=== PATIENT | male | born 1940 | race Caucasian/White ===

== ENCOUNTER → 2017-10-18 12:28 | Outpatient (CLI) | payer MEDICARE, OTHER, SELFPAY ==
[2017-10-18 13:23] LABS: Hemoglobin A1c 7.5 % (4.2-6.3)
== END ==
PROVIDERS: Family Provider Internal Medicine; PCP Internal Medicine; Visit Provider Nurse Practitioner
DX: E11.9 Type 2 diabetes mellitus without complications (principal)
CPT/HCPCS: 36415; 83036

== ENCOUNTER 2018-12-17 13:48 | Emergency (ER) | payer OTHER, MEDICARE, SELFPAY ==
[2018-03-12 12:45] VITALS: BMI 27.8
[2018-12-17 13:49] VITALS: BP 218/108; PULSE 84; RESP 20; TEMP 36.5; O2SAT 98; BMI 30.2
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
[2018-12-17 16:46] VITALS: BP 158/79; PULSE 81; RESP 22; O2SAT 97
--- NOTE | 2018-12-17 16:47 | ED.RN ---
THIS NURSE REVIEWED D/C INSTRUCTIONS WITH PT AND VISITOR. BOTH VERBALIZED UNDERSTANDING OF INSTRUCTIONS. IV D/C. V CATHETER INTACT. PT TOLERATED WELL. PT DENIES FURTHER NEEDS OR QUESTIONS AT THIS TIME. PT DECLINE TYLENOL
== END 2018-12-17 16:48 | disposition home or self-care (01) ==
PROVIDERS: Emergency Provider Emergency Medicine; Family Provider Internal Medicine; PCP Internal Medicine
DX: S09.90XA Unspecified injury of head, initial encounter (principal); R07.89 Other chest pain; V43.52XA Car driver injured in collision with other type car in traffic accident, initial encounter; Y93.9 Activity, unspecified; Y92.9 Unspecified place or not applicable; Y99.9 Unspecified external cause status; E11.22 Type 2 diabetes mellitus with diabetic chronic kidney disease; I12.9 Hypertensive chronic kidney disease with stage 1 through stage 4 chronic kidney disease, or unspecified chronic kidney disease; N18.9 Chronic kidney disease, unspecified; I99.9 Unspecified disorder of circulatory system; Z88.5 Allergy status to narcotic agent; Z88.2 Allergy status to sulfonamides; Z88.1 Allergy status to other antibiotic agents; Z79.4 Long term (current) use of insulin; Z79.02 Long term (current) use of antithrombotics/antiplatelets; Z79.899 Other long term (current) drug therapy; Z90.49 Acquired absence of other specified parts of digestive tract
CPT/HCPCS: 70450; 71046; 72125; 93005; 99284

== ENCOUNTER → 2020-04-29 14:52 | Outpatient (CLI) | payer MEDICARE, OTHER, SELFPAY ==
[2020-04-29 13:41] VITALS: BMI 31.6
[2020-04-29 17:09] LABS: Hemoglobin A1c 7.5 % (3.8-5.6)
[2020-04-29 17:18] LABS: ALB/GLOB Ratio 1.1 RATIO (0.9-2.4); AST(SGOT) 15 U/L (15-37); Alanine Aminotransfer ALT/SGPT 36 U/L (16-61); Albumin, Serum 3.5 g/dL (3.2-5.0); Alkaline Phosphatase 135 U/L (45-117); Anion Gap 6 (5-15); BUN 32 mg/dL (7-18); BUN/Creat Ratio 18.8 RATIO (10-20); Chloride 114 mmol/L (98-107); Cholesterol 109 mg/dL (200); EST Glomerular Filtration Rate 42 mL/min (>60); Est Glom Filt Rate - Afr Amer 50 mL/min (>60); Globulin 3.2 g/dL (2.2-4.2); Glucose 254 mg/dL (74-106); High Density Lipoprotein 69 mg/dL; Potassium 4.3 mmol/L (3.5-5.1); Protein, Total 6.7 g/dL (6.4-8.2); Sodium Level 144 mmol/L (136-145); Triglycerides 47 mg/dL; Very Low Density Lipoprotein 9 mg/dL (5-40)
[2020-04-29 17:19] LABS: Microalbumin,Random Urine 50.6 mg/L (NO RANGE EST.); Microalbumin:Creatinine Ratio 56.3 mg/g CRE (<30 mg/g CRE)
[2020-04-29 18:05] LABS: Absolute Lymphocyte Count 0.85 X10^3/uL (0.83-4.51); Absolute Neutrophil Count 3.1 X10^3/uL (2.0-7.7); Basophil# 0.01 X10^3/uL; Basophil% 0.2 % (0-1); Eosinophils% 2.3 % (0-5); Hematocrit 33.9 % (40-54); Hemoglobin 10.9 g/dL (13.0-16.5); Lymphocyte # 0.85 X10^3/ul (4.0); Lymphocyte % 19.1 % (19-41); Mean Corp Hgb Conc 32.2 g/dL (32-36); Mean Corpuscular Hgb 31.9 pg (27.0-32.0); Mean Corpuscular Volume 99.1 fL (80-94); Mean Platelet Vol. 12.3 fl (6.2-12.0); Monocyte# 0.42 X10^3/uL; Monocyte% 9.5 % (0-10); NRBC Flagged by Analyzer 0 % (0-5); Neutrophil # 3.05 X10^3/uL (2.7-7.7); Neutrophil % 68.7 % (47-70); Platelet Count 135 K/mm3 (150-450); RBC Distribution Width CV 13.4 % (11.6-14.6); RBC Distribution Width SD 48.9 fl (35.1-43.9); Red Blood Count 3.42 M/mm3 (4.6-6.2); White Blood Count 4.4 K/mm3 (4.4-11.0)
[2020-05-01 09:56] LABS: Ferritin 113 ng/mL (26-388); Iron 100 ug/dL (65-175); Iron Binding Capacity,Total 417 ug/dL (250-450)
== END ==
PROVIDERS: PCP Internal Medicine; Referring Provider Internal Medicine; Visit Provider Internal Medicine
DX: E11.9 Type 2 diabetes mellitus without complications (principal)
CPT/HCPCS: 36415; 80053; 80061; 82043; 82570; 82728; 83036; 83540; 83550; 85025

== ENCOUNTER → 2021-01-27 12:14 | Outpatient (CLI) | payer MEDICARE, OTHER, SELFPAY ==
[2021-01-27 15:41] LABS: Hemoglobin A1c 8.4 % (3.8-5.6)
[2021-01-27 15:55] LABS: ALB/GLOB Ratio 0.9 RATIO (0.9-2.4); AST(SGOT) 14 U/L (15-37); Alanine Aminotransfer ALT/SGPT 28 U/L (16-61); Albumin, Serum 3.4 g/dL (3.2-5.0); Alkaline Phosphatase 142 U/L (45-117); Anion Gap 7 (5-15); BUN 27 mg/dL (7-18); BUN/Creat Ratio 16.3 RATIO (10-20); Calcium,Total 9.2 mg/dL (8.5-10.1); Chloride 111 mmol/L (98-107); Creatinine, Serum 1.66 mg/dL (0.70-1.30); EST Glomerular Filtration Rate 43 mL/min (>60); Est Glom Filt Rate - Afr Amer 52 mL/min (>60); Globulin 3.6 g/dL (2.2-4.2); Glucose 223 mg/dL (74-106); Potassium 4.2 mmol/L (3.5-5.1); Sodium Level 142 mmol/L (136-145); T4 Free Direct 1.08 ng/dL (0.76-1.46); Thyroid Stim Hormone (TSH) 1.29 uIU/mL (0.358-3.74)
== END ==
PROVIDERS: PCP Internal Medicine; Visit Provider Internal Medicine
DX: E11.9 Type 2 diabetes mellitus without complications (principal); R00.0 Tachycardia, unspecified
CPT/HCPCS: 36415; 80053; 83036; 84439; 84443

== ENCOUNTER → 2021-02-01 | Outpatient (CLI) | payer MEDICARE, OTHER, SELFPAY ==
[2021-02-01 12:34] LABS: Microalbumin,Random Urine 62.4 mg/L (NO RANGE EST.); Microalbumin:Creatinine Ratio 49.5 mg/g CRE (<30 mg/g CRE)
== END | disposition home or self-care (01) ==
LOC: LABSPEC 10:14
PROVIDERS: PCP Internal Medicine; Visit Provider Internal Medicine
DX: E11.9 Type 2 diabetes mellitus without complications (principal)
CPT/HCPCS: 82043; 82570

== ENCOUNTER 2021-05-05 14:08 | Outpatient (CLI) | payer MEDICARE, OTHER, SELFPAY ==
[2021-05-05 15:33] LABS: Cholesterol 129 mg/dL (200); High Density Lipoprotein 66 mg/dL; PSA,Total - Annual Screen 2.16 ng/mL (0.00-4.00); Triglycerides 38 mg/dL; Very Low Density Lipoprotein 8 mg/dL (5-40)
== END 2021-05-05 23:59 | disposition home or self-care (01) ==
LOC: BIMLAB 14:09
PROVIDERS: PCP Internal Medicine; Referring Provider Internal Medicine; Visit Provider Internal Medicine
DX: E11.9 Type 2 diabetes mellitus without complications (principal); N40.0 Benign prostatic hyperplasia without lower urinary tract symptoms; Z12.5 Encounter for screening for malignant neoplasm of prostate
CPT/HCPCS: 36415; 80061; 84153; G0103

== ENCOUNTER → 2021-08-24 | Outpatient (CLI) | payer MEDICARE, OTHER, SELFPAY ==
[2021-08-24 15:51] LABS: Absolute Neutrophil Count 3.3 X10^3/uL (2.0-7.7); Basophil# 0.02 X10^3/uL; Basophil% 0.4 % (0-1); Eosinophil# 0.14 X10^3/uL; Eosinophils% 2.9 % (0-5); Hematocrit 35.4 % (40-54); Hemoglobin 11.7 g/dL (13.0-16.5); Lymphocyte % 20.5 % (19-41); Mean Corp Hgb Conc 33.1 g/dL (32-36); Mean Corpuscular Hgb 31.8 pg (27.0-32.0); Mean Corpuscular Volume 96.2 fL (80-94); Mean Platelet Vol. 12.3 fl (6.2-12.0); Monocyte# 0.39 X10^3/uL; NRBC Flagged by Analyzer 0 % (0-5); Neutrophil % 67.8 % (47-70); Platelet Count 188 K/mm3 (150-450); RBC Distribution Width CV 13.6 % (11.6-14.6); RBC Distribution Width SD 46.2 fl (35.1-43.9); Red Blood Count 3.68 M/mm3 (4.6-6.2); White Blood Count 4.9 K/mm3 (4.4-11.0)
[2021-08-24 16:06] LABS: AST(SGOT) 16 U/L (15-37); Alanine Aminotransfer ALT/SGPT 25 U/L (16-61); Albumin, Serum 3.4 g/dL (3.2-5.0); Alkaline Phosphatase 114 U/L (45-117); Anion Gap 5 (5-15); BUN 34 mg/dL (7-18); BUN/Creat Ratio 19.5 RATIO (10-20); Calcium,Total 9.3 mg/dL (8.5-10.1); Chloride 108 mmol/L (98-107); Creatinine, Serum 1.74 mg/dL (0.70-1.30); EST Glomerular Filtration Rate 40 mL/min (>60); Est Glom Filt Rate - Afr Amer 49 mL/min (>60); Globulin 3.5 g/dL (2.2-4.2); Glucose 263 mg/dL (74-106); Potassium 4.5 mmol/L (3.5-5.1); Protein, Total 6.9 g/dL (6.4-8.2); Sodium Level 140 mmol/L (136-145)
== END | disposition home or self-care (01) ==
LOC: BIMLAB 14:19
PROVIDERS: PCP Internal Medicine; Referring Provider Internal Medicine; Visit Provider Internal Medicine
DX: E11.9 Type 2 diabetes mellitus without complications (principal)
CPT/HCPCS: 36415; 80053; 85025

== ENCOUNTER → 2022-07-20 | Outpatient (CLI) | payer MEDICARE, OTHER, SELFPAY ==
[2022-07-20 17:10] LABS: ALB/GLOB Ratio 1.2 RATIO (0.9-2.4); AST(SGOT) 18 U/L (15-37); Alanine Aminotransfer ALT/SGPT 29 U/L (16-61); Albumin, Serum 3.6 g/dL (3.2-5.0); Alkaline Phosphatase 126 U/L (45-117); Anion Gap 5 (5-15); BUN 21 mg/dL (7-18); BUN/Creat Ratio 13.7 RATIO (10-20); Calcium,Total 8.7 mg/dL (8.5-10.1); Chloride 115 mmol/L (98-107); Cholesterol 117 mg/dL (200); Creatinine, Serum 1.53 mg/dL (0.70-1.30); EST Glomerular Filtration Rate 47 mL/min (>60); Est Glom Filt Rate - Afr Amer 56 mL/min (>60); Globulin 2.9 g/dL (2.2-4.2); Glucose 106 mg/dL (74-106); High Density Lipoprotein 67 mg/dL; Potassium 4.1 mmol/L (3.5-5.1); Protein, Total 6.5 g/dL (6.4-8.2); Sodium Level 144 mmol/L (136-145); Triglycerides 51 mg/dL; Very Low Density Lipoprotein 10 mg/dL (5-40)
[2022-07-20 17:15] LABS: Absolute Lymphocyte Count 1.01 X10^3/uL (0.83-4.51); Absolute Neutrophil Count 3.7 X10^3/uL (2.0-7.7); Basophil# 0.02 X10^3/uL; Basophil% 0.4 % (0-1); Eosinophil# 0.12 X10^3/uL; Eosinophils% 2.3 % (0-5); Hematocrit 33.6 % (40-54); Hemoglobin 11.1 g/dL (13.0-16.5); Lymphocyte # 1.01 X10^3/ul (0.83-4.51); Lymphocyte % 19.3 % (19-41); Mean Corpuscular Hgb 31.3 pg (27.0-32.0); Mean Corpuscular Volume 94.6 fL (80-94); Mean Platelet Vol. 12.1 fl (6.2-12.0); Monocyte# 0.37 X10^3/uL; Monocyte% 7.1 % (0-10); NRBC Flagged by Analyzer 0 % (0-5); Neutrophil # 3.69 X10^3/uL (2.7-7.7); Neutrophil % 70.7 % (47-70); Platelet Count 145 K/mm3 (150-450); RBC Distribution Width CV 13.4 % (11.6-14.6); RBC Distribution Width SD 46.5 fl (35.1-43.9); Red Blood Count 3.55 M/mm3 (4.6-6.2); White Blood Count 5.2 K/mm3 (4.4-11.0)
[2022-07-20 17:26] LABS: Microalbumin:Creatinine Ratio 191.7 mg/g CRE (<30 mg/g CRE)
[2022-07-20 17:47] LABS: Hemoglobin A1c 9.2 % (3.8-5.6)
== END | disposition home or self-care (01) ==
LOC: BIMLAB 14:50
PROVIDERS: PCP Internal Medicine; Visit Provider Internal Medicine
DX: E11.9 Type 2 diabetes mellitus without complications (principal); I10 Essential (primary) hypertension
CPT/HCPCS: 36415; 80053; 80061; 82043; 82570; 83036; 85025

== ENCOUNTER → 2022-09-26 | Outpatient (CLI) | payer MEDICARE, OTHER, SELFPAY ==
--- NOTE | 2022-09-26 15:05 | RAD_ITS ---
STUDY: X-RAY CHEST REASON FOR EXAM: Male, 81 years old. Cough TECHNIQUE: PA and lateral views of the chest. COMPARISON: Comparison is made with prior study dated December 17, 2014. FINDINGS: Scattered calcified granulomas. No focal infiltrate is seen. There is no demonstrated pleural abnormality. There is borderline cardiomegaly. Normal mediastinum and chiquita. Normal visualized pulmonary arteries. There is atherosclerotic calcification of the aortic arch with tortuosity. There are degenerative changes of the visualized thoracic spine. Normal visualized ribs, clavicles, and shoulders. There is no demonstrated abnormality of the visualized soft tissue structures of the upper abdomen. RAD/Chest PA and Lateral IMPRESSION: No acute abnormality is seen. Electronically Signed: Tobin Ch MD at 15:29 EDT ,
== END | disposition home or self-care (01) ==
PROVIDERS: PCP Internal Medicine; Referring Provider Physician Assistant; Visit Provider Physician Assistant
DX: R05.9 Cough, unspecified (principal)
CPT/HCPCS: 71046

== ENCOUNTER → 2023-03-06 | Outpatient (CLI) | payer MEDICARE, SELFPAY ==
[2023-03-06 13:46] LABS: Bacteria 0 SEEN /hpf (None Seen); Mucous, Urine 0 SEEN /hpf (<or=2+); Red Blood Cells-Urine 0 SEEN /hpf (0-5); Squamous Epithelial Cells - UA 0 SEEN /hpf (0-5); White Blood Cells 0 SEEN /hpf (0-5)
[2023-03-06 15:39] LABS: Color, Urine Yellow (Yellow); Glucose, Dipstick 100 mg/dl (Normal); Ketone-Dipstick Negative (Negative); Leukocyte Esterase-Dipstick Negative /ul (Negative); Nitrite-Dipstick Negative (Negative); Occult Blood-Urine Negative /ul (Negative); Protein-Dipstick 30 mg/dl (Negative); Urine Bilirubin Dipstick Negative (Negative); Urine Clarity Clear (Clear); Urine Urobilinogen Normal (Normal)
[2023-03-06 16:28] LABS: ALB/GLOB Ratio 1.1 RATIO (0.9-2.4); AST(SGOT) 23 U/L (15-37); Alanine Aminotransfer ALT/SGPT 28 U/L (16-61); Albumin, Serum 3.5 g/dL (3.2-5.0); Alkaline Phosphatase 163 U/L (45-117); Anion Gap 5 (5-15); BUN 23 mg/dL (7-18); BUN/Creat Ratio 12.8 RATIO (10-20); Chloride 108 mmol/L (98-107); Creatinine, Serum 1.79 mg/dL (0.70-1.30); EST Glomerular Filtration Rate 39 mL/min (>60); Est Glom Filt Rate - Afr Amer 47 mL/min (>60); Globulin 3.3 g/dL (2.2-4.2); Glucose 274 mg/dL (74-106); Potassium 4.6 mmol/L (3.5-5.1); Protein, Total 6.8 g/dL (6.4-8.2); Sodium Level 140 mmol/L (136-145)
[2023-03-06 16:56] LABS: Absolute Neutrophil Count 4.2 X10^3/uL (2.0-7.7); Basophil# 0.03 X10^3/uL; Basophil% 0.5 % (0-1); Eosinophil# 0.25 X10^3/uL; Hematocrit 34.6 % (40-54); Hemoglobin 11.6 g/dL (13.0-16.5); Lymphocyte % 20.7 % (19-41); Mean Corp Hgb Conc 33.5 g/dL (32-36); Mean Corpuscular Hgb 31.4 pg (27.0-32.0); Mean Corpuscular Volume 93.5 fL (80-94); Mean Platelet Vol. 11.8 fl (6.2-12.0); Monocyte# 0.44 X10^3/uL; NRBC Flagged by Analyzer 0 % (0-5); Neutrophil # 4.23 X10^3/uL (2.7-7.7); Neutrophil % 67.3 % (47-70); Platelet Count 171 K/mm3 (150-450); RBC Distribution Width CV 13.4 % (11.6-14.6); RBC Distribution Width SD 45.5 fl (35.1-43.9); White Blood Count 6.3 K/mm3 (4.4-11.0)
== END | disposition home or self-care (01) ==
LOC: BIMLAB 13:36
PROVIDERS: PCP Internal Medicine; Referring Provider Internal Medicine; Visit Provider Internal Medicine
DX: E11.9 Type 2 diabetes mellitus without complications (principal)
CPT/HCPCS: 36415; 80053; 81001; 85025

== ENCOUNTER → 2023-04-03 | Outpatient (CLI) | payer MEDICARE, SELFPAY ==
[2023-04-03 17:08] LABS: ALB/GLOB Ratio 1.1 RATIO (0.9-2.4); AST(SGOT) 16 U/L (15-37); Alanine Aminotransfer ALT/SGPT 24 U/L (16-61); Albumin, Serum 3.5 g/dL (3.2-5.0); Alkaline Phosphatase 179 U/L (45-117); Anion Gap 5 (5-15); BUN 30 mg/dL (7-18); BUN/Creat Ratio 14.1 RATIO (10-20); Calcium,Total 9.8 mg/dL (8.5-10.1); Chloride 106 mmol/L (98-107); Creatinine, Serum 2.13 mg/dL (0.70-1.30); EST Glomerular Filtration Rate 32 mL/min (>60); Est Glom Filt Rate - Afr Amer 38 mL/min (>60); Globulin 3.2 g/dL (2.2-4.2); Glucose 444 mg/dL (74-106); Potassium 4.2 mmol/L (3.5-5.1); Protein, Total 6.7 g/dL (6.4-8.2); Sodium Level 138 mmol/L (136-145); T4 Total, Thyroxin 5.8 ug/dL (4.5-12.1); Thyroid Stim Hormone (TSH) 1.28 uIU/mL (0.358-3.74)
[2023-04-03 17:13] LABS: Absolute Neutrophil Count 3.5 X10^3/uL (2.0-7.7); Basophil# 0.02 X10^3/uL; Basophil% 0.4 % (0-1); Eosinophil# 0.08 X10^3/uL; Eosinophils% 1.7 % (0-5); Hematocrit 30.8 % (40-54); Hemoglobin 10.4 g/dL (13.0-16.5); Lymphocyte % 14.7 % (19-41); Mean Corp Hgb Conc 33.8 g/dL (32-36); Mean Corpuscular Hgb 31.4 pg (27.0-32.0); Mean Corpuscular Volume 93.1 fL (80-94); Mean Platelet Vol. 11.6 fl (6.2-12.0); Monocyte# 0.41 X10^3/uL; Monocyte% 8.6 % (0-10); NRBC Flagged by Analyzer 0 % (0-5); Neutrophil # 3.53 X10^3/uL (2.7-7.7); Neutrophil % 74.4 % (47-70); Platelet Count 148 K/mm3 (150-450); RBC Distribution Width CV 13.1 % (11.6-14.6); RBC Distribution Width SD 44.8 fl (35.1-43.9); Red Blood Count 3.31 M/mm3 (4.6-6.2); White Blood Count 4.8 K/mm3 (4.4-11.0)
[2023-04-03 17:14] LABS: BNP,B-Type NATRIURETIC PEPTIDE 85.7 pg/mL (0-100)
--- OUTSIDE RECORDS SUMMARY | 2023-04-03 18:31 | XMS RPT_ITS | CCD ---
Author Name Unknown Address [address] [place] [id number] Organization [facility] Care Team Providers Care Harp Maker Name Role Phone [place], Trey S. Unavailable Yoly Mathews Unavailable UnavailYoly Pack Unavailable UnavailGRAEME Rondon Attending Unavailable GUME BUI Referring Unavailable [facility] Primary Care Unavailable ALONZO ALEXANDRE Attending Unavailable [facility] Referring Unavailable [facility] Primary Care Unavailable [place], Trey S. Primary Care Provider [place], Trey S. Primary Care Provider NAHUN JASSO Attending Unavailable ROYAL, TREY S. Primary Care Unavailable ROYAL, TREY S. Primary Care Unavailable NAHUN JASSO Attending Unavailable ROYAL, TREY S. Primary Care Unavailable NAHUN JASSO Attending Unavailable Agnes Suazo MD Primary Care Provider Kevon Watson MD Unavailable Agnes Suazo MD Primary Care Provider [phone] Ms. Sandro Gaines Attending Dr. Agnes Vazquez Primary Care Unavailable Dr. Agnes Suazo Primary Care Unavailable Ms. Sandro Gaines Attending Agnes Vazquez Unavailable [phone] Sandro Gaines Unavailable Unavailable Agnes Suazo MD Primary Care Provider Walter WOLFE Kevon Unavailable Agnes Suazo MD Primary Care Provider OLEGHE, EFEWONGBE B Primary Care Unavailable BRIANNA TINEO II Attending Unavailabl e ELVIS MCMAHAN K Referring Unavailable OLEGHE, EFEWONGBE B Primary Care Unavailable ELVIS MCMAHAN K Referring Unavailable MCMAHANELVIS K Attending Unavailable OLEGHE, EFEWONGBE B Primary Care Unavailable ELVIS MCMAHAN Referring Unavailable MCMAHANELVIS Attending Unavailable Oleghe MD Efewongbe B Primary Care Provider YOLY MATHEWS Attending Unavailable OLEGHE, EFEWONGBE B Primary Care Unavailable YOLY MATHEWS Referring Unavailable OLEGHE, EFEWONGBE B Primary Care Unavailable YOLY MATHEWS Referring Unavailable YOLY MATHEWS Attending Unavailable OLEGHE, EFEWONGBE B Primary Care Unavailable YOLY MATHEWS Referring Unavailable YOLY MATHEWS Unavailable YOLY MATHEWS Referring Unavailable OLEGHE, EFEWONGBE B Primary Care Unavailable YOLY MATHEWS Attending Unavailable YOLY MATHEWS Attending Unavailable SWIYOLY SIMMONS Referring Unavailable OLEGHE, EFEWONGBE B Primary Care Unavailable YOLY MATHEWS Attending Unavailable OLEGHE, EFEWONGBE B Primary Care Unavailable SELF, SELF Referring Unavailable YOLY MATHEWS Attending Unavailable SWIYOLY SIMMONS Referring Unavailable OLEGHE, EFEWONGBE B Primary Care Unavailable YOLY MATHEWS Attending Unavailable SWIYOLY SIMMONS Referring Unavailable OLEGHE, EFEWONGBE B Primary Care Unavailable YOLY MATHEWS Attending Unavailable YOLY MATHEWS Referring Unavailable OLEGHE, EFEWONGBE B Primary Care Unavailable SWIYOLY SIMMONS Attending Unavailable SWIYOLY SIMMONS Referring Unavailable OLEGHE, EFEWONGBE B Primary Care Unavailable SWIYOLY SIMMONS Attending Unavailable SWIYOLY SIMMONS Referring Unavailable OLEGHE, EFEWONGBE B Primary Care Unavailable YOLY MATHEWS Referring Unavailable SWIATEYOLY Winn Attending Unavailable OLEGHE, EFEWONGBE B Primary Care Unavailable SWIYOLY SIMMONS Attending Unavailable SWIYOLY SIMMONS Referring Unavailable OLEGHE, EFEWONGBE B Primary Care Unavailable YOLY MATHEWS Attending Unavailable SWIYOLY SIMMONS Referring Unavailable OLEGHE, EFEWONGBE B Primary Care Unavailable SWIYOLY SIMMONS Attending Unavailable SWIATEKYOLY Referring Unavailable OLEGHE, EFEWONGBE B Primary Care Unavailable JOAQUINJo YOLY Enrique Referring Unavailable REIDYOLY Attending Unavailable LORIE, EFEWONGBE B Primary Care Unavailable REID YOLY Enrique Referring Unavailable REIDYOLY Attending Unavailable OLEGHE, EFEWONGBE B Primary Care Unavailable JOAQUINYOLY Winn Enrique Referring Unavailable REIDYOLY Attending Unavailable LORIE, EFEWONGBE B Primary Care Unavailable REID YOLY Enrique Referring Unavailable OLEZANDERE, EFEWONGBE B Primary Care Unavailable REID YOLY Enrique Attending Unavailable REID YOLY Enrique Referring Unavailable LORIE, EFEWONGBE B Primary Care Unavailable REID YOLY Enrique Attending Unavailable Allergies Allergy Classification Reported Allergen(s) Allergy Type Date of Onset Reaction(s) Facility (20 sources) acetaminophen / HYDROcodone; Translations: [HYDROCODONE-ACETAM INOPHEN] Drug Allergy 03-14-19 15 Mental Status Change [facility] (20 sources) cephalexin; Translations: [CEPHALEXIN] Drug Allergy 06-30-19 17 Rash [facility] (20 sources) sulfamethoxazole / trimethoprim; Translations: [SULFAMETHOXAZOLE-T RIMETHOPRIM] Drug Allergy 06-30-19 17 Rash [facility] (20 sources) HYDROcodone; Translations: [HYDROCODONE] Drug Allergy 03-12-19 19 Unknown [facility] (20 sources) Sulfamethoxazole; Translations: [SULFAMETHOXAZOLE] Drug Allergy 03-12-19 19 Unknown [facility] (20 sources) Trimethoprim; Translations: [TRIMETHOPRIM] Drug Allergy 03-12-19 19 Unknown [facility] (5 sources) Acetaminophen; Translations: [ACETAMINOPHEN] Drug Allergy 12-18-19 19 Unknown [facility] (1 source) Sulfamethoxazole / Trimethoprim Drug Allergy Rash [facility] (5 sources) Sulfamethoxazole Propensity to adverse reactions to drug 03-12-[address] [facility] Medications Current Medications Medication Drug Class(es) Dates Sig (Normalized) Sig (Original) ascorbic acid 60 mg / beta carotene 5000 unt / copper sulfate 40 mg / dl-alpha tocopheryl acetate 30 unt / sodium selenite 0.04 mg / zinc oxide 40 mg oral tablet (19 sources) Vitamin C Multiple Vitamins-Minerals (Multivitamin Adult) tablet 1 tablet 0 Active aspirin 81 mg delayed release oral tablet (20 sources) Nonsteroidal Anti-inflammatory Drug Aspirin [address] tablet 1 tablet 0 Active Completed/Discontinued Medications Medication Drug Class(es) Dates Sig (Normalized) Sig (Original) amoxicillin 500 mg oral capsule (6 sources) Penicillin-class Antibacterial Start: 04-29-2022 End: 08-09-2022 Amoxicillin 500 MG capsule Problems Active Problems Problem Classification Problem Date Documented Date Episodic/Chronic Allergic reactions (1 source) Allergy status to penicillin; Translations: [Allergy status to penicillin] Onset: 11-29-2021 Episodic Blindness and vision defects (1 source) Hyperopia of right eye; Translations: [Hypermetropia, right eye] Episodic Blindness and vision defects (2 sources) Myopia of left eye; Translations: [Myopia, left eye] Episodic Cataract (16 sources) After-cataract not obscuring vision following extraction of cataract; Translations: [Other secondary cataract, right eye] Onset: 12-09-2013 Chronic Chronic kidney disease (5 sources) Chronic kidney disease; Translations: [Chronic kidney disease, unspecified] Onset: 05-16-2018 Chronic Chronic ulcer of skin (20 sources) Non-pressure chronic ulcer of other part of right foot limited to breakdown of skin; Translations: [Ulcer of other part of foot] Onset: 04-14-2022 Chronic Diabetes mellitus with complications (20 sources) Polyneuropathy due to type 2 diabetes mellitus; Translations: [Type 2 diabetes mellitus with diabetic polyneuropathy] Onset: 10-09-2018 Chronic Diabetes mellitus without complication (7 sources) Diabetes mellitus type 2 without retinopathy; Translations: [Type 2 diabetes mellitus without complications] Onset: 05-19-2020 Chronic Disorders of lipid metabolism (20 sources) Mixed hyperlipidemia; Translations: [Mixed hyperlipidemia] Onset: 05-16-2018 01-22-2020 Chronic E Codes: Fall (3 sources) Unspecified fall, initial encounter; Translations: [Fall (on) (from) other stairs and steps, initial encounter] Onset: 11-29-2021 Episodic Essential hypertension (20 sources) Essential hypertension; Translations: [Essential (primary) hypertension] Onset: 09-13-2017 01-22-2020 Chronic Inflammation; infection of eye (except that caused by tuberculosis or sexually transmitteddisease) (5 sources) Bilateral punctate keratitis of eyes; Translations: [Punctate keratitis, bilateral] Onset: 02-15-2017 Chronic Mycoses (4 sources) Onychomycosis due to dermatophyte ; Translations: [Tinea unguium] Episodic Other aftercare (1 source) USP (current) use of insulin; Translations: [USP (current) use of insulin] Onset: 11-29-2021 Episodic Other congenital anomalies (1 source) Congenital anomaly of foot; 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), including pelvic girdle] Chronic Other connective tissue disease (3 sources) Pain of toe of right foot; Translations: [Pain in right toe(s)] Episodic Other connective tissue disease (2 sources) Pain of toe of left foot; Translations: [Pain in left toe(s)] Episodic Other connective tissue disease (1 source) Nontraumatic complete rupture of rotator cuff of right shoulder; Translations: [Nontraumatic complete tear of right rotator cuff] Other eye disorders (5 sources) Constricted pupil; 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] Onset: 05-19-2020 Chronic Other eye disorders (4 sources) Hemorrhage of right vitreous body; Translations: [Vitreous hemorrhage, right eye] Onset: 12-03-2014 12-03-2014 Chronic Other eye disorders (4 sources) Bilateral vitreous floaters; Translations: [Other vitreous opacities, bilateral] Onset: 12-23-2015 12-23-2015 Chronic Other eye disorders (4 sources) Bilateral posterior vitreous detachment; Translations: [Vitreous degeneration, bilateral] Onset: 06-19-2018 06-19-2018 Chronic Other eye disorders (2 sources) Meibomian gland dysfunction of bilateral eyes; Translations: [Meibomian gland dysfunction right eye, upper and lower eyelids] Onset: 03-25-2022 03-25-2022 Episodic Other eye disorders (2 sources) Chalazion of lower eyelid of right eye; Translations: [Chalazion right lower eyelid] Onset: 03-25-2022 03-25-2022 Episodic Other injuries and conditions due to external causes (1 source) Other injury of unspecified body region, initial encounter; Translations: [Other injury of unspecified body region, initial encounter] Onset: 11-29-2021 Episodic Other nervous system disorders (2 sources) Carpal tunnel syndrome, left upper limb; Translations: [Carpal tunnel syndrome of left wrist] Onset: 11-27-2017 11-27-2017 Chronic Other non-traumatic joint disorders (2 sources) Pain in left knee; Translations: [Pain in left knee] Onset: 11-29-2021 Episodic Other nutritional; endocrine; and metabolic disorders (19 sources) Obese class I; Translations: [Obesity, unspecified] Onset: 09-24-2018 09-24-2018 Chronic Other nutritional; endocrine; and metabolic disorders (4 sources) Obesity; Translations: [Obesity, unspecified] Onset: 12-31-2013 12-31-2013 Chronic Other skin disorders (4 sources) Foot callus; Translations: [Corns and callosities] Episodic Other skin disorders (1 source) Other skin changes; Translations: [Other skin changes] Onset: 11-29-2021 Episodic Skin and subcutaneous tissue infections (1 source) Cellulitis of left lower limb; Translations: [Cellulitis of left lower limb] Onset: 11-29-2021 Episodic Superficial injury; contusion (2 sources) Abrasion of lower limb; Translations: [Contusion of left knee, initial encounter] Onset: 11-29-2021 Episodic Unclassified (7 sources) Carpal tunnel syndrome of left wrist; Translations: [Carpal tunnel syndrome of left wrist] Onset: 11-27-2017 11-27-2017 Unclassified (2 sources) Impingement syndrome of right shoulder; Translations: [Impingement syndrome of right shoulder] Unclassified (2 sources) Occlusion and stenosis of left carotid artery Onset: 10-25-2017 Unclassified (2 sources) L KNEE PAIN 11-29-2021 Past or Other Problems Problem Classification Problem Date Documented Date Episodic/Chronic Other and unspecified benign neoplasm (4 sources) History of adenomatous polyp of colon; Translations: [Personal history of colonic polyps] Onset: 12-31-2013 12-31-2013 Episodic Other connective tissue disease (1 source) Pain in right foot; Translations: [Pain in right foot] Episodic Other diseases of veins and lymphatics (4 sources) Stasis dermatitis; Translations: [Venous insufficiency (chronic) (peripheral)] Onset: 12-31-2013 12-31-2013 Episodic Other non-traumatic joint disorders (3 sources) Shoulder pain; Translations: [Chronic pain of both shoulders] Episodic Retinal detachments; defects; vascular occlusion; and retinopathy (4 sources) Retinal U tear; Translations: [Horseshoe tear 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 detachment, right eye] Onset: 12-03-2014 12-03-2014 Episodic Unclassified (2 sources) Onset: 06-16-2022 Resolved: 08-09-2022 06-16-2022 Results Test Name Value Interpretation Reference Range Facil ity Vital Signs Date Time Vital Sign Value Performing Clinician Facility 03-21-2023 13:40-0500 Body height 157.5 cm Yoly Poojapattik DPM Work Phone: [facility] 03-21-2023 13:40-0500 Body mass index (BMI) [Ratio] 32.01 kg/m2 Yoly Swiatek DPM Work Phone: [facility] 03-21-2023 13:40-0500 Body weight 79.38 kg Yoly Poojaatek DPM Work Phone: [facility] 03-21-2023 13:40-0500 Diastolic blood pressure 70 mm[Hg] Yoly Pattonatek DPM Work Phone: [facility] 03-21-2023 13:40-0500 Systolic blood pressure 156 mm[Hg] Yoly Pattonatek DPM Work Phone: [facility] 01-26-2023 15:08-0500 Body height 157.5 cm Yoly Poojaatek DPM Work Phone: [facility] 01-26-2023 15:08-0500 Body mass index (BMI) [Ratio] 32.01 kg/m2 Yoly Poojaatek DPM Work Phone: [facility] 01-26-2023 15:08-0500 Body weight 79.38 kg Yoly Poojaatek DPM Work Phone: [facility] 01-26-2023 15:08-0500 Diastolic blood pressure 60 mm[Hg] Yoly Pattonatek DPM Work Phone: [facility] 01-26-2023 15:08-0500 Heart rate 82 /min Yoly Pattonatek DPM Work Phone: [facility] 01-26-2023 15:08-0500 Systolic blood pressure 150 mm[Hg] Yoly Swiatek DPM Work Phone: [facility] 01-12-2023 14:14-0500 Body height 157.5 cm Yoly Mathews DPM Work Phone: [facility] 01-12-2023 14:14-0500 Body mass index (BMI) [Ratio] 32.01 kg/m2 Yoly Nuñezk DPM Work Phone: [facility] 01-12-2023 14:14-0500 Body weight 79.38 kg Yoly Nuñezk DPM Work Phone: [facility] 01-12-2023 14:14-0500 Diastolic blood pressure 70 mm[Hg] Yoly Nuñezk DPM Work Phone: [facility] 01-12-2023 14:14-0500 Heart rate 92 /min Yoly Nuñezk DPM Work Phone: [facility] 01-12-2023 14:14-0500 Systolic blood pressure 180 mm[Hg] Yoly Nuñezk DPM Work Phone: [facility] 12-20-2022 13:53-0500 Body height 157.5 cm Yoly Nuñezk DPM Work Phone: [facility] 12-20-2022 13:53-0500 Body mass index (BMI) [Ratio] 32.01 kg/m2 Yoly Nuñezk DPM Work Phone: [facility] 12-20-2022 13:53-0500 Body weight 79.38 kg Yoly Mathews DPM Work Phone: [facility] 12-20-2022 13:53-0500 Diastolic blood pressure 68 mm[Hg] Yoly Nuñezk DPM Work Phone: [facility] 12-20-2022 13:53-0500 Heart rate 90 /min Yoly Poojaatek DPM Work Phone: [facility] 12-20-2022 13:53-0500 SaO2% (BldA) [Mass fraction] 98 % Yoly Mathews DPM Work Phone: [facility] 12-20-2022 13:53-0500 Systolic blood pressure 158 mm[Hg] Yoly Mathews DPM Work Phone: [facility] 10-18-2022 14:04-0400 Body height 157.5 cm Yoly Mathews DPM Work Phone: [facility] 10-18-2022 14:04-0400 Body mass index (BMI) [Ratio] 32.01 kg/m2 Yoly Nuñezk DPM Work Phone: [facility] 10-18-2022 14:04-0400 Body weight 79.38 kg Yoly Mathews DPM Work Phone: [facility] 10-18-2022 14:04-0400 Diastolic blood pressure 74 mm[Hg] Yoly Joaquink DPM Work Phone: [facility] 10-18-2022 14:04-0400 Systolic blood pressure 142 mm[Hg] Yoly Nuñezk DPM Work Phone: [facility] 08-09-2022 13:49-0400 Body height 157.5 cm Yoly Mathews DPM Work Phone: [facility] 08-09-2022 13:49-0400 Body mass index (BMI) [Ratio] 32.01 kg/m2 Yoly Nuñezk DPM Work Phone: [facility] 08-09-2022 13:49-0400 Body weight 79.38 kg Yoly Mathews DPM Work Phone: [facility] 08-09-2022 13:49-0400 Diastolic blood pressure 82 mm[Hg] Yoly Joaquink DPM Work Phone: [facility] 08-09-2022 13:49-0400 Heart rate 60 /min Yoly Reid DPM Work Phone: [facility] 08-09-2022 13:49-0400 SaO2% (BldA) [Mass fraction] 98 % Yoly Pattonatek DPM Work Phone: [facility] 08-09-2022 13:49-0400 Systolic blood pressure 152 mm[Hg] Yoly Nuñezk DPM Work Phone: [facility] 06-16-2022 14:16-0400 Body height 157.5 cm Yoly Nuñezk DPM Work Phone: [facility] 06-16-2022 14:16-0400 Body mass index (BMI) [Ratio] 32.01 kg/m2 Yoly Pattonatek DPM Work Phone: [facility] 06-16-2022 14:16-0400 Body weight 79.38 kg Yoly Poojaatek DPM Work Phone: [facility] 06-16-2022 14:16-0400 Diastolic blood pressure 88 mm[Hg] Yoly Poojaatek DPM Work Phone: [facility] 06-16-2022 14:16-0400 Heart rate 70 /min Yoly Pattonatek DPM Work Phone: [facility] 06-16-2022 14:16-0400 SaO2% (BldA) [Mass fraction] 98 % Yoly Pattonatek DPM Work Phone: [facility] 06-16-2022 14:16-0400 Systolic blood pressure 158 mm[Hg] Yoly Joaquink DPM Work Phone: [facility] 06-02-2022 13:31-0400 Body height 157.5 cm Yoly Joaquink DPM Work Phone: [facility] 06-02-2022 13:31-0400 Body mass index (BMI) [Ratio] 32.01 kg/m2 Yoly Poojaatek DPM Work Phone: [facility] 06-02-2022 13:31-0400 Body weight 79.38 kg Yoly Joaquink DPM Work Phone: [facility] 06-02-2022 13:31-0400 Diastolic blood pressure 90 mm[Hg] Yoly Mathews DPM Work Phone: [facility] 06-02-2022 13:31-0400 Systolic blood pressure 190 mm[Hg] Yoly Mathews DPM Work Phone: [facility] 05-03-2022 13:51-0400 Body height 157.5 cm Yoly Mathews DPM Work Phone: [facility] 05-03-2022 13:51-0400 Body mass index (BMI) [Ratio] 32.01 kg/m2 Yoly Mathews DPM Work Phone: [facility] 05-03-2022 13:51-0400 Body weight 79.38 kg Yoly Mathews DPM Work Phone: [facility] 05-03-2022 13:51-0400 Diastolic blood pressure 86 mm[Hg] Yoly Mathews DPM Work Phone: [facility] 05-03-2022 13:51-0400 Heart rate 88 /min Yoly Mathews DPM Work Phone: [facility] 05-03-2022 13:51-0400 SaO2% (BldA) [Mass fraction] 97 % Yoly Mathews DPM Work Phone: [facility] 05-03-2022 13:51-0400 Systolic blood pressure 164 mm[Hg] Yoly Mathews DPM Work Phone: [facility] 03-24-2022 13:55-0500 Body height 157.5 cm Yoly Mathews DPM Work Phone: [facility] 03-24-2022 13:55-0500 Body mass index (BMI) [Ratio] 32.01 kg/m2 Yoly Mathews DPM Work Phone: [facility] 03-24-2022 13:55-0500 Body weight 79.38 kg [facility]ws [facility] 03-24-2022 13:55-0500 Diastolic blood pressure 62 mm[Hg] Yoly Reid DPM Work Phone: [facility] [employer] [facility] 03-24-2022 13:55-0500 Heart rate 77 /min Yoly Joaquink DPM Work Phone: [facility] [employer] [facility] 03-24-2022 13:55-0500 Systolic blood pressure 140 mm[Hg] Yoly Joaquink DPM Work Phone: [facility] [employer] [facility] 01-27-2022 14:02-0500 Body height 157.5 cm Yoly Poojapattik DPM Work Phone: [facility] 01-27-2022 14:02-0500 Body mass index (BMI) [Ratio] 32.01 kg/m2 Yoly Poojapattik DPM Work Phone: [facility] [employer] [facility] 01-27-2022 14:02-0500 Body weight 79.38 kg Yoly Nuñezk DPM Work Phone: [facility] [employer] [facility] 01-27-2022 14:02-0500 Diastolic blood pressure 54 mm[Hg] Yoly Joaquink DPM Work Phone: [facility] [employer] [facility] 01-27-2022 14:02-0500 Heart rate 63 /min Yoly Reid DPM Work Phone: [facility] 01-27-2022 14:02-0500 SaO2% (BldA) [Mass fraction] 96 % Yoly Poojaatek DPM Work Phone: [facility] [employer] [facility] 01-27-2022 14:02-0500 Systolic blood pressure 134 mm[Hg] Yoly Mathews DPM Work Phone: [facility] 01-11-2022 13:51-0500 Body height 157.5 cm Yoly uNñezk DPM Work Phone: [facility] [employer] [facility] 01-11-2022 13:51-0500 Body mass index (BMI) [Ratio] 32.01 kg/m2 Yoly Mathews DPM Work Phone: [employer] [facility] 01-11-2022 13:51-0500 Body weight 79.38 kg Yoly Mathews DPM Work Phone: [employer] [facility] 01-11-2022 13:51-0500 Diastolic blood pressure 62 mm[Hg] Yoly Mathews DPM Work Phone: [facility] 01-11-2022 13:51-0500 Systolic blood pressure 132 mm[Hg] [facility]ws [facility] 11-29-2021 15:35-0400 Body height 160 cm Efewongbe Oleghe Other Phone: [facility] 11-29-2021 15:35-0400 Body temperature 97.88 [degF] Efewongbe Oleghe Other Phone: [facility] 11-29-2021 15:35-0400 Diastolic blood pressure 76 mm[Hg] Efewongbe Oleghe Other Phone: [facility] 11-29-2021 15:35-0400 Heart rate 78 /min Efewongbe Oleghe Other Phone: [facility] 11-29-2021 15:35-0400 Respiratory rate 18 /min Efewongbe Oleghe Other Phone: [facility] 11-29-2021 15:35-0400 SaO2% (BldA) [Mass fraction] 96 % Efewongbe Oleghe Other Phone: [facility] 11-29-2021 15:35-0400 Systolic blood pressure 213 mm[Hg] Efewongbe Oleghe Other Phone: [facility] 11-02-2021 13:53-0400 Body height 157.5 cm Yoly Mathews DPM Work Phone: [facility] 11-02-2021 13:53-0400 Body mass index (BMI) [Ratio] 32.01 kg/m2 Yoly Mathews DPM Work Phone: [facility] [employer] [facility] 11-02-2021 13:53-0400 Body weight 79.38 kg Yoly Mathews DPM Work Phone: [facility] [employer] [facility] 11-02-2021 13:53-0400 Diastolic blood pressure 68 mm[Hg] Yoly Reid DPM Work Phone: [facility] 11-02-2021 13:53-0400 Heart rate 70 /min Yoly Reid DPM Work Phone: [facility] [employer] [facility] 11-02-2021 13:53-0400 Systolic blood pressure 160 mm[Hg] Yoly Reid DPM Work Phone: [facility] [employer] [facility] 09-16-2021 13:40-0400 Body height 157.5 cm Yoly Mathews DPM Work Phone: [facility] 09-16-2021 13:40-0400 Body mass index (BMI) [Ratio] 32.01 kg/m2 Yoly Mathews DPM Work Phone: [facility] 09-16-2021 13:40-0400 Body weight 79.38 kg Yoly Mathews DPM Work Phone: [facility] [employer] [facility] 09-16-2021 13:40-0400 Diastolic blood pressure 76 mm[Hg] Yoly Poojapattijo DPM Work Phone: [facility] [employer] [facility] 09-16-2021 13:40-0400 Heart rate 58 /min Yoly Poojapattioj DPM Work Phone: [facility] [employer] [facility] 09-16-2021 13:40-0400 SaO2% (BldA) [Mass fraction] 96 % Yoly Poojapattijo DPM Work Phone: [facility] [employer] [facility] 09-16-2021 13:40-0400 Systolic blood pressure 158 mm[Hg] Yoly Swiatek DPM Work Phone: [facility] 08-19-2021 14:04-0400 Body height 157.5 cm Yoly Mathews DPM Work Phone: [facility] 08-19-2021 14:04-0400 Body mass index (BMI) [Ratio] 32.01 kg/m2 Yoly Poojapattik DPM Work Phone: [facility] 08-19-2021 14:04-0400 Body weight 79.38 kg Yoly Poojavishnu DPM Work Phone: [facility] 08-19-2021 14:04-0400 Diastolic blood pressure 52 mm[Hg] Yoly Nuñezk DPM Work Phone: [facility] 08-19-2021 14:04-0400 Heart rate 75 /min Yoly Mathews DPM Work Phone: [facility] 08-19-2021 14:04-0400 SaO2% (BldA) [Mass fraction] 95 % Yoly Poojapattik DPM Work Phone: [facility] 08-19-2021 14:04-0400 Systolic blood pressure 138 mm[Hg] Yoly Mathews DPM Work Phone: [facility] 06-03-2021 14:03-0400 Body height 157.5 cm Yoly Mathews DPM Work Phone: [facility] 06-03-2021 14:03-0400 Body mass index (BMI) [Ratio] 32.01 kg/m2 Yoly Mathews DPM Work Phone: [facility] 06-03-2021 14:03-0400 Body weight 79.38 kg Yoly Mathews DPM Work Phone: [facility] 06-03-2021 14:03-0400 Diastolic blood pressure 50 mm[Hg] Yoly Mathews DPM Work Phone: [facility] 06-03-2021 14:03-0400 Heart rate 75 /min Yoly Swiatek DPM Work Phone: [employer] [facility] 06-03-2021 14:03-0400 Systolic blood pressure 150 mm[Hg] Yoly Nuñezk DPM Work Phone: [facility] 10-01-2020 14:05-0400 Body height 157.5 cm Yoly Nuñezk DPM Work Phone: [facility] 10-01-2020 14:05-0400 Body mass index (BMI) [Ratio] 32.01 kg/m2 Yoly Pattonatek DPM Work Phone: [facility] 10-01-2020 14:05-0400 Body weight 79.38 kg Yoly Nuñezk DPM Work Phone: [facility] 10-01-2020 14:05-0400 Diastolic blood pressure 62 mm[Hg] Yoly Nuñezk DPM Work Phone: [facility] 10-01-2020 14:05-0400 Heart rate 65 /min Yoly Mathews DPM [facility] 10-01-2020 14:05-0400 Systolic blood pressure 140 mm[Hg] Yoly Nuñezk DPM Work Phone: [facility] 01-15-2020 13:09-0500 BMI (Body Mass Index) 28.32 kg/m2 [facility] 01-15-2020 13:09-0500 Body weight 74.84 kg [facility] 01-15-2020 13:090500 Height 162.6 cm [facility] 01-29-2019 15:07-0500 BMI (Body Mass Index) 28.32 kg/m2 [facility] 01-29-2019 15:07-0500 [facility] 14:0400 BMI (Body Mass Index) 28.32 kg/m2 [facility] 10-19-2017 14:0400 Height 162.6 cm [facility] 10-19-2017 14:0400 Weight 74.84 kg Nahun Jasso [facility] Encounters Encounter Date Encounter Type Care Provider Facility Start: 03-21-2023 ambulatory YOLY MATHEWS [facility] Start: 03-21-2023 End: 03-21-2023 Office outpatient visit 15 minutes Yoly Nuñezk DPM Work Phone: [facility] Procedures Date Procedure Procedure Detail Performing Clinician Start: 10-18-2022 Debridement subcutan eous tissue 20 sq cm/< Yoly Nunez Swiatek DPM Work Phone: Start: 06-02-2022 Radex foot complete minimum 3 views Yoly Pattonatek DPM Work Phone: Start: 04-20-2022 Post-cataract laser surgery Elvis Mcmahan MD Work Phone: Start: 03-24-2022 Debridement open wou nd 20 sq cm/< Yoly Nunez Swiatek DPM Work Phone: Start: 01-11-2022 Debridement open wou nd 20 sq cm/< Yoly Nunez Swiatek DPM Work Phone: Start: 11-02-2021 Debridement nail any method 6/> Yoly Nunez Swiatek DPM Work Phone: Start: 11-02-2021 Paring/cutting benig n hyperkeratotic lesion 2-4 Yoly Nunez Swiatek DPM Work Phone: Start: 08-19-2021 Debridement subcutan eous tissue 20 sq cm/< Yoly Nunez Swiatek DPM Work Phone: Start: 06-03-2021 Debridement nail any method 6/> Yoly Nunez Swiatek DPM Work Phone: Start: 06-03-2021 Paring/cutting benig n hyperkeratotic lesion 2-4 Yoly Nunez Swiatek DPM Work Phone: Start: 10-01-2020 Debridement nail any method 6/> Yoly Nunez Swiatek DPM Work Phone: Start: 10-01-2020 Paring/cutting benig n hyperkeratotic lesion 2-4 Yoly Mathews DPM Work Phone: Start: 01-21-2020 Medicare Annual Well ness Visit Start: 01-15-2020 Arthrocentesis Nahun Jasso Work Phone: Start: 07-10-2019 Arthrocentesis Nahun Jasso Work Phone: Start: 04-22-2019 Follow-up visit Start: 01-29-2019 Arthrocentesis Nahun Jasso Work Phone: Start: 10-23-2018 End: 10-23-2018 Arthrocentesis Nahun Jasso Work Phone: Start: 10-19-2017 End: 10-19-2017 Radex shoulder complete minimum 2 views Nahun Jasso Work Phone: Start: 10-19-2017 End: 10-19-2017 Arthrocentesis aspir&/inj major jt/bursa w/o us Nahun Jasso Work Phone: Plan of Treatment Date Care Activity Detail Author Start: 05-11-2023 End: 05-11-2023 Patient encounter procedure 05/11/2023 2:30 PM EDT Office Visit [facility] [address] [place] [address] Yoly Mathews, PURAM [address] [place] [address] [facility] Start: 04-21-2023 Hepatitis C antibody , confirmatory test DILATED RETINAL EXAM [facility] Start: 04-11-2023 End: 04-11-2023 Patient encounter procedure 04/11/2023 2:30 PM EST Office Visit [facility] [address] [place] [address] Yoly Mathews, DPM [address] [place] [address] [facility] Start: 03-07-2023 End: 03-07-2023 Patient encounter procedure 03/07/2023 2:50 PM EST Office Visit [facility] [address] [place] [address] Yoly Mathews, DPM [address] [place] [address] [facility] Start: 02-09-2023 End: 02-09-2023 Patient encounter procedure 02/09/2023 2:20 PM EST Office Visit [facility] [address] [place] [id number] Yoly Mathews, DPM [address] [place] [address] [facility] Start: 01-26-2023 End: 01-26-2023 Patient encounter procedure 01/26/2023 3:10 PM EST Office Visit [facility] [address] [place] [address] Yoly Mathews, DPM [address] [place] [address] [facility] Start: 01-26-2023 End: 02-23-2023 Bacterial culture and sensitivity [facility] Immunizations Immunization Date Immunization Notes Care Provider Fa cili 10-30-2021 influenza virus vaccine, unspecified formulation Yoly Mathews DPM Work Phone: [facility] 03-25-2020 influenza virus vaccine, unspecified formulation Yoly NEVESM Work Phone: [facility] 10-26-2019 influenza virus vaccine, unspecified formulation Yoly Mathews DPM Work Phone: [facility] Payers Date Payer Category Payer Medicare [id number] 2018 Unknown GENERIC PAYOR [place] DICARE SUPPLEMENT [id number] 2018-Present [phone] [address] [place] [address] [id number] 2018 Unknown [id number] 2006 Medicare [id number] 2006 Unknown [id number] [id number] .[id number] 2006 Unknown [id number]. 1.13.172.2.7.3 .[id number] 2005 Medicare [id number] 2005 Medicare MEDICARE MEDICAR E PART A & B xxxxxxxxxxx 2005-Present [place] xxxxxxxxxxx [id number] .[id number] 2005 Medicare [id number] 1.2.840.172465.1.13.385.2.7.3 .[id number] 2005 Medicare [id number]. 1.13.172.2.7.3 .712375.315 1940 Unknown [id number] 2.16.840.1.378136.3.579.2.278 1940 Unknown [id number] 2.16.840.1.853169.3.579.2.278 1940 Unknown [id number] 2.16.840.1.650524.3.579.2.903 1940 Unknown [id number] 2.16.840.1.327118.3.579.2.903 1940 Unknown [id number] 2.16.840.1.912902.3.579.2.903 1940 Unknown [id number] 2.16.840.1.959588.3.579.2.106 9 1940 Unknown [id number] 2.16.840.1.527985.3.579.2.106 9 1940 Unknown [id number] 2.16.840.1.003808.3.579.2.983 1940 Unknown [id number] 2.16.840.1.548381.3.579.2.983 1940 Unknown [id number] 2.16.840.1.910094.3.579.2.983 1940 Unknown [id number] 2.16.840.1.190428.3.579.2.983 1940 Unknown [id number] 2.16.840.1.846395.3.579.2.983 1940 Unknown [id number] 2.16.840.1.711312.3.579.2.983 1940 Unknown [id number] 2.16.840.1.742006.3.579.2.983 1940 Unknown [id number] 2.16.840.1.407046.3.579.2.983 1940 Unknown [id number] 2.16.840.1.937489.3.579.2.983 1940 Unknown [id number] 2.16.840.1.488277.3.579.2.983 1940 Unknown [id number] 2.16.840.1.231253.3.579.2.983 1940 Unknown [id number] 2.16.840.1.954126.3.579.2.983 1940 Unknown [id number] 2.16.840.1.183199.3.579.2.983 1940 Unknown [id number] 2.16.840.1.627678.3.579.2.983 1940 Unknown [id number] 2.16.840.1.173077.3.579.2.983 1940 Unknown [id number] 2.16.840.1.678939.3.579.2.983 1940 Unknown [id number] 2.16.840.1.011966.3.579.2.983 1940 Unknown [id number] 2.16.840.1.841924.3.579.2.983 1940 Unknown [id number] 2.16.840.1.574475.3.579.2.983 1940 Unknown [id number] 2.16.840.1.794665.3.579.2.983 Medicare [id number] Unknown [employer] (NO AUTO) xxxxxxxxxxxx Effective for all dates xxxxxxxxxxxx [id number] .334215.315 Social History Date Type Detail Facility Start: 10-19-2017 End: 01-11-2022 Tobacco smoking status NVIS Never smoker [facility] Start: 1940 Sex Assigned At Not on file O [facility] Start: 01-15-2020 End: 01-11-2022 Tobacco use and exposure Never used [facility] Start: 05-16-2021 End: 05-26-2021 Exposure to SARS-CoV-2 (event) Not sure [facility] Start: 05-26-2021 End: 05-25-2022 Alcohol intake Current non-drinker of alcohol (finding) [facility] Tobacco smoking consumption unknown [facility] Start: 06-16-2022 End: 03-21-2023 History of Social function [facility] Start: 06-16-2022 End: 03-21-2023 Tobacco use panel [facility] Start: 09-01-2016 Gender identity Identifies as male gender (finding) [facility] Medical Equipment Procedure Code Equipment Code Equipment Origin al Text Equipment Identifier Dates [id number] Start: 09-26-2019 Clinical Notes 04-09-2015 to 03-21-2023 Yoly Mathews DPM - 03/21/2023 2:20 PM ESTFatimah Beatty, RAMESH - 01/26/2023 3:10 PM Chrissy MathewsPURA - 01/26/2023 3:10 PM ESTCrystbonnie Beatty, [place] - 01/12/2023 2:40 PM ESTPatient Instructions Note Date & Type Note Facility 03-21-2023 History of Presen t illness Narrative Patient: Fatimah Teran Date: 03/21/2023 Date ulcer/sore started: 03/24/2022 Chief Complaint: Patient is a 82 y.o. year old male who presents today for his ulcer. He also got fitted for his new shoes today He is here with his Allergies Allergen Reactions Hydrocodone Hydrocodone-Acetaminophen Other reaction(s): Unknown Other reaction(s): Unknown Other reaction(s): Unknown Other reaction(s): Unknown Sulfamethoxazole Sulfamethoxazole-Trimethoprim Other reaction(s): Unknown Trimethoprim Cephalexin Rash Current Outpatient Medications Medication Sig Aspirin [address] tablet 1 tablet atorvastatin 40 MG Tab tablet Take 1 tablet by mouth daily. cilostazol 100 MG Tab tablet Take 1 tablet by mouth. Continuous Blood Gluc Jewel Gauger (FreeStyle Candelaria 2 [place] Systm) Device 1 Each by Unknown route 2 times daily. doxazosin 2 MG Tab Take 1 tablet by mouth at bedtime. Famotidine 20 MG Chew Tab Chew 1 tablet. furOSEmide (Lasix) 20 MG tablet Take 1 tablet by mouth daily. Take at noon gentamicin 0.1 % Cream Apply small amount to affected area at every bandage change. Change bandage 1-2x a day This will be used for about 2 weeks GLUCOSE TEST STRIPS PRESCRIPTION Check blood sugars 4 times per day hydrALAzine 25 MG Tab TAKE 2 TABLETS BY MOUTH THREE TIMES DAILY insulin lispro 100 UNIT/ML Solution Pen-injector Inject under the skin. Lantus SoloStar 100 UNIT/ML Solution Pen-injector injection Inject under the skin. Sliding scale metoprolol 25 MG tab regular release Take 2 tablets by mouth. Multiple Vitamins-Minerals (Multivitamin Adult) tablet 1 tablet Mupirocin 2 % ointment Apply small amount to affected area at every bandage change. Change bandage 1x a day This will be used for about 2 weeks SF 5000 Plus 1.1 % Cream cream USE ONCE DAILY IN THE EVENING DIRECTED Past Medical History: Diagnosis Date Diabetes mellitus Essential hypertension, benign Hyperlipidemia JUAN ALBERTO (obstructive sleep apnea) No past surgical history on file. Social History Occupational History Employer: RETIRED Tobacco Use Smoking status: Never Smokeless tobacco: Never Substance and Sexual Activity Alcohol use: Not on file Drug use: Not on file Sexual activity: Not on file Review of Systems No notes on file Objective: Vitals: 03/21/23 1340 BP: 156/70 Physical Examination: The patient is appropriately dressed, articulate, awake, alert, and oriented x 3, appears their stated age and appears to be in poor health. Vascular: Dorsalis pedis pulse is 2/4 left and 2/4 right. Posterior tibial pulses is 1/4 left and 1/4 right. Capillary fill time is brisk left and brisk right. Dermatological: Skin temperature is warm to warm proximal robertson to distal right foot and warm to warm proximal robertson to distal left foot. Skin texture is noted to be atrophic. Skin color is noted to be normal. Hair growth is absent Ulceration #1: Ulceration location Right great toe plantar IPJ. Type: Neuropathic Wound dimensions: 12/06/22 0.2x0.2x0.3cm 12/20/22 0.3x0.1x0.1cm 12/30/22 0.3x0.4x0.2cm 01/12/23 0.2x0.1x0.1cm 01/26/23 0.3x0.1x0.1cm 02/09/23 0.2x0.1x0.2cm 03/21/23 healed Ulceration #2: Ulceration location right great toe sub 1st metatarsal head . Type: neuropathic-Diabetic Wound dimensions: 03/07/23 callous 03-21-23 healed Neurological: absent sharp/dull sensation bilateral. diminished light touch sensation bilateral. Coordination is fair MICRO Lab Results Component Value Date RESULTCULT CORYNEBACTERIUM SPECIES 01/26/2023 Impression: : ICD-10-CM 1. Diabetic ulcer of right midfoot associated with type 2 diabetes mellitus, with other ulcer severity E11.621 L97.418 condition is improving acute limb threatening diagnosis Plan: Patient was seen and evaluated today with a history and physical exam. Continue with proper hygiene for the wound at home and noted wound should be covered at all times and not be left open to air Comorbidity affecting healing: diabetes Unique labs/ imgaing reviewed from another provider: none Ulcer is healed Continue with silicone padding Patient was given an opportunity to ask all questions to their satisfaction. Patient is to return to office in 3 weeks If the patient notices: increase in drainage, redness, foul odor or feel like they are getting flu-like symptoms they should contact the office during working hours or go to the emergency room after hours. Patient will contact the office sooner is any problems arise. documented in this encounter [facility] 01-26-2023 History of Presen t illness Narrative Nurse Note: Review of Systems Constitutional: Negative for fatigue, fever and unexpected weight change. HENT: No difficulty swallowing No change in voice Respiratory: Negative for cough, shortness of breath and wheezing. Cardiovascular: Negative for chest pain, palpitations and leg swelling. Gastrointestinal: Negative for constipation, diarrhea, nausea and vomiting. Neurological: Negative for tremors, weakness and numbness. Psychiatric/Behavioral: Negative for sleep disturbance. The patient is not nervous/anxious. Nursing Assessment: Physical Exam Patient: Fatimah Teran Date: 01/26/2023 Date ulcer/sore started: 03/24/2022 Chief Complaint: Patient is a 82 y.o. year old male who presents today for right great toe ulcer. He is here with his He is using the silicone sleeve to keep the pressure off the toe Allergies Allergen Reactions Hydrocodone Hydrocodone-Acetaminophen Other reaction(s): Unknown Other reaction(s): Unknown Other reaction(s): Unknown Other reaction(s): Unknown Sulfamethoxazole Sulfamethoxazole-Trimethoprim Other reaction(s): Unknown Trimethoprim Cephalexin Rash Current Outpatient Medications Medication Sig Aspirin [address] tablet 1 tablet atorvastatin 40 MG Tab tablet Take 1 tablet by mouth daily. cilostazol 100 MG Tab tablet Take 1 tablet by mouth. Continuous Blood Gluc Jewel Gauger (FridgeStyle Candelaria 2 [place] Systm) Device 1 Each by Unknown route 2 times daily. doxazosin 2 MG Tab Take 1 tablet by mouth at bedtime. Famotidine 20 MG Chew Tab Chew 1 tablet. furOSEmide (Lasix) 20 MG tablet Take 1 tablet by mouth daily. Take at noon gentamicin 0.1 % Cream Apply small amount to affected area at every bandage change. Change bandage 1-2x a day This will be used for about 2 weeks GLUCOSE TEST STRIPS PRESCRIPTION Check blood sugars 4 times per day hydrALAzine 25 MG Tab TAKE 2 TABLETS BY MOUTH THREE TIMES DAILY insulin lispro 100 UNIT/ML Solution Pen-injector Inject under the skin. metoprolol 25 MG tab regular release Take 2 tablets by mouth. Multiple Vitamins-Minerals (Multivitamin Adult) tablet 1 tablet Mupirocin 2 % ointment Apply small amount to affected area at every bandage change. Change bandage 1x a day This will be used for about 2 weeks SF 5000 Plus 1.1 % Cream cream USE ONCE DAILY IN THE EVENING DIRECTED Past Medical History: Diagnosis Date Diabetes mellitus Essential hypertension, benign Hyperlipidemia JUAN ALBERTO (obstructive sleep apnea) No past surgical history on file. Social History Occupational History Employer: RETIRED Tobacco Use Smoking status: Never Smokeless tobacco: Never Substance and Sexual Activity Alcohol use: Not on file Drug use: Not on file Sexual activity: Not on file Review of Systems No notes on file Objective: There were no vitals filed for this visit. Physical Examination: The patient is appropriately dressed, articulate, awake, alert, and oriented x 3, appears their stated age and appears to be in poor health. Vascular: Dorsalis pedis pulse is 2/4 left and 2/4 right. Posterior tibial pulses is 1/4 left and 1/4 right. Capillary fill time is brisk left and brisk right. Dermatological: Skin temperature is warm to warm proximal robertson to distal right foot and warm to warm proximal robertson to distal left foot. Skin texture is noted to be atrophic. Skin color is noted to be normal. Hair growth is absent Ulceration #1: Ulceration location Right great toe plantar IPJ. Type: Neuropathic Wound dimensions: 12/06/22 0.2x0.2x0.3cm 12/20/22 0.3x0.1x0.1cm 12/30/22 0.3x0.4x0.2cm 01/12/23 0.2x0.1x0.1cm 01/26/23 0.3x0.1x0.1cm Wound dimensions after debridement: 12/06/22 1.2x1.2x0.3cm 12/20/22 debrided callous only 12/30/22 callous debrided only 01/12/23 debrided callous 0.3x0.2x0.2cm 01/26/23 debride callous only Base: Ulceration extends Partially through skin. Granular tissue 100%. Fibrous/scar tissue 0%. Necrotic tissue 0%. Drainage:mild clear serous drainage observed. Surrounding Area: negative odor, erythema, streaking, crepitus, calor Miller Staging: Grade 1 - superficial ulcer of skin without subcutaneous tissue involvement, not infected Ulceration #2: Ulceration location right great toe sub 1st metatarsal head . Type: neuropathic-Diabetic Wound dimensions: 01/26/23 hyperkeratosis Wound dimensions after debridement: 01/26/23 0.3 cm long by 0.3 cm wide by 0.2 cm deep Base: Ulceration extends Partially through skin. Granular tissue 100%. Fibrous/scar tissue 0%. Necrotic tissue 0%. Drainage:No . drainage observed. Surrounding Area: negative odor, erythema, streaking, crepitus, calor Miller Staging: Grade 1 - superficial ulcer of skin without subcutaneous tissue involvement, not infected Neurological: absent sharp/dull sensation bilateral. diminished light touch sensation bilateral. Coordination is fair MICRO Lab Results Component Value Date RESULTCULT KLEBSIELLA OXYTOCA 12/06/2022 Impression: : ICD-10-CM 1. Diabetic ulcer of toe of right foot associated with type 2 diabetes mellitus, limited to breakdown of skin E11.621 CULTURE WOUND L97.511 condition is the same and there is a new ulcer acute limb threatening diagnosis Plan: Patient was seen and evaluated today with a history and physical exam. Continue with proper hygiene for the wound at home and noted wound should be covered at all times and not be left open to air Comorbidity affecting healing: diabetes Unique labs/ imgaing reviewed from another provider: none Goal: complete healing of wound in 4 weeks. Keep wound free of infection. We will achieve this through debridement, appropriate wound dressings, antibiotics as needed, proper hygiene, and a team approach with wound care and vascular surgery as needed Continue with silicone sleeve The wound will not be soaked or get wet in the shower, again, this can lead to infection in the wound Only debrided callous today A culture was taken today. betadine and dry sterile dressing was applied. The dressing needs to be changed daily Try to stay off the foot Dressing will consist of: mupirocin ointment and DSD and silicone sleeve Patient was given an opportunity to ask all questions to their satisfaction. Patient is to return to office in 2 weeks If the patient notices: increase in drainage, redness, foul odor or feel like they are getting flu-like symptoms they should contact the office during working hours or go to the emergency room after hours. Patient will contact the office sooner is any problems arise. documented in this encounter [facility] 01-12-2023 History of Presen t illness Narrative Nurse Note: Review of Systems Constitutional: Negative for fatigue, fever and unexpected weight change. HENT: No difficulty swallowing No change in voice Respiratory: Negative for cough, shortness of breath and wheezing. Cardiovascular: Negative for chest pain, palpitations and leg swelling. Gastrointestinal: Negative for constipation, diarrhea, nausea and vomiting. Neurological: Negative for tremors, weakness and numbness. Psychiatric/Behavioral: Negative for sleep disturbance. The patient is not nervous/anxious. Nursing Assessment: Physical Exam Patient: Fatimah Teran Date: 01/12/2023 Date ulcer/sore started: 03/24/2022 Chief Complaint: Patient is a 82 y.o. year old male who presents today for right great toe ulcer. He is using the silicone sleeve to keep the pressure off the toe Allergies Allergen Reactions Hydrocodone Hydrocodone-Acetaminophen Other reaction(s): Unknown Other reaction(s): Unknown Other reaction(s): Unknown Other reaction(s): Unknown Sulfamethoxazole Sulfamethoxazole-Trimethoprim Other reaction(s): Unknown Trimethoprim Cephalexin Rash Current Outpatient Medications Medication Sig Aspirin [address] tablet 1 tablet atorvastatin 40 MG Tab tablet Take 1 tablet by mouth daily. cilostazol 100 MG Tab tablet Take 1 tablet by mouth. Continuous Blood Gluc Jewel Gauger (FreeStyle Candelaria 2 [place] Systm) Device 1 Each by Unknown route 2 times daily. doxazosin 2 MG Tab Take 1 tablet by mouth at bedtime. Famotidine 20 MG Chew Tab Chew 1 tablet. furOSEmide (Lasix) 20 MG tablet Take 1 tablet by mouth daily. Take at noon gentamicin 0.1 % Cream Apply small amount to affected area at every bandage change. Change bandage 1-2x a day This will be used for about 2 weeks GLUCOSE TEST STRIPS PRESCRIPTION Check blood sugars 4 times per day hydrALAzine 25 MG Tab TAKE 2 TABLETS BY MOUTH THREE TIMES DAILY insulin lispro 100 UNIT/ML Solution Pen-injector Inject under the skin. metoprolol 25 MG tab regular release Take 2 tablets by mouth. Multiple Vitamins-Minerals (Multivitamin Adult) tablet 1 tablet Mupirocin 2 % ointment Apply small amount to affected area at every bandage change. Change bandage 1x a day This will be used for about 2 weeks SF 5000 Plus 1.1 % Cream cream USE ONCE DAILY IN THE EVENING DIRECTED Lantus 100 UNIT/ML vial Inject 15 Units under the skin at bedtime. (Patient taking differently: Inject 13 Units under the skin at bedtime.) Past Medical History: Diagnosis Date Diabetes mellitus Essential hypertension, benign Hyperlipidemia JUAN ALBERTO (obstructive sleep apnea) No past surgical history on file. Social History Occupational History Employer: RETIRED Tobacco Use Smoking status: Never Smokeless tobacco: Never Substance and Sexual Activity Alcohol use: Not on file Drug use: Not on file Sexual activity: Not on file Review of Systems Nurse Note: Review of Systems Constitutional: Negative for fatigue, fever and unexpected weight change. HENT: No difficulty swallowing No change in voice Respiratory: Negative for cough, shortness of breath and wheezing. Cardiovascular: Negative for chest pain, palpitations and leg swelling. Gastrointestinal: Negative for constipation, diarrhea, nausea and vomiting. Neurological: Negative for tremors, weakness and numbness. Psychiatric/Behavioral: Negative for sleep disturbance. The patient is not nervous/anxious. Nursing Assessment: Physical Exam Objective: Vitals: 01/12/23 1414 BP: 180/70 Pulse: 92 Physical Examination: The patient is appropriately dressed, articulate, awake, alert, and oriented x 3, appears their stated age and appears to be in poor health. Vascular: Dorsalis pedis pulse is 2/4 left and 2/4 right. Posterior tibial pulses is 1/4 left and 1/4 right. Capillary fill time is brisk left and brisk right. Dermatological: Skin temperature is warm to warm proximal robertson to distal right foot and warm to warm proximal robertson to distal left foot. Skin texture is noted to be atrophic. Skin color is noted to be normal. Hair growth is absent Ulceration #1: Ulceration location Right great toe plantar IPJ. Type: Neuropathic Wound dimensions: 12/06/22 0.2x0.2x0.3cm 12/20/22 0.3x0.1x0.1cm 12/30/22 0.3x0.4x0.2cm 01/12/23 0.2x0.1x0.1cm Wound dimensions after debridement: 12/06/22 1.2x1.2x0.3cm 12/20/22 debrided callous only 12/30/22 callous debrided only 01/12/23 debrided callous 0.3x0.2x0.2cm Base: Ulceration extends Partially through skin. Granular tissue 100%. Fibrous/scar tissue 0%. Necrotic tissue 0%. Drainage:mild clear serous drainage observed. Surrounding Area: negative odor, erythema, streaking, crepitus, calor Miller Staging: Grade 1 - superficial ulcer of skin without subcutaneous tissue involvement, not infected Neurological: absent sharp/dull sensation bilateral. diminished light touch sensation bilateral. Coordination is fair MICRO Lab Results Component Value Date RESULTCULT KLEBSIELLA OXYTOCA 12/06/2022 Impression: : ICD-10-CM 1. Diabetic ulcer of toe of right foot associated with type 2 diabetes mellitus, limited to breakdown of skin E11.621 L97.511 2. Diabetic ulcer of toe of right foot associated with type 2 diabetes mellitus, with fat layer exposed E11.621 Mupirocin 2 % ointment L97.512 condition is improving acute limb threatening diagnosis Plan: Patient was seen and evaluated today with a history and physical exam. Continue with proper hygiene for the wound at home and noted wound should be covered at all times and not be left open to air Comorbidity affecting healing: diabetes Unique labs/ imgaing reviewed from another provider: none Goal: complete healing of wound in 4 weeks. Keep wound free of infection. We will achieve this through debridement, appropriate wound dressings, antibiotics as needed, proper hygiene, and a team approach with wound care and vascular surgery as needed Continue with silicone sleeve The wound will not be soaked or get wet in the shower, again, this can lead to infection in the wound Only debrided callous today A culture was not taken today. betadine and dry sterile dressing was applied. The dressing needs to be changed daily The following medications were prescribed today and electronically sent to the patient's pharmacy: Mupirocin ointment We have discussed what the medication is used for: frequency, length and expected response, as well as, risk, benefits and common side effects. Dressing will consist of: mupirocin ointment and DSD and silicone sleeve Patient was given an opportunity to ask all questions to their satisfaction. Patient is to return to office in 2 weeks If the patient notices: increase in drainage, redness, foul odor or feel like they are getting flu-like symptoms they should contact the office during working hours or go to the emergency room after hours. Patient will contact the office sooner is any problems arise. documented in this encounter [facility] 12-20-2022 History of Presen t illness Narrative Nurse Note: Review of Systems Constitutional: Negative for fatigue, fever and unexpected weight change. HENT: No difficulty swallowing No change in voice Respiratory: Negative for cough, shortness of breath and wheezing. Cardiovascular: Negative for chest pain, palpitations and leg swelling. Gastrointestinal: Negative for constipation, diarrhea, nausea and vomiting. Neurological: Negative for tremors, weakness and numbness. Psychiatric/Behavioral: Negative for sleep disturbance. The patient is not nervous/anxious. Nursing Assessment: Physical Exam Patient: Fatimah Teran Date: 12/20/2022 Date ulcer/sore started: 03/24/2022 Chief Complaint: Patient is a 82 y.o. year old male who presents today for right foot ulcer. He notes that it is getting better Allergies Allergen Reactions Hydrocodone Hydrocodone-Acetaminophen Other reaction(s): Unknown Other reaction(s): Unknown Other reaction(s): Unknown Other reaction(s): Unknown Sulfamethoxazole Sulfamethoxazole-Trimethoprim Other reaction(s): Unknown Trimethoprim Cephalexin Rash Current Outpatient Medications Medication Sig Aspirin [address] tablet 1 tablet atorvastatin 40 MG Tab tablet Take 1 tablet by mouth daily. cilostazol 100 MG Tab tablet Take 1 tablet by mouth. Continuous Blood Gluc Jewel Gauger (FreeStyle Candelaria 2 [place] Systm) Device 1 Each by Unknown route 2 times daily. doxazosin 2 MG Tab Take 1 tablet by mouth at bedtime. Famotidine 20 MG Chew Tab Chew 1 tablet. furOSEmide (Lasix) 20 MG tablet Take 1 tablet by mouth daily. Take at noon gentamicin 0.1 % Cream Apply small amount to affected area at every bandage change. Change bandage 1-2x a day This will be used for about 2 weeks GLUCOSE TEST STRIPS PRESCRIPTION Check blood sugars 4 times per day hydrALAzine 25 MG Tab TAKE 2 TABLETS BY MOUTH THREE TIMES DAILY insulin lispro 100 UNIT/ML Solution Pen-injector Inject under the skin. Lantus 100 UNIT/ML vial Inject 15 Units under the skin at bedtime. (Patient taking differently: Inject 13 Units under the skin at bedtime.) metoprolol 25 MG tab regular release Take 2 tablets by mouth. Multiple Vitamins-Minerals (Multivitamin Adult) tablet 1 tablet Mupirocin 2 % ointment Apply small amount to affected area at every bandage change. Change bandage 1x a day This will be used for about 2 weeks SF 5000 Plus 1.1 % Cream cream USE ONCE DAILY IN THE EVENING DIRECTED Past Medical History: Diagnosis Date Diabetes mellitus Essential hypertension, benign Hyperlipidemia JUAN ALBERTO (obstructive sleep apnea) No past surgical history on file. Social History Occupational History Employer: RETIRED Tobacco Use Smoking status: Never Smokeless tobacco: Never Substance and Sexual Activity Alcohol use: Not on file Drug use: Not on file Sexual activity: Not on file Review of Systems Nurse Note: Review of Systems Constitutional: Negative for fatigue, fever and unexpected weight change. HENT: No difficulty swallowing No change in voice Respiratory: Negative for cough, shortness of breath and wheezing. Cardiovascular: Negative for chest pain, palpitations and leg swelling. Gastrointestinal: Negative for constipation, diarrhea, nausea and vomiting. Neurological: Negative for tremors, weakness and numbness. Psychiatric/Behavioral: Negative for sleep disturbance. The patient is not nervous/anxious. Nursing Assessment: Physical Exam Objective: Vitals: 12/20/22 1353 BP: 158/68 Pulse: 90 SpO2: 98% Physical Examination: The patient is appropriately dressed, articulate, awake, alert, and oriented x 3, appears their stated age and appears to be in poor health. Vascular: Dorsalis pedis pulse is 2/4 left and 2/4 right. Posterior tibial pulses is 1/4 left and 1/4 right. Capillary fill time is brisk left and brisk right. Dermatological: Skin temperature is warm to warm proximal robertson to distal right foot and warm to warm proximal robertson to distal left foot. Skin texture is noted to be atrophic. Skin color is noted to be normal. Hair growth is absent Ulceration #1: Ulceration location Right great toe plantar IPJ. Type: Neuropathic Wound dimensions: 12/06/22 0.2x0.2x0.3cm 12/20/22 0.3x0.1x0.1cm Wound dimensions after debridement: 12/06/22 1.2x1.2x0.3cm 12/20/22 debrided callous only Base: Ulceration extends Partially through skin. Granular tissue 100%. Fibrous/scar tissue 0%. Necrotic tissue 0%. Drainage:mild clear serous drainage observed. Surrounding Area: negative odor, erythema, streaking, crepitus, calor Miller Staging: Grade 1 - superficial ulcer of skin without subcutaneous tissue involvement, not infected Neurological: absent sharp/dull sensation bilateral. diminished light touch sensation bilateral. Coordination is fair MICRO Lab Results Component Value Date RESULTCULT KLEBSIELLA OXYTOCA 12/06/2022 Impression: : ICD-10-CM 1. Diabetic ulcer of toe of right foot associated with type 2 diabetes mellitus, limited to breakdown of skin E11.621 L97.511 condition is improving acute limb threatening diagnosis Plan: Patient was seen and evaluated today with a history and physical exam. Patient understands the importance of sharp debridment and home wound care. Fatimah understands about infection and the possibility of amputation if this does not heal. Patient was given an opportunity to ask all questions. Continue with proper hygiene for the wound at home and noted wound should be covered at all times and not be left open to air Comorbidity affecting healing: diabetes Unique labs/ imgaing reviewed from another provider: none Goal: complete healing of wound in 2-4 weeks. Keep wound free of infection. We will achieve this through debridement, appropriate wound dressings, antibiotics as needed, proper hygiene, and a team approach with wound care and vascular surgery as needed The wound will not be soaked or get wet in the shower, again, this can lead to infection in the wound Excisional debridement was not performed today. see procedure note for details. A culture was not taken today. mupirocin ointment and dry sterile dressing was applied. The dressing needs to be changed daily Dressing will consist of: mupirocin ointment and DSD Diabetic Shoe Evaluation Today the patient was evaluated for diabetic shoes. After a history and physical exam, the patient was deemed to be eligible for diabetic footwear and insoles due to the fact that the patient clearly meets the criteria set forth by CMS. The patient has the following Controlled diabetes Insulin dependent, Peripheral neuropathy with evidence of callus formation, History of pre-ulcerative callus, and Poor circulation This patient is at significant risk for ulceration. An over the counter device would not be sufficient, due to the specifity of this device to the patients deformity. Therapeutic shoes (extra depth) and inserts are a medical necessity because of their diabetic condition This was discussed with the patient in detail and a Rx was written and faxed to [facility] Patient was given an opportunity to ask all questions to their satisfaction. Patient is to return to office in 2 weeks If the patient notices: increase in drainage, redness, foul odor or feel like they are getting flu-like symptoms they should contact the office during working hours or go to the emergency room after hours. Patient will contact the office sooner is any problems arise. [facility] [employer] [facility]-20-[facility]22 Instructions Yoly Mathews DPM - 12/20/2022 2:30 PM EST A prescription for diabetic shoes and insoles has been sent to [facility]. They have to get approval from your insurance company. This could take 1 month. If you have any questions please call them at [phone] documented in this encounter [facility] [employer] 10-18-2022 History of Presen t illness Narrative Nurse Note: Review of Systems Constitutional: Negative for fatigue, fever and unexpected weight change. HENT: No difficulty swallowing No change in voice Respiratory: Negative for cough, shortness of breath and wheezing. Cardiovascular: Negative for chest pain, palpitations and leg swelling. Gastrointestinal: Negative for constipation, diarrhea, nausea and vomiting. Neurological: Negative for tremors, weakness and numbness. Psychiatric/Behavioral: Negative for sleep disturbance. The patient is not nervous/anxious. Nursing Assessment: Physical Exam Associated Order(s): FOOT AND HAND CARE Post-Procedure Diagnose(s): Ulcer of right foot, limited to breakdown of skin Patient: Fatimah Teran Date: 10/18/2022 Date ulcer/sore started: 03/24/2022 Chief Complaint: Patient is a 81 y.o. year old male who presents today for his nails. He notes no new problems. He notes that he has been wearing a silicone toe sleeve and this has helped Allergies Allergen Reactions Hydrocodone Hydrocodone-Acetaminophen Other reaction(s): Unknown Other reaction(s): Unknown Other reaction(s): Unknown Other reaction(s): Unknown Sulfamethoxazole Sulfamethoxazole-Trimethoprim Other reaction(s): Unknown Trimethoprim Cephalexin Rash Current Outpatient Medications Medication Sig Aspirin [address] tablet 1 tablet atorvastatin 40 MG Tab tablet Take 1 tablet by mouth daily. cilostazol 100 MG Tab tablet Take 1 tablet by mouth. Continuous Blood Gluc Jewel Gauger (FridgeStyle Candelaria 2 [place] Systm) Device 1 Each by Unknown route 2 times daily. doxazosin 2 MG Tab Take 1 tablet by mouth at bedtime. Famotidine 20 MG Chew Tab Chew 1 tablet. furOSEmide (Lasix) 20 MG tablet Take 1 tablet by mouth daily. Take at noon gentamicin 0.1 % Cream Apply small amount to affected area at every bandage change. Change bandage 1-2x a day This will be used for about 2 weeks GLUCOSE TEST STRIPS PRESCRIPTION Check blood sugars 4 times per day hydrALAzine 25 MG Tab TAKE 2 TABLETS BY MOUTH THREE TIMES DAILY insulin lispro 100 UNIT/ML Solution Pen-injector Inject under the skin. Lantus 100 UNIT/ML vial Inject 15 Units under the skin at bedtime. (Patient taking differently: Inject 13 Units under the skin at bedtime.) metoprolol 25 MG tab regular release Take 2 tablets by mouth. Multiple Vitamins-Minerals (Multivitamin Adult) tablet 1 tablet SF 5000 Plus 1.1 % Cream cream USE ONCE DAILY IN THE EVENING DIRECTED Past Medical History: Diagnosis Date Diabetes mellitus Essential hypertension, benign Hyperlipidemia JUAN ALBERTO (obstructive sleep apnea) No past surgical history on file. Social History Occupational History Employer: RETIRED Tobacco Use Smoking status: Never Smokeless tobacco: Never Substance and Sexual Activity Alcohol use: Not on file Drug use: Not on file Sexual activity: Not on file Review of Systems Nurse Note: Review of Systems Constitutional: Negative for fatigue, fever and unexpected weight change. HENT: No difficulty swallowing No change in voice Respiratory: Negative for cough, shortness of breath and wheezing. Cardiovascular: Negative for chest pain, palpitations and leg swelling. Gastrointestinal: Negative for constipation, diarrhea, nausea and vomiting. Neurological: Negative for tremors, weakness and numbness. Psychiatric/Behavioral: Negative for sleep disturbance. The patient is not nervous/anxious. Nursing Assessment: Physical Exam Objective: Vitals: 10/18/22 1404 BP: 142/74 Physical Examination: The patient is appropriately dressed, articulate, awake, alert, and oriented x 3, appears their stated age and appears to be in poor health. Vascular: Dorsalis pedis pulse is 2/4 left and 2/4 right. Posterior tibial pulses is 1/4 left and 1/4 right. Capillary fill time is brisk left and brisk right. Dermatological: Skin texture is noted to be atrophic. Skin color is noted to be normal. Hair growth is absent Ulceration #1: Ulceration location Right great toe plantar IPJ . Type: neuropathic-Diabetic Wound dimensions: 10/18/22 0.1 cm long by 0.1 cm wide by 0.3 cm deep Wound dimensions after debridement: 10/18/22 0.5 cm long by 0.5 cm wide by 0.3 cm deep Base: Ulceration extends Partially through skin. Granular tissue 75%. Fibrous/scar tissue 25%. Necrotic tissue 0%. Drainage:mild clear serous drainage observed. Surrounding Area: negative erythema, negative streaking and macerated Miller Staging: Grade 1 - superficial ulcer of skin without subcutaneous tissue involvement, not infected Neurological: absent sharp/dull sensation bilateral. diminished light touch sensation bilateral. Coordination is fair MICRO Lab Results Component Value Date RESULTCULT STAPHYLOCOCCUS AUREUS 03/24/2022 . Impression: : ICD-10-CM 1. Ulcer of right foot, limited to breakdown of skin L97.511 FOOT AND HAND CARE 2. Diabetic polyneuropathy associated with type 2 diabetes mellitus E11.42 3. Dermatophytosis of nail B35.1 Acute limb threatening diagnosis Plan of Care: Patient was seen and evaluated today with a complete history and lower extremity physical exam. Comorbidity- diabetes 1. I discussed the possible causes of ulceration with patient. 2. I discussed the importance of sharp debridment and home wound care and how this will help to heal the wound 3. We also talked about infection and the possibility of amputation if this does not heal. 4. If there is delayed healing I will consider surgical debridement in the operating room and application of skin grafts as appropriate. 5. I explained proper hygiene for the wound at home and that the wound should be covered at all times and not be left open to air as this can lead to infection in the wound 6. The wound will not be soaked or get wet in the shower, again, this can lead to infection in the wound 7. Selective debridement was performed today. see procedure note for details. 8. A culture was taken today- location right great toe 9. After debridement, betadine and dry sterile dressing was applied. 10. The dressing needs to be changed daily 11. Dressing will consist of: mupirocin ointment and DSD 12. Patient was given an opportunity to ask all questions to their satisfaction. Goal: 1. Complete healing of wound in 3 months or less, we will plan on regular appointments 2. Keep wound free of infection. 3. We will achieve this through debridement, appropriate wound dressings, antibiotics as need, proper hygiene, and a team approach with wound care, vascular surgery, infectious disease and imaging as needed. Patient is to return to office in 2 weeks If the patient notices: increase in drainage, redness, foul odor or feel like they are getting flu-like symptoms they should contact the office during working hours or go to the emergency room after hours. Patient will contact the office sooner is any problems arise. FOOT AND HAND CARE Date/Time: 10/18/2022 2:30 PM Performed by: Yoly Mathews DPM Authorized by: Yoly Mathews DPM Procedure: wound debridement performed Location: Foot Procedure Location: R big toe Wound Debridement Performed: excisional debridement Wound Debridement Level: subcutaneous tissue. The wound was evaluated and was debrided without incident. All necrotic and fibrotic material was removed. This left a healthy, granular base to the ulcer. Wound Debridement Tool: scalpel #15 (tissue nippers and curette) Description of Wound: contaminated, devitalized tissue Wound Tissue: 1 cm2 Hemostasis obtained by: compression Patient tolerance: Patient tolerated the procedure well with no immediate complications Comments: betadine solution was used to cover the wound followed by a dry sterile dressing. Consent: Consent was obtained prior to the procedure after discussion of the risks, benefits and alternatives, and expected outcomes were discussed with the patient. The possibilities of reaction to medication, bleeding, infection, the need for additional procedures, failure to diagnosis a condition, and creating a complication requiring operation were discussed with the patient. The patient concurred with the proposed plan, giving consent. (verbal) Preparation: skin prepped with ChloraPrep documented in this encounter [facility] 08-09-2022 History of Presen t illness Narrative Nurse Note: Review of Systems Constitutional: Negative for fatigue, fever and unexpected weight change. HENT: No difficulty swallowing No change in voice Respiratory: Negative for cough, shortness of breath and wheezing. Cardiovascular: Negative for chest pain, palpitations and leg swelling. Gastrointestinal: Negative for constipation, diarrhea, nausea and vomiting. Neurological: Negative for tremors, weakness and numbness. Psychiatric/Behavioral: Negative for sleep disturbance. The patient is not nervous/anxious. Nursing Assessment: Physical Exam Patient: Fatimah Teran Date: 08/09/2022 Date ulcer/sore started: 03/24/2022 Chief Complaint: Patient is a 81 y.o. year old male who presents today for follow up of right great toe ulcer. He notes no new problems. He notes that he has been wearing a silicone toe sleeve and this has helped Allergies Allergen Reactions Hydrocodone Hydrocodone-Acetaminophen Other reaction(s): Unknown Other reaction(s): Unknown Other reaction(s): Unknown Other reaction(s): Unknown Sulfamethoxazole Sulfamethoxazole-Trimethoprim Other reaction(s): Unknown Trimethoprim Cephalexin Rash Current Outpatient Medications Medication Sig Aspirin [address] tablet 1 tablet atorvastatin 40 MG Tab tablet Take 1 tablet by mouth daily. cilostazol 100 MG Tab tablet Take 1 tablet by mouth. Continuous Blood Gluc Jewel Gauger (FreeStyle Candelaria 2 [place] Systm) Device 1 Each by Unknown route 2 times daily. doxazosin 2 MG Tab Take 1 tablet by mouth at bedtime. Famotidine 20 MG Chew Tab Chew 1 tablet. furOSEmide (Lasix) 20 MG tablet Take 1 tablet by mouth daily. Take at noon gentamicin 0.1 % Cream Apply small amount to affected area at every bandage change. Change bandage 1-2x a day This will be used for about 2 weeks GLUCOSE TEST STRIPS PRESCRIPTION Check blood sugars 4 times per day hydrALAzine 25 MG Tab TAKE 2 TABLETS BY MOUTH THREE TIMES DAILY insulin lispro 100 UNIT/ML Solution Pen-injector Inject under the skin. Lantus 100 UNIT/ML vial Inject 15 Units under the skin at bedtime. (Patient taking differently: Inject 13 Units under the skin at bedtime.) metoprolol 25 MG tab regular release Take 2 tablets by mouth. Multiple Vitamins-Minerals (Multivitamin Adult) tablet 1 tablet SF 5000 Plus 1.1 % Cream cream USE ONCE DAILY IN THE EVENING DIRECTED Past Medical History: Diagnosis Date Diabetes mellitus Essential hypertension, benign Hyperlipidemia JUAN ALBERTO (obstructive sleep apnea) No past surgical history on file. Social History Occupational History Employer: RETIRED Tobacco Use Smoking status: Never Smokeless tobacco: Never Substance and Sexual Activity Alcohol use: Not on file Drug use: Not on file Sexual activity: Not on file Review of Systems Nurse Note: Review of Systems Constitutional: Negative for fatigue, fever and unexpected weight change. HENT: No difficulty swallowing No change in voice Respiratory: Negative for cough, shortness of breath and wheezing. Cardiovascular: Negative for chest pain, palpitations and leg swelling. Gastrointestinal: Negative for constipation, diarrhea, nausea and vomiting. Neurological: Negative for tremors, weakness and numbness. Psychiatric/Behavioral: Negative for sleep disturbance. The patient is not nervous/anxious. Nursing Assessment: Physical Exam Objective: Vitals: 08/09/22 1349 BP: 152/82 Pulse: 60 SpO2: 98% Physical Examination: The patient is appropriately dressed, articulate, awake, alert, and oriented x 3, appears their stated age and appears to be in poor health. Vascular: Dorsalis pedis pulse is 2/4 left and 2/4 right. Posterior tibial pulses is 1/4 left and 1/4 right. Capillary fill time is brisk left and brisk right. Dermatological: Skin texture is noted to be atrophic. Skin color is noted to be normal. Hair growth is absent Ulceration #1: Ulceration location Right great toe . Type: Neuropathic Wound dimensions: 03/24/2022 0 cm long by 0 cm wide by 0 cm deep 04/14/2022 0.5x0.2x0.1cm 05/03/2022 unchanged 06/02/230.7x0.4x0.2cm 06/16/22 healed 07/20/22 healed Neurological: absent sharp/dull sensation bilateral. diminished light touch sensation bilateral. Coordination is fair MICRO Lab Results Component Value Date RESULTCULT STAPHYLOCOCCUS AUREUS 03/24/2022 . Impression: : ICD-10-CM 1. Ulcer of right foot, limited to breakdown of skin L97.511 2. Diabetic polyneuropathy associated with type 2 diabetes mellitus E11.42 Plan: Patient was seen and evaluated today with a history and physical exam. This is a diagnosis that has threat to limb. Ulcer is healed 1. Hold off on any surgery to remove the ossicle. 2. Talked about getting his BS down 3. Nails debrided 4. Continue with silicone toe sleeve Patient is to return to office in 10 weeks If the patient notices: increase in drainage, redness, foul odor or feel like they are getting flu-like symptoms they should contact the office during working hours or go to the emergency room after hours. Patient will contact the office sooner is any problems arise. documented in this encounter [facility] 06-16-2022 History of Presen t illness Narrative Nurse Note: Review of Systems Constitutional: Negative for fatigue, fever and unexpected weight change. HENT: No difficulty swallowing No change in voice Respiratory: Negative for cough, shortness of breath and wheezing. Cardiovascular: Negative for chest pain, palpitations and leg swelling. Gastrointestinal: Negative for constipation, diarrhea, nausea and vomiting. Neurological: Negative for tremors, weakness and numbness. Psychiatric/Behavioral: Negative for sleep disturbance. The patient is not nervous/anxious. Nursing Assessment: Physical Exam Patient: Fatimah Teran Date: 06/16/2022 Date ulcer/sore started: 03/24/2022 Chief Complaint: Patient is a 81 y.o. year old male who presents today for follow up of right great toe ulcer. He notes no new problems. He is doing daily dressing changes. He is here with his She states that they are going to get a 2nd opinion. Allergies Allergen Reactions Hydrocodone Hydrocodone-Acetaminophen Other reaction(s): Unknown Other reaction(s): Unknown Other reaction(s): Unknown Other reaction(s): Unknown Sulfamethoxazole Sulfamethoxazole-Trimethoprim Other reaction(s): Unknown Trimethoprim Cephalexin Rash Current Outpatient Medications Medication Sig Amoxicillin 500 MG capsule Aspirin [address] tablet 1 tablet atorvastatin 40 MG Tab tablet Take 1 tablet by mouth daily. cilostazol 100 MG Tab tablet Take 1 tablet by mouth. Continuous Blood Gluc Jewel Gauger (Bumpr Candelaria 2 [place] Systm) Device 1 Each by Unknown route 2 times daily. doxazosin 2 MG Tab Take 1 tablet by mouth at bedtime. Famotidine 20 MG Chew Tab Chew 1 tablet. furOSEmide (Lasix) 20 MG tablet Take 1 tablet by mouth daily. Take at noon gentamicin 0.1 % Cream Apply small amount to affected area at every bandage change. Change bandage 1-2x a day This will be used for about 2 weeks GLUCOSE TEST STRIPS PRESCRIPTION Check blood sugars 4 times per day hydrALAzine 25 MG Tab TAKE 2 TABLETS BY MOUTH THREE TIMES DAILY insulin lispro 100 UNIT/ML Solution Pen-injector Inject under the skin. Lantus 100 UNIT/ML vial Inject 15 Units under the skin at bedtime. (Patient taking differently: Inject 13 Units under the skin at bedtime.) metoprolol 25 MG tab regular release Take 2 tablets by mouth. Multiple Vitamins-Minerals (Multivitamin Adult) tablet 1 tablet SF 5000 Plus 1.1 % Cream cream USE ONCE DAILY IN THE EVENING DIRECTED Past Medical History: Diagnosis Date Diabetes mellitus Essential hypertension, benign Hyperlipidemia JUAN ALBERTO (obstructive sleep apnea) No past surgical history on file. Social History Occupational History Employer: RETIRED Tobacco Use Smoking status: Never Smokeless tobacco: Never Substance and Sexual Activity Alcohol use: Not on file Drug use: Not on file Sexual activity: Not on file Review of Systems Nurse Note: Review of Systems Constitutional: Negative for fatigue, fever and unexpected weight change. HENT: No difficulty swallowing No change in voice Respiratory: Negative for cough, shortness of breath and wheezing. Cardiovascular: Negative for chest pain, palpitations and leg swelling. Gastrointestinal: Negative for constipation, diarrhea, nausea and vomiting. Neurological: Negative for tremors, weakness and numbness. Psychiatric/Behavioral: Negative for sleep disturbance. The patient is not nervous/anxious. Nursing Assessment: Physical Exam Objective: Vitals: 06/16/22 1416 BP: 158/88 Pulse: 70 SpO2: 98% Physical Examination: The patient is appropriately dressed, articulate, awake, alert, and oriented x 3, appears their stated age and appears to be in poor health. Vascular: Dorsalis pedis pulse is 2/4 left and 2/4 right. Posterior tibial pulses is 1/4 left and 1/4 right. Capillary fill time is brisk left and brisk right. Dermatological: Skin texture is noted to be atrophic. Skin color is noted to be normal. Hair growth is absent Ulceration #1: Ulceration location Right great toe . Type: Neuropathic Wound dimensions: 03/24/2022 0 cm long by 0 cm wide by 0 cm deep 04/14/2022 0.5x0.2x0.1cm 05/03/2022 unchanged 06/02/230.7x0.4x0.2cm 06/16/22 healed Neurological: absent sharp/dull sensation bilateral. diminished light touch sensation bilateral. Coordination is fair MICRO Lab Results Component Value Date RESULTCULT STAPHYLOCOCCUS AUREUS 03/24/2022 . Impression: : ICD-10-CM 1. Ulcer of right foot, limited to breakdown of skin L97.511 Plan: Patient was seen and evaluated today with a history and physical exam. This is a diagnosis that has threat to limb. Ulcer is healed today His states that they want to get a 2nd opinion Last visit we talked about his xray and the accessory ossiscle and the need to possibly remove this. At this point I recommend a dry band aid for 1 week then nothing on the ulcer. 1. Patient was given an opportunity to ask all questions to their satisfaction. Patient is to return to office prn If the patient notices: increase in drainage, redness, foul odor or feel like they are getting flu-like symptoms they should contact the office during working hours or go to the emergency room after hours. Patient will contact the office sooner is any problems arise. documented in this encounter [facility] 06-02-2022 History of Presen t illness Narrative Nurse Note: Review of Systems All other systems reviewed and are negative. Nursing Assessment: Physical Exam Patient: Fatimah Teran Date: 06/02/2022 Date ulcer/sore started: 03/24/2022 Chief Complaint: Patient is a 81 y.o. year old male who presents today for follow up of right great toe ulcer. He is still doing dressing changes. Allergies Allergen Reactions Hydrocodone Hydrocodone-Acetaminophen Other reaction(s): Unknown Other reaction(s): Unknown Other reaction(s): Unknown Other reaction(s): Unknown Sulfamethoxazole Sulfamethoxazole-Trimethoprim Other reaction(s): Unknown Trimethoprim Cephalexin Rash Current Outpatient Medications Medication Sig Amoxicillin 500 MG capsule Aspirin [address] tablet 1 tablet atorvastatin 40 MG Tab tablet Take 1 tablet by mouth daily. cilostazol 100 MG Tab tablet Take 1 tablet by mouth. Continuous Blood Gluc Jewel Gauger (FridgeStyle Candelaria 2 [place] Systm) Device 1 Each by Unknown route 2 times daily. doxazosin 2 MG Tab Take 1 tablet by mouth at bedtime. Famotidine 20 MG Chew Tab Chew 1 tablet. furOSEmide (Lasix) 20 MG tablet Take 1 tablet by mouth daily. Take at noon gentamicin 0.1 % Cream Apply small amount to affected area at every bandage change. Change bandage 1-2x a day This will be used for about 2 weeks GLUCOSE TEST STRIPS PRESCRIPTION Check blood sugars 4 times per day hydrALAzine 25 MG Tab TAKE 2 TABLETS BY MOUTH THREE TIMES DAILY insulin lispro 100 UNIT/ML Solution Pen-injector Inject under the skin. Lantus 100 UNIT/ML vial Inject 15 Units under the skin at bedtime. (Patient taking differently: Inject 13 Units under the skin at bedtime.) metoprolol 25 MG tab regular release Take 2 tablets by mouth. Multiple Vitamins-Minerals (Multivitamin Adult) tablet 1 tablet SF 5000 Plus 1.1 % Cream cream USE ONCE DAILY IN THE EVENING DIRECTED Past Medical History: Diagnosis Date Diabetes mellitus Essential hypertension, benign Hyperlipidemia JUAN ALBERTO (obstructive sleep apnea) No past surgical history on file. Social History Occupational History Employer: RETIRED Tobacco Use Smoking status: Never Smokeless tobacco: Never Substance and Sexual Activity Alcohol use: Not on file Drug use: Not on file Sexual activity: Not on file Review of Systems No notes on file Objective: There were no vitals filed for this visit. Physical Examination: The patient is appropriately dressed, articulate, awake, alert, and oriented x 3, appears their stated age and appears to be in poor health. Vascular: Dorsalis pedis pulse is 2/4 left and 2/4 right. Posterior tibial pulses is 1/4 left and 1/4 right. Capillary fill time is brisk left and brisk right. Dermatological: Skin temperature is warm to warm proximal robertson to distal right foot and warm to warm proximal robertson to distal left foot. Skin texture is noted to be atrophic. Skin color is noted to be normal. Hair growth is absent Ulceration #1: Ulceration location Right great toe . Type: Neuropathic Wound dimensions: 03/24/2022 0 cm long by 0 cm wide by 0 cm deep 04/14/2022 0.5x0.2x0.1cm 05/03/2022 unchanged 230.7x0.4x0.2cm Wound dimensions after debridement: 03/24/2022 0.5 cm long by 0.4 cm wide by 0.2 cm deep 04/14/2022 debrided callous only 05/03/2022 callous debrided only 06/02/22 callous only Base: Ulceration extends Partially through skin. Granular tissue 80%. Fibrous/scar tissue 20%. Necrotic tissue 0%. Drainage:mild clear serous drainage observed. Surrounding Area: negative odor, erythema, streaking, crepitus, calor Miller Staging: Grade 1 - superficial ulcer of skin without subcutaneous tissue involvement, not infected Neurological: absent sharp/dull sensation bilateral. diminished light touch sensation bilateral. Coordination is fair MICRO Lab Results Component Value Date RESULTCULT STAPHYLOCOCCUS AUREUS 03/24/2022 . Impression: : ICD-10-CM 1. 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 Ulcer of right foot, limited to breakdown of skin L97.511 condition is the same Plan: Patient was seen and evaluated today with a history and physical exam. This is a diagnosis that has threat to limb. Patient understands the importance of sharp debridment and home wound care. Fatimah understands about infection and the possibility of amputation if this does not heal. Patient was given an opportunity to ask all questions. Continue with proper hygiene for the wound at home and noted wound should be covered at all times and not be left open to air Goal: complete healing of wound in 4 weeks. Keep wound free of infection. We will achieve this through debridement, appropriate wound dressings, antibiotics as needed, proper hygiene, and a team approach with wound care and vascular surgery as needed 1. The wound will not be soaked or get wet in the shower, again, this can lead to infection in the wound 2. Callous only debrided 3. Xray right foot Dr. Mathews independent interpretation/Impression of results: 4. 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 6. A culture was not taken today. 7. betadine and dry sterile dressing was applied. 8. The dressing needs to be changed daily 9. rx gentamycin cream 10. Need padding for the wound with the bandage 11. Dressing will consist of: gentamycin cream and DSD 12. Patient was given an opportunity to ask all questions to their satisfaction. Patient is to return to office in 2 weeks If the patient notices: increase in drainage, redness, foul odor or feel like they are getting flu-like symptoms they should contact the office during working hours or go to the emergency room after hours. Patient will contact the office sooner is any problems arise. documented in this encounter [facility] 05-25-2022 Note HNO ID: [id number] Author: Brianna Tineo II, OD Service: ? 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 No distance acuity improvement with use of glasses. Glasses needed for near tasks only. Discussed OTC readers vs multifocals. Continue care with Dr. Mcmahan. I have confirmed and edited as necessary the relevant ophthalmic history, ROS, and the neuro exam findings as obtained by others. I have seen and examined Fatimah Teran. I have discussed the case and the management of this patient's care with the Resident/Fellow, if applicable. I also have reviewed and agree with the assessment and plan as stated above and agree with all of its relevant components. Brianna Tineo II, MARYLU [facility] 05-25-2022 Instructions Brianna Tineo II, OD - 05/25/2022 2:08 PM EDT Assessment and Plan H52.01 Hyperopia, right (primary encounter diagnosis) H52.12 Myopia of left eye H52.222 Regular astigmatism, left eye Comment: Minimal refractive error. No distance acuity improvement with use of glasses. Glasses needed for near tasks only. Discussed OTC readers vs multifocals. Continue care with Dr. Mcmahan. I have confirmed and edited as necessary the relevant ophthalmic history, ROS, and the neuro exam findings as obtained by others. I have seen and examined Fatimah Teran. I have discussed the case and the management of this patient's care with the Resident/Fellow, if applicable. I also have reviewed and agree with the assessment and plan as stated above and agree with all of its relevant components. Brianna Tineo II, OD documented in this encounter [facility] 05-25-2022 History of Presen t illness Narrative Assessment and Plan H52.01 Hyperopia, right (primary encounter diagnosis) H52.12 Myopia of left eye H52.222 Regular astigmatism, left eye Comment: Minimal refractive error. No distance acuity improvement with use of glasses. Glasses needed for near tasks only. Discussed OTC readers vs multifocals. Continue care with Dr. Mcmahan. I have confirmed and edited as necessary the relevant ophthalmic history, ROS, and the neuro exam findings as obtained by others. I have seen and examined Fatimah Teran. I have discussed the case and the management of this patient's care with the Resident/Fellow, if applicable. I also have reviewed and agree with the assessment and plan as stated above and agree with all of its relevant components. Brianna Tineo II, MARYLU documented in this encounter [facility] 05-03-2022 History of Presen t illness Narrative Nurse Note: Review of Systems Constitutional: Negative for fatigue, fever and unexpected weight change. HENT: No difficulty swallowing No change in voice Respiratory: Negative for cough, shortness of breath and wheezing. Cardiovascular: Negative for chest pain, palpitations and leg swelling. Gastrointestinal: Negative for constipation, diarrhea, nausea and vomiting. Neurological: Negative for tremors, weakness and numbness. Psychiatric/Behavioral: Negative for sleep disturbance. The patient is not nervous/anxious. Nursing Assessment: Physical Exam Patient: Fatimah Teran Date: 05/03/2022 Date ulcer/sore started: 03/24/2022 Chief Complaint: Patient is a 81 y.o. year old male who presents today for follow up of right great toe ulcer. No new changes for the ulcer Allergies Allergen Reactions Hydrocodone Hydrocodone-Acetaminophen Other reaction(s): Unknown Other reaction(s): Unknown Other reaction(s): Unknown Sulfamethoxazole Sulfamethoxazole-Trimethoprim Other reaction(s): Unknown Trimethoprim Cephalexin Rash Current Outpatient Medications Medication Sig Amoxicillin 500 MG capsule Aspirin [address] tablet 1 tablet atorvastatin 40 MG Tab tablet Take 1 tablet by mouth daily. cilostazol 100 MG Tab tablet Take 1 tablet by mouth. Continuous Blood Gluc Jewel Gauger (FreeStyle Candelaria 2 [place] Systm) Device 1 Each by Unknown route 2 times daily. doxazosin 2 MG Tab Take 1 tablet by mouth at bedtime. Famotidine 20 MG Chew Tab Chew 1 tablet. furOSEmide (Lasix) 20 MG tablet Take 1 tablet by mouth daily. Take at noon gentamicin 0.1 % Cream Apply small amount to affected area at every bandage change. Change bandage 1-2x a day This will be used for about 2 weeks GLUCOSE TEST STRIPS PRESCRIPTION Check blood sugars 4 times per day hydrALAzine 25 MG Tab TAKE 2 TABLETS BY MOUTH THREE TIMES DAILY insulin lispro 100 UNIT/ML Solution Pen-injector Inject under the skin. Lantus 100 UNIT/ML vial Inject 15 Units under the skin at bedtime. (Patient taking differently: Inject 13 Units under the skin at bedtime.) metoprolol 25 MG tab regular release Take 2 tablets by mouth. Multiple Vitamins-Minerals (Multivitamin Adult) tablet 1 tablet SF 5000 Plus 1.1 % Cream cream USE ONCE DAILY IN THE EVENING DIRECTED Past Medical History: Diagnosis Date Diabetes mellitus Essential hypertension, benign Hyperlipidemia JUAN ALBERTO (obstructive sleep apnea) No past surgical history on file. Social History Occupational History Employer: RETIRED Tobacco Use Smoking status: Never Smokeless tobacco: Never Substance and Sexual Activity Alcohol use: Not on file Drug use: Not on file Sexual activity: Not on file Review of Systems Nurse Note: Review of Systems Constitutional: Negative for fatigue, fever and unexpected weight change. HENT: No difficulty swallowing No change in voice Respiratory: Negative for cough, shortness of breath and wheezing. Cardiovascular: Negative for chest pain, palpitations and leg swelling. Gastrointestinal: Negative for constipation, diarrhea, nausea and vomiting. Neurological: Negative for tremors, weakness and numbness. Psychiatric/Behavioral: Negative for sleep disturbance. The patient is not nervous/anxious. Nursing Assessment: Physical Exam Objective: Vitals: 05/03/22 1351 BP: 164/86 Pulse: 88 Physical Examination: The patient is appropriately dressed, articulate, awake, alert, and oriented x 3, appears their stated age and appears to be in poor health. Vascular: Dorsalis pedis pulse is 2/4 left and 2/4 right. Posterior tibial pulses is 1/4 left and 1/4 right. Capillary fill time is brisk left and brisk right. Dermatological: Skin temperature is warm to warm proximal robertson to distal right foot and warm to warm proximal robertson to distal left foot. Skin texture is noted to be atrophic. Skin color is noted to be normal. Hair growth is absent Ulceration #1: Ulceration location Right great toe . Type: Neuropathic Wound dimensions: 03/24/2022 0 cm long by 0 cm wide by 0 cm deep 04/14/2022 0.5x0.2x0.1cm 05/03/2022 unchanged Wound dimensions after debridement: 03/24/2022 0.5 cm long by 0.4 cm wide by 0.2 cm deep 04/14/2022 debrided callous only 05/03/2022 callous debrided only Base: Ulceration extends Partially through skin. Granular tissue 80%. Fibrous/scar tissue 20%. Necrotic tissue 0%. Drainage:mild clear serous drainage observed. Surrounding Area: negative odor, erythema, streaking, crepitus, calor Miller Staging: Grade 1 - superficial ulcer of skin without subcutaneous tissue involvement, not infected Neurological: absent sharp/dull sensation bilateral. diminished light touch sensation bilateral. Coordination is fair MICRO Lab Results Component Value Date RESULTCULT STAPHYLOCOCCUS AUREUS 03/24/2022 . Impression: : ICD-10-CM 1. Ulcer of right foot, limited to breakdown of skin L97.511 gentamicin 0.1 % Cream XR FOOT RIGHT 3 VIEWS condition is the same Plan: Patient was seen and evaluated today with a history and physical exam. This is a diagnosis that has threat to limb. Patient understands the importance of sharp debridment and home wound care. Fatimah understands about infection and the possibility of amputation if this does not heal. Patient was given an opportunity to ask all questions. Continue with proper hygiene for the wound at home and noted wound should be covered at all times and not be left open to air Goal: complete healing of wound in 4 weeks. Keep wound free of infection. We will achieve this through debridement, appropriate wound dressings, antibiotics as needed, proper hygiene, and a team approach with wound care and vascular surgery as needed 1. The wound will not be soaked or get wet in the shower, again, this can lead to infection in the wound 2. Callous only debrided 3. Xray right foot 4. A culture was not taken today. 5. betadine and dry sterile dressing was applied. 6. The dressing needs to be changed daily 7. rx gentamycin cream 8. Need padding for the wound with the bandage 9. Dressing will consist of: gentamycin cream and DSD 10. Patient was given an opportunity to ask all questions to their satisfaction. Patient is to return to office in 3 weeks If the patient notices: increase in drainage, redness, foul odor or feel like they are getting flu-like symptoms they should contact the office during working hours or go to the emergency room after hours. Patient will contact the office sooner is any problems arise. documented in this encounter [facility] 03-08-2023 Note HNO ID: [id number] Author: Elvis Mcmahan MD Service: ? Author Type: Physician Type: Progress Notes Filed: 04/20/2022 3:28 PM Note Text: ASSESSMENT/PLAN: 1. 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 2. Type 2 diabetes mellitus without retinopathy (HCC) - ICD9: 250.00, ICD10: E11.9 Please keep your blood sugar under good control to minimize risk of ocular complications from diabetes. Continue to monitor with primary care physician. 3. Pseudophakia of both eyes - ICD9: V43.1, ICD10: Z96.1 Intraocular lens implant in good position Both Eyes. 4. Essential hypertension - ICD9: 401.9, ICD10: I10 Continue to monitor with primary care physician. Elvis Mcmahan MD I have confirmed and edited as necessary the relevant ophthalmic history, review of systems, surgical history, and ophthalmological examination findings as obtained by the ophthalmic technical staff. I have seen and examined Fatimah Teran. I have discussed the examination findings, diagnosis, and treatment options with Fatimah Teran and/or his family. I have also reviewed and agree with the assessment and plan as stated above and agree with all its relevant components. I gave the patient the opportunity to ask questions about the findings, diagnosis, and treatment options. [facility] 04-20-2022 Instructions Elvis Mcmahan MD - 04/20/2022 3:26 PM EST Current Ophthalmic Meds keTORolac (ACULAR) 0.5 % ophthalmic solution Use 1 Drop in the right eye four times daily for 7 days. If you have any questions please contact our office at [phone]. After office hours or on the weekend, please call Dr. Mcmahan on his cell phone at [phone]. documented in this encounter [facility] 04-20-2022 History of Presen t illness Narrative ASSESSMENT/PLAN: 1. 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 2. Type 2 diabetes mellitus without retinopathy (HCC) - ICD9: 250.00, ICD10: E11.9 Please keep your blood sugar under good control to minimize risk of ocular complications from diabetes. Continue to monitor with primary care physician. 3. Pseudophakia of both eyes - ICD9: V43.1, ICD10: Z96.1 Intraocular lens implant in good position Both Eyes. 4. Essential hypertension - ICD9: 401.9, ICD10: I10 Continue to monitor with primary care physician. Elvis Mcmahan MD I have confirmed and edited as necessary the relevant ophthalmic history, review of systems, surgical history, and ophthalmological examination findings as obtained by the ophthalmic technical staff. I have seen and examined Fatimah Teran. I have discussed the examination findings, diagnosis, and treatment options with Fatimah Teran and/or his family. I have also reviewed and agree with the assessment and plan as stated above and agree with all its relevant components. I gave the patient the opportunity to ask questions about the findings, diagnosis, and treatment options. documented in this encounter [facility] 03-25-2022 Note HNO ID: [id number] Author: Elvis Mcmahan MD Service: ? Author Type: Physician Type: Progress Notes Filed: 03/25/2022 2:05 PM Note Text: ASSESSMENT/PLAN: 1. Meibomian gland dysfunction (MGD) of upper and lower lids of both eyes - ICD9: 373.00, ICD10: H02.88A, H02.88B (primary diagnosis) 2. Chalazion of right lower eyelid - ICD9: 373.2, ICD10: H00.12 Begin: Warm Compresses- apply for 10 minutes three times a day Current Ophthalmic Meds erythromycin (ROMYCIN) 5 mg/gram (0.5 %) ophthalmic ointment Use 1 application in both eyes daily at bedtime. Rub on lashes at bedtime Systane Complete Artificial Tears - Use 1 Drop into both eyes three times a day. 3. Type 2 diabetes mellitus without retinopathy (HCC) - ICD9: 250.00, ICD10: E11.9 Please keep your blood sugar under good control to minimize risk of ocular complications from diabetes. 4. 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 Intraretinal cyst left eye Monitor 6. After cataract obscuring vision right eye Return for Yag laser right eye 7. Pseudophakia of both eyes - ICD9: V43.1, ICD10: Z96.1 -Intraocular lens well-centered/ stable 8. Essential hypertension - ICD9: 401.9, ICD10: I10 -continue care with PCP I have confirmed and edited as necessary the relevant ophthalmic history, review of systems, surgical history, and ophthalmological examination findings as obtained by the ophthalmic technical staff. I have seen and examined Fatimah Teran. I have discussed the examination findings, diagnosis, and treatment options with Fatimah Teran and/or his family. I have also reviewed and agree with the assessment and plan as stated above and agree with all its relevant components. I gave the patient the opportunity to ask questions about the findings, diagnosis, and treatment options. Elvis Mcmahan MD [facility] 03-24-2022 History of Presen t illness Narrative Nurse Note: Review of Systems Constitutional: Negative for fatigue, fever and unexpected weight change. HENT: No difficulty swallowing No change in voice Respiratory: Negative for cough, shortness of breath and wheezing. Cardiovascular: Negative for chest pain, palpitations and leg swelling. Gastrointestinal: Negative for constipation, diarrhea, nausea and vomiting. Neurological: Negative for tremors, weakness and numbness. Psychiatric/Behavioral: Negative for sleep disturbance. The patient is not nervous/anxious. Nursing Assessment: Physical Exam Associated Order(s): FOOT AND HAND CARE Post-Procedure Diagnose(s): Ulcer of right foot, limited to breakdown of skin Patient: Fatimah Rocha Parul Date: 03/24/2022 Date ulcer/sore started: 03/24/2022 Chief Complaint: Patient is a 81 y.o. year old male who presents today for diabetic nail care. No new issues today. Allergies Allergen Reactions Hydrocodone Hydrocodone-Acetaminophen Other reaction(s): Unknown Other reaction(s): Unknown Other reaction(s): Unknown Sulfamethoxazole Sulfamethoxazole-Trimethoprim Other reaction(s): Unknown Trimethoprim Cephalexin Rash Current Outpatient Medications Medication Sig Aspirin [address] tablet 1 tablet atorvastatin 40 MG Tab tablet Take 1 tablet by mouth daily. cilostazol 100 MG Tab tablet Take 1 tablet by mouth. Continuous Blood Gluc Jewel Gauger (FridgeStyle Candelaria 2 [place] Systm) Device 1 Each by Unknown route 2 times daily. doxazosin 2 MG Tab Take 1 tablet by mouth at bedtime. Famotidine 20 MG Chew Tab Chew 1 tablet. furOSEmide (Lasix) 20 MG tablet Take 1 tablet by mouth daily. Take at noon gentamicin 0.1 % Cream Apply small amount to affected area at every bandage change. Change bandage 1-2x a day This will be used for about 2 weeks GLUCOSE TEST STRIPS PRESCRIPTION Check blood sugars 4 times per day hydrALAzine 25 MG Tab TAKE 2 TABLETS BY MOUTH THREE TIMES DAILY insulin lispro 100 UNIT/ML Solution Pen-injector Inject under the skin. Lantus 100 UNIT/ML vial Inject 15 Units under the skin at bedtime. (Patient taking differently: Inject 13 Units under the skin at bedtime.) metoprolol 25 MG tab regular release Take 2 tablets by mouth. Multiple Vitamins-Minerals (Multivitamin Adult) tablet 1 tablet SF 5000 Plus 1.1 % Cream cream USE ONCE DAILY IN THE EVENING DIRECTED Past Medical History: Diagnosis Date Diabetes mellitus Essential hypertension, benign Hyperlipidemia JUAN ALBERTO (obstructive sleep apnea) No past surgical history on file. Social History Occupational History Employer: RETIRED Tobacco Use Smoking status: Never Smokeless tobacco: Never Substance and Sexual Activity Alcohol use: Not on file Drug use: Not on file Sexual activity: Not on file Review of Systems Nurse Note: Review of Systems Constitutional: Negative for fatigue, fever and unexpected weight change. HENT: No difficulty swallowing No change in voice Respiratory: Negative for cough, shortness of breath and wheezing. Cardiovascular: Negative for chest pain, palpitations and leg swelling. Gastrointestinal: Negative for constipation, diarrhea, nausea and vomiting. Neurological: Negative for tremors, weakness and numbness. Psychiatric/Behavioral: Negative for sleep disturbance. The patient is not nervous/anxious. Nursing Assessment: Physical Exam Objective: Vitals: 03/24/22 1355 BP: 140/62 Pulse: 77 Physical Examination: The patient is appropriately dressed, articulate, awake, alert, and oriented x 3, appears their stated age and appears to be in poor health. Vascular: Dorsalis pedis pulse is 2/4 left and 2/4 right. Posterior tibial pulses is 1/4 left and 1/4 right. Capillary fill time is brisk left and brisk right. Dermatological: Skin temperature is warm to warm proximal robertson to distal right foot and warm to warm proximal robertson to distal left foot. Skin texture is noted to be atrophic. Skin color is noted to be normal. Hair growth is absent Ulceration #1: Ulceration location Right great toe . Type: Neuropathic Wound dimensions: 03/24/2022 0 cm long by 0 cm wide by 0 cm deep Wound dimensions after debridement: 03/24/2022 0.5 cm long by 0.4 cm wide by 0.2 cm deep Base: Ulceration extends Partially through skin. Granular tissue 80%. Fibrous/scar tissue 20%. Necrotic tissue 0%. Drainage:mild clear serous drainage observed. Surrounding Area: negative odor, erythema, streaking, crepitus, calor Miller Staging: Grade 1 - superficial ulcer of skin without subcutaneous tissue involvement, not infected Neurological: absent sharp/dull sensation bilateral. diminished light touch sensation bilateral. Coordination is fair MICRO Lab Results Component Value Date RESULTCULT KLEBSIELLA OXYTOCA 01/11/2022 Impression ICD-10-CM 1. Diabetic polyneuropathy associated with type 2 diabetes mellitus E11.42 2. Ulcer of right foot, limited to breakdown of skin L97.511 CULTURE WOUND 3. Callus of foot L84 Plan of Care: Patient was seen and evaluated today with a complete history and lower extremity physical exam. 1. I discussed the possible causes of ulceration with patient. 2. I discussed the importance of sharp debridment and home wound care and how this will help to heal the wound 3. We also talked about infection and the possibility of amputation if this does not heal. 4. If there is delayed healing I will consider surgical debridement in the operating room and application of skin grafts as appropriate. 5. I explained proper hygiene for the wound at home and that the wound should be covered at all times and not be left open to air as this can lead to infection in the wound 6. The wound will not be soaked or get wet in the shower, again, this can lead to infection in the wound 7. Selective debridement was performed today. see procedure note for details. 8. A culture was taken today- location right great toe 9. After debridement, betadine and dry sterile dressing was applied. 10. The dressing needs to be changed daily 11. Dressing will consist of: mupirocin ointment and DSD 12. Patient was given an opportunity to ask all questions to their satisfaction. Goal: 1. Complete healing of wound in 3 months or less, we will plan on regular appointments 2. Keep wound free of infection. 3. We will achieve this through debridement, appropriate wound dressings, antibiotics as need, proper hygiene, and a team approach with wound care, vascular surgery, infectious disease and imaging as needed. Patient is to return to office in 3 weeks If the patient notices: increase in drainage, redness, foul odor or feel like they are getting flu-like symptoms they should contact the office during working hours or go to the emergency room after hours. Patient will contact the office sooner is any problems arise. Talked about not having an insert in the shoe on his right foot. Diabetic Shoe Evaluation Today the patient was evaluated for diabetic shoes. After a history and physical exam, the patient was deemed to be eligible for diabetic footwear and insoles due to the fact that the patient clearly meets the criteria set forth by CMS. The patient has the following 13. Controlled diabetes Non insulin dependent, Peripheral neuropathy with evidence of callus formation, History of pre-ulcerative callus and History of previous foot ulceration This patient is at significant risk for ulceration. An over the counter device would not be sufficient, due to the specifity of this device to the patients deformity. Therapeutic shoes (extra depth) and inserts are a medical necessity because of their diabetic condition This was discussed with the patient in detail and a Rx was written and faxed to [facility] Follow up in 10 weeks for nail care FOOT AND HAND CARE Date/Time: 03/24/2022 2:40 PM Performed by: Yoly Mathews DPM Authorized by: Yoly Mathews DPM Procedure: wound debridement performed Location: Foot Procedure Location: R big toe Wound Debridement Performed: selective debridement Wound Debridement Level: subcutaneous tissue. The wound was evaluated and was debrided without incident. All necrotic and fibrotic material was removed. This left a healthy, granular base to the ulcer. Wound Debridement Tool: scalpel #15 (tissue nippers and curette) Description of Wound: devitalized tissue Wound Tissue: 1 cm2 Hemostasis obtained by: compression Dressinx2 Estimated Blood Loss: <1cc Patient tolerance: Patient tolerated the procedure well with no immediate complications Comments: betadine solution was used to cover the wound followed by a dry sterile dressing. Consent: Consent was obtained prior to the procedure after discussion of the risks, benefits and alternatives, and expected outcomes were discussed with the patient. The possibilities of reaction to medication, bleeding, infection, the need for additional procedures, failure to diagnosis a condition, and creating a complication requiring operation were discussed with the patient. The patient concurred with the proposed plan, giving consent. (verbal) Preparation: skin prepped with ChloraPrep documented in this encounter [facility] 03-24-2022 Instructions Yoly Mathews DPM - 03/24/2022 2:40 PM EST A Prescription was faxed to: [facility] [address] [place] [address] They will call you to make an appointment. If you have not heard from them 2-3 days after your appointment, feel free to call them to set up an appointment. documented in this encounter [facility] 01-27-2022 History of Presen t illness Narrative Nurse Note: Review of Systems Constitutional: Negative for fatigue, fever and unexpected weight change. HENT: No difficulty swallowing No change in voice Respiratory: Negative for cough, shortness of breath and wheezing. Cardiovascular: Negative for chest pain, palpitations and leg swelling. Gastrointestinal: Negative for constipation, diarrhea, nausea and vomiting. Neurological: Negative for tremors, weakness and numbness. Psychiatric/Behavioral: Negative for sleep disturbance. The patient is not nervous/anxious. Nursing Assessment: Physical Exam Patient: Fatimah Teran Date: 01/27/2022 Date ulcer/sore started: 01/11/2022 Chief Complaint: Patient is a 81 y.o. year old male who presents today for follow up of right great toe ulcer. He has been keeping it dry and covered. He thinks it is better Allergies Allergen Reactions Hydrocodone Hydrocodone-Acetaminophen Other reaction(s): Unknown Other reaction(s): Unknown Other reaction(s): Unknown Sulfamethoxazole Sulfamethoxazole-Trimethoprim Other reaction(s): Unknown Trimethoprim Cephalexin Rash Current Outpatient Medications Medication Sig Aspirin [address] tablet 1 tablet atorvastatin 40 MG Tab tablet Take 40 mg by mouth daily. cilostazol 100 MG Tab tablet Take 100 mg by mouth. Continuous Blood Gluc Jewel Gauger (Bumpr Candelaria 2 [place] Systm) Device 1 Each by Unknown route 2 times daily. doxazosin 2 MG Tab Take 2 mg by mouth at bedtime. Famotidine 20 MG Chew Tab Chew 20 mg. furOSEmide (Lasix) 20 MG tablet Take 1 tablet by mouth daily. Take at noon gentamicin 0.1 % Cream Apply small amount to affected area at every bandage change. Change bandage 1-2x a day This will be used for about 2 weeks GLUCOSE TEST STRIPS PRESCRIPTION Check blood sugars 4 times per day hydrALAzine 25 MG Tab TAKE 2 TABLETS BY MOUTH THREE TIMES DAILY insulin lispro 100 UNIT/ML Solution Pen-injector Inject under the skin. Lantus 100 UNIT/ML vial Inject 15 Units under the skin at bedtime. (Patient taking differently: Inject 13 Units under the skin at bedtime.) metoprolol 25 MG tab regular release Take 50 mg by mouth. Multiple Vitamins-Minerals (Multivitamin Adult) tablet 1 tablet SF 5000 Plus 1.1 % Cream cream USE ONCE DAILY IN THE EVENING DIRECTED Past Medical History: Diagnosis Date Diabetes mellitus Essential hypertension, benign Hyperlipidemia JUAN ALBERTO (obstructive sleep apnea) No past surgical history on file. Social History Occupational History Employer: RETIRED Tobacco Use Smoking status: Never Smokeless tobacco: Never Substance and Sexual Activity Alcohol use: Not on file Drug use: Not on file Sexual activity: Not on file Review of Systems Nurse Note: Review of Systems Constitutional: Negative for fatigue, fever and unexpected weight change. HENT: No difficulty swallowing No change in voice Respiratory: Negative for cough, shortness of breath and wheezing. Cardiovascular: Negative for chest pain, palpitations and leg swelling. Gastrointestinal: Negative for constipation, diarrhea, nausea and vomiting. Neurological: Negative for tremors, weakness and numbness. Psychiatric/Behavioral: Negative for sleep disturbance. The patient is not nervous/anxious. Nursing Assessment: Physical Exam Objective: Vitals: 01/27/22 1402 BP: 134/54 Pulse: 63 Physical Examination: The patient is appropriately dressed, articulate, awake, alert, and oriented x 3, appears their stated age and appears to be in poor health. Vascular: Dorsalis pedis pulse is 2/4 left and 2/4 right. Posterior tibial pulses is 1/4 left and 1/4 right. Capillary fill time is brisk left and brisk right. Dermatological: Skin temperature is warm to warm proximal orbertson to distal right foot and warm to warm proximal robertson to distal left foot. Skin texture is noted to be atrophic. Skin color is noted to be normal. Hair growth is absent Ulceration #1: Ulceration location Right great toe . Ulcer healed Neurological: absent sharp/dull sensation bilateral. diminished light touch sensation bilateral. Coordination is fair MICRO Lab Results Component Value Date RESULTCULT KLEBSIELLA OXYTOCA 01/11/2022 Impression: : ICD-10-CM 1. Ulcer of right foot, limited to breakdown of skin L97.511 condition is resolved Plan: Patient was seen and evaluated today with a history and physical exam. The ulcer is healed. He will do a dry dressing for 1 week. He will wear his diabetic shoes Keep a close eye on this toe. increase in drainage, redness, foul odor or feel like they are getting flu-like symptoms they should contact the office during working hours or go to the emergency room after hours. Patient will contact the office sooner is any problems arise. Follow up in 10 weeks for nail care documented in this encounter [facility] 01-11-2022 History of Presen t illness Narrative Nurse Note: Review of Systems Constitutional: Negative for fatigue, fever and unexpected weight change. HENT: No difficulty swallowing No change in voice Respiratory: Negative for cough, shortness of breath and wheezing. Cardiovascular: Negative for chest pain, palpitations and leg swelling. Gastrointestinal: Negative for constipation, diarrhea, nausea and vomiting. Neurological: Negative for tremors, weakness and numbness. Psychiatric/Behavioral: Negative for sleep disturbance. The patient is not nervous/anxious. Nursing Assessment: Physical Exam Associated Order(s): FOOT AND HAND CARE Post-Procedure Diagnose(s): Ulcer of right foot, limited to breakdown of skin Patient: Fatimah Teran Date: 01/11/2022 Date ulcer/sore started: 01/11/2022 Chief Complaint: Patient is a 81 y.o. year old male who presents today for his nails. He notes that his feet have been try. . Allergies Allergen Reactions Hydrocodone Hydrocodone-Acetaminophen Other reaction(s): Unknown Other reaction(s): Unknown Sulfamethoxazole Sulfamethoxazole-Trimethoprim Other reaction(s): Unknown Trimethoprim Cephalexin Rash Current Outpatient Medications Medication Sig Aspirin [address] tablet 1 tablet atorvastatin 40 MG Tab tablet Take 40 mg by mouth daily. cilostazol 100 MG Tab tablet Take 100 mg by mouth. Continuous Blood Gluc Jewel Gauger (FreeStyle Candelaria 2 [place] Systm) Device 1 Each by Unknown route 2 times daily. doxazosin 2 MG Tab Take 2 mg by mouth at bedtime. Famotidine 20 MG Chew Tab Chew 20 mg. gentamicin 0.1 % Cream Apply small amount to affected area at every bandage change. Change bandage 1-2x a day This will be used for about 2 weeks GLUCOSE TEST STRIPS PRESCRIPTION Check blood sugars 4 times per day hydrALAzine 25 MG Tab TAKE 2 TABLETS BY MOUTH THREE TIMES DAILY insulin lispro 100 UNIT/ML Solution Pen-injector Inject under the skin. Lantus 100 UNIT/ML vial Inject 15 Units under the skin at bedtime. (Patient taking differently: Inject 13 Units under the skin at bedtime.) metoprolol 25 MG tab regular release Take 50 mg by mouth. Multiple Vitamins-Minerals (Multivitamin Adult) tablet 1 tablet SF 5000 Plus 1.1 % Cream cream USE ONCE DAILY IN THE EVENING DIRECTED furOSEmide (Lasix) 20 MG tablet Take 1 tablet by mouth daily. Take at noon (Patient not taking: Reported on 11/02/2021) Past Medical History: Diagnosis Date Diabetes mellitus Essential hypertension, benign Hyperlipidemia JUAN ALBERTO (obstructive sleep apnea) No past surgical history on file. Social History Occupational History Employer: RETIRED Tobacco Use Smoking status: Never Smokeless tobacco: Never Substance and Sexual Activity Alcohol use: Not on file Drug use: Not on file Sexual activity: Not on file Review of Systems Nurse Note: Review of Systems Constitutional: Negative for fatigue, fever and unexpected weight change. HENT: No difficulty swallowing No change in voice Respiratory: Negative for cough, shortness of breath and wheezing. Cardiovascular: Negative for chest pain, palpitations and leg swelling. Gastrointestinal: Negative for constipation, diarrhea, nausea and vomiting. Neurological: Negative for tremors, weakness and numbness. Psychiatric/Behavioral: Negative for sleep disturbance. The patient is not nervous/anxious. Nursing Assessment: Physical Exam Objective: Vitals: 01/11/22 1351 BP: 132/62 Physical Examination: The patient is appropriately dressed, articulate, awake, alert, and oriented x 3, appears their stated age and appears to be in poor health. Vascular: Dorsalis pedis pulse is 2/4 left and 2/4 right. Posterior tibial pulses is 1/4 left and 1/4 right. Capillary fill time is brisk left and brisk right. Dermatological: Skin temperature is warm to warm proximal robertson to distal right foot and warm to warm proximal robertson to distal left foot. Skin texture is noted to be atrophic. Skin color is noted to be normal. Hair growth is absent Ulceration #1: Ulceration location Right great toe . Type: neuropathic-Diabetic Wound dimensions: 01/11/2022 callous only Wound dimensions after debridement: 01/11/2022 0.3 cm long by 0.3 cm wide by 0.2 cm deep. Base: Ulceration extends Partially and No exposed tendon or muscle through skin. Granular tissue present 50%. Fibrous/scar/devitalized tissue present 50%. Necrotic tissue absent 0%. Drainage:No . drainage observed. Surrounding Area: negative odor, erythema, streaking, crepitus, calor Miller Staging: Grade 1 - superficial ulcer of skin without subcutaneous tissue involvement, not infected Musculoskeletal: Muscle strength for all prime movers of the lower leg, ankle, and foot are graded at 5/5 bilateral lower extremities. Appropriate muscle tone and symmetry bilateral lower extremities. Neurological: absent sharp/dull sensation bilateral. diminished light touch sensation bilateral. Coordination is fair MICRO Lab Results Component Value Date RESULTCULT ESCHERICHIA COLI 08/19/2021 Impression: ICD-10-CM 1. Diabetic polyneuropathy associated with type 2 diabetes mellitus E11.42 2. Ulcer of right foot, limited to breakdown of skin L97.511 CULTURE WOUND FOOT AND HAND CARE Plan of Care: Patient was seen and evaluated today with a complete history and lower extremity physical exam. 1. I discussed the possible causes of ulceration with patient. 2. I discussed the importance of sharp debridment and home wound care and how this will help to heal the wound 3. We also talked about infection and the possibility of amputation if this does not heal. 4. If there is delayed healing I will consider surgical debridement in the operating room and application of skin grafts as appropriate. 5. I explained proper hygiene for the wound at home and that the wound should be covered at all times and not be left open to air as this can lead to infection in the wound 6. The wound will not be soaked or get wet in the shower, again, this can lead to infection in the wound 7. Selective debridement was performed today. see procedure note for details if debridement was performed. 8. A culture was taken today- location right great toe 9. betadine and dry sterile dressing was applied. 10. The dressing needs to be changed daily 11. Dressing will consist of: mupirocin ointment and DSD 12. Patient was given an opportunity to ask all questions to their satisfaction. Goal: 1. Complete healing of wound in 1 months or less, we will plan on regular appointments until healed 2. Keep wound free of infection. 3. We will achieve this through debridement, appropriate wound dressings, antibiotics as need, proper hygiene, and a team approach with wound care, vascular surgery, infectious disease and imaging as needed. Patient is to return to office in 2 weeks If the patient notices: increase in drainage, redness, foul odor or feel like they are getting flu-like symptoms they should contact the office during working hours or go to the emergency room after hours. Patient will contact the office sooner is any problems arise. FOOT AND HAND CARE Date/Time: 01/11/2022 2:30 PM Performed by: Yoly Mathews DPM Authorized by: Yoly Mathews DPM Procedure: wound debridement performed Location: Foot Procedure Location: R big toe Wound Debridement Performed: selective debridement Wound Debridement Level: subcutaneous tissue. The wound was evaluated and was debrided without incident. All necrotic and fibrotic material was removed. This left a healthy, granular base to the ulcer. Wound Debridement Tool: scalpel #15 (tissue nippers and curette) Description of Wound: contaminated Wound Tissue: 0 cm2 Hemostasis obtained by: compression Estimated Blood Loss: <1cc Patient tolerance: Patient tolerated the procedure well with no immediate complications Comments: betadine solution was used to cover the wound followed by a dry sterile dressing. Consent: Consent was obtained prior to the procedure after discussion of the risks, benefits and alternatives, and expected outcomes were discussed with the patient. The possibilities of reaction to medication, bleeding, infection, the need for additional procedures, failure to diagnosis a condition, and creating a complication requiring operation were discussed with the patient. The patient concurred with the proposed plan, giving consent. (verbal) Preparation: skin prepped with ChloraPrep documented in this encounter [facility] 11-02-2021 History of Presen t illness Narrative Nurse Note: Review of Systems Constitutional: Negative for fatigue, fever and unexpected weight change. HENT: No difficulty swallowing No change in voice Respiratory: Negative for cough, shortness of breath and wheezing. Cardiovascular: Negative for chest pain, palpitations and leg swelling. Gastrointestinal: Negative for constipation, diarrhea, nausea and vomiting. Neurological: Negative for tremors, weakness and numbness. Psychiatric/Behavioral: Negative for sleep disturbance. The patient is not nervous/anxious. Nursing Assessment: Physical Exam Associated Order(s): FOOT AND HAND CARE; FOOT AND HAND CARE Post-Procedure Diagnose(s): Diabetic polyneuropathy associated with type 2 diabetes mellitus; Dermatophytosis of nail; Toe pain, right; Toe pain, left; Callus of foot Diabetic nails follow up Patient: Fatimah Teran Date: 06/03/2021 Subjective: Fatimah Teran presents today for at risk diabetic foot care. He has a history of diabetic foot ulcers. This problem is chronic in nature. Most recent measured glucose reading Lab Results Component Value Date GLUCOSE 117 (H) 07/14/2020 Allergies: Allergies Allergen Reactions Hydrocodone Hydrocodone-Acetaminophen Other reaction(s): Unknown Other reaction(s): Unknown Sulfamethoxazole Sulfamethoxazole-Trimethoprim Other reaction(s): Unknown Trimethoprim Cephalexin Rash Medications: Current Outpatient Medications: Aspirin [address] tablet, 1 tablet, Disp: , Rfl: atorvastatin 40 MG Tab tablet, Take 40 mg by mouth daily., Disp: , Rfl: cilostazol 100 MG Tab tablet, Take 100 mg by mouth., Disp: , Rfl: Continuous Blood Gluc Jewel Gauger (FridgeStyle Candelaria 2 [place] Systm) Device, 1 Each by Unknown route 2 times daily., Disp: 2 Each, Rfl: 11 doxazosin 2 MG Tab, Take 2 mg by mouth at bedtime., Disp: , Rfl: 3 Famotidine 20 MG Chew Tab, Chew 20 mg., Disp: , Rfl: furOSEmide (Lasix) 20 MG tablet, Take 1 tablet by mouth daily. Take at noon, Disp: 90 tablet, Rfl: 3 GLUCOSE TEST STRIPS PRESCRIPTION, Check blood sugars 4 times per day, Disp: 360 Container, Rfl: 11 hydrALAzine 25 MG Tab, TAKE 2 TABLETS BY MOUTH THREE TIMES DAILY, Disp: , Rfl: 3 insulin lispro 100 UNIT/ML Solution Pen-injector, Inject under the skin., Disp: , Rfl: Lantus 100 UNIT/ML vial, Inject 15 Units under the skin at bedtime. (Patient taking differently: Inject 13 Units under the skin at bedtime.), Disp: 1 vial, Rfl: 0 metoprolol 25 MG tab regular release, Take 50 mg by mouth., Disp: , Rfl: Multiple Vitamins-Minerals (Multivitamin Adult) tablet, 1 tablet, Disp: , Rfl: SF 5000 Plus 1.1 % Cream cream, USE ONCE DAILY IN THE EVENING DIRECTED, Disp: , Rfl: silver sulfADIAZINE 1 % Cream cream, Apply small amount to affected area at every bandage change, Disp: 25 g, Rfl: 1 Past Medical History: Diagnosis Date Diabetes mellitus Essential hypertension, benign Hyperlipidemia JUAN ALBERTO (obstructive sleep apnea) No past surgical history on file. Social History Occupational History Employer: RETIRED Tobacco Use Smoking status: Never Smoker Smokeless tobacco: Never Used Substance and Sexual Activity Alcohol use: Not on file Drug use: Not on file Sexual activity: Not on file ROS Nurse Note: Review of Systems Constitutional: Negative for fatigue, fever and unexpected weight change. HENT: No difficulty swallowing No change in voice Respiratory: Negative for cough, shortness of breath and wheezing. Cardiovascular: Negative for chest pain, palpitations and leg swelling. Gastrointestinal: Negative for constipation, diarrhea, nausea and vomiting. Neurological: Negative for tremors, weakness and numbness. Psychiatric/Behavioral: Negative for sleep disturbance. The patient is not nervous/anxious. Nursing Assessment: Physical Exam Vitals: 06/03/21 1403 BP: 150/50 Pulse: 75 Weight: 79.4 kg (175 lb) Height: 1.575 m (5' 2 ) Objective: The patient is alert and oriented. The patient is not under distress. Vascular: Left dorsalis pedis 1/4 pulse, right dorsalis pedis 1/4 pulse, Left posterior tibial 1/4 pulse, Right posterior tibial 1/4 pulse. Capillary filling time is Brisk at the level of the digital jose guadalupe bilaterally. Mild swelling of both legs with tightness of the skin atrophy of skin on bilateral legs Dermatology: Digital nails 1-5 on the Right and nails 1-5 on the left are: elongated, thickened >8mm and ridges, distal lysing, friable subungual debris, yellow discoloration, brittle. The nail bed, reveals a characteristic fungal/yeast/mold odor and consistency. 100% of the nail affected + thick hyperkeratosis sub 1st MPJ area b/l and sub 5th metatarsal headl- no underlying ulcer Hemosiderin deposits on both legs with very thin and shiny skin. Large thick callous sub right 1st metatarsal head and sub right 1st IPJ Neurology: Gross sensations intact, light sensations absent to lower extremity. Sharp/dull sensations and Protective sensations diminished to the feet Musculokeltal: There are digital contractures noted. Muscle strength is 5/5 for all four lower extremity muscle groups. Assessment: Fatimah was seen today for diabetic foot care and diabetic foot care. ICD-10-CM 1. Diabetic polyneuropathy associated with type 2 diabetes mellitus E11.42 FOOT AND HAND CARE FOOT AND HAND CARE 2. Dermatophytosis of nail B35.1 FOOT AND HAND CARE 3. Callus of foot L84 FOOT AND HAND CARE 4. Toe pain, right M79.674 FOOT AND HAND CARE 5. Toe pain, left M79.675 FOOT AND HAND CARE Plan: An abbreviated history and lower extremity physical exam was performed today. 1. I emphasized the importance of tight glucose control, foot hygiene and the need for daily self-foot examination. 2. Nail care was performed today. The offending nail margins were mechanically and electrically debrided to reduce nail bulk and length to the level of normal underlying nail bed with good relief obtained as evidenced by pain-free ambulation. 3. Hyperkeratosis debridement was performed today, sharply with a currette and/or #15 blade and then smoothed with a agnieszka on a dremel. 4. Patient is to return to clinic in 9 weeks for at risk diabetic nail exam. 5. Fatimah Josefina Teran will call with any questions or concerns if there is a problem before the next appointment. FOOT AND HAND CARE Date/Time: 11/02/2021 2:40 PM Performed by: Yoly Mathews DPM Authorized by: Yoly Mathews DPM Procedure: nail debridement Location: Foot Procedure Location: R foot and L foot Number of nails trimmed: 10 Patient tolerance: Patient tolerated the procedure well with no immediate complications Comments: The offending nail margins were mechanically and electrically and mechanically debrided to reduce nail bulk and length to the level of normal underlying nail bed with good relief obtained as evidenced by pain-free ambulation. Consent: Consent was obtained prior to the procedure after discussion of the risks, benefits and alternatives, and expected outcomes were discussed with the patient. The possibilities of reaction to medication, bleeding, infection, the need for additional procedures, failure to diagnosis a condition, and creating a complication requiring operation were discussed with the patient. The patient concurred with the proposed plan, giving consent. (verbal) FOOT AND HAND CARE Date/Time: 11/02/2021 2:40 PM Performed by: Yoly Mathews DPM Authorized by: Yoly Mathews DPM Procedure: callus debridement Location: Foot Procedure Location: R foot Callus Debridement: 2 Estimated Blood Loss: none Patient tolerance: Patient tolerated the procedure well with no immediate complications Comments: Hyperkeratosis was debrided sharply with a #15 blade and/or a currette, then smoothed with a sanding disk. Consent: Consent was obtained prior to the procedure after discussion of the risks, benefits and alternatives, and expected outcomes were discussed with the patient. The possibilities of reaction to medication, bleeding, infection, the need for additional procedures, failure to diagnosis a condition, and creating a complication requiring operation were discussed with the patient. The patient concurred with the proposed plan, giving consent. (verbal) documented in this encounter [facility] 09-16-2021 History of Presen t illness Narrative Nurse Note: Review of Systems Constitutional: Negative for fatigue, fever and unexpected weight change. HENT: No difficulty swallowing No change in voice Respiratory: Negative for cough, shortness of breath and wheezing. Cardiovascular: Negative for chest pain, palpitations and leg swelling. Gastrointestinal: Negative for constipation, diarrhea, nausea and vomiting. Neurological: Negative for tremors, weakness and numbness. Psychiatric/Behavioral: Negative for sleep disturbance. The patient is not nervous/anxious. Nursing Assessment: Physical Exam Patient: Fatimah Teran Date: 09/16/2021 Date ulcer/sore started: patient unsure Chief Complaint: Patient is a 80 y.o. year old male who presents today for follow up of left foot ulcer.no new issues. Doing daily dressing changes Allergies Allergen Reactions Hydrocodone Hydrocodone-Acetaminophen Other reaction(s): Unknown Other reaction(s): Unknown Sulfamethoxazole Sulfamethoxazole-Trimethoprim Other reaction(s): Unknown Trimethoprim Cephalexin Rash Current Outpatient Medications Medication Sig Aspirin [address] tablet 1 tablet atorvastatin 40 MG Tab tablet Take 40 mg by mouth daily. cilostazol 100 MG Tab tablet Take 100 mg by mouth. Continuous Blood Gluc Jewel Gauger (FreeStyle Candelaria 2 [place] Systm) Device 1 Each by Unknown route 2 times daily. doxazosin 2 MG Tab Take 2 mg by mouth at bedtime. Famotidine 20 MG Chew Tab Chew 20 mg. furOSEmide (Lasix) 20 MG tablet Take 1 tablet by mouth daily. Take at noon gentamicin 0.1 % Cream Apply small amount to affected area at every bandage change. Change bandage 1-2x a day This will be used for about 2 weeks GLUCOSE TEST STRIPS PRESCRIPTION Check blood sugars 4 times per day hydrALAzine 25 MG Tab TAKE 2 TABLETS BY MOUTH THREE TIMES DAILY insulin lispro 100 UNIT/ML Solution Pen-injector Inject under the skin. Lantus 100 UNIT/ML vial Inject 15 Units under the skin at bedtime. (Patient taking differently: Inject 13 Units under the skin at bedtime.) metoprolol 25 MG tab regular release Take 50 mg by mouth. Multiple Vitamins-Minerals (Multivitamin Adult) tablet 1 tablet SF 5000 Plus 1.1 % Cream cream USE ONCE DAILY IN THE EVENING DIRECTED Past Medical History: Diagnosis Date Diabetes mellitus Essential hypertension, benign Hyperlipidemia JUAN ALBERTO (obstructive sleep apnea) No past surgical history on file. Social History Occupational History Employer: RETIRED Tobacco Use Smoking status: Never Smoker Smokeless tobacco: Never Used Substance and Sexual Activity Alcohol use: Not on file Drug use: Not on file Sexual activity: Not on file Review of Systems Nurse Note: Review of Systems Constitutional: Negative for fatigue, fever and unexpected weight change. HENT: No difficulty swallowing No change in voice Respiratory: Negative for cough, shortness of breath and wheezing. Cardiovascular: Negative for chest pain, palpitations and leg swelling. Gastrointestinal: Negative for constipation, diarrhea, nausea and vomiting. Neurological: Negative for tremors, weakness and numbness. Psychiatric/Behavioral: Negative for sleep disturbance. The patient is not nervous/anxious. Nursing Assessment: Physical Exam Objective: Vitals: 09/16/21 1340 BP: 158/76 Pulse: 58 Physical Examination: The patient is appropriately dressed, articulate, awake, alert, and oriented , appears their stated age and appears to be in poor health. Dermatological: Ulceration #1: Ulceration location Right foot sub 1st metatarsal head . Type: neuropathic-Diabetic Wound dimensions: 08/19/2021 0.2 cm long by 0.2 cm wide by 0.3 cm deep. 09/02/2021 1x0.2x0.1cm 09/16/2021 0.2x0.1x0.1cm Wound dimensions after debridement: 08/19/2021 3 cm long by 1.5 cm wide by 0.4 cm deep. 09/02/2021 1x0.2x0.2cm 09/16/2021 only debrided callous tissue Base: Ulceration extends Partially and No exposed tendon or muscle through skin. Granular tissue present 100%. Fibrous/scar/devitalized tissue 0%. Necrotic tissue absent 0%. Drainage: no drainage observed. Surrounding Area: negative erythema, negative streaking, negative crepitus and Positive odor Miller Staging: Grade 1 - superficial ulcer of skin without subcutaneous tissue involvement, not infected Neurological: absent sharp/dull sensation bilateral. normal light touch sensation bilateral. Coordination is fair MICRO Lab Results Component Value Date RESULTCULT ESCHERICHIA COLI 08/19/2021 Impression: : ICD-10-CM 1. Ulcer of right foot, limited to breakdown of skin L97.511 condition is improving Plan: Patient was seen and evaluated today with a history and physical exam. Ulcer is almost healed. Continue with: 1. mupirocin ointment and dry sterile dressing was applied. 2. The dressing needs to be changed daily 3. Ok to go back into diabetic shoe 4. Dressing will consist of: mupirocin ointment and DSD Discontinue dressing in 1 week 5. Patient was given an opportunity to ask all questions to their satisfaction. Follow up prn documented in this encounter [facility] 08-19-2021 Instructions Yoly Mathews DPM - 08/19/2021 2:52 PM EDT Keep right foot dry Wear surgical shoe when walking Change bandage daily Apply small amount of mupirocin ointment and dry bandage to foot daily documented in this encounter [facility] 08-19-2021 History of Presen t illness Narrative Nurse Note: Review of Systems Constitutional: Negative for fatigue, fever and unexpected weight change. HENT: No difficulty swallowing No change in voice Respiratory: Negative for cough, shortness of breath and wheezing. Cardiovascular: Negative for chest pain, palpitations and leg swelling. Gastrointestinal: Negative for constipation, diarrhea, nausea and vomiting. Neurological: Negative for tremors, weakness and numbness. Psychiatric/Behavioral: Negative for sleep disturbance. The patient is not nervous/anxious. Nursing Assessment: Physical Exam Associated Order(s): FOOT AND HAND CARE Post-Procedure Diagnose(s): Diabetic ulcer of right midfoot associated with type 2 diabetes mellitus, with fat layer exposed Patient: Fatimah Teran Date: 08/19/2021 Date ulcer/sore started: patient unsure Chief Complaint: Patient is a 80 y.o. year old male who presents today for diabetic foot care. He notes that there are no new problems Allergies Allergen Reactions Hydrocodone Hydrocodone-Acetaminophen Other reaction(s): Unknown Other reaction(s): Unknown Sulfamethoxazole Sulfamethoxazole-Trimethoprim Other reaction(s): Unknown Trimethoprim Cephalexin Rash Current Outpatient Medications Medication Sig Aspirin [address] tablet 1 tablet atorvastatin 40 MG Tab tablet Take 40 mg by mouth daily. cilostazol 100 MG Tab tablet Take 100 mg by mouth. Continuous Blood Gluc Jewel Gauger (FridgeStyle Candelaria 2 [place] Systm) Device 1 Each by Unknown route 2 times daily. doxazosin 2 MG Tab Take 2 mg by mouth at bedtime. Famotidine 20 MG Chew Tab Chew 20 mg. furOSEmide (Lasix) 20 MG tablet Take 1 tablet by mouth daily. Take at noon GLUCOSE TEST STRIPS PRESCRIPTION Check blood sugars 4 times per day hydrALAzine 25 MG Tab TAKE 2 TABLETS BY MOUTH THREE TIMES DAILY insulin lispro 100 UNIT/ML Solution Pen-injector Inject under the skin. Lantus 100 UNIT/ML vial Inject 15 Units under the skin at bedtime. (Patient taking differently: Inject 13 Units under the skin at bedtime.) metoprolol 25 MG tab regular release Take 50 mg by mouth. Multiple Vitamins-Minerals (Multivitamin Adult) tablet 1 tablet SF 5000 Plus 1.1 % Cream cream USE ONCE DAILY IN THE EVENING DIRECTED silver sulfADIAZINE 1 % Cream cream Apply small amount to affected area at every bandage change Past Medical History: Diagnosis Date Diabetes mellitus Essential hypertension, benign Hyperlipidemia JUAN ALBERTO (obstructive sleep apnea) No past surgical history on file. Social History Occupational History Employer: RETIRED Tobacco Use Smoking status: Never Smoker Smokeless tobacco: Never Used Substance and Sexual Activity Alcohol use: Not on file Drug use: Not on file Sexual activity: Not on file Review of Systems Nurse Note: Review of Systems Constitutional: Negative for fatigue, fever and unexpected weight change. HENT: No difficulty swallowing No change in voice Respiratory: Negative for cough, shortness of breath and wheezing. Cardiovascular: Negative for chest pain, palpitations and leg swelling. Gastrointestinal: Negative for constipation, diarrhea, nausea and vomiting. Neurological: Negative for tremors, weakness and numbness. Psychiatric/Behavioral: Negative for sleep disturbance. The patient is not nervous/anxious. Nursing Assessment: Physical Exam Objective: Vitals: 08/19/21 1404 BP: 138/52 Pulse: 75 Physical Examination: The patient is appropriately dressed, articulate, awake, alert, and oriented x 3, appears their stated age and appears to be in poor health. Vascular: Dorsalis pedis pulse is 2/4 left and 2/4 right. Posterior tibial pulses is 2/4 left and 2/4 right. Capillary fill time is brisk left and brisk right. Dermatological: Skin temperature is warm to warm proximal robertson to distal right foot and warm to warm proximal robertson to distal left foot. Skin texture is noted to be atrophic. Skin color is noted to be normal. Hair growth is absent Ulceration #1: Ulceration location Right foot sub 1st metatarsal head . Type: neuropathic-Diabetic Wound dimensions: 08/19/2021 0.2 cm long by 0.2 cm wide by 0.3 cm deep. Wound dimensions after debridement: 08/19/2021 3 cm long by 1.5 cm wide by 0.4 cm deep. Base: Ulceration extends completely and No exposed tendon or muscle through skin. Granular tissue present 50%. Fibrous/scar/devitalized tissue present 50%. Necrotic tissue absent 0%. Drainage:mild clear serous drainage observed. Surrounding Area: negative erythema, negative streaking, negative crepitus and Positive odor Miller Staging: Grade 2 - Penetration through the subcutaneous tissue; may expose bone, tendon, ligament or joint capsule Musculoskeletal: Muscle strength for all prime movers of the lower leg, ankle, and foot are graded at 5/5 bilateral lower extremities. Appropriate muscle tone and symmetry bilateral lower extremities. Neurological: absent sharp/dull sensation bilateral. normal light touch sensation bilateral. Coordination is fair MICRO Lab Results Component Value Date RESULTCULT NO GROWTH 2 DAYS 08/01/2019 Impression: ICD-10-CM 1. Diabetic ulcer of right midfoot associated with type 2 diabetes mellitus, with fat layer exposed E11.621 XR FOOT RIGHT 3 VIEWS L97.412 mupirocin 2 % ointment CULTURE WOUND levoFLOXacin 500 MG tablet Plan of Care: Patient was seen and evaluated today with a complete history and lower extremity physical exam. 1. I discussed the possible causes of ulceration with patient. 2. I discussed the importance of sharp debridment and home wound care and how this will help to heal the wound 3. We also talked about infection and the possibility of amputation if this does not heal. 4. If there is delayed healing I will consider surgical debridement in the operating room and application of skin grafts as appropriate. 5. I explained proper hygiene for the wound at home and that the wound should be covered at all times and not be left open to air as this can lead to infection in the wound 6. The wound will not be soaked or get wet in the shower, again, this can lead to infection in the wound 7. Excisional debridement was performed today. see procedure note for details if debridement was performed. 8. A culture was taken today- location right foot ulcer 9. betadine and dry sterile dressing was applied. 10. The dressing needs to be changed daily 11. Dressing will consist of: mupirocin ointment and DSD 12. Dispensed surgical shoe 13. Xray right foot for baseline 14. Patient was given an opportunity to ask all questions to their satisfaction. Goal: 1. Complete healing of wound in 2 months or less, we will plan on regular appointments until healed 2. Keep wound free of infection. 3. We will achieve this through debridement, appropriate wound dressings, antibiotics as need, proper hygiene, and a team approach with wound care, vascular surgery, infectious disease and imaging as needed. Patient is to return to office in 2 weeks If the patient notices: increase in drainage, redness, foul odor or feel like they are getting flu-like symptoms they should contact the office during working hours or go to the emergency room after hours. Patient will contact the office sooner is any problems arise. FOOT AND HAND CARE Date/Time: 08/19/2021 2:40 PM Performed by: Yoly Mathews DPM Authorized by: Yoly Mathews DPM Procedure: wound debridement performed Location: Foot Procedure Location: R foot Wound Debridement Performed: excisional debridement Wound Debridement Level: subcutaneous tissue. The wound was evaluated and was debrided without incident. All necrotic and fibrotic material was removed. This left a healthy, granular base to the ulcer. Wound Debridement Tool: scalpel #15 (tissue nippers and curette) Description of Wound: contaminated, devitalized tissue Wound Tissue: 3 cm2 Hemostasis obtained by: compression Estimated Blood Loss: <1cc Patient tolerance: Patient tolerated the procedure well with no immediate complications Comments: betadine solution was used to cover the wound followed by a dry sterile dressing. Consent: Consent was obtained prior to the procedure after discussion of the risks, benefits and alternatives, and expected outcomes were discussed with the patient. The possibilities of reaction to medication, bleeding, infection, the need for additional procedures, failure to diagnosis a condition, and creating a complication requiring operation were discussed with the patient. The patient concurred with the proposed plan, giving consent. (verbal) Preparation: skin prepped with ChloraPrep documented in this encounter [facility] 06-03-2021 History of Presen t illness Narrative Nurse Note: Review of Systems Constitutional: Negative for fatigue, fever and unexpected weight change. HENT: No difficulty swallowing No change in voice Respiratory: Negative for cough, shortness of breath and wheezing. Cardiovascular: Negative for chest pain, palpitations and leg swelling. Gastrointestinal: Negative for constipation, diarrhea, nausea and vomiting. Neurological: Negative for tremors, weakness and numbness. Psychiatric/Behavioral: Negative for sleep disturbance. The patient is not nervous/anxious. Nursing Assessment: Physical Exam Associated Order(s): FOOT AND HAND CARE; FOOT AND HAND CARE Post-Procedure Diagnose(s): Diabetic polyneuropathy associated with type 2 diabetes mellitus; Dermatophytosis of nail; Toe pain, right; Toe pain, left; Callus of foot Diabetic nails follow up Patient: Fatimah Teran Date: 06/03/2021 Subjective: Fatimah Teran presents today for at risk diabetic foot care. He notes that he has good control of his sugars He is here with his today. He has a history of diabetic foot ulcers. This problem is chronic in nature. Most recent measured glucose reading Lab Results Component Value Date GLUCOSE 117 (H) 07/14/2020 Allergies: Allergies Allergen Reactions Hydrocodone Hydrocodone-Acetaminophen Other reaction(s): Unknown Other reaction(s): Unknown Sulfamethoxazole Sulfamethoxazole-Trimethoprim Other reaction(s): Unknown Trimethoprim Cephalexin Rash Medications: Current Outpatient Medications: Aspirin [address] tablet, 1 tablet, Disp: , Rfl: atorvastatin 40 MG Tab tablet, Take 40 mg by mouth daily., Disp: , Rfl: cilostazol 100 MG Tab tablet, Take 100 mg by mouth., Disp: , Rfl: Continuous Blood Gluc Jewel Gauger (FreeStyle Candelaria 2 [place] Systm) Device, 1 Each by Unknown route 2 times daily., Disp: 2 Each, Rfl: 11 doxazosin 2 MG Tab, Take 2 mg by mouth at bedtime., Disp: , Rfl: 3 Famotidine 20 MG Chew Tab, Chew 20 mg., Disp: , Rfl: furOSEmide (Lasix) 20 MG tablet, Take 1 tablet by mouth daily. Take at noon, Disp: 90 tablet, Rfl: 3 GLUCOSE TEST STRIPS PRESCRIPTION, Check blood sugars 4 times per day, Disp: 360 Container, Rfl: 11 hydrALAzine 25 MG Tab, TAKE 2 TABLETS BY MOUTH THREE TIMES DAILY, Disp: , Rfl: 3 insulin lispro 100 UNIT/ML Solution Pen-injector, Inject under the skin., Disp: , Rfl: Lantus 100 UNIT/ML vial, Inject 15 Units under the skin at bedtime. (Patient taking differently: Inject 13 Units under the skin at bedtime.), Disp: 1 vial, Rfl: 0 metoprolol 25 MG tab regular release, Take 50 mg by mouth., Disp: , Rfl: Multiple Vitamins-Minerals (Multivitamin Adult) tablet, 1 tablet, Disp: , Rfl: SF 5000 Plus 1.1 % Cream cream, USE ONCE DAILY IN THE EVENING DIRECTED, Disp: , Rfl: silver sulfADIAZINE 1 % Cream cream, Apply small amount to affected area at every bandage change, Disp: 25 g, Rfl: 1 Past Medical History: Diagnosis Date Diabetes mellitus Essential hypertension, benign Hyperlipidemia JUAN ALBERTO (obstructive sleep apnea) No past surgical history on file. Social History Occupational History Employer: RETIRED Tobacco Use Smoking status: Never Smoker Smokeless tobacco: Never Used Substance and Sexual Activity Alcohol use: Not on file Drug use: Not on file Sexual activity: Not on file ROS Nurse Note: Review of Systems Constitutional: Negative for fatigue, fever and unexpected weight change. HENT: No difficulty swallowing No change in voice Respiratory: Negative for cough, shortness of breath and wheezing. Cardiovascular: Negative for chest pain, palpitations and leg swelling. Gastrointestinal: Negative for constipation, diarrhea, nausea and vomiting. Neurological: Negative for tremors, weakness and numbness. Psychiatric/Behavioral: Negative for sleep disturbance. The patient is not nervous/anxious. Nursing Assessment: Physical Exam Vitals: 06/03/21 1403 BP: 150/50 Pulse: 75 Weight: 79.4 kg (175 lb) Height: 1.575 m (5' 2 ) Objective: The patient is alert and oriented. The patient is not under distress. Vascular: Left dorsalis pedis 1/4 pulse, right dorsalis pedis 1/4 pulse, Left posterior tibial 1/4 pulse, Right posterior tibial 1/4 pulse. Capillary filling time is Brisk at the level of the digital jose guadalupe bilaterally. Mild swelling of both legs with tightness of the skin Severe atrophy of skin on bilateral legs Dermatology: Digital nails 1-5 on the Right and nails 1-5 on the left are: elongated, thickened >8mm and ridges, distal lysing, friable subungual debris, yellow discoloration, brittle. The nail bed, reveals a characteristic fungal/yeast/mold odor and consistency. 100% of the nail affected + thick hyperkeratosis sub 1st MPJ area b/l and sub 5th metatarsal headl- no underlying ulcer Hemosiderin deposits on both legs with very thin and shiny skin. Large thick callous sub right 1st metatarsal head and sub right 1st IPJ Neurology: Gross sensations intact, light sensations absent to lower extremity. Sharp/dull sensations and Protective sensations diminished to the feet Musculokeltal: There are digital contractures noted. Muscle strength is 5/5 for all four lower extremity muscle groups. Assessment: Fatimah was seen today for diabetic foot care and diabetic foot care. Diagnoses and all orders for this visit: Diabetic polyneuropathy associated with type 2 diabetes mellitus Callus of foot Dermatophytosis of nail Toe pain, right Toe pain, left Plan: An abbreviated history and lower extremity physical exam was performed today. 1. I emphasized the importance of tight glucose control, foot hygiene and the need for daily self-foot examination. 2. Nail care was performed today. The offending nail margins were mechanically and electrically debrided to reduce nail bulk and length to the level of normal underlying nail bed with good relief obtained as evidenced by pain-free ambulation. 3. Hyperkeratosis debridement was performed today, sharply with a currette and/or #15 blade and then smoothed with a agnieszka on a dremel. 4. Patient is to return to clinic in 9 weeks for at risk diabetic nail exam. 5. Fatimah Josefina Teran will call with any questions or concerns if there is a problem before the next appointment. FOOT AND HAND CARE Date/Time: 06/03/2021 2:10 PM Performed by: Yoly Mathews DPM Authorized by: Yoly Mathews DPM Procedure: nail debridement Location: Foot Procedure Location: R foot and L foot Number of nails trimmed: 10 Patient tolerance: Patient tolerated the procedure well with no immediate complications Comments: The offending nail margins were mechanically and electrically and mechanically debrided to reduce nail bulk and length to the level of normal underlying nail bed with good relief obtained as evidenced by pain-free ambulation. Consent: Consent was obtained prior to the procedure after discussion of the risks, benefits and alternatives, and expected outcomes were discussed with the patient. The possibilities of reaction to medication, bleeding, infection, the need for additional procedures, failure to diagnosis a condition, and creating a complication requiring operation were discussed with the patient. The patient concurred with the proposed plan, giving consent. (verbal) FOOT AND HAND CARE Date/Time: 06/03/2021 2:10 PM Performed by: Yoly Mathews DPM Authorized by: Yoly Mathews DPM Procedure: callus debridement Location: Foot Procedure Location: R foot and L foot Callus Debridement: 3 Estimated Blood Loss: none Patient tolerance: Patient tolerated the procedure well with no immediate complications Comments: Hyperkeratosis was debrided sharply with a #15 blade and/or a currette, then smoothed with a sanding disk. Consent: Consent was obtained prior to the procedure after discussion of the risks, benefits and alternatives, and expected outcomes were discussed with the patient. The possibilities of reaction to medication, bleeding, infection, the need for additional procedures, failure to diagnosis a condition, and creating a complication requiring operation were discussed with the patient. The patient concurred with the proposed plan, giving consent. (verbal) documented in this encounter [facility] 05-26-2021 History of Presen t illness Narrative ASSESSMENT/PLAN: 1. Type 2 diabetes mellitus without retinopathy (HCC) - ICD9: 250.00, ICD10: E11.9 (primary diagnosis) Please keep your blood sugar under good control to minimize risk of ocular complications from diabetes. Continue Diabetes Mellitus care with Dr. Suazo 2. Punctate keratitis, bilateral - ICD9: 370.21, ICD10: H16.143 Use artificial tears as directed 3. Cataract, secondary, not obscuring vision, right - ICD9: 366.52, ICD10: H26.491 4. Pseudophakia of both eyes - ICD9: V43.1, ICD10: Z96.1 Lens position well centered both eyes 5. 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 Essential hypertension - ICD9: 401.9, ICD10: I10 7. Chronic kidney disease, unspecified CKD stage - ICD9: 585.9, ICD10: N18.9 Continue care with primary care physician Elvis Mcmahan MD I have confirmed and edited as necessary the relevant ophthalmic history, review of systems, surgical history, and ophthalmological examination findings as obtained by the ophthalmic technical staff. I have seen and examined Fatimah Teran. I have discussed the examination findings, diagnosis, and treatment options with Fatimah Teran and/or his family. I have also reviewed and agree with the assessment and plan as stated above and agree with all its relevant components. I gave the patient the opportunity to ask questions about the findings, diagnosis, and treatment options. documented in this encounter [facility] 05-26-2021 Instructions Elvis Mcmahan MD - 05/26/2021 3:42 PM EDT Please keep your blood sugar under good control to minimize risk of ocular complications from diabetes. If you have any questions please contact our office at [phone]. After office hours or on the weekend, please call Dr. Mcmahan on his cell phone at [phone]. documented in this encounter [facility] 01-21-2021 Note HNO ID: [id number] Author: Alonzo Alexandre MD Service: ? Author Type: Physician Type: Progress Notes Filed: 01/21/2021 9:56 AM Note Text: Patient is seen today with regard to his carotid artery disease. He has no evidence of any signs or symptoms of TIA or stroke. He has no evidence of anything problematic with regard to arm or leg symptomatology. He denies any numbness or weakness of the extremities. He denies any loss of vision. He denies any speech difficulties. He denies any swallowing difficulties. Overall he is asymptomatic. He is on adequate antiplatelet and statin therapy. ? I reviewed his carotid duplex examination and basically his study is unchanged from that of a year ago. He still has a 50-69% stenosis on the left which is closer to the 60% and of that range. He also still has milder disease on the right in the 20 to 39% range. There is really been no change in reviewing the 2 studies I reviewed all of this with the patient and then call his to reiterate all of the findings. We do give him a copy of his Doppler report as well to take home with him. Answer what questions she has tell her that I will most definitely give the patient a copy of his results to bring with him and that the plan for him is to follow-up with him in 1 year. This note was generated with [employer] dictation software. It may contain incorrect words, spelling, and punctuation and that were not noted in review of the chart prior to signing. I spent 15 minutes in the visit, with more than 50% of the total [id number] time of the visit in counseling / coordination of care. The patient is currently taking a statin: Yes The patient is currently taking aspirin: Yes [facility] 12-21-2020 Miscellaneous Notes Order placed for testing in [place]. OK to schedule testing and OV with [facility] in [place]. Thanks, Kathryn Rider APRN.[employer] Patient calling on status of orders. Please call and advise once placed. Patients called wanting to make an appointment to be seen by Dr. Alexandre and also for an ultra sound dup carotid artery kobi. There are no orders for the ultra sound. Patient is wanted these placed so he can be scheduled. Please call patient an advise and schedule. Thank you, documented in this encounter [facility] 10-01-2020 History of Presen t illness Narrative Associated Order(s): FOOT AND HAND CARE; FOOT AND HAND CARE Post-Procedure Diagnose(s): Diabetic polyneuropathy associated with type 2 diabetes mellitus; Dermatophytosis of nail; Toe pain, right; Pain in right foot; Callus of foot Diabetic nails follow up Patient: Fatimah Teran Date: 10/01/2020 Subjective: Fatimah Teran presents today for at risk diabetic callous care- He notes that the nails are starting to get long and the callouses are thickening up He has a history of diabetic foot ulcers. This problem is chronic in nature. Most recent measured glucose reading Lab Results Component Value Date GLUCOSE 117 (H) 07/14/2020 mg/dl. Most recent HbA1c No results found for: HGBA1C. Allergies: Allergies Allergen Reactions Hydrocodone Hydrocodone-Acetaminophen Other reaction(s): Unknown Other reaction(s): Unknown Sulfamethoxazole Sulfamethoxazole-Trimethoprim Other reaction(s): Unknown Trimethoprim Cephalexin Rash Medications: Current Outpatient Medications: Aspirin (Aspirin Adult Low Dose) [address] tablet, 1 tablet, Disp: , Rfl: atorvastatin 40 MG Tab tablet, Take 40 mg by mouth daily., Disp: , Rfl: cilostazol 100 MG Tab tablet, Take 100 mg by mouth., Disp: , Rfl: Continuous Blood Gluc Jewel Gauger (FreeStyle Candelaria 2 [place] Systm) Device, 1 Each by Unknown route 2 times daily., Disp: 2 Each, Rfl: 11 doxazosin 2 MG Tab, Take 2 mg by mouth at bedtime., Disp: , Rfl: 3 Famotidine 20 MG Chew Tab, Chew 20 mg., Disp: , Rfl: furOSEmide (Lasix) 20 MG tablet, Take 1 tablet by mouth daily. Take at noon, Disp: 90 tablet, Rfl: 3 GLUCOSE TEST STRIPS PRESCRIPTION, Check blood sugars 4 times per day, Disp: 360 Container, Rfl: 11 hydrALAzine 25 MG Tab, TAKE 2 TABLETS BY MOUTH THREE TIMES DAILY, Disp: , Rfl: 3 insulin lispro (HUMALOG KWIKPEN) 100 UNIT/ML Solution Pen-injector, Inject under the skin., Disp: , Rfl: Lantus 100 UNIT/ML vial, Inject 15 Units under the skin at bedtime. (Patient taking differently: Inject 13 Units under the skin at bedtime. ), Disp: 1 vial, Rfl: 0 metoprolol 25 MG tab regular release, Take 50 mg by mouth., Disp: , Rfl: Multiple Vitamins-Minerals (Multivitamin Adult) tablet, 1 tablet, Disp: , Rfl: SF 5000 Plus 1.1 % Cream cream, USE ONCE DAILY IN THE EVENING DIRECTED, Disp: , Rfl: silver sulfADIAZINE 1 % Cream cream, Apply small amount to affected area at every bandage change, Disp: 25 g, Rfl: 1 Past Medical History: Diagnosis Date Diabetes mellitus Essential hypertension, benign Hyperlipidemia JUAN ALBERTO (obstructive sleep apnea) No past surgical history on file. Social History Occupational History Employer: RETIRED Tobacco Use Smoking status: Never Smoker Smokeless tobacco: Never Used Substance and Sexual Activity Alcohol use: Not on file Drug use: Not on file Sexual activity: Not on file ROS Nurse Note: Review of Systems Constitutional: Negative for fatigue, fever and unexpected weight change. HENT: No difficulty swallowing No change in voice Respiratory: Negative for cough, shortness of breath and wheezing. Cardiovascular: Negative for chest pain, palpitations and leg swelling. Gastrointestinal: Negative for constipation, diarrhea, nausea and vomiting. Endocrine: Negative for polydipsia. Genitourinary: Negative for frequency. Neurological: Negative for tremors, weakness and numbness. Psychiatric/Behavioral: Negative for sleep disturbance. The patient is not nervous/anxious. Nursing Assessment: Physical Exam Vitals: 10/01/20 1405 BP: 140/62 Pulse: 65 Weight: 79.4 kg (175 lb) Height: 1.575 m (5' 2 ) Objective: The patient is alert and oriented. The patient is not under distress. Vascular: Left dorsalis pedis 1/4 pulse, right dorsalis pedis 1/4 pulse, Left posterior tibial 1/4 pulse, Right posterior tibial 1/4 pulse. Capillary filling time is <3seconds at the level of the digital jose guadalupe bilaterally. Reduced swelling of both legs with tightness of the skin Dermatology: Digital nails 1-5 on the Right and nails 1-5 on the left are: elongated, thickened >8mm and ridges, distal lysing, friable subungual debris, yellow discoloration, brittle. The nail bed, reveals a characteristic fungal/yeast/mold odor and consistency. + thick hyperkeratosis sub 1st MPJ area bilataral Hemosiderin deposits on both legs with very thin and shiny skin. No open lesions. + edema to the leg and feet. Large thick callous sub right 1st metatarsal head. Neurology: Gross sensations intact, light sensations absent to lower extremity. Sharp/dull sensations and Protective sensations diminished to the feet Musculokeltal: There are digital contractures noted. Muscle strength is 5/5 for all four lower extremity muscle groups. Assessment: Fatimah was seen today for diabetic foot care and diabetic foot care. Diagnoses and all orders for this visit: Diabetic polyneuropathy associated with type 2 diabetes mellitus - FOOT AND HAND CARE - FOOT AND HAND CARE Callus of foot - FOOT AND HAND CARE Dermatophytosis of nail - FOOT AND HAND CARE Toe pain, right - FOOT AND HAND CARE Pain in right foot - FOOT AND HAND CARE Plan: An abbreviated history and lower extremity physical exam was performed today. 1. I emphasized the importance of tight glucose control, foot hygiene and the need for daily self-foot examination. 2. Nail care was performed today. The offending nail margins were mechanically and electrically debrided to reduce nail bulk and length to the level of normal underlying nail bed with good relief obtained as evidenced by pain-free ambulation. 3. Hyperkeratosis debridement was performed today, sharply with a currette and/or #15 blade and then smoothed with a agnieszka on a dremel. 4. Patient is to return to clinic in 12 weeks for at risk diabetic nail exam. 5. Fatimah Teran will call with any questions or concerns if there is a problem before the next appointment. FOOT AND HAND CARE Date/Time: 10/01/2020 2:30 PM Performed by: Yoly Mathews DPM Authorized by: Yoly Mathews DPM Procedure: nail debridement Location: Foot Procedure Location: R foot and L foot Number of nails trimmed: 10 Estimated Blood Loss: none Patient tolerance: Patient tolerated the procedure well with no immediate complications Comments: The offending nail margins were mechanically and electrically and mechanically debrided to reduce nail bulk and length to the level of normal underlying nail bed with good relief obtained as evidenced by pain-free ambulation. Consent: Consent was obtained prior to the procedure after discussion of the risks, benefits and alternatives, and expected outcomes were discussed with the patient. The possibilities of reaction to medication, bleeding, infection, the need for additional procedures, failure to diagnosis a condition, and creating a complication requiring operation were discussed with the patient. The patient concurred with the proposed plan, giving consent. (verbal) FOOT AND HAND CARE Date/Time: 10/01/2020 2:30 PM Performed by: Yoly Mathews DPM Authorized by: Yoly Mathews DPM Procedure: callus debridement Location: Foot Procedure Location: R foot and L foot Callus Debridement: 2 Estimated Blood Loss: none Patient tolerance: Patient tolerated the procedure well with no immediate complications Comments: Hyperkeratosis was debrided sharply with a #15 blade and/or a currette, then smoothed with a sanding disk. Consent: Consent was obtained prior to the procedure after discussion of the risks, benefits and alternatives, and expected outcomes were discussed with the patient. The possibilities of reaction to medication, bleeding, infection, the need for additional procedures, failure to diagnosis a condition, and creating a complication requiring operation were discussed with the patient. The patient concurred with the proposed plan, giving consent. (verbal) Nurse Note: Review of Systems Constitutional: Negative for fatigue, fever and unexpected weight change. HENT: No difficulty swallowing No change in voice Respiratory: Negative for cough, shortness of breath and wheezing. Cardiovascular: Negative for chest pain, palpitations and leg swelling. Gastrointestinal: Negative for constipation, diarrhea, nausea and vomiting. Endocrine: Negative for polydipsia. Genitourinary: Negative for frequency. Neurological: Negative for tremors, weakness and numbness. Psychiatric/Behavioral: Negative for sleep disturbance. The patient is not nervous/anxious. Nursing Assessment: Physical Exam documented in this encounter 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, with long-term current use of insulin 12/03/2014 05/26/2021 Vitreous floaters 12/03/2014 12/23/2015 Pseudophakia, both eyes 12/03/2014 12/23/19 16 Type II or unspecified type diabetes mellitus with ophthalmic manifestations, not stated as uncontrolled 05/13/2014 12/23/2015 Horseshoe tear 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 detachment - Ri ght Eye 05/13/2014 05/26/2021 Vitreous hemorrhage (HCC) - Right Eye 01/22/2014 12/03/2014 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 12/09/2013 12/23/2015 Lens replaced by other means - Both Eyes 014 12/03/2014 documented as of this encounter (statuses as of 08/11/2021) [facility] History of Past illness Narrative* Problem Noted Date Resolved Date History of colon polyps 04/09/2015 04/09/19 16 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, with long-term current use of insulin 12/03/2014 05/26/2021 Vitreous floaters 12/03/2014 12/23/2015 Pseudophakia, both eyes 12/03/2014 12/23/19 16 Type II or unspecified type diabetes mellitus with ophthalmic manifestations, not stated as uncontrolled 05/13/2014 12/23/2015 Horseshoe tear 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 detachment - Ri ght Eye 05/13/2014 05/26/2021 Vitreous hemorrhage (HCC) - Right Eye 01/22/2014 12/03/2014 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 12/09/2013 12/23/2015 Lens replaced by other means - Both Eyes 014 12/03/2014 documented as of this encounter (statuses as of 04/20/2022) [facility] History of Past illness Narrative* Problem Noted Date Resolved Date History of colon polyps 04/09/2015 04/09/19 16 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, with long-term current use of insulin 12/03/2014 05/26/2021 Vitreous floaters 12/03/2014 12/23/2015 Pseudophakia, both eyes 12/03/2014 12/23/19 16 Type II or unspecified type diabetes mellitus with ophthalmic manifestations, not stated as uncontrolled 05/13/2014 12/23/2015 Horseshoe tear 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 detachment - Ri ght Eye 05/13/2014 05/26/2021 Vitreous hemorrhage (HCC) - Right Eye 01/22/2014 12/03/2014 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, right Pseudophakia of both eyes Lens replaced by other means Essential hypertension Unspecified essential hypertension Chronic kidney disease, unspecified CKD stage [facility] [place] [facility]* Diagnosis Diabetic polyneuropathy associated with type 2 diabetes mellitus- Primary Callus of foot Corns and callosities Dermatophytosis of nail Toe pain, right Pain in limb Toe pain, left Pain in limb [facility] Diagnosis Diabetic ulcer of right midfoot associated with type 2 diabetes mellitus, with fat layer exposed- [facility] Diagnosis Diabetic ulcer of right midfoot associated with type 2 diabetes mellitus, with fat layer exposed [facility] Diagnosis Ulcer of right foot, limited to breakdown of skin- Primary [facility] Diagnosis Diabetic polyneuropathy associated with type 2 diabetes mellitus- Primary Dermatophytosis of nail Callus of foot Corns and callosities Toe pain, right Pain in limb Toe pain, left Pain in limb [facility] Diagnosis Diabetic polyneuropathy associated with type 2 diabetes mellitus- Primary Ulcer of right foot, limited to breakdown of skin [facility] [place] [facility] Diagnosis Diabetic polyneuropathy associated with type 2 diabetes mellitus- Primary Ulcer of right foot, limited to breakdown of skin Callus of foot Corns and callosities documented [facility] [place] [facility]* Diagnosis After-cataract obscuring vision, right- Primary Type 2 diabetes mellitus without retinopathy (HCC) Type II or unspecified type diabetes mellitus without mention of complication, not stated as uncontrolled Pseudophakia of both eyes Lens replaced by other means Essential hypertension Unspecified essential hypertension [facility] [place] [facility]* Diagnosis Ulcer of right foot, limited to breakdown of skin- Primary [facility] [place] [facility]* Diagnosis Hyperopia, right- Primary Myopia of left eye Myopia Regular astigmatism, left eye [facility] [place] [facility]* Diagnosis 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 [place] [facility] Diagnosis Ulcer of right foot, limited to breakdown of skin [facility] [place] [facility] Diagnosis Ulcer of right foot, limited to breakdown of skin- Primary [facility] [place] [facility] Diagnosis Ulcer of right foot, limited to breakdown of skin- Primary Diabetic polyneuropathy associated with type 2 diabetes mellitus documented [facility] [place] [facility] Diagnosis Ulcer of right foot, limited to breakdown of skin- Primary Diabetic polyneuropathy associated with type 2 diabetes mellitus Dermatophytosis of nail documented in [facility] [place] [facility]* Diagnosis Diabetic ulcer of toe of right foot associated with type 2 diabetes mellitus, limited to breakdown of skin- Primary [facility] [place] [facility]* Diagnosis Diabetic ulcer of toe of right foot associated with type 2 diabetes mellitus, limited to breakdown of skin- Primary Diabetic ulcer of toe of right foot associated with type 2 diabetes mellitus, with fat layer exposed [facility] Diagnosis Diabetic ulcer of toe of right foot associated with type 2 diabetes mellitus, limited to breakdown of skin- Primary [facility] Diagnosis Diabetic ulcer of right midfoot associated with type 2 diabetes mellitus, with other ulcer severity- Primary documented in this [facility] Diagnosis Impingement syndrome of righ t shoulder - Primary Carpal tunnel syndrome of le ft wrist Diagnosis Carpal tunnel syndrome of le ft wrist - Primary Diagnosis Chronic pain of both shoulders Diagnosis Abrasion of left leg, initial encounter- Primary Impingement syndrome of right shoulder Nontraumatic complete tear of right rotator cuff Diagnosis Chronic pain of both shoulders Diagnosis Chronic pain of both shoulders- Primary History of Present Illness * Nahun Jasso MD - 12/27/2017 3:35 PM EST Dictation on: 12/27/2017 3:36 PM by: NAHUN JASSO [[id number]] in this encounter* Nahun Jasso MD - 01/29/2019 4:27 PM EST Associated Order(s): LG Jt Injection/Arthrocentesis: R subacromial bursa Post-Procedure Diagnose(s): Chronic pain of both shoulders Dictation on: 01/29/2019 4:28 PM by: NAHUN JASSO [[id number]] LG Jt Injection/Arthrocentesis: R subacromial bursa Performed by: Nahun Jasso MD Authorized by: Nahun Jasso MD Supporting Documentation: Indications: Pain Procedure Details: Location: Shoulder Site: R subacromial bursa Prep: patient was prepped and draped in usual sterile fashion Needle size: 22 G Approach: Posterior Medications: 40 mg triamcinolone acetonide 40 mg/mL Anesthetic used: Lidocaine 1% Anesthetic amount (mL): 2 Patient tolerance: Patient tolerated the procedure well with no immediate complications documented in this encounter* Nahun Jasso MD - 01/15/2020 1:46 PM EST Associated Order(s): LG Jt Injection/Arthrocentesis: R subacromial bursa Post-Procedure Diagnose(s): Impingement syndrome of right shoulder Dictation on: 01/15/2020 1:47 PM by: NAHUN JASSO [[id number]] LG Jt Injection/Arthrocentesis: R subacromial bursa Performed by: Nahun Jasso MD Authorized by: Nahun Jasso MD Supporting Documentation: Indications: Pain Procedure Details: Location: Shoulder Site: R subacromial bursa Prep: patient was prepped and draped in usual sterile fashion Needle size: 22 G Medications: 40 mg triamcinolone acetonide 40 mg/mL Anesthetic used: Lidocaine 1% Anesthetic amount (mL): 2 Patient tolerance: Patient tolerated the procedure well with no immediate complications documented in this encounter* Nahun Jasso MD - 07/10/2019 4:24 PM EDT Associated Order(s): LG Jt Injection/Arthrocentesis: R subacromial bursa Post-Procedure Diagnose(s): Chronic pain of both shoulders Dictation on: 07/10/2019 4:25 PM by: NAHUN JASSO [[id number]] LG Jt Injection/Arthrocentesis: R subacromial bursa Performed by: Nahun Jasso MD Authorized by: Nahun Jasso MD Supporting Documentation: Indications: Pain Procedure Details: Location: Shoulder Site: R subacromial bursa Prep: patient was prepped and draped in usual sterile fashion Needle size: 22 G Medications: 40 mg triamcinolone acetonide 40 mg/mL Anesthetic used: Lidocaine 1% Anesthetic amount (mL): 2 Patient tolerance: Patient tolerated the procedure well with no immediate complications documented in this encounter* Nahun Jasso MD - 10/23/2018 3:51 PM EDT Associated Order(s): LG Jt Injection/Arthrocentesis: L subacromial bursa Post-Procedure Diagnose(s): Chronic pain of both shoulders LG Jt Injection/Arthrocentesis: L subacromial bursa Performed by: Nahun Jasso MD Authorized by: Nahun Jasso MD Supporting Documentation: Indications: Pain Procedure Details: Location: Shoulder Site: L subacromial bursa Prep: patient was prepped and draped in usual sterile fashion Needle size: 22 G Approach: Posterior Medications: 40 mg triamcinolone acetonide 40 mg/mL Anesthetic used: Lidocaine 1% Anesthetic amount (mL): 2 Patient tolerance: Patient tolerated the procedure well with no immediate complications * Nahun Jasso MD - 10/23/2018 3:47 PM EDT Associated Order(s): LG Jt Injection/Arthrocentesis: R subacromial bursa Post-Procedure Diagnose(s): Chronic pain of both shoulders Dictation on: 10/23/2018 3:50 PM by: NAHUN JASSO [[id number]] LG Jt Injection/Arthrocentesis: R subacromial bursa Performed by: Nahun Jasso MD Authorized by: Nahun Jasso MD Supporting Documentation: Indications: Pain Procedure Details: Location: Shoulder Site: R subacromial bursa Prep: patient was prepped and draped in usual sterile fashion Needle size: 22 G Approach: Posterior Medications: 40 mg triamcinolone acetonide 40 mg/mL Anesthetic used: Lidocaine 1% Anesthetic amount (mL): 2 Patient tolerance: Patient tolerated the procedure well with no immediate complications documented in this encounter Summary Purpose Family History No Family History Records FoundNo Family History Records FoundNo Family History Records FoundNo Family History Records FoundNo Family History Records FoundNo Family History Records FoundNo Family History Records FoundNo Family History Records FoundNo Family History Records FoundNo Family History Records FoundNo Family History Records Found Advance Directives No Advanced Directives Records FoundDocuments on File Type 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 Advance Directives and Living Will Documents on File Type 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 Advance Directive(s) 05/07/2020 7:00 AM Advance Directive(s) 04/07/2020 3:31 PM Advance Directive(s) 04/09/2015 7:19 AM Documents on File Type 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 Advance Directive(s) 04/09/2015 7:19 AM Medications Administered Section Active Administered Medications - up to 3 most recent administrations Medication Order MAR Action Action Date Dose Rate Site PHENYLephrine 2.5 % 1 Drop (AK-DILATE, YONI-SYNEPHRINE) 1 Drop, BOTH EYES, DIRECTED, Starting on Mon05/26/21 at 1500, Until Aranza 05/27/21 at 0259, Administer for dilation PROTECT FROM LIGHT Given 05/26/2021 2:39 PM EDT 1 Drop proparacaine 0.5 % 1 Drop (ALCAINE) 1 Drop, BOTH EYES, DIRECTED, Starting on Mon05/26/21 at 1500, Until Aranza 05/27/21 at 0259, Administer for pneumo tonometry, tonopen tonometry, or pachymetry. In the event of a proparacaine shortage, administer tetracaine 0.5% ophthalmic drops 1 drop in the left eye as directed for pneumo tonometry, tonopen tonometry, or pachymetry Given 05/26/2021 2:39 PM EDT 1 Drop tropicamide 1 % 1 Drop (MYDRIACYL) 1 Drop, BOTH EYES, DIRECTED, Starting on Mon05/26/21 at 1500, Until Aranza 05/27/21 at 0259, Administer for dilation Given 05/26/2021 2:39 PM EDT 1 Drop Additional Source Comments Reason for Visit (unrecogniz ed section and content) Reason Comments Pain Follow-up Reason Comments Follow-up Reason Comments Pain Reason Comments Diabetic Foot Care Reason Comments Type 2 diabetes Pseudophakia Follow Up Reason Comments Orders Reason Comments Ulcer Follow-up Reason Comments Nail Problem Follow-up Diabetic Foot Care Reason Comments Diabetic Foot Care Follow-up Reason Comments Blurred Vision Right Eye Difficulty Reading Right Eye Glare Right Eye Insulin Dependent Diabetes Mellitus Rita ent states blood sugar was 97 this morning. HbA1c: Patient does not know Reason Comments Refraction Reason Comments Ulcer Follow-up Diabetic Foot Care Reason Comments Ulcer (unrecognized sect ion and content) No Status Records FoundNo Status Records FoundNo Status Records FoundNo Status Records FoundNo Status Records FoundNo Status Records FoundNo Status Records FoundNo Status Records FoundNo Status Records FoundNo Status Records FoundNo Status Records Found INFORMATION SOURCE (unrecogn ized section and content) DATE CREATED AUTHOR AUTHOR'S ORGANIZ ATION 06/23/2018 [facility] DATE CREATED AUTHOR AUTHOR'S ORGANIZ ATION 11/02/2018 [facility] DATE CREATED AUTHOR AUTHOR'S ORGANIZ ATION 01/15/2020 [facility] DATE CREATED AUTHOR AUTHOR'S ORGANIZ ATION 04/16/2020 [employer] DATE CREATED AUTHOR AUTHOR'S ORGANIZ ATION 08/12/2021 [facility] DATE CREATED AUTHOR AUTHOR'S ORGANIZ ATION 12/04/2021 [facility] DATE CREATED AUTHOR AUTHOR'S ORGANIZ ATION 05/29/2022 [facility] DATE CREATED AUTHOR AUTHOR'S ORGANIZ ATION 10/14/2022 [facility] DATE CREATED AUTHOR AUTHOR'S ORGANIZ ATION 01/28/2023 [facility] DATE CREATED AUTHOR AUTHOR'S ORGANIZ ATION 03/22/2023 [facility] Care Teams (unrecognized sec tion and content) Harp Maker Relationship Specialty Start Date End Date Agnes Suazo MD [address] [facility] [address] [place] [address] PCP - General Internal Medicine 05/07/20 Kevon Watson MD [address] [place] [address] Nephrology 10/26/18 Harp Maker Relationship Specialty Start Date End Date Agnes Suazo MD [address] [address] PCP - General Internal Medicine 06/25/20 Harp Maker Relationship Specialty Start Date End Date Agnes Suazo MD [address] [place] [address] PCP - General Internal Medicine 05/07/20 Kevon Watson MD [address] [place] [address] Nephrology 10/26/18 Harp Maker Relationship Specialty Start Date End Date Agnes Suazo MD [address] [place] [address] PCP - General Internal Medicine 06/25/20 Harp Maker Relationship Specialty Start Date End Date Agnes Suazo MD [address] [place] [address] PCP - General Internal Medicine 06/25/20 Harp Maker Relationship Specialty Start Date End Date Agnes Suazo MD [address] [place] [address] PCP - General Internal Medicine 06/25/20 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 Maker Relationship Specialty Start Date End Date Agnes Suazo MD [address] [place] [address] PCP - General Internal Medicine 06/25/20 Harp Maker Relationship Specialty Start Date End Date Agnes Suazo MD [address] [place] [address] PCP - General Internal Medicine 05/07/20 Kevon Watson MD [address] [phone] Nephrology 10/26/18 Harp Maker Relationship Specialty Start Date End Date Agnes Suazo MD [address] [place] [address] PCP - General Internal Medicine 06/25/20 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 Relationship Specialty Start Date End Date Agnes Suazo MD [address] [place] [address] PCP - General Internal Medicine 06/25/20 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 Maker Relationship Specialty Start Date End Date Agnes Suazo MD [address] [place] [address] PCP - General Internal Medicine 06/25/20 Harp Maker Relationship Specialty Start Date End Date Agnes Suazo MD [address] [address] [place] [address] PCP - General Internal Medicine 06/25/20 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 Relationship Specialty Start Date End Date Agnes Suazo MD [address] [address] [place] [address] PCP - General Internal Medicine 06/25/20 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 Maker Relationship Specialty Start Date End Date Agnes Suazo MD [address] [place] [address] PCP - General Internal Medicine 06/25/20 Source Comments (unrecognize d section and content) In the event this informatio n is protected by the [facility] Confidentiality of Alcohol and Drug Abuse Patient Records regulations: The Federal rules restrict any use of the information to criminally investigate or prosecute any alcohol or drug abuse patient.[facility] the event this information is protected by the Federal Confidentiality of Alcohol and Drug Abuse Patient Records regulations: The Federal rules restrict any use of the information to criminally investigate or prosecute any alcohol or drug abuse patient.[facility] the event this information is protected by the Federal Confidentiality of Alcohol and Drug Abuse Patient Records regulations: The Federal rules restrict any use of the information to criminally investigate or prosecute any alcohol or drug abuse patient.[facility] the event this information is protected by the Federal Confidentiality of Alcohol and Drug Abuse Patient Records regulations: The Federal rules restrict any use of the information to criminally investigate or prosecute any alcohol or drug abuse patient.[facility] <item> Privacy Markings (unrecogniz ed section and content) Section Author: Jenniffer Velazquez PROHIBITION ON REDISCLOSURE OF CONFIDENTIAL INFORMATION This notice accompanies a disclosure of information concerning a client made to you with the consent of such client. FOR RECORDS PERTAINING TO PATIENTS WHO ARE OR HAVE BEEN ENROLLED IN A CHEMICAL DEPENDENCY/SUBSTANCEABUSE PROGRAM, SOME INFORMATION MAY BE OMITTED. This clinical summary was aggregated from multiple sources. Caution should be exercised in using it in the provision of clinical care. This summary normalizes information from multiple sources, and as a consequence, information in this document may materially change the coding, format and clinical context of patient data. In addition, data may be omitted in some cases. CLINICAL DECISIONS SHOULD BE BASED ON THE PRIMARY CLINICAL RECORDS. [facility] [employer] [facility]. provides no warranty or guarantee of the accuracy or completeness of information in this document.
== END | disposition home or self-care (01) ==
LOC: BIMLAB 15:55
PROVIDERS: PCP Internal Medicine; Referring Provider Nurse Practitioner; Visit Provider Nurse Practitioner
DX: R42 Dizziness and giddiness (principal); R60.0 Localized edema
CPT/HCPCS: 36415; 80053; 83880; 84436; 84443; 85025

== ENCOUNTER → 2023-04-20 | Outpatient (CLI) | payer MEDICARE, SELFPAY ==
--- NOTE | 2023-04-20 13:00 | CDU_ITS ---
Reason For Study: Carotid bruit Rt. Velocities/BP Lt. Velocities/BP Prox CCA 81.4/12.4 cm/sec. Prox CCA 103.8/11.6 cm/sec. Mid CCA 81.7/12.4 cm/sec. Mid CCA 83.9/17.6 cm/sec. Dist CCA 75.1/14.6 cm/sec. Dist CCA 90/15.1 cm/sec. Prox ICA 81.4/16.3 cm/sec. Prox ICA 160.9/46.8 cm/sec. Mid ICA 119.3/26.1 cm/sec. Mid ICA 179.6/29.3 cm/sec. Dist ICA 97.4/22.5 cm/sec. Dist ICA 110.1/22.5 cm/sec. Rt. ICA/CCA = 1.47. Lt. ICA/CCA = 1.96. Prox ECA 90 cm/sec. Prox ECA 211.4/11.6 cm/sec. Rt. Vert. 59.7/14.6 cm/sec. Lt. Vert. 54.2/13.5 cm/sec. Right Extracranial There is homogeneous, smooth atherosclerotic plaque noted in the right common carotid artery. There is heterogeneous, irregular atherosclerotic plaque noted in the right internal carotid artery. There is intimal thickening but no significant atherosclerotic plaque noted in the right external carotid artery. Antegrade flow is noted in the right vertebral artery. Left Extracranial There is homogeneous, smooth atherosclerotic plaque noted in the left common carotid artery. There is heterogeneous, irregular atherosclerotic plaque noted in the left internal carotid artery. There is heterogeneous, irregular atherosclerotic plaque noted in the left external carotid artery. Antegrade flow is noted in the left vertebral artery. Procedure Carotid Duplex 10305. This is a Carotid Duplex examination using B-mode, color flow and specral Doppler. Exam performed in department. VL/Carotid Duplex Ultrasound Interpretation Summary Mild (<50%) stenosis right extracranial internal carotid. Moderate (50-69%) stenosis left extracranial internal carotid. Patent and antegrade vertebrals bilaterally. Ordering Physician: Padmini Au Referring Physician: Agnes Suazo Performed By: Debbie Chapman RVT
== END | disposition home or self-care (01) ==
PROVIDERS: PCP Internal Medicine; Referring Provider Nurse Practitioner; Visit Provider Nurse Practitioner
DX: R42 Dizziness and giddiness (principal); I77.9 Disorder of arteries and arterioles, unspecified; R09.89 Other specified symptoms and signs involving the circulatory and respiratory systems
CPT/HCPCS: 93880

== ENCOUNTER → 2023-05-17 | Outpatient (CLI) | payer MEDICARE, SELFPAY ==
--- NOTE | 2023-05-17 12:27 | MRI_ITS ---
ACR Level 3 findings have been noted. An addendum which confirms receipt of the report will follow. EXAM: MR HEAD WITHOUT AND WITH INTRAVENOUS CONTRAST CLINICAL INDICATION: Dizziness. TECHNIQUE: Multiplanar and multisequence MR images of the brain were obtained without and with intravenous contrast. CONTRAST: 15 mL of IV Clariscan. COMPARISON: CT head without contrast 12/17/2018. 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 They are mildly hyperintense on FLAIR sequence and not isointense to CSF on T1 sequence. They are causing mild symmetrical mass effect in both cerebral hemispheres but no midline shift. No diffusion restriction to suspect acute or subacute ischemic infarct. No suspicious focal signal abnormalities throughout the brain parenchyma. Posterior fossa structures are unremarkable. Normal suprasellar cistern and basal cisterns. SELLA: Unremarkable. Normal sella turcica, pituitary gland, infundibular stalk, optic chiasm and hypothalamus. AUDITORY SYSTEM: Unremarkable. The internal auditory canals are patent. BONES/JOINTS: Unremarkable. No discrete lytic or blastic abnormalities. SINUSES: Unremarkable as visualized. Clear. MASTOID AIR CELLS: Unremarkable as visualized. Clear. ORBITS: Unremarkable as visualized. Both globes, extraocular muscles, optic nerves and retrobulbar fat appear unremarkable. VASCULATURE: Unremarkable as visualized. Normal flow voids in the major intracranial circulation. MRI/Brain W/WO Contrast IMPRESSION: 1. No MRI evidence of acute or subacute ischemic infarct or remote ischemic infarct. 2. 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 There is only mild mass effect and no midline shift. In my opinion, this was not present on CT head scan of 12/17/2018. 3. No other additional findings or changes when compared to CT head 12/17/2018. Electronically Signed: Carlos Newton MD at 11:48 EDT ,
[2023-05-17 13:17] LABS: CREATININE FINGERSTICK 1.5 mg/dL (0.70-1.30)
== END | disposition home or self-care (01) ==
LOC: MRI 12:22
PROVIDERS: PCP Internal Medicine; Referring Provider Nurse Practitioner; Visit Provider Nurse Practitioner
DX: R42 Dizziness and giddiness (principal)
CPT/HCPCS: 70553; A9575

== ENCOUNTER 2023-05-31 11:42 | Observation (INO) | payer MEDICARE, SELFPAY ==
[2023-05-31] VITALS (10 sets, daily range): BP systolic 187–219; BP diastolic 68–99; PULSE 67–89; RESP 14–21; TEMP 36.3–36.4; O2SAT 90–99; BMI 31.6; BMI 30.6
--- NOTE | 2023-05-31 11:47 | ED.VIS.GI ---
HPI HPI - GI History of Present Illness Chief Complaint: Fall Detail of Chief Complaint: Nausea and vomiting been felt. Informant: patient and spouse/S.O. Nausea/Vomiting/Emesis GI Symptom: Positive for Nausea and Vomiting Onset: Today and Hours Quality: Positive for Nonbilious Severity: Moderate Diarrhea/Melena/Hematochezia GI Symptom: Negative for Diarrhea, Melena or Hematochezia Associated Symptoms Associated Symptoms: Negative for Dysuria, Frequency, Hematuria or Urgency Narrative Narrative: 80-year-old male history of anemia, diabetes, hypertension and chronic kidney disease. At around 4 AM this morning he started having persistent nausea and vomiting. No diarrhea. No fever. No abdominal pain. No hematemesis. He then got weak and fell. Said he struck his head does not think he was knocked out. He is on no blood thinners besides aspirin. Denies any headache or any neck pain. He also struck his right elbow and has a minor laceration but has normal range of motion of both arms. He denies any fever or dysuria. is at home with him she has not been ill recently. He has not been in the hospital recently. Prior similar symptoms: Yes Recent Illness/Hospitalization: No PFSH PFSH Medical History Acute sinusitis Anemia Back problem BPH (benign prostatic hyperplasia) Carotid artery disease Carpal tunnel syndrome Diabetes type 2, controlled GERD (gastroesophageal reflux disease) GI problem Hearing problem Heart murmur HTN (hypertension) Hyperlipemia Kidney disease JUAN ALBERTO (obstructive sleep apnea) Routine adult health maintenance Tachycardia Type 2 diabetes mellitus Vascular disease Vision problem Home Medications cilostazol 100 mg tablet 100 mg PO BID 02/26/14 [History Last Taken Unknown] metoprolol tartrate 25 mg tablet 25 mg PO BID 02/26/14 [History Last Taken 03/05/14 04:15 25 MG] multivitamin with folic acid 400 mcg tablet 1 tab PO DAILY 02/26/14 [History Last Taken Unknown] OneTouch Ultra Blue Test Strip (blood sugar diagnostic) #100 ea 03/12/18 [Rx Last Taken Unknown] atorvastatin 40 mg tablet 40 mg PO QDAY #30 tabs 03/12/18 [Rx Last Taken Unknown] aspirin 81 mg tablet,delayed release 81 mg PO DAILY 04/13/20 [History Last Taken Unknown] famotidine 20 mg tablet 20 mg PO BID 07/29/20 [History Last Taken Unknown] hydralazine 25 mg tablet 50 mg PO TID 07/29/20 [History Last Taken Unknown] flash glucose sensor (FreeStyle Candelaria 2 Sensor kit) #2 ea 10/27/20 [Rx Last Taken Unknown] doxazosin 2 mg tablet 2 mg PO BID #180 tabs 01/27/21 [Rx Last Taken Unknown] Humalog KwikPen Insulin 100 unit/mL subcutaneous (insulin lispro) 7 unit (0.07 mL) subcut TID 3 months #18.9 mL 03/30/23 [Rx Last Taken Unknown] hydroxyzine HCl 25 mg tablet 25 mg PO ONCE #1 TAB 05/11/23 [Rx Last Taken Unknown] lorazepam 1 mg tablet 1 mg PO DAILY PRN claustrophobia #1 TAB 05/16/23 [Rx Last Taken Unknown] insulin glargine 100 unit/mL subcutaneous solution 44 unit (0.44 mL) subcut DAILY diabetes 3 months #39.6 mL 05/29/23 [Rx Last Taken Unknown] ondansetron 4 mg disintegrating tablet 4 mg PO Q6H PRN nausea and vomiting #7 tabs 05/31/23 [Rx Last Taken Unknown] Allergy/AdvReac Type Severity Reaction Status Date / Time acetaminophen [From [place]] Allergy Severe Unknown Verified 05/04/23 09:21 cephalexin Allergy Severe Unknown Verified 05/04/23 09:21 hydrocodone [From [place]] Allergy Severe Unknown Verified 05/04/23 09:21 sulfamethoxazole Allergy Severe Unknown Verified 05/04/23 09:21 [From Bactrim] trimethoprim [From Bactrim] Allergy Severe Unknown Verified 05/04/23 09:21 Family History Sister Breast cancer Diabetes CVA (cerebral vascular accident) Mother Diabetes Heart disease Father Heart disease CVA (cerebral vascular accident) Surgical History Cataracts, bilateral History of bowel resection History of colonoscopy Male circumcision S/P tonsillectomy and adenoidectomy Social History Smoking Status: Never smoker second hand exposure: No alcohol intake: never substance use type: does not use what type of physical activity do you participate in: bicycling ROS ROS ED ROS Narrative Nausea and vomiting. Review of Systems ROS Unobtainable: Denies due to encephalopathy Constitutional Constitutional ED: Denies chills or fever(s) ENT ENT ED: Denies ear pain Cardiovascular Cardiovascular: Denies chest pain Respiratory/Chest Respiratory/Chest: Denies cough or dyspnea Gastrointestinal Gastrointestinal: Reports nausea and vomiting; Denies abdominal pain, constipation, diarrhea or melena Genitourinary Genitourinary ED: Denies dysuria or hematuria Musculoskeletal Musculoskeletal: Denies arthralgias or back pain Integumentary Denies abscess or Abrasions Neurologic Neurologic: Denies headache(s) Psychiatric Psychiatric: Denies anxiety Endocrine Endocrinology: Denies polydipsia Hematologic/Lymphatic Hematologic/Lymphatic: Denies easy bleeding Allergic/Immunologic Allergic/Immunologic ED: Denies mouth swelling, tongue swelling or urticaria EXAM Physical Exam Narrative Exam Narrative: 80-year-old male sitting upright in bed. bedside. Vital signs stable afebrile. Does not look septic toxic. He is no distress. He may be mildly dehydrated. H EENT exam pupils round react light. No trauma to his face. Mildly dry mucous membranes. No significant injury or trauma to his face or scalp. Nontender. No hematoma or laceration. Neck nontender. Lungs are clear equal symmetrical bilaterally. Heart regular rhythm rate about 70 no murmur. Chest wall and ribs are nontender. Abdomen soft nontender. No peritoneal signs. Back nontender. Moving all 4 extremities. No deformity. Chronic skin changes both lower extremities. Bilateral [employer] strength. He has a superficial skin tear on his right lateral posterior elbow. He has normal flexion extension both elbows and wrist. Normal range of motion of the shoulders. Hips are nontender. Normal dorsi plantarflexion. Back nontender. Neurologically is awake alert. Answering questions following commands. No focal motor deficits. Const Vital Signs: 05/31/23 11:26 05/31/23 11:42 05/31/23 12:35 Temperature 97.6 F L Temperature Source Oral Pulse Rate 67 76 Respiratory Rate 19 H 19 H Respiratory Effort Normal Non-Labored Respiratory Depth Normal Respiratory Pattern Normal Blood Pressure 189/86 H 202/89 H Blood Pressure Mean 120 126 Pulse Ox 95 90 Oxygen Delivery Method Room Air Room Air Room Air 05/31/23 14:00 Temperature Temperature Source Pulse Rate 75 Respiratory Rate 21 H Respiratory Effort Respiratory Depth Respiratory Pattern Blood Pressure 190/68 H Blood Pressure Mean 108 Pulse Ox 98 Oxygen Delivery Method Room Air Positive well nourished and well developed; Negative for cachectic, contractures or unkempt General Appearance ED: well developed and NAD; Negative for unkempt, cachectic, contractures or pallor Nutritional Appearance: Negative for cachectic HEENT Reports dry mucous membranes; Denies moist mucous membranes normocephalic and atraumatic; Negative for trauma or tenderness Mouth ED: Yes dry mucous membranes Mouth: dry mucous membranes Eyes PERRL and EOMs intact bilaterally General Eye ED: Negative for pale conjunctiva or scleral icterus Neck no lymphadenopathy, supple and no JVD General: Negative for tenderness Carotids: Negative for other Lymph Lymphatic: Negative for other Resp normal respiratory effort and clear to auscultation bilaterally Effort and Inspection: Negative for respiratory distress or retractions Auscultation: Negative for rales, rhonchi or wheezes Cardio regular rate, regular rhythm, S1 normal heart sound, S2 normal heart sound and no murmurs Rate: Negative for bradycardia or tachycardic Rhythm: Negative for abnormal rhythm GI non-tender, non-distended and no masses Inspection: Negative for abdominal distention Auscultation: normoactive bowel sounds Palpation: soft; Negative for tender, guarding, mass, pulsatile mass or rebound tenderness present Back/Spine no CVA tenderness Cervical Spine: Negative for cervical spine tenderness Thoracic Spine / Upper Back: Negative for thoracic spinal tenderness Lumbar Spine / Lower Back: Negative for lumbar spinal tenderness Coccyx: Negative for other Extremity full ROM General Extremety ED: Negative for edema, tenderness or other findings General Extremity: Negative for edema or other findings Neuro CN's II-XII intact bilaterally and moves all extremities Sensorium / Orientation: alert, oriented to person, oriented to place and oriented to time; Negative for orientation impaired, confused, lethargic or stuporous Motor Exam: strength 5/5 throughout Psych mental status grossly normal and thought process normal Appearance: Negative for unkempt Attitude: No agitated Mood & Affect: Negative for depressed, anxious or tearful Skin no wounds General Skin Exam: Negative for jaundice or pallor Lesions: no lesions Rashes: no rashes Trauma: Negative for abrasion Nails: Negative for discolored MDM MDM MDM Narrative Medical decision making narrative: 80-year-old male with nausea vomiting I suspect secondary to viral syndrome. Clinically looks mildly dehydrated. His abdomen is benign. Is nontender. There is no obstruction. He did fall today and hit his head he is on no blood thinners besides aspirin. He has no signs of trauma to his head nor any tenderness. I do not think he needs his brain CAT scan. Is a superficial skin tear on his right elbow again that does not need repair to be cleaned and dressed. Does not need to be sutured. And he has no pain on his right elbow and has normal range of motion at all diabetes x-ray. Patient received IV fluids and Zofran. Screening labs will be obtained. Repeat exam at 1 PM patient stood up to get the restroom felt nauseated descending back down to get additional Zofran. Try p.o. fluid challenge. His abdomen remains benign and nontender. He is showing improvement. Repeat exam at 4 PM patient still has intractable nausea and vomiting. Has been given so far 3 doses of Zofran and 1 of Reglan and just threw up after the Reglan. Will be given another dose of Zofran. Is received a liter normal saline. CAT scan does not show any specific cause for his vomiting. He is a distended bladder he has known BPH. He has been able to urinate. I repeated his abdominal exam is benign and nontender. I the hospitalist on page for admission for intractable nausea and vomiting. History & Record Review Discussion w/independent historian: Patient Additional record(s) reviewed:: Prior inpatient record, Prior outpatient record, Prior ED visit and Prior labs Lab Data Attestation: I reviewed the patient's lab results. Lab results narrative: CBC shows a normal white count of 4.5. H&H of 10.9 and 32.5. Platelets 154. Similar to prior labs. Chemistries show gap 3. BUN of 30 and creatinine 1.54 consistent with dehydration and prior labs of renal insufficiency. Glucose 325. Liver enzymes unremarkable. Labs: Laboratory Results - last 24 hr 05/31/23 12:00 WBC 4.5 RBC 3.47 L Hgb 10.9 L Hct 32.5 L MCV 93.7 MCH 31.4 MCHC 33.5 RDW Std Deviation 42.3 RDW Coeff of [place] 12.5 Plt Count 154 MPV 10.9 Immature Gran % (Auto) 0.400 Neut % (Auto) 83.8 H Lymph % (Auto) 9.8 L [place] % (Auto) 4.9 Eos % (Auto) 0.9 Baso % (Auto) 0.2 Absolute Neuts (auto) 3.8 Absolute Lymphs (auto) 0.44 L Nucleated RBC % 0 Sodium 140 Potassium 4.1 Chloride 107 Carbon Dioxide 30.0 Anion Gap 3 L BUN 30 H Creatinine 1.54 H Estim Creat Clear Calc 34.83 Est GFR (MDRD) Af Amer 56 L Est GFR (MDRD) Non-Af 46 L BUN/Creatinine Ratio 19.5 Glucose 325 H Calcium 9.3 Total Bilirubin 0.80 AST 12 L ALT 19 Alkaline Phosphatase 124 H Total Protein 6.9 Albumin 3.5 Globulin 3.4 Albumin/Globulin Ratio 1.0 Radiography Diagnostic Testing: Clinical Impression(s) from Imaging Studies Abdomen/Pelvis CT 05/31/23 14:40 IMPRESSION: I suspect small gallstones in the dependent portion gallbladder lumen. Fatty infiltration of the liver. Prostatic hypertrophy with indentation at the bladder base and the distended urinary bladder. Electronically Signed: Tobin Ch MD at 15:38 EDT , Discharge Plan Triage Chief Complaint: Fall Other Complaint: Nausea/Vomiting ED Provider: Jorge Alexandre Dx/Rx/DC Orders Clinical Impression: Hyperglycemia due to diabetes mellitus, Viral syndrome, Skin tear of right upper extremity, Chronic anemia, Nausea and vomiting, Fall, Dehydration, Chronic kidney disease Prescriptions: New ondansetron 4 mg tablet,disintegrating 4 mg PO Q6H PRN (Reason: nausea and vomiting) Qty: 7 0RF No Action (DME) OneTouch Ultra Blue Test Strip strip See Dose Instructions .ROUTE .MEDSUPPLY Qty: 100 11RF Dose Instruction: As directed Rx Instructions: use to check BG tid atorvastatin 40 mg tablet 40 mg PO QDAY Qty: 30 11RF aspirin 81 mg tablet,delayed release (DR/EC) 81 mg PO DAILY hydralazine 25 mg tablet 50 mg PO TID famotidine 20 mg tablet 20 mg PO BID (DME) FreeStyle Candelaria 2 Sensor Kit See Rx Instructions .ROUTE .MEDSUPPLY Qty: 2 0RF Rx Instructions: As directed doxazosin 2 mg tablet 2 mg PO BID Qty: 180 2RF cilostazol 100 MG tablet 100 mg PO BID Patient Comments: ANTIPLATELET metoprolol tartrate 25 MG tablet 25 mg PO BID Patient Comments: HEART RATE/BLOOD PRESSURE multivitamin with folic acid 1 TABLET tablet 1 tab PO DAILY Patient Comments: SUPPLEMENT insulin lispro [Humalog KwikPen Insulin] 100 unit/mL insulin pen 7 unit subcut TID 90 Days Qty: 18.9 2RF hydroxyzine HCl 25 mg tablet 25 mg PO ONCE Qty: 1 0RF Rx Instructions: 1 hour prior to MRI lorazepam 1 mg tablet 1 mg PO DAILY PRN (Reason: claustrophobia) Qty: 1 0RF Rx Instructions: take 1 tablet 45-60 minutes prior to MRI insulin glargine 100 unit/mL solution 44 unit subcut DAILY 90 Days Qty: 39.6 2RF Primary Care Provider: Agnes Suazo Referrals: Agnes Suazo MD [Primary Care Provider] - 3-5 Days if not improving Activity Restrictions/Additional Instructions: Plenty of fluids and rest. Increase your diet slowly as tolerated. Zofran as needed for nausea. Follow-up with your doctor if not improving or return if feeling worse or unable to keep fluids down. Suspect this is secondary to a viral illness and should progressively improve over the next 24 to 72 hours. Disposition Disposition: Home, Self Care
[2023-05-31] MEDS: Ondansetron 4 MG/2 ML Vial IV ×4 (12:02→17:38)
[2023-05-31] MEDS: 0.9% Normal Saline (1000mL) 1,000 ML 1000 ML IV (12:02)
[2023-05-31 12:16] LABS: Absolute Lymphocyte Count 0.44 X10^3/uL (0.83-4.51); Absolute Neutrophil Count 3.8 X10^3/uL (2.0-7.7); Basophil# 0.01 X10^3/uL; Basophil% 0.2 % (0-1); Eosinophil# 0.04 X10^3/uL; Eosinophils% 0.9 % (0-5); Hematocrit 32.5 % (40-54); Hemoglobin 10.9 g/dL (13.0-16.5); Lymphocyte # 0.44 X10^3/ul (0.83-4.51); Lymphocyte % 9.8 % (19-41); Mean Corp Hgb Conc 33.5 g/dL (32-36); Mean Corpuscular Hgb 31.4 pg (27.0-32.0); Mean Corpuscular Volume 93.7 fL (80-94); Mean Platelet Vol. 10.9 fl (6.2-12.0); Monocyte# 0.22 X10^3/uL; Monocyte% 4.9 % (0-10); NRBC Flagged by Analyzer 0 % (0-5); Neutrophil # 3.75 X10^3/uL (2.7-7.7); Neutrophil % 83.8 % (47-70); POSITIVE DIFFERENTIAL YES; Platelet Count 154 K/mm3 (150-450); RBC Distribution Width CV 12.5 % (11.6-14.6); RBC Distribution Width SD 42.3 fl (35.1-43.9); Red Blood Count 3.47 M/mm3 (4.6-6.2); White Blood Count 4.5 K/mm3 (4.4-11.0)
[2023-05-31 12:35] LABS: AST(SGOT) 12 U/L (15-37); Alanine Aminotransfer ALT/SGPT 19 U/L (16-61); Albumin, Serum 3.5 g/dL (3.2-5.0); Alkaline Phosphatase 124 U/L (45-117); Anion Gap 3 (5-15); BUN 30 mg/dL (7-18); BUN/Creat Ratio 19.5 RATIO (10-20); Calcium,Total 9.3 mg/dL (8.5-10.1); Chloride 107 mmol/L (98-107); Creatinine, Serum 1.54 mg/dL (0.70-1.30); EST Glomerular Filtration Rate 46 mL/min (>60); Est Glom Filt Rate - Afr Amer 56 mL/min (>60); Estimated Creatinine Clearance 34.83 ml/min; Globulin 3.4 g/dL (2.2-4.2); Glucose 325 mg/dL (74-106); Potassium 4.1 mmol/L (3.5-5.1); Protein, Total 6.9 g/dL (6.4-8.2); Sodium Level 140 mmol/L (136-145)
--- NOTE | 2023-05-31 14:40 | CT_ITS ---
STUDY: CT ABDOMEN AND PELVIS WITH CONTRAST REASON FOR EXAM: Male, 82 years old. Vomiting. RADIATION DOSAGE (If Supplied By Facility): CTDIvol = ( 13.90 ) mGy, DLP = ( 958.14 ) mGycm TECHNIQUE: Transaxial images were obtained from the dome of the diaphragm to the symphysis pubis without oral contrast. IV 100mL Isovue-300 was administered. Sagittal and coronal images were reconstructed. Individualized dose optimization techniques were used for this CT. COMPARISON: None. FINDINGS: Calcified left pleural plaques. Mild basilar scarring. Minimal left pleural effusion. Coronary artery calcification. There is decreased attenuation of the liver consistent with steatosis. Small gallstone in the dependent portion of the gallbladder lumen. Normal spleen. Normal pancreas. Normal bilateral adrenal glands. Normal right kidney. Normal left kidney. There is a moderate-sized hiatal hernia. Normal small intestine. Normal colon. The appendix is visualized and appears normal. There is diffuse atherosclerotic calcification of the abdominal aorta and its major visceral branches, without a demonstrated aneurysm. Normal inferior vena cava. Normal retroperitoneum. Distended urinary bladder. The prostate is enlarged and measures 5.5 cm x 4.6 cm. This causes indentation at the bladder base. Calcifications are seen within the prostate. Normal abdominal wall. There are diffuse degenerative changes of the visualized lumbar spine. CT/Abdomen/Pelvis W IV Cont ONLY IMPRESSION: I suspect small gallstones in the dependent portion gallbladder lumen. Fatty infiltration of the liver. Prostatic hypertrophy with indentation at the bladder base and the distended urinary bladder. Electronically Signed: Tobin Ch MD at 15:38 EDT ,
--- NOTE | 2023-05-31 14:53 | ED.RN ---
PT VOMITED LARGE AMOUNT OF BILE APPEARING FLUID. AWARE.MORE NAUSEA MEDS ORDERED
[2023-05-31] MEDS: Metoclopramide 10 MG/2 ML Vial 5 MG IV (15:27)
--- NOTE | 2023-05-31 16:43 | PCM.HP.STD ---
HPI - General General Date of Admission: 05/31/23 Date of Service: 05/31/23 Chief Complaint: N/V/D HPI Narrative The patient is an 82 y/o M w/ PMHx: Obesity, Chronic anemia, Carotid disease, BPH, Diabetes mellitus type II, HTN, HLD, JUAN ALBERTO, CKD stage III unclear subtype who presents to the [facility] ED on 05/31/23 with history of onset at approximately 4 AM on day of presentation nausea and emesis which was persistent with no fever, chills nor associated abdominal pain or diarrhea unfortunately coming very weak with mechanical fall striking his head but no loss of consciousness and noting he is only on aspirin as well as striking his right elbow with minor laceration but no pain and normal range of motion but given these events prompted concern and patient was brought to the ED for evaluation. is present and does state that she started to have some mild abdominal cramping but denies any other symptoms. Patient reports some abdominal cramping but no specific pain. Workup in the ED included T97.6, heart rate 67, BP 189/86, respiratory rate 19, 95% on room air, CBC with WBC 4.5, hemoglobin 10.9, MCV 93.7, platelet 154 with lymphopenia, CMP with BUN/1 and 30/1.54, GFR 46, glucose 325, hepatic profile not marked appearing, CT abdomen and pelvis with suspected small gallstones in the dependent portion of the gallbladder lumen, fatty infiltration of the liver, prostatic hypertrophy with indentation at the base of the bladder and a distended urinary bladder at that time. In the ED patient ministered Zofran 4 mg IV x 4, 2 L normal saline boluses. [facility] Medical History Acute sinusitis Anemia Back problem BPH (benign prostatic hyperplasia) Carotid artery disease Carpal tunnel syndrome Diabetes type 2, controlled GERD (gastroesophageal reflux disease) GI problem Hearing problem Heart murmur HTN (hypertension) Hyperlipemia Kidney disease JUAN ALBERTO (obstructive sleep apnea) Routine adult health maintenance Tachycardia Type 2 diabetes mellitus Vascular disease Vision problem Home Medications cilostazol 100 mg tablet 100 mg PO BID 02/26/14 [History Last Taken 05/30/23] metoprolol tartrate 25 mg tablet 25 mg PO BID 02/26/14 [History Last Taken 05/30/23] multivitamin with folic acid 400 mcg tablet 1 tab PO DAILY 02/26/14 [History Last Taken 05/30/23] OneTouch Ultra Blue Test Strip (blood sugar diagnostic) #100 ea 03/12/18 [Rx Last Taken Unknown] aspirin 81 mg tablet,delayed release 81 mg PO DAILY 04/13/20 [History Last Taken 05/30/23] famotidine 20 mg tablet 20 mg PO BID 07/29/20 [History Last Taken 05/30/23] hydralazine 25 mg tablet 50 mg PO TID 07/29/20 [History Last Taken 05/30/23] flash glucose sensor (FreeStyle [place] 2 Sensor kit) #2 ea 10/27/20 [Rx Last Taken Unknown] doxazosin 2 mg tablet 2 mg PO BID #180 tabs 01/27/21 [Rx Last Taken 05/30/23] insulin glargine 100 unit/mL subcutaneous solution 44 unit (0.44 mL) subcut DAILY diabetes 3 months #39.6 mL 05/29/23 [Rx Last Taken 05/30/23] atorvastatin 40 mg tablet 40 mg PO DAILY 05/31/23 [History Last Taken 05/30/23] insulin lispro 100 unit/mL subcutaneous pen (Humalog KwikPen (U-100) Insulin) See Protocol subcut TIDCM 05/31/23 [History Last Taken 05/30/23] ondansetron 4 mg disintegrating tablet 4 mg PO Q6H PRN nausea and vomiting #7 tabs 05/31/23 [Rx Last Taken Unknown] Allergy/AdvReac Type Severity Reaction Status Date / Time acetaminophen [From [place]] Allergy Severe Unknown Verified 05/04/23 09:21 cephalexin Allergy Severe Unknown Verified 05/04/23 09:21 hydrocodone [From Saltese] Allergy Severe Unknown Verified 05/04/23 09:21 sulfamethoxazole Allergy Severe Unknown Verified 05/04/23 09:21 [From Bactrim] trimethoprim [From Bactrim] Allergy Severe Unknown Verified 05/04/23 09:21 Family History Sister Breast cancer Diabetes CVA (cerebral vascular accident) Mother Diabetes Heart disease Father Heart disease CVA (cerebral vascular accident) Surgical History (Updated 05/31/23 @ 20:[address] Kia Charles MD) Cataracts, bilateral History of bowel resection History of colonoscopy Male circumcision S/P tonsillectomy and adenoidectomy Social History Smoking Status: Never smoker second hand exposure: No alcohol intake: never substance use type: does not use what type of physical activity do you participate in: bicycling ROS ROS Narrative Admission Review of Systems: CONSTITUTIONAL: No weight loss, fever, chills, + weakness or fatigue. HEENT: Eyes: No visual loss, blurred vision, double vision or yellow sclerae. Ears, Nose, Throat: No hearing loss, sneezing, congestion, runny nose or sore throat. SKIN: No rash or itching, lesions, wounds. CARDIOVASCULAR: No chest pain, chest pressure or chest discomfort, palpitations, edema, orthopnea, syncopal events. RESPIRATORY: No shortness of breath, cough or sputum, wheezing, hemoptysis. GASTROINTESTINAL: + anorexia, nausea, vomiting, diarrhea, abdominal cramping. No abdominal pain, melena, BRBPR. GENITOURINARY: No dysuria, frequency, urgency or retention. NEUROLOGICAL: + Fall secondary to debility, weakness. No headache, dizziness, syncope, paralysis, ataxia, numbness or tingling in the extremities, focal weakness, change in bowel or bladder control, seizure. MUSCULOSKELETAL: + muscle, back pain, joint pain or stiffness. HEMATOLOGIC: + Chronic anemia, easy bleeding/bruising. LYMPHATICS: No enlarged nodes. No history of splenectomy. PSYCHIATRIC: No history of depression or anxiety. ENDOCRINOLOGIC: No reports of sweating, cold or heat intolerance. No polyuria or polydipsia. ALLERGIES: No history of asthma, hives, eczema or rhinitis. Vital Signs Vital Signs Vital Signs: 05/31/23 11:26 05/31/23 11:42 05/31/23 12:35 Temperature 97.6 F L Temperature Source Oral Pulse Rate 67 76 Respiratory Rate 19 H 19 H Respiratory Effort Normal Non-Labored Respiratory Depth Normal Respiratory Pattern Normal Blood Pressure 189/86 H 202/89 H Blood Pressure Mean 120 126 Pulse Ox 95 90 Oxygen Delivery Method Room Air Room Air Room Air 05/31/23 14:00 Temperature Temperature Source Pulse Rate 75 Respiratory Rate 21 H Respiratory Effort Respiratory Depth Respiratory Pattern Blood Pressure 190/68 H Blood Pressure Mean 108 Pulse Ox 98 Oxygen Delivery Method Room Air Weight Weight: 178 lb 12.718 oz Body Mass Index (BMI) 31.6 Physical Exam Narrative Physical Examination: General: Awake, alert, oriented x 3 and cooperative, seated upright in the ED bed, fatigued, continuously having issues with dry heaving during evaluation. Skin: Normal color, normal turgor, no icterus, no cyanosis except occasional staged ecchymoses and significant bilateral lower extremity venous stasis skin changes. HEENT: AT/NC, EOMI, PERRLA, dry MM, no carotid bruits or JVD noted. Lungs: Diminished, greater bases, mildly increased respiratory rate but no distress no rales, ronchi or wheezing. Heart: Currently regular rate and rhythm; no gallop, rub audible. Abdomen: Soft, NTTP with no rebound or guarding, hyperactive BS, mild distention and tympany but not severe, no appreciated HSM but difficult exam given during evaluation patient having intermittent bouts of dry heaving. Extremities: No cyanosis, no clubbing, significant bilateral lower extremity venous stasis skin changes. Neurological: Patient awake, alert, oriented as noted, cognitive function intact; pupils equally reactive to light and accommodation, cranial nerves grossly normal, moving all 4 extremities, no focal deficits, strength severely globally decreased. Psychiatric: Affect appears fatigued, ill-appearing, no acute evidence of depressive or anxiety feelings. Results Lab / Micro Data 05/31/23 12:00 05/31/23 12:00 Labs: Laboratory Results - last 24 hr 05/31/23 12:00: WBC 4.5, RBC 3.47 L, Hgb 10.9 L, Hct 32.5 L, MCV 93.7, MCH 31.4, MCHC 33.5, RDW Std Deviation 42.3, RDW Coeff of Clay 12.5, Plt Count 154, MPV 10.9, Immature Gran % (Auto) 0.400, Neut % (Auto) 83.8 H, Lymph % (Auto) 9.8 L, [place] % (Auto) 4.9, Eos % (Auto) 0.9, Baso % (Auto) 0.2, Absolute Neuts (auto) 3.8, Absolute Lymphs (auto) 0.44 L, Nucleated RBC % 0, Sodium 140, Potassium 4.1, Chloride 107, Carbon Dioxide 30.0, Anion Gap 3 L, BUN 30 H, Creatinine 1.54 H, Estim Creat Clear Calc 34.83, Est GFR (MDRD) Af Amer 56 L, Est GFR (MDRD) Non-Af 46 L, BUN/Creatinine Ratio 19.5, Glucose 325 H, Calcium 9.3, Total Bilirubin 0.80, AST 12 L, ALT 19, Alkaline Phosphatase 124 H, Total Protein 6.9, Albumin 3.5, Globulin 3.4, Albumin/Globulin Ratio 1.0 Imaging Radiology Impression Abdomen/Pelvis CT 05/31/23 14:40 IMPRESSION: I suspect small gallstones in the dependent portion gallbladder lumen. Fatty infiltration of the liver. Prostatic hypertrophy with indentation at the bladder base and the distended urinary bladder. Electronically Signed: Tobin Ch MD at 15:38 EDT , Assessment & Plan Assessment/Plan (1) Nausea and vomiting: PLAN: Plan The patient is an 82 y/o M w/ PMHx: Obesity, Chronic anemia, Carotid disease, BPH, Diabetes mellitus type II, HTN, HLD, JUAN ALBERTO, CKD stage III unclear subtype who presents to the [facility] ED on 05/31/23 with history of onset at approximately 4 AM on day of presentation nausea and emesis which was persistent with no fever, chills nor associated abdominal pain or diarrhea unfortunately coming very weak with mechanical fall striking his head but no loss of consciousness and noting he is only on aspirin as well as striking his right elbow with minor laceration but no pain and normal range of motion but given these events prompted concern and patient was brought to the ED for evaluation. #1. Adult FTT, Debility, Weakness with fall secondary to Acute N/V/D, Suspected Acute Gastroenteritis: Will admit to medical surgical floor given stable vital signs, will maintain on judicious hydration, will obtain c diff, stool cx to be cautious, will not start antibiotics at this time given unclear source pending stool studies as may be viral gastroenteritis. Given significant nausea and dry heaving in the ED if clinically improving with antiemetics will attempt clears but if ongoing will transition to n.p.o. status. Maintain on IV PPI. Given Zofran seems to have no effect will trial prochlorperazine and will also give a one-time dose of Haldol 0.5 mg IV x 1 for antiemetic effect. May need to adjust antiemetics further depending on response. Will maintain on fall precautions. PT/OT/case management consulted for discharge planning. #2. Diabetes mellitus type II: Hold oral home regimen, while n.p.o. versus clears may consider one half dosing pending blood sugar trending, if able to clinically improve will allow clears, will maintain on every 6 hours accu checks w/ ISS until transition back to ADA diet. #3. Hypertension, uncontrolled in the ED: Continue home regimen including metoprolol, hydralazine, doxazosin however given intractable nausea and emesis likely is missed doses resulting in his initial ED elevated blood pressures in addition to the fact that he was having bouts of emesis and dry heaving will have also in the interim, PRN hydralazine. #4. Carotid disease: We will continue patient aspirin, cilostazol, statin, hypertensive regimen as BP allows as well as oral intake allows given presentation #1. #5. Hyperlipidemia: Will continue patient on statin therapy #6. Chronic normocytic anemia: Admission hemoglobin 10.9, MCV 93.7, baseline hemoglobin 10-11, stable, continue to trend. #7. Chronic Kidney Disease Stage III, unclear subtype: Admission BUN/Cr 30/1.54, GFR 46, baseline renal function similar 1.5-2.1, repeat BMP in AM. #8. Obesity: Weight loss and lifestyle changes encouraged. #9. JUAN ALBERTO: Hold CPAP q HS given N/V for risk of aspiration. #10. Bilateral lower extremity chronic venous stasis, possibly underlying PAD: Notable skin changes, continue aspirin, cilostazol, hypertensive regimen as noted, statin therapy. #11. GERD: Will maintain on IV PPI. #12. DVT prophylaxis: Heparin. #13. CODE status: Patient KENNEY is his nephew and living will is currently in place. Discussed CODE status at length including difference between FULL code, DNR-CCA and DNR-CC status. Following discussions about the differences in these status, requested Full Code status. Advanced Care Planning Face to Face Time: 16 minutes. Charges/Coding Visit Charges Inpatient E&M: 99826 Init Hosp L2 Procedures Hospitalists Procedures: 30156 Advncd Care Plan 30 Min
[2023-05-31] MEDS: 0.9% Normal Saline (500mL Bag) 500 ML 999 ML IV (17:38)
[2023-05-31] MEDS: hydrALAZINE 20 MG/ML Vial 10 MG IV ×2 (17:59→21:54)
[2023-05-31] MEDS: proCHLORPERazine 10 MG/2 ML Vial IV (19:19)
[2023-05-31] MEDS: 0.9% Normal Saline (1000mL) 1,000 ML 100 ML IV (19:20)
[2023-05-31 19:22] LABS: Bedside Glucose 333 mg/dL (74-106)
[2023-05-31] MEDS: Haloperidol Lactate 5 MG/ML Vial IV (20:22)
[2023-05-31] MEDS: Pantoprazole Sodium 40 MG in 0.9% Normal Saline (100mL MB+) 100 ML 330 MG IV (20:25)
[2023-05-31] MEDS: Metoprolol Tartrate 25 MG Tablet PO (21:56)
[2023-05-31] MEDS: Atorvastatin Calcium 40 MG Tablet PO (21:56)
[2023-05-31] MEDS: Cilostazol 50 MG Tablet 100 MG PO (21:56)
[2023-05-31] MEDS: hydrALAZINE 25 MG Tablet 50 MG PO (21:56)
[2023-05-31] MEDS: Doxazosin 1 MG Tablet 2 MG PO (21:56)
[2023-05-31] MEDS: Heparin Injection (Vial) 5,000 UNIT/ML VIAL 5000 UNIT SC (21:57)
[2023-05-31] MEDS: proMETHazine 25 MG/ML Syringe 5 MG IM (22:49)
[2023-06-01] VITALS (19 sets, daily range): BP systolic 123–174; BP diastolic 51–83; PULSE 61–99; RESP 16–19; TEMP 36.3–37.1; O2SAT 93–97
[2023-06-01] MEDS: proCHLORPERazine 10 MG/2 ML Vial IV ×4 (00:28→20:39)
[2023-06-01] MEDS: Insulin Lispro 100 UNIT/ML INSULN.PEN SC ×5 (00:43→23:49)
[2023-06-01 01:30] LABS: Bedside Glucose 326 mg/dL (74-106)
--- NOTE | 2023-06-01 07:48 | PCM.PN.HOSP ---
Reason for Visit Reason for Visit: Diagnoses Nausea with vomiting, unspecified (05/31/23) Subjective Subjective Patient is an 82-year-old gentleman with multiple comorbidities who presented following a fall and assessment of adult failure to thrive made admitted to regular nursing floor for further management Objective Data Objective Data Vital Signs: Vital Signs Temp Pulse Resp BP Pulse Ox O2 Del Method 97.7 F L 99 16 150/73 H 97 Room Air 06/01/23 05:25 06/01/23 05:37 06/01/23 05:25 06/01/23 05:25 06/01/23 05:25 06/01/23 05:25 Oxygen Delivery Method Room Air Weight: 78.4 kg Body Mass Index (BMI) 30.6 Intake & Output: Intake and Output for Last 24 Hours 05/30/23 05/31/23 06/01/23 23:59 23:59 23:59 Intake Total 1610 / 1710 1100 / 1100 Output Total 900 / 900 Balance 1610 / 1010 200 / 200 Lab / Micro Data 05/31/23 12:00 05/31/23 12:00 Labs: Laboratory Results - last 24 hr 05/31/23 12:00: WBC 4.5, RBC 3.47 L, Hgb 10.9 L, Hct 32.5 L, MCV 93.7, MCH 31.4, MCHC 33.5, RDW Std Deviation 42.3, RDW Coeff of Clay 12.5, Plt Count 154, MPV 10.9, Immature Gran % (Auto) 0.400, Neut % (Auto) 83.8 H, Lymph % (Auto) 9.8 L, [place] % (Auto) 4.9, Eos % (Auto) 0.9, Baso % (Auto) 0.2, Absolute Neuts (auto) 3.8, Absolute Lymphs (auto) 0.44 L, Nucleated RBC % 0, Sodium 140, Potassium 4.1, Chloride 107, Carbon Dioxide 30.0, Anion Gap 3 L, BUN 30 H, Creatinine 1.54 H, Estim Creat Clear Calc 34.83, Est GFR (MDRD) Af Amer 56 L, Est GFR (MDRD) Non-Af 46 L, BUN/Creatinine Ratio 19.5, Glucose 325 H, Calcium 9.3, Total Bilirubin 0.80, AST 12 L, ALT 19, Alkaline Phosphatase 124 H, Total Protein 6.9, Albumin 3.5, Globulin 3.4, Albumin/Globulin Ratio 1.0 05/31/23 19:04: POC Glucose 333 H 06/01/23 00:42: POC Glucose 326 H Radiography Diagnostic Testing: Radiology Impression Abdomen/Pelvis CT 05/31/23 14:40 IMPRESSION: I suspect small gallstones in the dependent portion gallbladder lumen. Fatty infiltration of the liver. Prostatic hypertrophy with indentation at the bladder base and the distended urinary bladder. Electronically Signed: Tobin Ch MD at 15:38 EDT , Physical Exam Narrative GENERAL: cooperative HEENT: Atraumatic; normocephalic EYES; Anicteric, Normal Conjunctiva NECK; supple, normal thyroid, RESPIRATORY: Diminished to auscultation CARDIOVASCULAR: Regular S1 S2, GI: soft, normoactive bowel sounds, : No Renal angle tenderness; EXTREMITIES: No edema, no clubbing, MUSCULOSKELETAL: no muscle wasting NEURO: Awake; no lateralizing signs. SKIN: No Rash PSYCH; Flat affect Assessment & Plan Assessment/Plan (1) Nausea and vomiting: PLAN: Plan Patient is an 82-year-old gentleman with multiple comorbidities who presented following a fall and assessment of adult failure to thrive made admitted to regular nursing floor for further management 1. Physical deconditioning with falls - Requested for PT OT eval and social security benefits interviewer to assist with discharge planning 2. Diabetes mellitus type II -patient's oral hypoglycemics held. Placed on long acting insulin, Accu-Cheks a.c. and at bedtime and covered with sliding scale insulin 3. Anemia - Secondary to chronic disorder monitoring H&H and transfuse if patient becomes symptomatic or hemoglobin falls below 7 4. Hypertension - Blood pressure controlled, home medications continued with dose adjustment as needed 5. Dyslipidemia -Patient is on statin therapy, continued at home dose 6. Chronic kidney disease stage III ? Kidney function at baseline 7. Class I obesity with BMI of 31 ? Weight loss advised 8. Peripheral arterial disease ? Patient is on cilostazol aspirin and atorvastatin did continue 9. Obstructive sleep apnea ? Consistent use of PAP therapy encourage 10. DVT prophylaxis ? SC heparin Time spent in the patient's overall evaluation,decision-making process, review of diagnostic data, adjustment of management, discussion with other providers, nursing nursing and ancillary staff involved in patient's care documentation, 35 Minutes Charges/Coding Visit Charges Inpatient E&M: 49610 Subs Hosp L2
[2023-06-01 08:55] LABS: Absolute Lymphocyte Count 0.51 X10^3/uL (0.83-4.51); Absolute Neutrophil Count 5.3 X10^3/uL (2.0-7.7); Hematocrit 32.6 % (40-54); Hemoglobin 10.8 g/dL (13.0-16.5); Lymphocyte # 0.51 X10^3/ul (0.83-4.51); Lymphocyte % 8.2 % (19-41); Mean Corp Hgb Conc 33.1 g/dL (32-36); Mean Corpuscular Hgb 30.9 pg (27.0-32.0); Mean Corpuscular Volume 93.4 fL (80-94); Mean Platelet Vol. 11.3 fl (6.2-12.0); Monocyte% 6.4 % (0-10); NRBC Flagged by Analyzer 0 % (0-5); Neutrophil # 5.29 X10^3/uL (2.7-7.7); Neutrophil % 84.9 % (47-70); POSITIVE DIFFERENTIAL YES; Platelet Count 168 K/mm3 (150-450); RBC Distribution Width CV 12.9 % (11.6-14.6); RBC Distribution Width SD 43.7 fl (35.1-43.9); Red Blood Count 3.49 M/mm3 (4.6-6.2); White Blood Count 6.2 K/mm3 (4.4-11.0)
[2023-06-01] MEDS: Pantoprazole Sodium 40 MG in 0.9% Normal Saline (100mL MB+) 100 ML 330 MG IV ×2 (09:24→20:58)
[2023-06-01] MEDS: Heparin Injection (Vial) 5,000 UNIT/ML VIAL 5000 UNIT SC (09:25)
[2023-06-01] MEDS: 0.9% Saline Lock 10 ML Syringe IV ×4 (09:34→20:48)
[2023-06-01 09:36] LABS: ALB/GLOB Ratio 0.9 RATIO (0.9-2.4); AST(SGOT) 17 U/L (15-37); Alanine Aminotransfer ALT/SGPT 18 U/L (16-61); Albumin, Serum 3.1 g/dL (3.2-5.0); Alkaline Phosphatase 110 U/L (45-117); Anion Gap 6 (5-15); BUN 31 mg/dL (7-18); BUN/Creat Ratio 18.2 RATIO (10-20); Calcium,Total 8.5 mg/dL (8.5-10.1); Chloride 108 mmol/L (98-107); EST Glomerular Filtration Rate 41 mL/min (>60); Est Glom Filt Rate - Afr Amer 50 mL/min (>60); Estimated Creatinine Clearance 31.04 ml/min; Globulin 3.4 g/dL (2.2-4.2); Glucose 384 mg/dL (74-106); Potassium 3.9 mmol/L (3.5-5.1); Protein, Total 6.5 g/dL (6.4-8.2); Sodium Level 141 mmol/L (136-145)
[2023-06-01] MEDS: Metoprolol Tartrate 25 MG Tablet PO ×2 (09:47→20:43)
[2023-06-01] MEDS: Doxazosin 1 MG Tablet 2 MG PO ×2 (09:47→20:44)
[2023-06-01] MEDS: Aspirin E.C. 81 MG Tablet PO (09:48)
[2023-06-01] MEDS: Cilostazol 50 MG Tablet 100 MG PO (12:15)
[2023-06-01] MEDS: hydrALAZINE 25 MG Tablet 50 MG PO ×2 (12:18→20:44)
[2023-06-01 13:51] LABS: Bedside Glucose 363 mg/dL (74-106)
[2023-06-01 13:51] LABS: Bedside Glucose 270 mg/dL (74-106)
--- NOTE | 2023-06-01 16:10 | CASEMGMT ---
Social Work SW met with pt's and introduced self and role of SW. SW broached topic of short term SNF placement with pt and does not feel pt would want to go to SNF and states she has no transportation to go visit him. Pt feels pt can return home. A list of SNF providers including quality and resource use data and consistent with the patient?s preferred geographic region, medical needs, and insurance network were provided from the [employer] Guide. SW and RNCM will continue to follow for appropriate dc planning. SALVATORE Casas
--- NOTE | 2023-06-01 16:29 | CASEMGMT ---
CURTIS WEBBER in to discuss CUEVAS form with patient and . CURTIS WEBBER explained CUEVAS form, patient voiced understanding. Pt very upset and called her insurance company to confirm if this stay will be covered. She states pt is not going to a snf. Explained to her that it would only be for s/t therapy, it would not be intermediate. Discussed with pt and that we will see how he does with therapy tomorrow and make a determination at this point. They are both agreeable to this. Pt signed form and filed in chart. Pt provided with a copy of signed CUEVAS form. Patient and had no further questions or concerns at this time.
--- NOTE | 2023-06-01 18:23 | RAD_ITS ---
STUDY: X-RAY - ABDOMEN/PELVIS REASON FOR EXAM: Male, 82 years old. Distended abd, nausea TECHNIQUE: Three AP supine views of the abdomen and pelvis. COMPARISON: None. FINDINGS: Normal visualized lung bases. There is an unremarkable bowel gas pattern. There is no demonstrated free abdominal air. Normal soft tissue structures. There is degenerative change of the spine and hips RAD/Abdomen Single View IMPRESSION: No obstruction. Electronically Signed: Shayne Blue MD at 20:00 EDT ,
--- NOTE | 2023-06-01 18:27 | CT_ITS ---
ACR Level 3 findings have been noted. An addendum which confirms receipt of the report will follow. STUDY: CT BRAIN WITHOUT CONTRAST REASON FOR EXAM: Male, 82 years old. Dizziness, fall RADIATION DOSAGE (If Supplied By Facility): CTDIvol = ( 44.99 ) mGy, DLP = ( 863.60 ) mGycm TECHNIQUE: Transaxial CT imaging of the brain was performed without administration of intravenous contrast material. Individualized dose optimization techniques were used for this CT. COMPARISON: MRI May 17, 2023 FINDINGS: Normal soft tissue structures. Normal calvarium. There is mild cerebral atrophy with widening of the extra-axial spaces and ventricular dilatation. There are extra-axial fluid collections consistent with chronic subdural hygromas. There are superimposed recent component including on the left measuring 2.4 x 0.8 cm and 1.4 x 0.9 cm and on the right measuring 1.0 cm. Normal white matter tracts of the cerebral hemispheres. Normal basal ganglia and thalami. Normal brainstem. Normal cerebellum. There is intracranial hemorrhage. There are no findings of an acute ischemic infarction. Normal visualized paranasal sinuses. CT/Brain/Head without Contrast IMPRESSION: Acute and chronic subdural hematoma/hygromas. Electronically Signed: Shayne Blue MD at 19:28 EDT ,
--- NOTE | 2023-06-01 18:39 | NURSING ---
Went down to Xray at this time via Bed.
[2023-06-01 18:58] LABS: Bedside Glucose 355 mg/dL (74-106)
--- NOTE | 2023-06-01 19:57 | NURSING ---
Phone call to , Berenice to inform her that pt is going to be transferred to the Intensive Care unit at this time.
--- NOTE | 2023-06-01 20:02 | NURSING ---
AT 1528 today, this RN in to perform focus assessment. Pt stated he was still dizzy and felt dizzy all day with dizzyness being worse when sitting in chair. Pt concerned since he was nauseated at home, feeling week and fell. requested CT of head to make sure everything is okay Dr. Salgado was contacted and informed. This RN did not see response of Dr. Salgado that was texted via [email or web address] to get a Ct of his head until this RN put the order in (see time order was ordered).
[2023-06-01] MEDS: hydrALAZINE 20 MG/ML Vial 10 MG IV (20:36)
[2023-06-01] MEDS: Atorvastatin Calcium 40 MG Tablet PO (20:44)
--- NOTE | 2023-06-01 21:54 | PN_ITS ---
Progress Note Notified by nursing staff that a CT scan ordered at around 1830 was positive for an acute on chronic subdural hematoma. He has been having falls recently and presented to the hospital with a fall where he hit his head no CT of the brain was obtained on admission. He did have subdural hematoma evident on an MRI on 05/17/2023 and there does appear to be a slight increase in signal intensity on today's CT scan. The case was discussed with Dr. Philip Knowles of [facility] neurosurgery and he did not think that this necessitated a transfer as there is no midline shift or significant mass effect. There is no change in the patient's symptoms. Will transfer to the ICU and placed on every hour NIH's and continue with blood pressure control. Dr. Knowles would like to see him as an outpatient when discharged.
[2023-06-01] MEDS: Labetalol (Prefilled) 20 MG/4 ML 10 MG IV (21:55)
[2023-06-02] VITALS (21 sets, daily range): BP systolic 118–164; BP diastolic 54–76; PULSE 58–85; RESP 14–20; TEMP 35.8–36.9; O2SAT 92–98; BMI 29.9
[2023-06-02 00:08] LABS: Bedside Glucose 244 mg/dL (74-106)
[2023-06-02] MEDS: 0.9% Saline Lock 10 ML Syringe IV ×2 (03:09→21:11)
[2023-06-02] MEDS: Labetalol (Prefilled) 20 MG/4 ML 10 MG IV (03:09)
[2023-06-02 03:24] LABS: Absolute Lymphocyte Count 0.89 X10^3/uL (0.83-4.51); Absolute Neutrophil Count 4.5 X10^3/uL (2.0-7.7); Basophil# 0.01 X10^3/uL; Basophil% 0.2 % (0-1); Eosinophil# 0.05 X10^3/uL; Eosinophils% 0.8 % (0-5); Hematocrit 28.7 % (40-54); Hemoglobin 9.7 g/dL (13.0-16.5); Lymphocyte # 0.89 X10^3/ul (0.83-4.51); Lymphocyte % 14.9 % (19-41); Mean Corp Hgb Conc 33.8 g/dL (32-36); Mean Corpuscular Volume 94.7 fL (80-94); Mean Platelet Vol. 10.9 fl (6.2-12.0); Monocyte% 8.3 % (0-10); NRBC Flagged by Analyzer 0 % (0-5); Neutrophil # 4.52 X10^3/uL (2.7-7.7); Neutrophil % 75.5 % (47-70); Platelet Count 157 K/mm3 (150-450); RBC Distribution Width CV 12.8 % (11.6-14.6); RBC Distribution Width SD 43.7 fl (35.1-43.9); Red Blood Count 3.03 M/mm3 (4.6-6.2)
[2023-06-02 03:39] LABS: Anion Gap 4 (5-15); BUN 32 mg/dL (7-18); BUN/Creat Ratio 19.3 RATIO (10-20); Calcium,Total 8.4 mg/dL (8.5-10.1); Chloride 109 mmol/L (98-107); Creatinine, Serum 1.66 mg/dL (0.70-1.30); EST Glomerular Filtration Rate 42 mL/min (>60); Est Glom Filt Rate - Afr Amer 51 mL/min (>60); Estimated Creatinine Clearance 31.79 ml/min; Glucose 210 mg/dL (74-106); Magnesium 1.8 mg/dL (1.6-2.6); Phosphorus 1.9 mg/dL (2.5-4.9); Potassium 3.6 mmol/L (3.5-5.1); Sodium Level 141 mmol/L (136-145)
[2023-06-02] MEDS: Insulin Lispro 100 UNIT/ML INSULN.PEN SC ×2 (05:11→10:58)
[2023-06-02] MEDS: hydrALAZINE 25 MG Tablet 50 MG PO ×3 (05:11→20:51)
--- NOTE | 2023-06-02 07:16 | PN.HOSP_ITS ---
Reason for Visit Reason for Visit: Diagnoses Nausea with vomiting, unspecified (05/31/23) Subjective Subjective Patient did complain of dizziness later on in the day. CT of the head without contrast obtained did show Acute and chronic subdural hematoma/hygromas.. Patient subsequently transferred to the intensive care unit. Consult placed to [facility] neurosurgery recommended for patient to be managed conservatively with plans for patient to follow-up with the outfit upon discharge.. Patient seen this a.m. states his dizziness has resolved Objective Data Objective Data Vital Signs: Vital Signs Temp Pulse Resp BP Pulse Ox O2 Del Method 96.4 F L 74 20 H 132/67 H 94 Room Air 06/02/23 04:00 06/02/23 07:00 06/02/23 07:00 06/02/23 07:00 06/02/23 07:00 06/02/23 07:00 Oxygen Delivery Method Room Air Weight: 76.8 kg Body Mass Index (BMI) 29.9 Intake & Output: Intake and Output for Last 24 Hours 05/31/23 06/01/23 06/02/23 23:59 23:59 23:59 Intake Total 1610 / 1710 2080 / 2380 500 / 500 Output Total 1450 / 1550 200 / 200 Balance 1610 / 1010 630 / 830 300 / 300 Lab / Micro Data 06/02/23 03:12 06/02/23 03:12 Labs: Laboratory Results - last 24 hr 06/01/23 06:30: POC Glucose 363 H 06/01/23 07:17: WBC 6.2, RBC 3.49 L, Hgb 10.8 L, Hct 32.6 L, MCV 93.4, MCH 30.9, MCHC 33.1, RDW Std Deviation 43.7, RDW Coeff of Clay 12.9, Plt Count 168, MPV 11.3, Immature Gran % (Auto) 0.500, Neut % (Auto) 84.9 H, Lymph % (Auto) 8.2 L, [place] % (Auto) 6.4, Eos % (Auto) 0.0, Baso % (Auto) 0.0, Absolute Neuts (auto) 5 .3, Absolute Lymphs (auto) 0.51 L, Nucleated RBC % 0, Sodium 141, Potassium 3.9, Chloride 108 H, Carbon Dioxide 27.0, Anion Gap 6, BUN 31 H, Creatinine 1.70 H, Estim Creat Clear Calc 31.04, Est GFR (MDRD) Af Amer 50 L, Est GFR (MDRD) Non-Af 41 L, BUN/Creatinine Ratio 18.2, Glucose 384 H, Calcium 8.5, Total Bilirubin 0.80, AST 17, ALT 18, Alkaline Phosphatase 110, Total Protein 6.5, Albumin 3.1 L , Globulin 3.4, Albumin/Globulin Ratio 0.9 06/01/23 12:16: POC Glucose 270 H 06/01/23 12:16: POC Glucose 270 H 06/01/23 18:32: POC Glucose 355 H 06/01/23 23:47: POC Glucose 244 H 06/02/23 03:12: WBC 6.0, RBC 3.03 L, Hgb 9.7 L, Hct 28.7 L, MCV 94.7 H, MCH 32.0, MCHC 33.8, RDW Std Deviation 43.7, RDW Coeff of Clay 12.8, Plt Count 157, MPV 10.9, Immature Gran % (Auto) 0.300, Neut % (Auto) 75.5 H, Lymph % (Auto) 14.9 L, [place] % (Auto) 8.3, Eos % (Auto) 0.8, Baso % (Auto) 0.2, Absolute Neuts (auto) 4.5, Absolute Lymphs (auto) 0.89, Nucleated RBC % 0, Sodium 141, Potassium 3.6, Chloride 109 H, Carbon Dioxide 28.0, Anion Gap 4 L, BUN 32 H, Creatinine 1.66 H, Estim Creat Clear Calc 31.79, Est GFR (MDRD) Af Amer 51 L, Est GFR (MDRD) Non-Af 42 L, BUN/Creatinine Ratio 19.3, Glucose 210 H, Calcium 8.4 L, Phosphorus 1.9 L, Magnesium 1.8 Radiography Diagnostic Testing: Radiology Impression KUB X-Ray 06/01/23 18:23 IMPRESSION: No obstruction. Electronically Signed: Shayne Blue MD at 20:00 EDT , Brain CT 06/01/23 18:27 IMPRESSION: Acute and chronic subdural hematoma/hygromas. Electronically Signed: Shayne Blue MD at 19:28 EDT , ADDENDUM: 06/01/23 1939 IMPRESSION: Acute and chronic subdural hematoma/hygromas. N.B. : Josey Winston RN, confirmed on 06/01/2023 19:32:24 (ET) that the healthcare facility has received the radiology report. Electronically Signed: Shayne Blue MD at 19:28 EDT , Physical Exam Narrative GENERAL: cooperative HEENT: Atraumatic; normocephalic EYES; Anicteric, Normal Conjunctiva NECK; supple, normal thyroid, RESPIRATORY: Diminished to auscultation CARDIOVASCULAR: Regular S1 S2, GI: soft, normoactive bowel sounds, : No Renal angle tenderness; EXTREMITIES: No edema, no clubbing, MUSCULOSKELETAL: no muscle wasting NEURO: Awake; no lateralizing signs. SKIN: No Rash PSYCH; Flat affect Assessment & Plan Assessment/Plan (1) Nausea and vomiting: PLAN: Plan Patient is an 82-year-old gentleman with multiple comorbidities who presented following a fall and assessment of adult failure to thrive made admitted to regular nursing floor for further management 1. Physical deconditioning with falls - Requested for PT OT eval and social studies teacher to assist with discharge planning 2. Acute and chronic subdural hematoma ? Possibly related to patient falls. Patient did complain of dizziness later on in the day. CT of the head without contrast obtained did show Acute and chronic subdural hematoma/hygromas.. Patient subsequently transferred to the intensive care unit. Consult placed to [facility] neurosurgery recommended for patient to be managed conservatively with plans for patient to follow-up with the outfit upon discharge. 2. Diabetes mellitus type II -patient's oral hypoglycemics held. Placed on long acting insulin, Accu-Cheks a.c. and at bedtime and covered with sliding scale insulin 3. Anemia - Secondary to chronic disorder monitoring H&H and transfuse if patient becomes symptomatic or hemoglobin falls below 7 4. Hypertension - Blood pressure controlled, home medications continued with dose adjustment as needed 5. Dyslipidemia -Patient is on statin therapy, continued at home dose 6. Chronic kidney disease stage III ? Kidney function at baseline 7. Class I obesity with BMI of 31 ? Weight loss advised 8. Peripheral arterial disease ? Patient is on cilostazol aspirin and atorvastatin did continue 9. Obstructive sleep apnea ? Consistent use of PAP therapy encourage 10. DVT prophylaxis ? SC heparin Time spent in the patient's overall evaluation,decision-making process, review of diagnostic data, adjustment of management, discussion with other providers, nursing nursing and ancillary staff involved in patient's care documentation, 35 Minutes Charges/Coding Visit Charges Inpatient E&M: 87295 Subs Hosp L2
[2023-06-02] MEDS: Metoprolol Tartrate 25 MG Tablet PO ×2 (08:49→20:52)
[2023-06-02] MEDS: Doxazosin 1 MG Tablet 2 MG PO ×2 (08:49→20:51)
[2023-06-02] MEDS: Pantoprazole Sodium 40 MG in 0.9% Normal Saline (100mL MB+) 100 ML 330 MG IV ×2 (08:59→21:07)
[2023-06-02] MEDS: MENTHOL 226.8 GM JAR 1 APPLIC TOPICAL (09:00)
--- NOTE | 2023-06-02 09:50 | CASEMGMT ---
Addendum entered by Penny Melo 06/02/23 17:45: 10:30 AM: Pt's has arrived and RN CM to room to talk w/both pt and . made aware pt did not do well w/therapy and required max A of 2 to pivot to chair. Pt did let know he is not safe to return home and that he feels going somewhere for therapy would be best. looked @ list of SNF's that was provided to pt and yesterday states again she does not want pt going to a shelter. Questions answered. and pt both prefer that he stay @ [facility] and not go to another facility/location and would like pt to go to either [facility] RU or [facility] TCU. JEAN CARLOS Goodman, made aware. Original Note: RN?CM?COKE OVEN PATCHER?CM?to room to meet with patient for initial transition planning/care coordination?assessment.?RN?CM?introduced self and role at [facility].? Pt voices understanding and consents to?assessment?at this time.? Pt sitting up in chair in room in no distress at this time.? Pt is A/O at this time and answers all questions appropriately.?? Care providers, pharmacy, and demographics verified/updated at this time. PCP: Dr Suazo Specialists:none Preferred Pharmacy: [facility] Insurance: [facility] Prescription Benefit:?yes LNOK: Berenice. Friend, [employer] Arrangements: Lives w/ in one-story home w/basement and 2 steps to enter. Prior to hospitalization, pt was indep w/ADL's and IADL's. 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 Transportation:?Pt drives. does not drive. DME: ?States has the following DME:?cane (does not use), CGM w/sufficient supplies, CPAP-states could bring this in HHC/SNF: No hx of either. Therapy worked w/pt again this AM to get him up to the chair. Pt was max A of 2 to pivot to chair. Discussed discharge planning w/pt. He states he is not safe to discharge home and states his is not able to take care of him w/as weak as he is. He states, I won't be able to go home for awhile and is agreeable to going somewhere for therapy. He states he thinks his will be coming in to see him today and is aware she was not agreeable to going to a shelter. He states he will talk w/her and let her know he wants to go somewhere for therapy before returning home and is hopeful she will be agreeable. CURTIS WEBBER placed call to pt's to inquire if she could bring pt's CPAP in to [facility]. She states she is already en route to [facility] and is almost here. She states she will talk w/CURTIS WEBBER when she arrives. PLAN:??SNF Geoffrey BSN?RN?LAWANDA
--- NOTE | 2023-06-02 10:39 | CASEMGMT ---
SW was informed patient would like to go to [facility] TCU or Acute Rehab. JEAN CARLOS made a referral to Renita in TCU/Rehab. Maxine TMOLIN
[2023-06-02] MEDS: Insulin Glargine-YFGN 100 UNIT/ML Pen 44 UNIT SC (10:58)
[2023-06-02 11:18] LABS: Bedside Glucose 239 mg/dL (74-106)
[2023-06-02 11:24] LABS: Bedside Glucose 201 mg/dL (74-106)
--- NOTE | 2023-06-02 14:30 | CASEMGMT ---
Acute Rehab can accept patient. JEAN CARLOS met with patient and his . Introduced self and role at [facility]. JEAN CARLOS confirmed patient would like to stay at [facility] for his rehab. They were open to TCU or Rehab. JEAN CARLOS did offer a list of other Acute Rehab facilities, but they declined since they are all out of [place]. JEAN CARLOS let them know Acute Rehab can accept patient. JEAN CARLOS explained patient will stay at [facility] until his insurance approves him. JEAN CARLOS explained this will likely be Monday. JEAN CARLOS also provided patient's with a [facility] Acute Rehab pamphlet. Plan: [facility] Acute Rehab pending pre-cert. Maxine Cárdenas BUFFET WAITER/WAITRESS NABOR
[2023-06-02] MEDS: Acetaminophen 325 MG Tablet 650 MG PO (14:46)
[2023-06-02] MEDS: Na Biphos/Potassium Phosphate PACKET 1 PACKET PO ×2 (17:35→20:52)
[2023-06-02 17:56] LABS: Bedside Glucose 141 mg/dL (74-106)
[2023-06-02] MEDS: Atorvastatin Calcium 40 MG Tablet PO (20:52)
[2023-06-02 23:53] LABS: Bedside Glucose 106 mg/dL (74-106)
[2023-06-03] VITALS (16 sets, daily range): BP systolic 117–183; BP diastolic 47–125; PULSE 62–78; RESP 14–18; TEMP 36.4–36.8; O2SAT 94–99; BMI 30.3
[2023-06-03] MEDS: hydrALAZINE 25 MG Tablet 50 MG PO ×3 (05:52→20:49)
[2023-06-03 07:18] LABS: Bedside Glucose 121 mg/dL (74-106)
--- NOTE | 2023-06-03 07:30 | PN.HOSP_ITS ---
Reason for Visit Reason for Visit: Diagnoses Nausea with vomiting, unspecified (05/31/23) Subjective Subjective Patient seen much more coherent compared to the day prior. Did complain of headache this a.m. which resolved with Tylenol. Objective Data Objective Data Vital Signs: Vital Signs Temp Pulse Resp BP Pulse Ox O2 Del Method 97.5 F L 65 14 162/66 H 94 Room Air 06/03/23 04:00 06/03/23 05:52 06/03/23 04:00 06/03/23 05:52 06/03/23 04:00 06/03/23 05:14 Oxygen Delivery Method Room Air Weight: 77.6 kg Body Mass Index (BMI) 30.3 Intake & Output: Intake and Output for Last 24 Hours 06/01/23 06/02/23 06/03/23 23:59 23:59 23:59 Intake Total 2080 / 2380 910 / 910 230 / 230 Output Total 1450 / 1550 800 / 800 450 / 450 Balance 630 / 830 110 / 110 -220 / -220 Lab / Micro Data 06/03/23 08:03 06/03/23 08:03 Labs: Laboratory Results - last 24 hr 06/02/23 05:09: POC Glucose 201 H 06/02/23 10:57: POC Glucose 239 H 06/02/23 17:34: POC Glucose 141 H 06/02/23 21:13: POC Glucose 106 06/03/23 06:01: POC Glucose 121 H Physical Exam Narrative GENERAL: cooperative HEENT: Atraumatic; normocephalic EYES; Anicteric, Normal Conjunctiva NECK; supple, normal thyroid, RESPIRATORY: Diminished to auscultation CARDIOVASCULAR: Regular S1 S2, GI: soft, normoactive bowel sounds, : No Renal angle tenderness; EXTREMITIES: No edema, no clubbing, MUSCULOSKELETAL: no muscle wasting NEURO: Awake; no lateralizing signs. SKIN: No Rash PSYCH; Flat affect Assessment & Plan Assessment/Plan (1) Nausea and vomiting: PLAN: Plan Patient is an 82-year-old gentleman with multiple comorbidities who presented following a fall and assessment of adult failure to thrive made admitted to regular nursing floor for further management 1. Physical deconditioning with falls - Requested for PT OT eval and adoption social worker to assist with discharge planning ? 06/03/2023 awaiting placement in a longterm for 2. Acute and chronic subdural hematoma ? Possibly related to patient falls. Patient did complain of dizziness later on in the day. CT of the head without contrast obtained did show Acute and chronic subdural hematoma/hygromas.. Patient subsequently transferred to the intensive care unit. Consult placed to [facility] neurosurgery recommended for patient to be managed conservatively with plans for patient to follow-up with the outfit upon discharge. 2. Diabetes mellitus type II -patient's oral hypoglycemics held. Placed on long acting insulin, Accu-Cheks a.c. and at bedtime and covered with sliding scale insulin 3. Anemia - Secondary to chronic disorder monitoring H&H and transfuse if patient becomes symptomatic or hemoglobin falls below 7 4. Hypertension - Blood pressure controlled, home medications continued with dose adjustment as needed 5. Dyslipidemia -Patient is on statin therapy, continued at home dose 6. Chronic kidney disease stage III ? Kidney function at baseline 7. Class I obesity with BMI of 31 ? Weight loss advised 8. Peripheral arterial disease ? Patient is on cilostazol aspirin and atorvastatin did continue 9. Obstructive sleep apnea ? Consistent use of PAP therapy encourage 10. DVT prophylaxis ? SC heparin 11. Hypokalemia -corrected per protocol repeat labs ordered for monitoring Time spent in the patient's overall evaluation,decision-making process, review of diagnostic data, adjustment of management, discussion with other providers, nursing nursing and ancillary staff involved in patient's care documentation, 36 Minutes Charges/Coding Visit Charges Inpatient E&M: 93286 Subs Hosp L2
[2023-06-03 08:16] LABS: Absolute Neutrophil Count 3.7 X10^3/uL (2.0-7.7); Basophil# 0.01 X10^3/uL; Basophil% 0.2 % (0-1); Eosinophil# 0.09 X10^3/uL; Eosinophils% 1.8 % (0-5); Hematocrit 31.6 % (40-54); Hemoglobin 10.9 g/dL (13.0-16.5); Mean Corp Hgb Conc 34.5 g/dL (32-36); Mean Corpuscular Volume 92.7 fL (80-94); Mean Platelet Vol. 10.5 fl (6.2-12.0); Monocyte# 0.44 X10^3/uL; Monocyte% 8.8 % (0-10); NRBC Flagged by Analyzer 0 % (0-5); Neutrophil # 3.65 X10^3/uL (2.7-7.7); Neutrophil % 72.8 % (47-70); Platelet Count 151 K/mm3 (150-450); RBC Distribution Width CV 12.7 % (11.6-14.6); Red Blood Count 3.41 M/mm3 (4.6-6.2)
[2023-06-03] MEDS: Acetaminophen 325 MG Tablet 650 MG PO (08:21)
[2023-06-03 08:34] LABS: Anion Gap 4 (5-15); BUN 26 mg/dL (7-18); BUN/Creat Ratio 16.5 RATIO (10-20); Chloride 109 mmol/L (98-107); Creatinine, Serum 1.58 mg/dL (0.70-1.30); EST Glomerular Filtration Rate 45 mL/min (>60); Est Glom Filt Rate - Afr Amer 54 mL/min (>60); Estimated Creatinine Clearance 33.23 ml/min; Glucose 127 mg/dL (74-106); Potassium 3.3 mmol/L (3.5-5.1); Sodium Level 140 mmol/L (136-145)
[2023-06-03] MEDS: Labetalol (Prefilled) 20 MG/4 ML 10 MG IV (08:34)
[2023-06-03] MEDS: 0.9% Saline Lock 10 ML Syringe IV ×3 (08:37→21:03)
[2023-06-03] MEDS: Doxazosin 1 MG Tablet 2 MG PO ×2 (09:59→20:49)
[2023-06-03] MEDS: Insulin Glargine-YFGN 100 UNIT/ML Pen 44 UNIT SC (09:59)
[2023-06-03] MEDS: Metoprolol Tartrate 25 MG Tablet PO ×2 (10:00→20:49)
[2023-06-03] MEDS: Pantoprazole Sodium 40 MG in 0.9% Normal Saline (100mL MB+) 100 ML 330 MG IV ×2 (10:00→21:03)
[2023-06-03] MEDS: Na Biphos/Potassium Phosphate PACKET 1 PACKET PO ×2 (10:00→20:49)
[2023-06-03 11:51] LABS: Bedside Glucose 133 mg/dL (74-106)
[2023-06-03] MEDS: Insulin Lispro 100 UNIT/ML INSULN.PEN SC ×2 (16:41→20:55)
[2023-06-03 17:02] LABS: Bedside Glucose 214 mg/dL (74-106)
[2023-06-03 17:36] LABS: Bacteria 0 SEEN /hpf (None Seen); Mucous, Urine 0 SEEN /hpf (<or=2+); Red Blood Cells-Urine 0 SEEN /hpf (0-5); Squamous Epithelial Cells - UA 0 SEEN /hpf (0-5)
[2023-06-03 17:39] LABS: Color, Urine Yellow (Yellow); Glucose, Dipstick 250 mg/dl (Normal); Ketone-Dipstick Negative (Negative); Leukocyte Esterase-Dipstick 100 /ul (Negative); Nitrite-Dipstick Negative (Negative); Occult Blood-Urine Negative /ul (Negative); Protein-Dipstick 100 mg/dl (Negative); Urine Bilirubin Dipstick Negative (Negative); Urine Clarity Clear (Clear); Urine Urobilinogen Normal (Normal)
[2023-06-03 17:46] LABS: White Blood Cells 0-5 SEEN /hpf (0-5)
[2023-06-03] MEDS: Potassium Chloride Oral Tablet 20 MEQ PO (18:13)
[2023-06-03] MEDS: Atorvastatin Calcium 40 MG Tablet PO (20:49)
[2023-06-03] MEDS: Senna/Docusate Sodium 1 Tablet PO (20:49)
[2023-06-03 22:11] LABS: Bedside Glucose 262 mg/dL (74-106)
[2023-06-04] VITALS (16 sets, daily range): BP systolic 136–184; BP diastolic 53–88; PULSE 57–78; RESP 16–18; TEMP 36.5–36.7; O2SAT 96–99; BMI 31.4
[2023-06-04] MEDS: hydrALAZINE 25 MG Tablet 50 MG PO ×3 (05:54→21:25)
[2023-06-04] MEDS: Insulin Lispro 100 UNIT/ML INSULN.PEN SC ×4 (06:12→21:39)
[2023-06-04 06:24] LABS: Absolute Lymphocyte Count 0.86 X10^3/uL (0.83-4.51); Absolute Neutrophil Count 3.6 X10^3/uL (2.0-7.7); Basophil# 0.01 X10^3/uL; Basophil% 0.2 % (0-1); Eosinophil# 0.07 X10^3/uL; Eosinophils% 1.4 % (0-5); Hematocrit 31.1 % (40-54); Hemoglobin 10.9 g/dL (13.0-16.5); Lymphocyte # 0.86 X10^3/ul (0.83-4.51); Lymphocyte % 16.9 % (19-41); Mean Corpuscular Hgb 33.2 pg (27.0-32.0); Mean Corpuscular Volume 94.8 fL (80-94); Mean Platelet Vol. 11.1 fl (6.2-12.0); Monocyte# 0.59 X10^3/uL; Monocyte% 11.6 % (0-10); NRBC Flagged by Analyzer 0 % (0-5); Neutrophil # 3.55 X10^3/uL (2.7-7.7); Neutrophil % 69.5 % (47-70); Platelet Count 150 K/mm3 (150-450); RBC Distribution Width CV 12.8 % (11.6-14.6); RBC Distribution Width SD 43.3 fl (35.1-43.9); Red Blood Count 3.28 M/mm3 (4.6-6.2); White Blood Count 5.1 K/mm3 (4.4-11.0)
[2023-06-04 06:40] LABS: Bedside Glucose 184 mg/dL (74-106)
[2023-06-04 06:51] LABS: Anion Gap 4 (5-15); BUN 24 mg/dL (7-18); BUN/Creat Ratio 15.5 RATIO (10-20); Calcium,Total 7.9 mg/dL (8.5-10.1); Chloride 109 mmol/L (98-107); Creatinine, Serum 1.55 mg/dL (0.70-1.30); EST Glomerular Filtration Rate 46 mL/min (>60); Est Glom Filt Rate - Afr Amer 55 mL/min (>60); Estimated Creatinine Clearance 33.87 ml/min; Glucose 189 mg/dL (74-106); Potassium 3.8 mmol/L (3.5-5.1); Sodium Level 140 mmol/L (136-145)
--- NOTE | 2023-06-04 08:36 | PCM.PN.HOSP ---
Reason for Visit Reason for Visit: Diagnoses Nausea with vomiting, unspecified (05/31/23) Subjective Subjective Patient seen no change in condition. Awaiting insurance approval prior to transfer to the inpatient rehab unit Objective Data Objective Data Vital Signs: Vital Signs Temp Pulse Resp BP Pulse Ox O2 Del Method 98.1 F 71 16 180/61 H 96 Room Air 06/04/23 07:25 06/04/23 07:25 06/04/23 07:25 06/04/23 07:25 06/04/23 07:25 06/04/23 07:34 Oxygen Delivery Method Room Air Weight: 80.4 kg Body Mass Index (BMI) 31.4 Intake & Output: Intake and Output for Last 24 Hours 06/02/23 06/03/23 06/04/23 23:59 23:59 23:59 Intake Total 910 / 910 1630 / 1630 150 / 150 Output Total 800 / 800 1250 / 1250 200 / 200 Balance 110 / 110 380 / 380 -50 / -50 Lab / Micro Data 06/04/23 06:07 06/04/23 06:07 Labs: Laboratory Results - last 24 hr 06/03/23 08:03: Hemoglobin A1c 10.0 H 06/03/23 11:31: POC Glucose 133 H 06/03/23 16:10: Urine Color Yellow, Urine Clarity Clear, Urine pH 5.0, Ur Specific [place] 1.020, Urine Protein 100 H, Urine Glucose (UA) 250 H, Urine Ketones Negative, Urine Occult Blood Negative, Urine Nitrite Negative, Urine Bilirubin Negative, Urine Urobilinogen Normal, Ur Leukocyte Esterase 100 H, Urine RBC 0 SEEN, Urine WBC 0-5 SEEN, Ur Squamous Epith Cells 0 SEEN, Urine Bacteria 0 SEEN, Urine Mucus 0 SEEN 06/03/23 16:39: POC Glucose 214 H 06/03/23 20:55: POC Glucose 262 H 06/04/23 06:07: WBC 5.1, RBC 3.28 L, Hgb 10.9 L, Hct 31.1 L, MCV 94.8 H, MCH 33.2 H, MCHC 35.0, RDW Std Deviation 43.3, RDW Coeff of Clay 12.8, Plt Count 150, MPV 11.1, Immature Gran % (Auto) 0.400, Neut % (Auto) 69.5, Lymph % (Auto) 16.9 L, [place] % (Auto) 11.6 H, Eos % (Auto) 1.4, Baso % (Auto) 0.2, Absolute Neuts (auto) 3.6, Absolute Lymphs (auto) 0.86, Nucleated RBC % 0, Sodium 140, Potassium 3.8, Chloride 109 H, Carbon Dioxide 27.0, Anion Gap 4 L, BUN 24 H, Creatinine 1.55 H, Estim Creat Clear Calc 33.87, Est GFR (MDRD) Af Amer 55 L, Est GFR (MDRD) Non-Af 46 L, BUN/Creatinine Ratio 15.5, Glucose 189 H, Calcium 7.9 L 06/04/23 06:11: POC Glucose 184 H Physical Exam Narrative GENERAL: cooperative HEENT: Atraumatic; normocephalic EYES; Anicteric, Normal Conjunctiva NECK; supple, normal thyroid, RESPIRATORY: Diminished to auscultation CARDIOVASCULAR: Regular S1 S2, GI: soft, normoactive bowel sounds, : No Renal angle tenderness; EXTREMITIES: No edema, no clubbing, MUSCULOSKELETAL: no muscle wasting NEURO: Awake; no lateralizing signs. SKIN: No Rash PSYCH; Flat affect Assessment & Plan Assessment/Plan (1) Nausea and vomiting: PLAN: Plan Patient is an 82-year-old gentleman with multiple comorbidities who presented following a fall and assessment of adult failure to thrive made admitted to regular nursing floor for further management 1. Physical deconditioning with falls - Requested for PT OT eval and addiction social worker to assist with discharge planning ? 06/03/2023 awaiting placement in a nursing home ? 06/04/2023; no change in clinical condition awaiting insurance approval prior to transfer to the inpatient rehab unit. 2. Acute and chronic subdural hematoma ? Possibly related to patient falls. Patient did complain of dizziness later on in the day. CT of the head without contrast obtained did show Acute and chronic subdural hematoma/hygromas.. Patient subsequently transferred to the intensive care unit. Consult placed to [facility] neurosurgery recommended for patient to be managed conservatively with plans for patient to follow-up with the outfit upon discharge. 2. Diabetes mellitus type II -patient's oral hypoglycemics held. Placed on long acting insulin, Accu-Cheks a.c. and at bedtime and covered with sliding scale insulin 3. Anemia - Secondary to chronic disorder monitoring H&H and transfuse if patient becomes symptomatic or hemoglobin falls below 7 4. Hypertension - Blood pressure controlled, home medications continued with dose adjustment as needed 5. Dyslipidemia -Patient is on statin therapy, continued at home dose 6. Chronic kidney disease stage III ? Kidney function at baseline 7. Class I obesity with BMI of 31 ? Weight loss advised 8. Peripheral arterial disease ? Patient is on cilostazol aspirin and atorvastatin did continue 9. Obstructive sleep apnea ? Consistent use of PAP therapy encourage 10. DVT prophylaxis ? SC heparin 11. Hypokalemia -corrected per protocol repeat labs ordered for monitoring Time spent in the patient's overall evaluation,decision-making process, review of diagnostic data, adjustment of management, discussion with other providers, nursing nursing and ancillary staff involved in patient's care documentation, 36 Minutes Charges/Coding Visit Charges Inpatient E&M: 54084 Subs Hosp L2
[2023-06-04] MEDS: Insulin Glargine-YFGN 100 UNIT/ML Pen 44 UNIT SC (10:21)
[2023-06-04] MEDS: Doxazosin 1 MG Tablet 2 MG PO ×2 (10:21→21:26)
[2023-06-04] MEDS: Potassium Chloride Oral Tablet 20 MEQ PO ×2 (10:21→17:06)
[2023-06-04] MEDS: Pantoprazole Sodium 40 MG in 0.9% Normal Saline (100mL MB+) 100 ML 330 MG IV ×2 (10:22→21:39)
[2023-06-04] MEDS: Metoprolol Tartrate 25 MG Tablet PO ×2 (10:22→21:26)
[2023-06-04] MEDS: Na Biphos/Potassium Phosphate PACKET 1 PACKET PO ×2 (10:22→21:26)
[2023-06-04] MEDS: Senna/Docusate Sodium 1 Tablet PO ×2 (10:23)
[2023-06-04] MEDS: 0.9% Saline Lock 10 ML Syringe IV ×4 (10:23→17:35)
[2023-06-04 11:13] LABS: Bedside Glucose 262 mg/dL (74-106)
[2023-06-04] MEDS: hydrALAZINE 20 MG/ML Vial 10 MG IV ×2 (11:48→17:35)
[2023-06-04 12:16] LABS: Bedside Glucose 258 mg/dL (74-106)
[2023-06-04] MEDS: proCHLORPERazine 10 MG/2 ML Vial IV (15:45)
[2023-06-04 17:35] LABS: Bedside Glucose 167 mg/dL (74-106)
--- NOTE | 2023-06-04 21:24 | NURSING ---
pt refused orthostatic vs tonight states he gets too dizzy when lying flat
[2023-06-04] MEDS: Atorvastatin Calcium 40 MG Tablet PO (21:26)
[2023-06-04 22:45] LABS: Bedside Glucose 213 mg/dL (74-106)
[2023-06-05] VITALS (16 sets, daily range): BP systolic 139–169; BP diastolic 48–91; PULSE 60–74; RESP 16–18; TEMP 36.2–37.1; O2SAT 96–100; BMI 31.2
[2023-06-05] MEDS: Labetalol (Prefilled) 20 MG/4 ML 10 MG IV ×2 (01:04→10:46)
[2023-06-05] MEDS: 0.9% Saline Lock 10 ML Syringe IV ×3 (01:07→21:05)
[2023-06-05] MEDS: Magnesium Hydroxide 30 ML UDC PO (01:13)
[2023-06-05] MEDS: hydrALAZINE 20 MG/ML Vial 10 MG IV (02:36)
[2023-06-05] MEDS: hydrALAZINE 25 MG Tablet 50 MG PO ×3 (05:13→20:53)
[2023-06-05] MEDS: proCHLORPERazine 10 MG/2 ML Vial IV (06:39)
[2023-06-05 06:52] LABS: Bedside Glucose 125 mg/dL (74-106)
[2023-06-05] MEDS: Metoprolol Tartrate 25 MG Tablet PO ×2 (08:09→20:54)
[2023-06-05] MEDS: Potassium Chloride Oral Tablet 20 MEQ PO ×2 (08:09→16:39)
[2023-06-05] MEDS: Senna/Docusate Sodium 1 Tablet PO ×2 (08:09→20:54)
[2023-06-05] MEDS: Doxazosin 1 MG Tablet 2 MG PO ×2 (08:09→20:53)
[2023-06-05] MEDS: Na Biphos/Potassium Phosphate PACKET 1 PACKET PO ×2 (08:10→20:55)
[2023-06-05] MEDS: Pantoprazole Sodium 40 MG in 0.9% Normal Saline (100mL MB+) 100 ML 330 MG IV ×2 (08:28→21:05)
[2023-06-05] MEDS: Scopolamine 1mg/72hr Patch 1 PATCH TD (10:45)
[2023-06-05] MEDS: Insulin Lispro 100 UNIT/ML INSULN.PEN SC ×3 (12:38→21:11)
[2023-06-05] MEDS: Acetaminophen 325 MG Tablet 650 MG PO ×2 (12:39→16:39)
[2023-06-05] MEDS: Insulin Glargine-YFGN 100 UNIT/ML Pen 44 UNIT SC (12:39)
[2023-06-05 12:40] LABS: Bedside Glucose 227 mg/dL (74-106)
--- NOTE | 2023-06-05 16:44 | PCM.PN.HOSP ---
Reason for Visit Reason for Visit: Nausea and vomiting Subjective Subjective Mr. Teran is an 82-year-old white male who presented to the emergency department at [facility] on 05/31/2023 with acute onset of nausea and vomiting that started at 4 AM on the day of presentation. He had no fever or chills, no associate abdominal pain and no diarrhea. He became very weak and he had a mechanical fall which resulted in him striking his head but had no loss of consciousness. He admitted to taking aspirin but no other anticoagulation. His did state that she had some mild abdominal cramping but had no other symptoms. He had had no sick contacts either. Vital signs on presentation showed a temperature of 97.6, heart rate 67, initial blood pressure was 189/86, respiratory was 19 and oxygen saturations were 95% on room air. His CBC was overtly unremarkable. His chemistry panel showed a mildly elevated BUN/creatinine at 30 and 1.54. His glucose was markedly elevated at 325. CT of the abdomen pelvis showed possibly small gallstones in a dependent portion of the gallbladder, fatty infiltration of the liver, prostatic hypertrophy with indentation at the base of the bladder and distention of the urinary bladder. He was given IV fluids and Zofran and admitted to the PCU. CT of the brain was done without contrast the day after admission due to ongoing nausea and vomiting and showed mild cerebral atrophy with widening of the extra-axial spaces and ventricular dilation as well as extra-axial fluid collections consistent with chronic subdural hygromas with superimposed acute subdural hematoma/hygromas. A urine culture was sent and so 25-50,000 CFU's per mL of Enterococcus which is not consistent with acute infection. With regards to his CT findings, they tried to transfer him to [facility] and the case was discussed with neurosurgery at [facility] and they recommended the patient be managed conservatively with outpatient follow-up following discharge. It is documented that the patient's dizziness had resolved however per nursing he had ongoing dizziness with any movement especially lying flat and standing and prefers to sit upright. He has not been able to tolerate any physical therapy today and yesterday did very poorly with no signs of being able to tolerate rehab intense therapy currently. His p.o. intake has been very poor. It does also appear that he had an outpatient MRI done on 05/17/2023 due to significant dizziness which showed prominent and symmetrical old bilateral subdural hematomas with no shift and mild mass effect with no other significant changes noted and he had no MRI evidence of acute or subacute ischemic infarct. Carotid duplex were performed as well on 04/20/2023 for carotid bruit and showed mild right extracranial carotid artery stenosis and moderate left intracranial carotid stenosis. He continues to have significant vomiting if he lies flat or tries to stand up and is markedly weak. There is no way he is going to be able to tolerate rehab right now. Etiology is uncertain at this time. Further workup is pending. Objective Data Objective Data Vital Signs: Vital Signs Temp Pulse Resp BP Pulse Ox O2 Del Method 97.8 F 64 18 148/48 H 99 Room Air 06/05/23 16:31 06/05/23 16:31 06/05/23 16:31 06/05/23 16:31 06/05/23 16:31 06/05/23 16:31 Oxygen Delivery Method Room Air Weight: 80 kg Body Mass Index (BMI) 31.2 Intake & Output: Intake and Output for Last 24 Hours 06/03/23 06/04/23 06/05/23 23:59 23:59 23:59 Intake Total 1630 / 1630 490 / 490 690 / 690 Output Total 1250 / 1250 1000 / 1000 450 / 450 Balance 380 / 380 -510 / -510 240 / 240 Lab / Micro Data 06/04/23 06:07 06/04/23 06:07 Labs: Laboratory Results - last 24 hr 06/04/23 17:03: POC Glucose 167 H 06/04/23 21:38: POC Glucose 213 H 06/05/23 06:25: POC Glucose 125 H 06/05/23 12:08: POC Glucose 227 H Micro: Microbiology 06/03/23 16:10 Urine, Midstream Urine Culture - Final Enterococcus faecalis Physical Exam Const alert, oriented x3, no apparent distress and healthy appearing Constitutional Narrative: Obese, Very pleasant, older, white male, sitting up in bed upright HEENT head/scalp atraumatic and moist oral mucous membranes Head and Scalp: normocephalic Resp normal respiratory effort, no retractions, no use of accessory muscles and clear to auscultation bilaterally Auscultation: Negative for rales, rhonchi or wheezes Cardio regular rate, regular rhythm, S1 normal heart sound, S2 normal heart sound, no murmurs, no rub, no gallops and no clicks GI normal to inspection, nondistended, normoactive bowel sounds, soft to palpation and non-tender Extremity no clubbing, cyanosis or edema Neuro oriented x3, moves all extremities and no focal motor deficits Speech: speech normal Psych affect normal Psych Narrative: Very pleasant, interacts appropriately Assessment & Plan Assessment/Plan (1) Nausea and vomiting: (2) Dizziness: (3) Dehydration: (4) Fall: (5) Subdural hematoma: (6) Constipation: PLAN: Plan Dizziness/nausea/vomiting -It sounds like he has had dizziness issues for some time as he had a recent carotid duplex and an MRI of his brain for dizziness -Nausea and vomiting is new prior to admission -Continue scopolamine patch -Repeat CT of the brain to rule out any extension of his subdural hematomas -Does have a history of head trauma just prior to presentation and previously which would put him at increased risk for BPPV -Highly suspect M?ni?re's versus BPPV after lengthy conversation with patient and -If CT is stable and symptoms remain present despite above we will consider neurology consultation -Continue as needed antiemetics -Plan is for acute rehab admission once patient is able to tolerate therapy enough to participate in acute rehab -MRI was unremarkable for any acute findings and showed his chronic subdural hematomas -Carotid duplex showed mild stenosis of his right extracranial internal carotid artery and moderate stenosis of his left intracranial carotid artery. Vertebrals were patent bilaterally -Orthostatic vital signs were unremarkable Acute on chronic subdural hematomas -Initially found on 06/01/2023 -Plan was to transfer to [facility] however case was discussed with [facility] neurosurgery and they recommended medical management as he is not a surgical candidate--> no significant shift noted -Outpatient follow-up after discharge with neurosurgery -Repeat CT pending due to ongoing nausea and vomiting with dizziness to rule out any extension of bleeding Constipation -Patient did finally have a bowel movement today without having 1 since the -He does indicate his nausea is better since having a bowel movement as well -Continue bowel regimen Dehydration -Resolved Debility/falls -Plan is for acute rehab at discharge however will need pre-CERT and currently not able to tolerate much rehab -May need to transition to TCU depending on progress but will first need to get his dizziness/nausea/vomiting remedied prior to discharge Bilateral carotid artery stenosis left greater than right -Would ideally like to have him on aspirin which she is at baseline however will need to hold with subdural hematoma -Continue home atorvastatin -Outpatient follow-up with vascular surgery--> will refer at discharge CKD stage IIIb -Baseline serum creatinine runs between 1.4 and 1.6 -Stable in the mid 1.5 range -Avoid nephrotoxins next-continue to monitor DM-2 -Continue home glargine at 44 units subcu daily -Continue SSI -Blood sugars are slightly elevated but will continue to monitor -Continue carb controlled diet -Accu-Cheks as ordered Chronic normocytic anemia -Hemoglobin remained stable -Continue to monitor Hypertension -Continue home metoprolol -Continue home hydralazine -Continue home doxazosin -As needed hydralazine available -Blood pressure control is better however not at goal of less than 130/80 -I will see how he does overnight and the result of his CT and potentially uptitrate or add new medication Peripheral vascular disease -Hold aspirin -Continue cilostazol -Outpatient vascular follow-up at discharge GERD -Continue PPI -Hold home famotidine 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
--- NOTE | 2023-06-05 17:20 | CT_ITS ---
STUDY: CT BRAIN WITHOUT CONTRAST REASON FOR EXAM: Male, 82 years old. nausea/ SDH RADIATION DOSAGE (If Supplied By Facility): CTDIvol = ( 44.99 ) mGy, DLP = ( 829.85 ) mGycm TECHNIQUE: Transaxial CT imaging of the brain was performed without administration of intravenous contrast material. Individualized dose optimization techniques were used for this CT. COMPARISON: MRI 05/17/2023, CT scan 06/01/2023 FINDINGS: Normal soft tissue structures. Normal calvarium. Stable mixed density bilateral subdural fluid and blood collections overlying both convexities. Findings are consistent with stable balanced acute on chronic subdural hematomas. Greatest thickness on the right is 1.1 cm. Greatest dimension on the left is 1.4 cm. Stable mild to moderate mass effect over both cerebral convexities without midline shift. There is mild cerebral atrophy with widening of the extra-axial spaces and ventricular dilatation. There are areas of decreased attenuation within the white matter tracts of the supratentorial brain, consistent with microvascular disease changes. Normal basal ganglia and thalami. Normal brainstem. There is mild cerebellar atrophy. There is no intracranial hemorrhage. There are no findings of an acute ischemic infarction. Normal visualized paranasal sinuses. CT/Brain/Head without Contrast IMPRESSION: Stable bilateral mixed density subdural hematomas. No evidence of acute bleeding since prior study. Electronically Signed: Jean Stover MD at 17:43 EDT ,
[2023-06-05 17:31] LABS: Bedside Glucose 301 mg/dL (74-106)
[2023-06-05] MEDS: Atorvastatin Calcium 40 MG Tablet PO (20:54)
[2023-06-05 21:16] LABS: Bedside Glucose 244 mg/dL (74-106)
[2023-06-06] VITALS (12 sets, daily range): BP systolic 124–158; BP diastolic 53–85; PULSE 66–76; RESP 16–20; TEMP 36.3–37.2; O2SAT 96–99; BMI 31.2
[2023-06-06] MEDS: hydrALAZINE 25 MG Tablet 50 MG PO ×3 (06:58→22:25)
[2023-06-06 07:20] LABS: Bedside Glucose 117 mg/dL (74-106)
[2023-06-06 08:40] LABS: ALB/GLOB Ratio 0.9 RATIO (0.9-2.4); AST(SGOT) 17 U/L (15-37); Alanine Aminotransfer ALT/SGPT 18 U/L (16-61); Alkaline Phosphatase 98 U/L (45-117); Anion Gap 3 (5-15); BUN 24 mg/dL (7-18); BUN/Creat Ratio 14.9 RATIO (10-20); Calcium,Total 7.9 mg/dL (8.5-10.1); Chloride 107 mmol/L (98-107); Creatinine, Serum 1.61 mg/dL (0.70-1.30); EST Glomerular Filtration Rate 44 mL/min (>60); Est Glom Filt Rate - Afr Amer 53 mL/min (>60); Estimated Creatinine Clearance 33.09 ml/min; Globulin 3.5 g/dL (2.2-4.2); Glucose 116 mg/dL (74-106); Magnesium 2.3 mg/dL (1.6-2.6); Potassium 4.2 mmol/L (3.5-5.1); Protein, Total 6.5 g/dL (6.4-8.2); Sodium Level 137 mmol/L (136-145)
[2023-06-06 09:08] LABS: Absolute Lymphocyte Count 0.94 X10^3/uL (0.83-4.51); Absolute Neutrophil Count 5.1 X10^3/uL (2.0-7.7); Basophil# 0.02 X10^3/uL; Basophil% 0.3 % (0-1); Eosinophil# 0.11 X10^3/uL; Eosinophils% 1.6 % (0-5); Hematocrit 32.7 % (40-54); Hemoglobin 10.9 g/dL (13.0-16.5); Lymphocyte # 0.94 X10^3/ul (0.83-4.51); Lymphocyte % 13.4 % (19-41); Mean Corp Hgb Conc 33.3 g/dL (32-36); Mean Corpuscular Hgb 31.3 pg (27.0-32.0); Mean Platelet Vol. 11.4 fl (6.2-12.0); Monocyte# 0.77 X10^3/uL; NRBC Flagged by Analyzer 0 % (0-5); Neutrophil # 5.11 X10^3/uL (2.7-7.7); Platelet Count 164 K/mm3 (150-450); RBC Distribution Width SD 44.3 fl (35.1-43.9); Red Blood Count 3.48 M/mm3 (4.6-6.2)
[2023-06-06] MEDS: Na Biphos/Potassium Phosphate PACKET 1 PACKET PO ×2 (09:49→22:26)
[2023-06-06] MEDS: Senna/Docusate Sodium 1 Tablet PO ×2 (09:49→22:26)
[2023-06-06] MEDS: Doxazosin 1 MG Tablet 2 MG PO ×2 (09:50→22:25)
[2023-06-06] MEDS: Potassium Chloride Oral Tablet 20 MEQ PO ×2 (09:50→16:46)
[2023-06-06] MEDS: Insulin Glargine-YFGN 100 UNIT/ML Pen 44 UNIT SC (09:50)
[2023-06-06] MEDS: 0.9% Saline Lock 10 ML Syringe IV ×2 (10:00→22:28)
[2023-06-06] MEDS: Metoprolol Tartrate 25 MG Tablet PO ×2 (10:01→22:26)
[2023-06-06] MEDS: Pantoprazole Sodium 40 MG in 0.9% Normal Saline (100mL MB+) 100 ML 330 MG IV ×2 (10:53→22:40)
[2023-06-06 11:42] LABS: Bedside Glucose 304 mg/dL (74-106)
[2023-06-06] MEDS: Sodium Phosphate/Na Biphos 30 MMOL in 0.9% Normal Saline (250mL Bag) 250 ML 62.5 MMOL IV (12:16)
[2023-06-06] MEDS: Insulin Lispro 100 UNIT/ML INSULN.PEN SC ×3 (12:16→22:25)
--- NOTE | 2023-06-06 14:43 | PCM.PN.HOSP ---
Reason for Visit Reason for Visit: Nausea and vomiting Subjective Subjective No further dizziness or nausea/vomiting. Patient did not lie flat to sleep last evening and did sleep on the chair which his states he does frequently at home. Was able to participate in therapy more extensively today however is markedly debilitated. Will await review from rehab to see if he is able to go. Objective Data Objective Data Vital Signs: Vital Signs Temp Pulse Resp BP Pulse Ox O2 Del Method 97.9 F 76 16 141/85 H 97 Room Air 06/06/23 04:35 06/06/23 12:20 06/06/23 04:35 06/06/23 06:58 06/06/23 04:35 06/06/23 04:35 Oxygen Delivery Method Room Air Weight: 80 kg Body Mass Index (BMI) 31.2 Intake & Output: Intake and Output for Last 24 Hours 06/04/23 06/05/23 06/06/23 23:59 23:59 23:59 Intake Total 490 / 490 1300 / 1300 110 / 110 Output Total 1000 / 1000 950 / 950 200 / 200 Balance -510 / -510 350 / 350 -90 / -90 Lab / Micro Data 06/06/23 07:33 06/06/23 07:33 Labs: Laboratory Results - last 24 hr 06/05/23 16:28: POC Glucose 301 H 06/05/23 20:48: POC Glucose 244 H 06/06/23 06:56: POC Glucose 117 H 06/06/23 07:33: WBC 7.0, RBC 3.48 L, Hgb 10.9 L, Hct 32.7 L, MCV 94.0, MCH 31.3, MCHC 33.3, RDW Std Deviation 44.3 H, RDW Coeff of [place] 13.0, Plt Count 164, MPV 11.4, Immature Gran % (Auto) 0.700, Neut % (Auto) 73.0 H, Lymph % (Auto) 13.4 L, [place] % (Auto) 11.0 H, Eos % (Auto) 1.6, Baso % (Auto) 0.3, Absolute Neuts (auto) 5.1, Absolute Lymphs (auto) 0.94, Nucleated RBC % 0, Sodium 137, Potassium 4.2, Chloride 107, Carbon Dioxide 27.0, Anion Gap 3 L, BUN 24 H, Creatinine 1.61 H, Estim Creat Clear Calc 33.09, Est GFR (MDRD) Af Amer 53 L, Est GFR (MDRD) Non-Af 44 L, BUN/Creatinine Ratio 14.9, Glucose 116 H, Calcium 7.9 L, Phosphorus 2.0 L, Magnesium 2.3, Total Bilirubin 1.20 H, AST 17, ALT 18, Alkaline Phosphatase 98, Total Protein 6.5, Albumin 3.0 L, Globulin 3.5, Albumin/Globulin Ratio 0.9 06/06/23 11:23: POC Glucose 304 H Micro: Microbiology 06/03/23 16:10 Urine, Midstream Urine Culture - Final Enterococcus faecalis Radiography Diagnostic Testing: Radiology Impression Brain CT 06/05/23 17:20 IMPRESSION: Stable bilateral mixed density subdural hematomas. No evidence of acute bleeding since prior study. Electronically Signed: Jean Stover MD at 17:43 EDT , Physical Exam Const alert, oriented x3, no apparent distress and healthy appearing Constitutional Narrative: Obese, Very pleasant, older, white male, sitting up in a chair at the bedside, appears well, at bedside HEENT head/scalp atraumatic and moist oral mucous membranes HEENT Narrative: Dentition is poor, Mallampati is 3, no thrush Head and Scalp: normocephalic Resp normal respiratory effort, no retractions, no use of accessory muscles and clear to auscultation bilaterally Auscultation: Negative for rales, rhonchi or wheezes Cardio regular rate, regular rhythm, S1 normal heart sound, S2 normal heart sound, no murmurs, no rub, no gallops and no clicks GI normal to inspection, nondistended, normoactive bowel sounds, soft to palpation and non-tender Extremity Extremity Narrative: Pedal pulses are 2+, trace bilateral lower extremity pitting edema, no cyanosis or clubbing Neuro oriented x3, moves all extremities and no focal motor deficits Speech: speech normal Psych affect normal Psych Narrative: Very pleasant, interacts appropriately Assessment & Plan Assessment/Plan (1) Nausea and vomiting: (2) Dizziness: (3) Dehydration: (4) Fall: (5) Subdural hematoma: (6) Constipation: PLAN: Plan Dizziness/nausea/vomiting -It sounds like he has had dizziness issues for some time as he had a recent carotid duplex and an MRI of his brain for dizziness -Nausea and vomiting is new prior to admission -Much improved today and patient was able to participate in therapy without any symptoms -Continue scopolamine patch -Repeat CT of the head was unremarkable with any change from previous -Highly suspect dizziness/nausea/vomiting is related to BPPV with recent head trauma -Will ask that vestibular therapy be pursued at rehab once discharged -MRI was unremarkable for any acute findings and showed his chronic subdural hematomas -Carotid duplex showed mild stenosis of his right extracranial internal carotid artery and moderate stenosis of his left intracranial carotid artery. Vertebrals were patent bilaterally -Orthostatic vital signs were unremarkable Acute on chronic subdural hematomas -Initially found on 06/01/2023 -Plan was to transfer to [facility] however case was discussed with [facility] neurosurgery and they recommended medical management as he is not a surgical candidate--> no significant shift noted--> repeat CT done yesterday due to ongoing nausea and vomiting earlier in the day and this was stable when compared to previous -Outpatient follow-up after discharge with neurosurgery Constipation -Large bowel movement on 06/05/2023 -Continue bowel regimen Hypophosphatemia -30 mmol IV sodium Phos replacement -recheck in a.m. Debility/falls -Did much better with rehab now that we have his symptoms under control -Rehab to review and see if he can be accepted and then will need pre-CERT prior to discharge -May need to transition to TCU depending on progress but will first need to get his dizziness/nausea/vomiting remedied prior to discharge Bilateral carotid artery stenosis left greater than right -Would ideally like to have him on aspirin which she is at baseline however will need to hold with subdural hematoma -Continue home atorvastatin -Outpatient follow-up with vascular surgery--> will refer at discharge CKD stage IIIb -Baseline serum creatinine runs between 1.4 and 1.6 -Stable in the mid 1.61 today -Avoid nephrotoxins next-continue to monitor DM-2 -Continue home glargine at 44 units subcu daily -Continue SSI -Fasting blood sugar this morning was improved at 116 -Continue carb controlled diet -Accu-Cheks as ordered Chronic normocytic anemia -Hemoglobin remained stable -Continue to monitor Hypertension -Continue home metoprolol -Continue home hydralazine -Continue home doxazosin -As needed hydralazine available -Blood pressure control is better however not at goal of less than 130/80 -Overall blood pressure trend is improved and through the night blood pressures were in the 120s over 50s to 80s -Trend throughout the day to see if we need to uptitrate any medications Peripheral vascular disease -Hold aspirin until patient can follow-up with neurosurgery -Continue cilostazol -Outpatient vascular follow-up at discharge GERD -Continue PPI -Hold home famotidine 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
[2023-06-06] MEDS: Acetaminophen 325 MG Tablet 650 MG PO ×2 (15:37→19:16)
[2023-06-06 18:01] LABS: Bedside Glucose 233 mg/dL (74-106)
[2023-06-06] MEDS: Magnesium Hydroxide 30 ML UDC PO (18:49)
--- NOTE | 2023-06-06 19:23 | NUR.TO.PHY ---
Patients expressed to me that today she thinks his motor skills has declined during the day. Also his tongue is hanging out farther and his head is tilted more. Also expressed it was more difficult for him to eat. She told me this has been going on for about a month. She first noticed it was hard for him to mow their yard with the rider mower and he has been loosing his balance and falling more.
[2023-06-06] MEDS: Atorvastatin Calcium 40 MG Tablet PO (22:26)
[2023-06-06] MEDS: MENTHOL 226.8 GM JAR 1 APPLIC TOPICAL (22:30)
[2023-06-06 23:24] LABS: Bedside Glucose 155 mg/dL (74-106)
--- NOTE | 2023-06-07 01:55 | RAD_ITS ---
INDICATION: FALL EXAMINATION/TECHNIQUE: X-RAY - XR Hip Unilateral with Pelvis when performed; 2-3 Views COMPARISON: June 01, 2023 FINDINGS: PELVIC BONES: No displaced fracture, destructive or sclerotic lesions. Note that overlapping bowel shadows may however obscure fine detail. Sacroiliac joints are unremarkable. No widening of the pubic symphysis. HIPS: Normal bilateral hip alignment. Mild left hip joint space narrowing. Bilateral mild osteophyte formation. Left greater than right superior acetabular subchondral cyst formation. SOFT TISSUES: No soft tissue swelling or gas. RAD/HIP, UNI W/ Pelvis 2-3 Views IMPRESSION: No evidence of acute injury. CT could further evaluate as clinically indicated Electronically Signed: David Velez MD at 3:11 EDT ,
--- NOTE | 2023-06-07 01:59 | CT_ITS ---
INDICATION: FALL EXAMINATION: CT BRAIN - CT Head or Brain W/O Contrast Injection TECHNIQUE: Multiple axial images were obtained of the head without intravenous contrast. A radiation dose optimization technique was used for this scan. IV Contrast dosage and agent: None. COMPARISON: None FINDINGS: BRAIN PARENCHYMA: Bilateral hemispheric mixed attenuation acute on chronic subdural hematomas measuring up to 1.2 cm in thickness on the left and 7 mm in thickness on the right. No midline shift. No evidence of intraparenchymal hemorrhage or intraventricular hemorrhage. Minimal periventricular hypodense chronic small vessel white matter ischemic change. [place]-white matter differentiation preserved. Carotid and vertebral atherosclerosis. . CSF SPACES: Cerebral volume appropriate for age. No hydrocephalus. Basal cisterns are patent. CALVARIUM, SKULL BASE, PARANASAL SINUSES AND MASTOID AIR CELLS: No acute osseous finding. Mild scattered paransal sinus mucoperisteal thickening. Mastoid air cells are clear. ORBITS: Both globes, extraocular muscles, optic nerves and retrobulbar fat appear unremarkable. ASPECTS Score for Acute Strokes: NA, hemorrhage CT/Brain/Head without Contrast IMPRESSION: Right greater than left hemispheric acute on chronic subdural hematomas up to 1.2 cm in thickness on the left without midline shift or other significant mass effect. Senescent changes as above. N.B. : The above Results were Read Back by David Velez MD to Kia Charles MD, and understanding confirmed on 06/07/2023 02:52:29 (ET). Electronically Signed: David Velez MD at 2:43 EDT ,
[2023-06-07 02:15] VITALS: BP 148/63; PULSE 79; RESP 20; TEMP 36.6; O2SAT 97
[2023-06-07 05:20] VITALS: BP 151/69; PULSE 85; RESP 20; TEMP 36.6; O2SAT 95
[2023-06-07 05:59] LABS: Bedside Glucose 66 mg/dL (74-106)
[2023-06-07 05:59] LABS: Bedside Glucose 75 mg/dL (74-106)
--- NOTE | 2023-06-07 06:40 | PCM.HOSP.N ---
Hospitalist Note Patient was reported to have fallen with no headtrauma or injury but to be cautious Dr. Manriquez ordered CT head, ongoing neurological assessments and continued Neurology consultation. He had prior had CT with BL SD hematomas but transfer was declined per tertiary secondary to stable assessment and VS. Repeat CT brain with noted acute on chronic SD hematoma with no midline shift. Given patient stable with no head trauma or injury with stable VS and neurological assessment will continue with this prior plan.
[2023-06-07 07:51] LABS: Anion Gap 3 (5-15); BUN 27 mg/dL (7-18); BUN/Creat Ratio 16.3 RATIO (10-20); Calcium,Total 7.9 mg/dL (8.5-10.1); Chloride 108 mmol/L (98-107); Creatinine, Serum 1.66 mg/dL (0.70-1.30); EST Glomerular Filtration Rate 42 mL/min (>60); Est Glom Filt Rate - Afr Amer 51 mL/min (>60); Glucose 95 mg/dL (74-106); Phosphorus 2.9 mg/dL (2.5-4.9); Potassium 4.9 mmol/L (3.5-5.1); Sodium Level 136 mmol/L (136-145)
[2023-06-07 07:59] LABS: Bedside Glucose 91 mg/dL (74-106)
[2023-06-07 08:15] VITALS: BP 159/81; PULSE 88; RESP 18; TEMP 36.7; O2SAT 95
[2023-06-07] MEDS: Potassium Chloride Oral Tablet 20 MEQ PO (08:29)
[2023-06-07] MEDS: 0.9% Saline Lock 10 ML Syringe IV (08:40)
[2023-06-07] MEDS: Acetaminophen 325 MG Tablet 650 MG PO (08:40)
[2023-06-07 08:41] VITALS: PULSE 88
[2023-06-07] MEDS: Doxazosin 1 MG Tablet 2 MG PO (08:41)
[2023-06-07] MEDS: Metoprolol Tartrate 25 MG Tablet PO (08:41)
[2023-06-07] MEDS: Na Biphos/Potassium Phosphate PACKET 1 PACKET PO (08:41)
[2023-06-07] MEDS: Senna/Docusate Sodium 1 Tablet PO (08:41)
[2023-06-07] MEDS: Insulin Glargine-YFGN 100 UNIT/ML Pen 44 UNIT SC (08:42)
[2023-06-07] MEDS: Pantoprazole Sodium 40 MG in 0.9% Normal Saline (100mL MB+) 100 ML 330 MG IV (08:54)
--- NOTE | 2023-06-07 12:06 | CON.PCM.NE_ITS ---
Assessment and Plan: Stroke Assessment/Plan FATIMAH ARDON is a 82 yo RH M with a of DM, HTN HL, JUAN ALBERTO, CRI who fell on 05/30/23 hitting his head and was admitted to [place] [facility] on 05/31/23. CT brain shows bilateral acute on chronic subdural hematomas. Neurological examination shows dysarthria and confusion, NIHSS-1 (Dys-1). ASSESSMENT/PLAN: Acute on chronic Symptomatic subdural hematomas (L>R) Recommend neurosurgery consult. I discussed with [facility] neurosurgery who recommends OR for symptomatic subdural hematoma. I messaged primary team on backline, who agreed to transfer. I discussed with [facility] attending who accepted patient. I called transfer center who will arrange transfer to [facility] bed for neurosurgery. HPI Consult Data Date of Consult: 06/07/23 HPI Narrative HPI Narrative: FATIMAH ARDON, is a 82 yo RH M with history of DM, HTN HL, JUAN ALBERTO, CRI who presented on 05/31/2023 to [place]. The evening prior he had sudden onset nausea/vomiting several times. Then that morning he got up to go bathroom and lost his balance and fell, striking his head on the hard wood floors (forehead area). He was brought to [place] [facility] where CT abdomen was negative for acute changes. He was admitted. He was on aspirin at the time. CT brain done 06/01/23 shows acute on chronic bilateral subdural hematomas L 2.4cm, R 1.4cm. He had repeat CT brain on 06/05/23 that was read as stable. The reports that patient had confusion since admission, but it worsened last night. He had worsening confusion, dysarthria, and was having trouble holding utensils. The RN reports he feels the patient has had progressive decline since last night in motor skills and mental status, and seems even worse this morning. Patient denies BUSTOS. Aspirin has been held since admission. Repeat CT brain today shows possibly slight increase in L SDH vs stable. [facility], [facility] Medical History (Updated 06/05/23 @ 17:[address] Pretty Gallo DO) Acute sinusitis Anemia Back problem BPH (benign prostatic hyperplasia) Carotid artery disease Carpal tunnel syndrome Diabetes type 2, controlled Dizziness GERD (gastroesophageal reflux disease) GI problem Hearing problem Heart murmur HTN (hypertension) Hyperlipemia Kidney disease JUAN ALBERTO (obstructive sleep apnea) Routine adult health maintenance Tachycardia Type 2 diabetes mellitus Vascular disease Vision problem Home Medications cilostazol 100 mg tablet 100 mg PO BID 02/26/14 [History Last Taken 05/30/23] metoprolol tartrate 25 mg tablet 25 mg PO BID 02/26/14 [History Last Taken 05/30/23] multivitamin with folic acid 400 mcg tablet 1 tab PO DAILY 02/26/14 [History Last Taken 05/30/23] Eyetronicsuch Ultra Blue Test Strip (blood sugar diagnostic) #100 ea 03/12/18 [Rx Last Taken Unknown] aspirin 81 mg tablet,delayed release 81 mg PO DAILY 04/13/20 [History Last Taken 05/30/23] famotidine 20 mg tablet 20 mg PO BID 07/29/20 [History Last Taken 05/30/23] hydralazine 25 mg tablet 50 mg PO TID 07/29/20 [History Last Taken 05/30/23] flash glucose sensor (Truckily[employer] [place] 2 Sensor kit) #2 ea 10/27/20 [Rx Last Taken Unknown] doxazosin 2 mg tablet 2 mg PO BID #180 tabs 01/27/21 [Rx Last Taken 05/30/23] insulin glargine 100 unit/mL subcutaneous solution 44 unit (0.44 mL) subcut DAILY diabetes 3 months #39.6 mL 05/29/23 [Rx Last Taken 05/30/23] atorvastatin 40 mg tablet 40 mg PO DAILY 05/31/23 [History Last Taken 05/30/23] insulin lispro 100 unit/mL subcutaneous pen (Humalog KwikPen (U-100) Insulin) See Protocol subcut TIDCM 05/31/23 [History Last Taken 05/30/23] ondansetron 4 mg disintegrating tablet 4 mg PO Q6H PRN nausea and vomiting #7 tabs 05/31/23 [Rx Last Taken Unknown] Allergy/AdvReac Type Severity Reaction Status Date / Time acetaminophen [From [place]] Allergy Severe Unknown Verified 05/04/23 09:21 cephalexin Allergy Severe Unknown Verified 05/04/23 09:21 hydrocodone [From [place]] Allergy Severe Unknown Verified 05/04/23 09:21 sulfamethoxazole Allergy Severe Unknown Verified 05/04/23 09:21 [From Bactrim] trimethoprim [From Bactrim] Allergy Severe Unknown Verified 05/04/23 09:21 Family History Sister Breast cancer Diabetes CVA (cerebral vascular accident) Mother Diabetes Heart disease Father Heart disease CVA (cerebral vascular accident) Surgical History (Updated 05/31/23 @ 20:[address] Kia Charles MD) Cataracts, bilateral History of bowel resection History of colonoscopy Male circumcision S/P tonsillectomy and adenoidectomy Social History Smoking Status: Never smoker second hand exposure: No alcohol intake: never substance use type: does not use what type of physical activity do you participate in: bicycling Vital Signs Vital Signs Vital Signs: 06/06/23 12:20 06/06/23 16:00 06/06/23 20:25 Temperature 97.7 F L Temperature Source Oral Pulse Rate 76 71 Respiratory Rate 16 Respiratory Effort Normal Non-Labored Respiratory Depth Normal Respiratory Pattern Normal Blood Pressure 129/72 H Blood Pressure Mean 91 Blood Pressure Source Monitor Blood Pressure Position Sitting Blood Pressure Location Left Arm Pulse Ox 99 Oxygen Delivery Method Room Air Room Air 06/06/23 22:10 06/06/23 22:25 06/06/23 22:26 Temperature 97.4 F L Temperature Source Temporal Pulse Rate 72 72 72 Respiratory Rate 20 H Respiratory Effort Respiratory Depth Respiratory Pattern Blood Pressure 158/75 H 158/75 H 158/75 H Blood Pressure Mean 102 Blood Pressure Source Monitor Blood Pressure Position Semi-Fowlers Blood Pressure Location Left Arm Pulse Ox 97 Oxygen Delivery Method Room Air 06/07/23 02:15 06/07/23 02:15 06/07/23 05:20 Temperature 97.8 F 97.8 F Temperature Source Oral Temporal Pulse Rate 79 85 Respiratory Rate 20 H 20 H Respiratory Effort Normal Non-Labored Respiratory Depth Normal Respiratory Pattern Normal Blood Pressure 148/63 H 151/69 H Blood Pressure Mean 91 96 Blood Pressure Source Monitor Monitor Blood Pressure Position Semi-Fowlers Semi-Fowlers Blood Pressure Location Left Arm Left Arm Pulse Ox 97 95 Oxygen Delivery Method Room Air Room Air Room Air 06/07/23 08:41 Temperature Temperature Source Pulse Rate 88 Respiratory Rate Respiratory Effort Respiratory Depth Respiratory Pattern Blood Pressure Blood Pressure Mean Blood Pressure Source Blood Pressure Position Blood Pressure Location Pulse Ox Oxygen Delivery Method Weight Weight: 80 kg Body Mass Index (BMI) 31.2 NIHSS NIHSS Nursing Documentation NIHSS Nursing Documentation: NIHSS: Hemorrhagic Stroke Start: 06/01/23 21:41 Freq: Q1HX4,Q2HX4,Q4H Status: Complete Protocol: Activity Type Activity Date Activity User E-sign Co-sign Detail Recorded Client Recorded Date Recorded By Document 06/06/23 04:35 PF Desktop 06/06/23 04:46 PF 06/06/23 04:35 NIH Stroke Scale [NIHSS] A score of 0 is normal or asymptomatic . Total possible score is 42. Inpatient: RN or Physician to activate a stroke alert for onset of new stroke symptoms or with NIHSS increase >/= 3 points. Following change in neurological status, NIHSS will be performed per physician order or more frequently PRN. -1a. Level of Consciousness Alert; keenly responsive -1b. LOC Questions Answers BOTH questions correctly. -1c. LOC Commands Performs both tasks correctly . -2. Best Gaze Normal -3. Visual No visual loss -4. Facial Palsy Normal symmetrical movements -5a. Left Arm No drift; arm holds 90 (or 45 ) degrees for full 10 seconds -5b. Right Arm No drift; arm holds 90 (or 45 ) degrees for full 10 seconds -6a. Left Leg No drift; leg holds 30-degree position for full 5 seconds -6b. Right Leg No drift; leg holds 30-degree position for full 5 seconds -7. Limb Ataxia Absent -8. Sensory Normal; no sensory loss -9. Best Language No aphasia; normal -10. Dysarthria Mild-to- moderate dysarthria; -11. Extinction and Inattention No abnormality -Total 1 Query Text:A score of 0 is normal or asymptomatic. Total possible score is 42 . ED: Notify Physician for NIHSS increase by > / = 3 points. Inpatient: RN or Physician to activate a stroke alert for NIHSS increase of > / = 3 points. Coma Scale [Assess] -Eye Opening Spontaneous -Motor Obeys Commands -Verbal Oriented [Total] -Coma Scale Total 15 NIHSS 1a. Level of Consciousness: Alert; keenly responsive 1b. LOC Questions: Answers BOTH questions correctly. 1c. LOC Commands: Performs both tasks correctly. 2. Best Gaze: Normal 3. Visual: No visual loss 4. Facial Palsy: Normal symmetrical movements 5a. Left Arm: No drift; arm holds 90 (or 45) degrees for full 10 seconds 5b. Right Arm: No drift; arm holds 90 (or 45) degrees for full 10 seconds 6a. Left Leg: No drift; leg holds 30-degree position for full 5 seconds 6b. Right Leg: No drift; leg holds 30-degree position for full 5 seconds 7. Limb Ataxia: Absent 8. Sensory: Normal; no sensory loss 9. Best Language: No aphasia; normal 10. Dysarthria: [id number] dysarthria; 11. Extinction and Inattention: No abnormality Total: 1 Physical Exam Neuro Neuro Narrative: Neurological examination: General: The patient appears nutritionally appropriate, well-groomed, and appears comfortable in no acute distress. Mental Status: The patient?s mental status was confused, able to state age and month, but had poor attention. Language was intact. Cranial nerves: Visual lockhart full, pupils were equal and reactive to light, and extra-ocular motion was intact. Face motion symmetric. There was mild dysarthria. Motor: Normal strength and tone in all four extremi ties. No pronator drift. Sensation: Intact light touch bilaterally, no extinction. Coordination: Bilateral finger to nose was normal. There was no dysmetria. Gait: deferred Lab / Micro Data 06/06/23 07:33 06/07/23 06:10 Labs: Laboratory Results - last 24 hr 06/06/23 16:31: POC Glucose 233 H 06/06/23 22:15: POC Glucose 155 H 06/07/23 03:10: POC Glucose 66 L 06/07/23 03:39: POC Glucose 75 06/07/23 06:10: Sodium 136, Potassium 4.9, Chloride 108 H, Carbon Dioxide 25.0, Anion Gap 3 L, BUN 27 H, Creatinine 1.66 H, Estim Creat Clear Calc 32.10, Est GFR (MDRD) Af Amer 51 L, Est GFR (MDRD) Non-Af 42 L, BUN/Creatinine Ratio 16.3, Glucose 95, Calcium 7.9 L, Phosphorus 2.9 06/07/23 06:23: POC Glucose 91 06/07/23 11:05: Ammonia 19.0 Imaging Radiology Impression Hip/Pelvis X-Ray 06/07/23 01:55 IMPRESSION: No evidence of acute injury. CT could further evaluate as clinically indicated Electronically Signed: David Velez MD at 3:11 EDT , Brain CT 06/07/23 01:59 IMPRESSION: Right greater than left hemispheric acute on chronic subdural hematomas up to 1.2 cm in thickness on the left without midline shift or other significant mass effect. Senescent changes as above. N.B. : The above Results were Read Back by David Velez MD to Kia Charles MD, and understanding confirmed on 06/07/2023 02:52:29 (ET). Electronically Signed: David Velez MD at 2:43 EDT , Active Medications Active Medications Active Medications: Current Medications Generic Name Dose Route Start Last Admin Trade Name Freq PRN Reason Stop Dose Admin Acetaminophen 650 mg 05/31/23 18:58 06/07/23 08:40 Acetaminophen 325 Mg Tablet PO 650 mg Q4H PRN PRN Administration Fever, pain 1-10/10 Acetaminophen 650 mg 05/31/23 18:58 Acetaminophen 650 Mg Suppository RC Q4H PRN PRN Fever, pain 1-10 Al Hydroxide/Mg Hydroxide 30 ml 05/31/23 18:58 Mag Hydrox/Al Hydrox/Simeth 30 Ml Udc PO Q6H PRN PRN Gastric Burning Albuterol Sulfate 2.5 mg 05/31/23 18:58 Albuterol 2.5 Mg/3 Ml Vial.Neb. INHALATION Q2H PRN PRN Dyspnea, wheezing Atorvastatin Calcium 40 mg 05/31/23 22:00 06/06/23 22:26 Atorvastatin Calcium 40 Mg Tablet PO 40 mg QHS RONAL Administration Dextrose 0 gm 05/31/23 18:58 Dextrose 50%-Water 25 Gm/50 Ml Disp.Syrin IV X1 PRN HYPOGLYCEMIA Protocol Doxazosin Mesylate 2 mg 05/31/23 22:00 06/07/23 08:41 Doxazosin 1 Mg Tablet PO 2 mg BID RONAL Administration Glucagon 1 mg 05/31/23 18:58 Glucagon 1 Mg/Ml Syringe IM X1 PRN HYPOGLYCEMIA Hydralazine HCl 50 mg 05/31/23 22:00 06/07/23 06:25 Hydralazine 25 Mg Tablet PO Not Given TID [facility] Protocol Hydralazine HCl 10 mg 05/31/23 18:58 06/05/23 02:36 Hydralazine 20 Mg/Ml Vial IV 10 mg Q4H PRN PRN Administration SBP > 160 Protocol Pantoprazole Sodium 40 mg/ 110 mls @ 330 mls/hr 05/31/23 19:30 06/07/23 09:14 Sodium Chloride IV Infused Q12 RONAL Infusion Insulin Glargine 44 unit 06/01/23 10:00 06/07/23 08:42 Insulin Glargine-Yfgn 100 Unit/Ml Pen SC 44 unit DAILY [facility] Administration Insulin Human Lispro 0 unit 06/03/23 07:00 06/07/23 06:25 Insulin Lispro 100 Unit/Ml Insuln.Pen SC Not Given ACHS [facility] Protocol Labetalol HCl 10 mg 06/01/23 21:42 06/05/23 10:46 Labetalol (Prefilled) 20 Mg/4 Ml IV 10 mg Q4H PRN PRN Administration SBP>140 Protocol Magnesium Hydroxide 30 ml 06/04/23 22:00 06/06/23 18:49 Magnesium Hydroxide 30 Ml Udc PO 30 ml DAILY PRN PRN Administration Constipation Melatonin 3 mg 05/31/23 18:58 Melatonin 3 Mg Tablet PO QHS PRN PRN INSOMNIA Menthol 1 applic 06/02/23 08:26 06/06/23 22:30 Menthol 226.8 Gm Jar TOPICAL 1 applic 4X/DAY PRN PRN Administration Cramp Metoprolol Tartrate 25 mg 05/31/23 22:00 06/07/23 08:41 Metoprolol Tartrate 25 Mg Tablet PO 25 mg BID [facility] Administration Protocol Potassium Chloride 20 meq 06/03/23 18:00 06/07/23 08:29 Potassium Chloride Oral Tablet 20 Meq PO 20 meq BIDCM [facility] Administration Potassium Phos/Sodium Phos 1 packet 06/02/23 15:15 06/07/23 08:41 Na Biphos/Potassium Phosphate Packet PO 1 packet BID [facility] Administration Prochlorperazine Edisylate 10 mg 05/31/23 18:58 06/05/23 06:39 Prochlorperazine 10 Mg/2 Ml Vial IV 10 mg Q4H PRN PRN Administration Breakthrough nausea/vomiting Scopolamine HBr 1 patch 06/05/23 10:00 06/05/23 10:45 Scopolamine 1mg/72hr Patch TD 1 patch Q3D RONAL Administration Senna/Docusate Sodium 1 tablet 06/03/23 22:00 06/07/23 08:41 Senna/Docusate Sodium 1 Tablet PO 1 tablet BID RONAL Administration Sodium Chloride 10 - 40 ml 05/31/23 19:06 06/07/23 08:40 0.9% Saline Lock 10 Ml Syringe IV 10 ml UD PRN Administration SALINE FLUSH
[2023-06-07 12:23] LABS: Bedside Glucose 81 mg/dL (74-106)
--- NOTE | 2023-06-07 12:26 | PCM.DC.SUM ---
Providers Date of Admission: 05/31/23 Date of Discharge: 06/07/23 Primary Care Physician: Dr. Agnes Suazo MD Consultations 06/07/23 02:59 Consult: Tele-Neurology Routine Consulting Provider: [facility] Reason for Consult: fall, previous subdural hematoma EMERGENT Consult: No MD Notified: Yes Date Notified: 06/07/23 Time Notified: 02:59 Method of Notification: Verbal Nursing Unit Staff Notify [facility] of Tele-Neurology Consult: Yes Reason For Visit: INTRACTABLE N/V/D Diagnosis Discharge Diagnosis (1) Nausea and vomiting: Status: Acute Code(s): R11.2 - Nausea with vomiting, unspecified (2) Dizziness: Status: Acute Code(s): R42 - Dizziness and giddiness (3) Dehydration: Status: Acute Code(s): E86.0 - Dehydration (4) Fall: Status: Acute Code(s): W19.XXXA - Unspecified fall, initial encounter (5) Subdural hematoma: Status: Acute Code(s): S06.5XAA - Traumatic subdural hemorrhage with loss of consciousness status unknown, initial encounter (6) Constipation: Status: Acute Code(s): K59.00 - Constipation, unspecified Plan Medications at Discharge Home Medications cilostazol 100 mg tablet 100 mg PO BID 02/26/14 metoprolol tartrate 25 mg tablet 25 mg PO BID 02/26/14 multivitamin with folic acid 400 mcg tablet 1 tab PO DAILY 02/26/14 OneTouch Ultra Blue Test Strip (blood sugar diagnostic) #100 ea 03/12/18 aspirin 81 mg tablet,delayed release 81 mg PO DAILY 04/13/20 famotidine 20 mg tablet 20 mg PO BID 07/29/20 hydralazine 25 mg tablet 50 mg PO TID 07/29/20 flash glucose sensor (FreeStyle Candelaria 2 Sensor kit) #2 ea 10/27/20 doxazosin 2 mg tablet 2 mg PO BID #180 tabs 01/27/21 insulin glargine 100 unit/mL subcutaneous solution 44 unit (0.44 mL) subcut DAILY diabetes 3 months #39.6 mL 05/29/23 atorvastatin 40 mg tablet 40 mg PO DAILY 05/31/23 insulin lispro 100 unit/mL subcutaneous pen (Humalog KwikPen (U-100) Insulin) See Protocol subcut TIDCM 05/31/23 ondansetron 4 mg disintegrating tablet 4 mg PO Q6H PRN nausea and vomiting #7 tabs 05/31/23 Hospital Course Operations None Procedures - (CT brain x 3/CT abdomen/pelvis/KUB/hip and pelvic x-rays) Summary of Care Provided Minutes Spent on Discharge: 45 Hospital Course: Mr. Teran is an 82-year-old white male who presented to the emergency department at [facility] on 05/31/2023 with acute onset of nausea and vomiting that started at 4 AM on the day of presentation. He had no fever or chills, no associate abdominal pain and no diarrhea. He became very weak and he had a mechanical fall which resulted in him striking his head but had no loss of consciousness. He admitted to taking aspirin but no other anticoagulation. His did state that she had some mild abdominal cramping but had no other symptoms. He had had no sick contacts either. Vital signs on presentation showed a temperature of 97.6, heart rate 67, initial blood pressure was 189/86, respiratory was 19 and oxygen saturations were 95% on room air. His CBC was overtly unremarkable. His chemistry panel showed a mildly elevated BUN/creatinine at 30 and 1.54. His glucose was markedly elevated at 325. CT of the abdomen pelvis showed possibly small gallstones in a dependent portion of the gallbladder, fatty infiltration of the liver, prostatic hypertrophy with indentation at the base of the bladder and distention of the urinary bladder. He was given IV fluids and Zofran and admitted to the PCU. CT of the brain was done without contrast the day after admission due to ongoing nausea and vomiting and showed mild cerebral atrophy with widening of the extra-axial spaces and ventricular dilation as well as extra-axial fluid collections consistent with chronic subdural hygromas with superimposed acute subdural hematoma/hygromas. A urine culture was sent and so 25-50,000 CFU's per mL of Enterococcus which is not consistent with acute infection. With regards to his CT findings, they tried to transfer him to [facility] and the case was discussed with neurosurgery at [facility] and they recommended the patient be managed conservatively with outpatient follow-up following discharge. It is documented that the patient's dizziness had resolved however per nursing he had ongoing dizziness with any movement especially lying flat and standing and prefers to sit upright. He has not been able to tolerate any physical therapy today and yesterday did very poorly with no signs of being able to tolerate rehab intense therapy currently. His p.o. intake has been very poor. It does also appear that he had an outpatient MRI done on 05/17/2023 due to significant dizziness which showed prominent and symmetrical old bilateral subdural hematomas with no shift and mild mass effect with no other significant changes noted and he had no MRI evidence of acute or subacute ischemic infarct. Carotid duplex were performed as well on 04/20/2023 for carotid bruit and showed mild right extracranial carotid artery stenosis and moderate left intracranial carotid stenosis. As of 06/05/2023 he had persistent nausea and vomiting that had been so significant it had precluded him from participating in physical and occupational therapy over the weekend. I obtained a repeat CT of his head which showed stable acute on chronic subdural hematomas. We added a scopolamine patch to his regimen and this seemed to significantly help with his dizziness. On 06/05/2022 he seemed much better his dizziness had resolved and he was able to participate well with therapy. In the evening his noted that he was a little bit sleepier and seem to be slurring his speech a bit more. He was monitored overnight and on the a.m. of 06/07/2023 he had a witnessed fall (witnessed by the DIGITAL BUSINESS ANALYST) who is at the bedside at which time he slid onto his buttock. There was no head trauma however he did sustain a bruise and skin tear on his right arm. The barrel dedenting machine operator was notified and she obtained a CT of his brain. I also consulted neurology this morning first thing upon my arrival after being made aware of the overnight issues. Upon my evaluation on the the speech was definitely more slurred than it had been previously and he seemed a bit more fatigued. He was also leaning a bit more to his right side however he was alert and oriented x 3. Neurology evaluated the patient and felt that his subdural hematoma had enlarged since the CAT scan done on Monday which is likely the explanation for his change in status today as compared to yesterday and arrange for transfer for neurosurgery evaluation and probable OR. He was expected by [facility] neurocritical care. I discussed the case with neurology and they felt ground transport was acceptable and that he would be evaluated by neurology and neurosurgery on arrival. I discussed this further with his and she voiced understanding. I also reviewed the images with her so she was able to see the changes. He was discharged to [facility] on 06/07/2023. NIH at discharge was 1 for dysarthria. 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 Intractable nausea and vomiting-resolved Constipation-resolved Hypophosphatemia Debility and falls Bilateral carotid artery stenosis right greater than left CKD stage IIIb DM-2 Chronic normocytic anemia Hypertension Peripheral vascular disease GERD BPH with obstruction Hyperlipidemia JUAN ALBERTO Obesity Physical Exam Const alert, oriented x3 and no apparent distress Constitutional Narrative: Obese, Very pleasant, older, white male, sitting up in bed leaning to the right, at bedside, appears a bit more somnolent than yesterday, speech is more garbled and difficult to understand General Appearance: cooperative, comfortable, well kempt and well developed Orientation / Consciousness: awake, oriented to person, oriented to place and oriented to time Nutritional Appearance: obese HEENT normocephalic, head/scalp atraumatic and moist oral mucous membranes HEENT Narrative: Moderate hearing loss, dentition is poor, Mallampati is 2-3, no thrush Eyes PERRL, EOMs intact bilaterally and conjunctivae normal Resp normal respiratory effort, no retractions, no use of accessory muscles and clear to auscultation bilaterally Auscultation: Negative for rales, rhonchi or wheezes Cardio regular rate, regular rhythm, S1 normal heart sound, S2 normal heart sound, no murmurs, no rub, no gallops and no clicks GI normal to inspection, nondistended, normoactive bowel sounds, soft to palpation and non-tender Extremity no clubbing, cyanosis or edema Extremity Narrative: Pedal pulses are 2+, trace bilateral lower extremity pitting edema, no cyanosis or clubbing Skin No no wounds, skin turgor normal and no jaundice Skin Narrative: Few scattered skin tears Neuro oriented x3, moves all extremities and no focal motor deficits Neuro Narrative: Mild dysarthria which is different from yesterday but no other focal neurological deficits, patient does exhibit quite significant generalized weakness Psych affect normal Psych Narrative: Very pleasant, interacts appropriately Weight / BMI Weight Weight: 80 kg Body Mass Index (BMI) 31.2 ABG / Lab / Microbiology Data 06/06/23 07:33 06/07/23 06:10 Laboratory: Laboratory Results - last 24 hr 06/06/23 16:31: POC Glucose 233 H 06/06/23 22:15: POC Glucose 155 H 06/07/23 03:10: POC Glucose 66 L 06/07/23 03:39: POC Glucose 75 06/07/23 06:10: Sodium 136, Potassium 4.9, Chloride 108 H, Carbon Dioxide 25.0, Anion Gap 3 L, BUN 27 H, Creatinine 1.66 H, Estim Creat Clear Calc 32.10, Est GFR (MDRD) Af Amer 51 L, Est GFR (MDRD) Non-Af 42 L, BUN/Creatinine Ratio 16.3, Glucose 95, Calcium 7.9 L, Phosphorus 2.9 06/07/23 06:23: POC Glucose 91 06/07/23 11:05: Ammonia 19.0 06/07/23 12:06: POC Glucose 81 Microbiology: Microbiology 06/03/23 16:10 Urine, Midstream Urine Culture - Final Enterococcus faecalis Radiography Diagnostic Testing: Radiology Impression Hip/Pelvis X-Ray 06/07/23 01:55 IMPRESSION: No evidence of acute injury. CT could further evaluate as clinically indicated Electronically Signed: David Velez MD at 3:11 EDT , Brain CT 06/07/23 01:59 IMPRESSION: Right greater than left hemispheric acute on chronic subdural hematomas up to 1.2 cm in thickness on the left without midline shift or other significant mass effect. Senescent changes as above. N.B. : The above Results were Read Back by David Velez MD to Kia Charles MD, and understanding confirmed on 06/07/2023 02:52:29 (ET). Electronically Signed: David Velez MD at 2:43 EDT , Meaningful Use Info Meaningful Use Meaningful Use Diagnoses (Choose all that apply): None applicable Ischemic Stroke Statin Dosing Therapy Reference: STATIN DOSE THERAPY REFERENCE: * Patients > 75 years receive moderate or high dose statin therapy. * Patients 75 years or YOUNGER should receive HIGH intensity statin dose unless contraindicated. You will be required to document reason for non-treatment if statin daily dose does not meet guidelines. HIGH DOSE STATIN THERAPY DAILY Atorvastatin > than or = to 40 mg Rosuvastatin > than or = to 20 mg Amlodipine + Atorvastatin > than or = to 2.5/40 mg Ezetimibe + Simvastatin 10/80 mg Simvastatin 80mg Discharge Plan Admission Admit Date/Time: 05/31/23 16:55 Primary Reason for Your Visit: Nausea and vomiting Attending Provider: Pretty Gallo Primary Care Provider: Agnes Suazo Consulting Providers: Kia Charles; Joel Salgado; Mazin Luevano; Kayley Spring; Cesia Aggarwal; Lubna Elliott; Cielo Murphy; Tye Cartagena; Yamilka Patiño; Lowell Platt; Reid Ruiz; Berenice Haddad; David Mccall; Angelina Jenkins; Mary Lou Peraza; Halinacaleb Malik; Diego Mendes; Maria Luisa Mooney; Campbell Jaeger; Angélica Gallo; Ancelmo Ratliff Discharge Orders/Prescriptions Prescriptions: New ondansetron 4 mg tablet,disintegrating 4 mg PO Q6H PRN (Reason: nausea and vomiting) Qty: 7 0RF No Action (DME) OneTouch Ultra Blue Test Strip strip See Dose Instructions .ROUTE .MEDSUPPLY Qty: 100 11RF Dose Instruction: As directed Rx Instructions: use to check BG tid aspirin 81 mg tablet,delayed release (DR/EC) 81 mg PO DAILY hydralazine 25 mg tablet 50 mg PO TID famotidine 20 mg tablet 20 mg PO BID (DME) FreeStyle Candelaria 2 Sensor Kit See Rx Instructions .ROUTE .MEDSUPPLY Qty: 2 0RF Rx Instructions: As directed doxazosin 2 mg tablet 2 mg PO BID Qty: 180 2RF cilostazol 100 MG tablet 100 mg PO BID metoprolol tartrate 25 MG tablet 25 mg PO BID multivitamin with folic acid 1 TABLET tablet 1 tab PO DAILY atorvastatin 40 mg tablet 40 mg PO DAILY insulin lispro [Humalog KwikPen Insulin] 100 unit/mL insulin pen See Protocol subcut TIDCM Protocol: 6. Sliding Scale Insulin Custom Condition: mg/dl range Dose/Route: Number of Units Condition: <100 Dose/Route: 2 Condition: 151-200 Dose/Route: 6 Condition: 201-250 Dose/Route: 7 Condition: 251-300 Dose/Route: 8 Condition: 301-350 Dose/Route: 9 Condition: 351+ Dose/Route: 10 Protocol Text: Custom Sliding Scale insulin glargine 100 unit/mL solution 44 unit subcut DAILY 90 Days Qty: 39.6 2RF Referrals / Follow Up: Agnes Suazo MD [Primary Care Provider] - 3-5 Days if not improving Disposition Disposition (needs filled in before D/C Order can be placed): Acute Care Hospital Charges/Coding Visit Charges Inpatient E&M: 19746 Disch Hosp >30min
[2023-06-07 12:29] VITALS: BP 134/73; PULSE 65; RESP 20; TEMP 36.4; O2SAT 97
[2023-06-07 12:39] LABS: Allen Test Positive; Base Excess -1 mmol/L (-2 to +2); Bicarbonate 22.8 mmol/L (22-26); Blood Gas Specimen Type ART; Mode Not entered; O2 Delivery Device Room Air; PO2 95 mmHG (75-100); SITE L Radial; SO2 98 % (95-99); Total Carbon Dioxide 24 mmol/L; pH 7.48 (7.35-7.45)
--- NOTE | 2023-06-07 12:47 | CASEMGMT ---
Patient is being transferred to [facility]. SW notified Renita in Rehab. Maxine Cárdenas HEALTH CARE ANALYST [place]
== END 2023-06-07 13:42 | disposition short-term general hospital (02) ==
LOC: ED 16:49 → MS3 17:12 → ICU 06-01 20:24 → PCU 06-02 11:33
PROVIDERS: Internal Medicine; Admitting Provider Family Medicine; Emergency Provider Emergency Medicine; PCP Internal Medicine; Visit Provider Internal Medicine
DX: S06.5XAA Traumatic subdural hemorrhage with loss of consciousness status unknown, initial encounter (principal); E11.65 Type 2 diabetes mellitus with hyperglycemia; E11.22 Type 2 diabetes mellitus with diabetic chronic kidney disease; E11.51 Type 2 diabetes mellitus with diabetic peripheral angiopathy without gangrene; Z79.4 Long term (current) use of insulin; N18.32 Chronic kidney disease, stage 3b; E78.5 Hyperlipidemia, unspecified; E86.0 Dehydration; R47.1 Dysarthria and anarthria; I65.23 Occlusion and stenosis of bilateral carotid arteries; E83.39 Other disorders of phosphorus metabolism; K21.9 Gastro-esophageal reflux disease without esophagitis; N40.1 Benign prostatic hyperplasia with lower urinary tract symptoms; D63.8 Anemia in other chronic diseases classified elsewhere; S51.011A Laceration without foreign body of right elbow, initial encounter; E66.9 Obesity, unspecified; R47.81 Slurred speech; Z79.02 Long term (current) use of antithrombotics/antiplatelets; I12.9 Hypertensive chronic kidney disease with stage 1 through stage 4 chronic kidney disease, or unspecified chronic kidney disease; G47.33 Obstructive sleep apnea (adult) (pediatric); K76.0 Fatty (change of) liver, not elsewhere classified; Z68.31 Body mass index [BMI] 31.0-31.9, adult; K59.00 Constipation, unspecified; R53.81 Other malaise; W19.XXXA Unspecified fall, initial encounter; Z79.899 Other long term (current) drug therapy; N13.8 Other obstructive and reflux uropathy
CPT/HCPCS: 36415; 36600; 70450; 73502; 74018; 74177; 80048; 80053; 81001; 82140; 82803; 82962; 83036; 83735; 84100; 85025; 87077; 87086; 87088; 87186; 92526; 92610; 94668; 96361; 96365; 96366; 96367; 96372; 96375; 96376; 97110; 97116; 97162; 97166; 97530; 97535; 99221; 99285; J7030; J7040; J7050; Q9967; A4216; G0378; J2405

== ENCOUNTER 2023-08-22 09:09 | Inpatient (IN) | payer MEDICARE, SELFPAY ==
[2023-08-22] VITALS (10 sets, daily range): BP systolic 155–171; BP diastolic 65–82; PULSE 76–113; RESP 16–25; TEMP 36.4–36.9; O2SAT 95–98; BMI 29.0; BMI 27.9
--- NOTE | 2023-08-22 09:45 | CT_ITS ---
STUDY: CT BRAIN WITHOUT CONTRAST REASON FOR EXAM: Male, 82 years old. History of fall. RADIATION DOSAGE (If Supplied By Facility): CTDIvol = ( 47.06 ) mGy, DLP = ( 907.97 ) mGycm TECHNIQUE: Transaxial CT imaging of the brain was performed without administration of intravenous contrast material. Individualized dose optimization techniques were used for this CT. COMPARISON: Comparison is made with prior study dated June 07, 2023. FINDINGS: Normal soft tissue structures. Normal calvarium. The previously seen subdural hematomas of resolved. There is mild cerebral atrophy with widening of the extra-axial spaces and ventricular dilatation. Normal white matter tracts of the cerebral hemispheres. Normal basal ganglia and thalami. Normal brainstem. Normal cerebellum. There is no intracranial hemorrhage. There are no findings of an acute ischemic infarction. Atherosclerotic calcification of the vertebral arteries and cavernous portions of the internal carotid arteries bilaterally. Normal visualized paranasal sinuses. CT/Brain/Head without Contrast IMPRESSION: Chronic involutional changes of the brain. The previously seen bilateral subdural hematomas have resolved. Electronically Signed: Tobin Ch MD at 11:08 EDT ,
--- NOTE | 2023-08-22 09:45 | EKG12_ITS ---
Test Reason : Blood Pressure : / mmHG Vent. Rate : 114 BPM Atrial Rate : 114 BPM P-R Int : 128 ms QRS Dur : 070 ms QT Int : 346 ms P-R-T Axes : 021 038 044 degrees QTc Int : 476 ms Sinus tachycardia with Premature atrial complexes Otherwise normal ECG Confirmed by Isac Pierson ([id number]), photo editor HOLLY OZUNA ([id number]) on 08/23/2023 9:45:26 AM Referred By: Confirmed By:Isac Pierson
--- NOTE | 2023-08-22 09:47 | CT_ITS ---
STUDY: CT CERVICAL SPINE WITHOUT CONTRAST REASON FOR EXAM: Male, 82 years old. History of fall. RADIATION DOSAGE (If Supplied By Facility): CTDIvol = ( 21.64 ) mGy, DLP = ( 462.90 ) mGycm TECHNIQUE: High resolution transaxial imaging was performed without contrast material. Sagittal and coronal images were reconstructed. Individualized dose optimization techniques were used for this CT. COMPARISON: Comparison is made with prior study dated December 17, 2018. FINDINGS: Normal craniovertebral junction. There are degenerative changes of the anterior atlantoaxial articulation. Normal odontoid process. There is straightening of the normal cervical lordosis. Stable heterogeneous appearance of the cervical vertebrae. C2-3: Facet joint osteoarthritis and hypertrophy. No significant stenosis is seen. C3-4: Moderate degree of disc space narrowing. Spondylosis. Uncovertebral arthrosis. Mild degree of central canal stenosis. C4-5: Marked degree of disc space narrowing. Spondylosis. Uncovertebral arthrosis. Facet joint osteoarthritis. Mild degree of bilateral neural foraminal stenosis. C5-6: Moderate degree of disc space narrowing. Spondylosis. Uncovertebral arthrosis. Mild degree of bilateral neural foraminal stenosis. C6-7: Marked degree of disc space narrowing. Spondylosis. Uncovertebral arthrosis. No significant stenosis seen. C7-T1: Normal endplates. Normal disc height and morphology. Normal central canal and intervertebral neuroforamina. Atherosclerotic plaque formation of the carotid bifurcations bilaterally. Goitrous enlargement of the thyroid gland. This is worse on the left side. Left substernal extension. CT/Spine Cervical without Contras IMPRESSION: Multilevel degenerative changes, as described above. Electronically Signed: Tobin Ch MD at 11:13 EDT ,
--- NOTE | 2023-08-22 09:52 | EDS_ITS ---
HPI HPI - Fall History of Present Illness Chief Complaint: Fall Narrative Narrative: Patient presenting from home with history of multiple falls this week. He states he has hit his head. He has a superficial laceration to the left ear with dried blood on it. He states this happened a few days ago when he fell and hit his head into the wall. Patient states today he was trying to get to the shower and somehow slipped/tripped over a towel falling onto his left knee and his elbows. He states he did not hit his head this morning. He states he has a superficial skin tear to the left patella but was able to get up and ambulate after this. He has minor pain in the left knee. States his elbows are not hurting him. Apparently while his was trying to help him they both fell over. Patient has history of subdural hematoma in the past. He had this in May. stating that due to his debility since then she is not able to care for him anymore [facility] Medical History Dizziness BPH (benign prostatic hyperplasia) Acute sinusitis Carotid artery disease Tachycardia JUAN ALBERTO (obstructive sleep apnea) Routine adult health maintenance Type 2 diabetes mellitus GERD (gastroesophageal reflux disease) Hyperlipemia Vision problem Vascular disease Heart murmur Kidney disease HTN (hypertension) Hearing problem GI problem Diabetes type 2, controlled Carpal tunnel syndrome Back problem Anemia Home Medications ?Medication ?Instructions ?Recorded ?Last Taken ?Type cilostazol 100 mg tablet 100 mg PO BID MUSCLE PAIN/CRAMPS 02/26/14 08/21/23 History metoprolol tartrate 25 mg tablet 25 mg PO BID BLOOD PRESSURE 02/26/14 08/21/23 History multivitamin with folic acid 400 1 tab PO DAILY HEALTH MAINTENANCE 02/26/14 08/21/23 History mcg tablet OneTouch Ultra Blue Test Strip #100 ea 03/12/18 Unknown Rx (blood sugar diagnostic) aspirin 81 mg tablet,delayed 81 mg PO DAILY HEART HEALTH 04/13/20 08/21/23 History release famotidine 20 mg tablet 20 mg PO DAILY GERD 07/29/20 08/21/23 History flash glucose sensor (FreeStyle #2 ea 10/27/20 Unknown Rx [place] 2 Sensor kit) atorvastatin 40 mg tablet 40 mg PO DAILY CHOLESTEROL 05/31/23 08/21/23 History insulin lispro 100 unit/mL See Protocol subcut TIDCM DIABETES 05/31/23 08/21/23 History subcutaneous pen (Humalog KwikPen (U-100) Insulin) doxazosin 4 mg tablet 4 mg PO DAILY BLOOD PRESSURE 08/22/23 08/21/23 History insulin glargine 100 unit/mL (3 44 unit subcut QHS DIABETES 08/22/23 08/21/23 History mL) subcutaneous pen (Lantus Solostar U-100 Insulin) Allergy/AdvReac Type Severity Reaction Status Date / Time acetaminophen (From Varina) Allergy Severe Unknown Verified 08/22/23 09:22 cephalexin Allergy Severe Unknown Verified 08/22/23 09:22 hydrocodone (From Varina) Allergy Severe Unknown Verified 08/22/23 09:22 sulfamethoxazole (From Allergy Severe Unknown Verified 08/22/23 09:22 Bactrim) trimethoprim (From Bactrim) Allergy Severe Unknown Verified 08/22/23 09:22 Family History Sister Breast cancer Diabetes CVA (cerebral vascular accident) Mother Diabetes Heart disease Father Heart disease CVA (cerebral vascular accident) Surgical History History of colonoscopy History of bowel resection Cataracts, bilateral Male circumcision S/P tonsillectomy and adenoidectomy Social History Smoking Status: Never smoker second hand exposure: No alcohol intake: never substance use type: does not use what type of physical activity do you participate in: bicycling ROS ROS ED Constitutional Constitutional ED: Denies chills, fever(s) or sweats Eyes Eyes: Denies blurry vision or change in vision ENT ENT ED: Denies ear pain or sore throat Cardiovascular Cardiovascular: Denies chest pain, palpitations or racing heartbeat Respiratory/Chest Respiratory/Chest: Denies cough, dyspnea or sputum Gastrointestinal Gastrointestinal: Denies abdominal pain, constipation, diarrhea, nausea or vomiting Genitourinary Genitourinary ED: Denies dysuria, hematuria or urinary frequency Musculoskeletal Musculoskeletal: Reports other Details: Left knee pain ; Denies arthralgias, myalgias or neck pain Integumentary Denies abscess, Abrasions or rash Neurologic Neurologic: Denies headache(s), paresthesias or weakness Psychiatric Psychiatric: Denies anxiety, depression, suicidal ideation or suicidal thoughts Endocrine Endocrinology: Denies polydipsia or polyuria EXAM Physical Exam Const Vital Signs: 08/22/23 09:10 08/22/23 09:21 08/22/23 11:09 Temperature 98.5 F Temperature Source Oral Pulse Rate 113 H 112 H Respiratory Rate 25 H 18 Respiratory Effort Normal Blood Pressure 158/78 H 167/78 H Blood Pressure Mean 104 107 Pulse Ox 96 96 Oxygen Delivery Method Room Air 08/22/23 13:00 08/22/23 13:00 08/22/23 13:22 Temperature 97.9 F 97.9 F Temperature Source Pulse Rate 104 H 104 H 104 H Respiratory Rate 18 16 18 Respiratory Effort Blood Pressure 167/82 H 167/82 H 167/82 H Blood Pressure Mean 110 110 110 Pulse Ox 96 96 98 Oxygen Delivery Method Positive well nourished and unkempt General Appearance ED: unkempt HEENT Reports normocephalic and TM's clear HEENT Narrative: Dried blood over the left ear on the helix. Tympanic Membrane ED: Yes TM's clear Eyes PERRL and EOMs intact bilaterally Neck full ROM Neck Narrative: No midline spinal tenderness, deformity, step-off. Chest Wall inspection of chest normal Resp normal respiratory effort Auscultation: Negative for rales, rhonchi or wheezes Cardio regular rate and regular rhythm GI non-tender Extremity Extremity Narrative: Mild tenderness palpation over left patella midline. There is a superficial abrasion here. Full range of motion noted in the left knee in flexion and extension. No ligamentous laxity. Extensor mechanism is intact Neuro oriented x3, CN's II-XII intact bilaterally, moves all extremities, no focal motor deficits and no sensory deficits noted Sensorium / Orientation: alert Motor Exam: general weakness Psych mental status grossly normal Appearance: unkempt Skin Skin Narrative: Superficial abrasion over the left knee/patella MDM MDM MDM Narrative Medical decision making narrative: Patient presenting with multiple falls this week he has evidence of head trauma. Differential includes subdural hematoma, epidural hematoma, C-spine fracture, dehydration, anemia, electrolyte abnormalities, dysrhythmia, ACS, pneumonia, UTI. CBC will be obtained to assess white blood cell count, hemoglobin, platelets. BMP to assess renal function, electrolytes, glucose. High- sensitivity troponin and EKG to assess for ischemia/dysrhythmia. Chest x-ray to rule out pneumonia. Urinalysis to assess for UTI. CT brain and cervical spine will be obtained due to the fall history and evidence of trauma to the scalp. CBC shows normal white blood count 7.1. Hemoglobin 8.4. Platelets are 182. Creatinine at baseline. High-sensitivity troponin 15. BNP 23.9. Urinalysis negative for infection. Chest x-ray interpreted by myself does show some cardio megaly. Chest x-ray does appear to show CHF on my interpretation however with a BNP of 23 it is unclear. He is not complaining of shortness of breath. Social work had a long talk with the patient's who ultimately felt she was going to be unable to care for him and he has had 4 falls this week so she wanted to be admitted to go to pen[facility]ent[facility] since they do not have home health care. Discussed with the hospitalist for admission. CT brain showed resolution of subdural hematoma and a CT of spine spine was negative. Left knee x-ray interpreted by myself shows no acute fracture or subluxation. Radiology interprets and agrees. At this point the patient was admitted to the hospitalist. Impression: 1. CHF 2. Debility 3. Falls initial 4. Left knee contusion 5. Closed head injury Lab Data Attestation: I reviewed the patient's lab results. Labs: Laboratory Results - last 24 hr 08/22/23 08/22/23 08/22/23 10:00 10:13 11:31 WBC 7.1 RBC 2.69 L Hgb 8.4 L Hct 25.5 L MCV 94.8 H MCH 31.2 MCHC 32.9 RDW Std Deviation 48.2 H RDW Coeff of Clay 14.0 Plt Count 182 MPV 10.8 Immature Gran % (Auto) 0.400 Neut % (Auto) 84.7 H Lymph % (Auto) 7.5 L [place] % (Auto) 6.9 Eos % (Auto) 0.4 Baso % (Auto) 0.1 Absolute Neuts (auto) 6.0 Absolute Lymphs (auto) 0.53 L Nucleated RBC % 0 Sodium 138 Potassium 4.0 Chloride 108 H Carbon Dioxide 25.0 Anion Gap 5 BUN 23 H Creatinine 1.53 H Estim Creat Clear Calc 33.60 Est GFR (MDRD) Af Amer 56 L Est GFR (MDRD) Non-Af 47 L BUN/Creatinine Ratio 15.0 Glucose 137 H Calcium 8.7 Total Bilirubin 0.70 AST 15 ALT 13 L Alkaline Phosphatase 110 Troponin I High Sens 15 B-Natriuretic Peptide 23.9 Total Protein 6.5 Albumin 2.7 L Globulin 3.8 Albumin/Globulin Ratio 0.7 L Urine Color Yellow Urine Clarity Sl. Cloudy Urine pH 6.0 Ur Specific [place] 1.015 Urine Protein 30 H Urine Glucose (UA) Normal Urine Ketones Negative Urine Occult Blood Negative Urine Nitrite Negative Urine Bilirubin Negative Urine Urobilinogen Normal Ur Leukocyte Esterase 25 H Urine RBC 0 SEEN Urine WBC 0 SEEN Ur Squamous Epith Cells 0 SEEN Urine Bacteria 0 SEEN Urine Mucus 0 SEEN Radiography Diagnostic Testing: Clinical Impression(s) from Imaging Studies Brain CT 08/22/23 09:45 IMPRESSION: Chronic involutional changes of the brain. The previously seen bilateral subdural hematomas have resolved. Electronically Signed: Tobin Ch MD at 11:08 EDT , Cervical Spine CT 08/22/23 09:47 IMPRESSION: Multilevel degenerative changes, as described above. Electronically Signed: Tobin Ch MD at 11:13 EDT , Chest X-Ray 08/22/23 10:40 IMPRESSION: Cardiomegaly and mild degree of CHF. Electronically Signed: Tobin Ch MD at 11:16 EDT , Knee X-Ray 08/22/23 10:40 IMPRESSION: Tiny joint effusion. Soft tissue swelling. Electronically Signed: Tobin Ch MD at 11:14 EDT , Discharge Plan Disposition Disposition: Acute Care Hospital [facility] Discharge Date/Time: 08/22/23 14:04
[2023-08-22 10:19] LABS: Bacteria 0 SEEN /hpf (None Seen); Mucous, Urine 0 SEEN /hpf (<or=2+); Red Blood Cells-Urine 0 SEEN /hpf (0-5); Squamous Epithelial Cells - UA 0 SEEN /hpf (0-5); White Blood Cells 0 SEEN /hpf (0-5)
--- NOTE | 2023-08-22 10:40 | RAD_ITS ---
STUDY: X-RAY CHEST REASON FOR EXAM: Male, 82 years old. Weakness TECHNIQUE: Single AP portable view of the chest. COMPARISON: Comparison is made with prior study dated September 26, 2022. FINDINGS: EKG electrodes are seen. There is evidence of vascular congestion and mild degree of CHF. There is no demonstrated pleural abnormality. There is mild cardiac enlargement. Normal mediastinum and chiquita. Normal visualized pulmonary arteries. There is atherosclerotic calcification of the aortic arch with tortuosity. There are diffuse degenerative changes of the visualized thoracic spine. Normal visualized ribs, clavicles, and shoulders. There is no demonstrated abnormality of the visualized soft tissue structures of the upper abdomen. RAD/Chest 1 View (Portable) IMPRESSION: Cardiomegaly and mild degree of CHF. Electronically Signed: Tobin Ch MD at 11:16 EDT ,
--- NOTE | 2023-08-22 10:40 | RAD_ITS ---
STUDY: X-RAY - LEFT KNEE REASON FOR EXAM: Male, 82 years old. Knee pain. TECHNIQUE: 2 view(s) of the knee. COMPARISON: None. FINDINGS: Normal visualized distal femur. Normal visualized proximal tibia and fibula. Normal proximal tibiofibular articulation. Normal medial femorotibial compartment. Normal lateral femorotibial compartment. Normal patellofemoral articulation. There are atherosclerotic calcifications. Tiny joint effusion. Soft tissue swelling. RAD/Knee 1 or 2 Views IMPRESSION: Tiny joint effusion. Soft tissue swelling. Electronically Signed: Tobin Ch MD at 11:14 EDT ,
[2023-08-22 10:43] LABS: Color, Urine Yellow (Yellow); Glucose, Dipstick Normal (Normal); Ketone-Dipstick Negative (Negative); Leukocyte Esterase-Dipstick 25 /ul (Negative); Nitrite-Dipstick Negative (Negative); Occult Blood-Urine Negative /ul (Negative); Protein-Dipstick 30 mg/dl (Negative); Specific Gravity, Urine 1.015 (1.002-1.030); Urine Bilirubin Dipstick Negative (Negative); Urine Clarity Sl. Cloudy (Clear); Urine Urobilinogen Normal (Normal)
[2023-08-22 10:48] LABS: ALB/GLOB Ratio 0.7 RATIO (0.9-2.4); AST(SGOT) 15 U/L (15-37); Alanine Aminotransfer ALT/SGPT 13 U/L (16-61); Albumin, Serum 2.7 g/dL (3.2-5.0); Alkaline Phosphatase 110 U/L (45-117); Anion Gap 5 (5-15); BUN 23 mg/dL (7-18); Calcium,Total 8.7 mg/dL (8.5-10.1); Chloride 108 mmol/L (98-107); Creatinine, Serum 1.53 mg/dL (0.70-1.30); EST Glomerular Filtration Rate 47 mL/min (>60); Est Glom Filt Rate - Afr Amer 56 mL/min (>60); Globulin 3.8 g/dL (2.2-4.2); Glucose 137 mg/dL (74-106); Protein, Total 6.5 g/dL (6.4-8.2); Sodium Level 138 mmol/L (136-145); Troponin-I HS 15 pg/mL (3.0-78.0)
[2023-08-22 10:53] LABS: Absolute Lymphocyte Count 0.53 X10^3/uL (0.83-4.51); Basophil# 0.01 X10^3/uL; Basophil% 0.1 % (0-1); Eosinophil# 0.03 X10^3/uL; Eosinophils% 0.4 % (0-5); Hematocrit 25.5 % (40-54); Hemoglobin 8.4 g/dL (13.0-16.5); Lymphocyte # 0.53 X10^3/ul (0.83-4.51); Lymphocyte % 7.5 % (19-41); Mean Corp Hgb Conc 32.9 g/dL (32-36); Mean Corpuscular Hgb 31.2 pg (27.0-32.0); Mean Corpuscular Volume 94.8 fL (80-94); Mean Platelet Vol. 10.8 fl (6.2-12.0); Monocyte# 0.49 X10^3/uL; Monocyte% 6.9 % (0-10); NRBC Flagged by Analyzer 0 % (0-5); Neutrophil # 5.99 X10^3/uL (2.7-7.7); Neutrophil % 84.7 % (47-70); POSITIVE DIFFERENTIAL YES; Platelet Count 182 K/mm3 (150-450); RBC Distribution Width SD 48.2 fl (35.1-43.9); Red Blood Count 2.69 M/mm3 (4.6-6.2); White Blood Count 7.1 K/mm3 (4.4-11.0)
[2023-08-22 12:11] LABS: BNP,B-Type NATRIURETIC PEPTIDE 23.9 pg/mL (0-100)
--- NOTE | 2023-08-22 13:00 | CM.ED ---
Social Work Reason for Consult: Safety at home, multiple falls Referral Source: ED nursing staff Notified by CURTIS Grande in the ED, of patient's co-presentation to the ED with his . Records reviewed and spoke with Dawna Contreras RN for updates. Patient reportedly fell at home, which is reported as the 4th fall this week where EMS have been called to the home. Today, the patient's fell trying to get patient up and also fell, hitting head. Berenice was the person who wanted the couple checked out at the hospital. Patient did reportedly have a brain bleed earlier this year, which was concerned could happen again. [facility] (APS) Deidra Canchola to the ED to meet with patient and . APS was called on Monday with plan to see patient today at home, but then got call about patient comeing to the ED today. Also present, APS worker Catherine. This copywriter, along with APS representatives first met with patient's and then patient himself. Introduced to self and role. is in support of patient going short term only SNF stay, so long as this would be covered by insurance. is unwilling to apply for Medicaid, or to consider long term care phlebotomist [facility] care. shared that patient has been home from [facility] [employer] [facility] [employer] since 08.15.23 and was to have home care [facility]. [facility] spoke [facility]/ about hospice and this was not something patient or are in support. reports hospice is for the dying and patient is not dying. would like to have patient home now, but wants help in the home. Educated that skilled HHC would be intermittent and head packager, if beyond what skilled HHC could provide would be private pay. Though wants patient home, also acknowledges having a hard time caring for patient right now, therefore agreeable to short term SNF. spontaneously identified first choice is [facility], wanting patient to admit there before; not sure of other choices but knows does not want for patient to go back to [facility] (though did like the PT there). Patient reports would like to go home, though after discussion and reinforcement about 4 falls in 7 days not showing safety at home, patient acknowledged being weak in lower legs and in arms. Patient reports would be agreeable to a SNF, maybe about a month. Reinforced that insurance coverage for SNF stay is based on need and progress in treatment. Patient expressed worry about his , and wanted to make sure Berenice was okay, and that could see before left the ED for home. APS reports will continue to follow this family and wants to be notified of discharge disposition. Home is one floor. 3 steps to enter. PCP - Dr. Suazo DME: Wheelchair and forward wheeled walker. Sleeping in a recliner glider at home this last week. Transportation: Was the patient, as has never driven; getting rides from friends from [employer]. Family support: Patient's' of 49 years; no kids; patient has 2 brothers and 2 sisters; [id number] Gurmeet Álvarez [phone] present in the ED as support to patient and patient's . Advance Directives: Not on file; do not believe this has been done SNF Hx: [facility] Hx: Referral was made to [facility] after discharge from [facility]. Handoff to Acute Care Management Team. Plan: PT/OT evals for recommendations; Anticipate Short term SNF stay. First choice is [facility]; Will get choice list for patient if [facility] cannot accept. Notify APS of discharge destination. -CACHORRO Villalobos
--- NOTE | 2023-08-22 13:08 | PCM.HP.STD ---
HPI - General General Date of Admission: 08/22/23 Date of Service: 08/22/23 Chief Complaint: Fell down 4 times in last 1 week HPI Narrative FATIMAHVonda ARDON, is a 82 M came to ED after he tripped over a blanket and fell while trying to get up with a shower. Multiple falls about 4 times in the last week. About a week ago he was discharged from [place] [facility] after he fell down which caused laceration in the left ear which was stitched. Patient's unable to take care for him. On further history taking, patient looked sinus tachycardic, and lower legs swelling. When asked about heart failure symptoms he states he gets short of breath on short distance walking or climbing stairs. Chest x-ray shows pulmonary venous congestion and BNP and troponin normal. Patient is further admitted in PCU. Twelve-lead EKG shows sinus tachycardia with PAC at 114 bpm, QTc 476 ms. Previous EKG was normal sinus rhythm in December 2018 [facility] Medical History Diabetes Non-smoker Dizziness BPH (benign prostatic hyperplasia) Acute sinusitis Carotid artery disease Tachycardia JUAN ALBERTO (obstructive sleep apnea) Routine adult health maintenance Type 2 diabetes mellitus GERD (gastroesophageal reflux disease) Hyperlipemia Vision problem Vascular disease Heart murmur Kidney disease HTN (hypertension) Hearing problem GI problem Diabetes type 2, controlled Carpal tunnel syndrome Back problem Anemia Home Medications ?Medication ?Instructions ?Recorded ?Last Taken ?Type cilostazol 100 mg tablet 100 mg PO BID MUSCLE PAIN/CRAMPS 02/26/14 08/21/23 History metoprolol tartrate 25 mg tablet 25 mg PO BID BLOOD PRESSURE 02/26/14 08/21/23 History multivitamin with folic acid 400 1 tab PO DAILY HEALTH MAINTENANCE 02/26/14 08/21/23 History mcg tablet OneTouch Ultra Blue Test Strip #100 ea 03/12/18 Unknown Rx (blood sugar diagnostic) aspirin 81 mg tablet,delayed 81 mg PO DAILY HEART HEALTH 04/13/20 08/21/23 History release famotidine 20 mg tablet 20 mg PO DAILY GERD 07/29/20 08/21/23 History flash glucose sensor (FreeStyle #2 ea 10/27/20 Unknown Rx [place] 2 Sensor kit) atorvastatin 40 mg tablet 40 mg PO DAILY CHOLESTEROL 05/31/23 08/21/23 History insulin lispro 100 unit/mL See Protocol subcut TIDCM DIABETES 05/31/23 08/21/23 History subcutaneous pen (Humalog KwikPen (U-100) Insulin) doxazosin 4 mg tablet 4 mg PO DAILY BLOOD PRESSURE 08/22/23 08/21/23 History insulin glargine 100 unit/mL (3 44 unit subcut QHS DIABETES 08/22/23 08/21/23 History mL) subcutaneous pen (Lantus Solostar U-100 Insulin) Allergy/AdvReac Type Severity Reaction Status Date / Time acetaminophen (From [place]) Allergy Severe Unknown Verified 08/22/23 09:22 cephalexin Allergy Severe Unknown Verified 08/22/23 09:22 hydrocodone (From [place]) Allergy Severe Unknown Verified 08/22/23 09:22 sulfamethoxazole (From Allergy Severe Unknown Verified 08/22/23 09:22 Bactrim) trimethoprim (From Bactrim) Allergy Severe Unknown Verified 08/22/23 09:22 Family History Sister Breast cancer Diabetes CVA (cerebral vascular accident) Mother Diabetes Heart disease Father Heart disease CVA (cerebral vascular accident) Surgical History History of colonoscopy History of bowel resection Cataracts, bilateral Male circumcision S/P tonsillectomy and adenoidectomy Social History Smoking Status: Never smoker second hand exposure: No alcohol intake: never substance use type: does not use what type of physical activity do you participate in: bicycling ROS ROS Narrative Constitutional: Reports fatigue and weakness. No fever. HEENT: Reports systems reviewed and no addt'l complaints, except as documented Respiratory/Chest: no acute shortness of breath or respiratory distress or wheezing. CVS: Dyspnea on exertion. No chest pain or pressure tightness Gastrointestinal: Denies coffee ground emesis, hematemesis or vomiting Genitourinary: Denies burning urination or new urinary tract symptoms Musculoskeletal: Recurrent fall. Leg swelling denies acute joint pain or limited range of motion. No acute injury Neurologic: Denies seizure-like symptoms. skin: Bruise on the left knee. Stitched wound on left ear Endocrinology: Reports systems reviewed and no addt'l complaints, except as documented Hematologic/Lymphatic: Reports systems reviewed and no addt'l complaints, except as documented Rest 14 ROS are negative except as mentioned in HPI Vital Signs Vital Signs Vital Signs: 08/22/23 09:10 08/22/23 09:21 08/22/23 11:09 Temperature 98.5 F Temperature Source Oral Pulse Rate 113 H 112 H Respiratory Rate 25 H 18 Respiratory Effort Normal Blood Pressure 158/78 H 167/78 H Blood Pressure Mean 104 107 Pulse Ox 96 96 Oxygen Delivery Method Room Air Weight Weight: 163 lb 9.328 oz Body Mass Index (BMI) 29.0 Physical Exam Narrative General: Alert, Oriented x3, Cooperative HEENT: Atraumatic, PERRLA, EOMI, Normocephalic Oral: No Gingival or Mucosal Lesions/ Ulcerations Neck: Supple, No JVD, Negative Carotid Bruits Chest wall/Lungs: Air entry diminished in bilateral lung bases. Bilateral fine crackles in the lung bases Cardiovascular: Sinus tachycardia, Normal S1, Normal S2, systolic murmur LUSB Abdomen: Bowel Sounds Present, Soft, Non Tender, Non-Distended : No dysuria. No renal angle tenderness. No suprapubic tenderness. Extremities: No edema, Capillary Refill Less than 3 Seconds Skin: Bruise over left knee and right toe from fall. Sutured wound over left ER/splint. Musculoskeletal: Tenderness present over knees from fall. ROM restricted. Degenerative arthritis of knees. Neurological: Cranial nerves II-XII grossly intact, DTR 2+/4. No acute focal neurological deficit. Psych/Mental Status: Flat affect. Results Lab / Micro Data 08/22/23 10:00 08/22/23 10:00 Labs: Laboratory Results - last 24 hr 08/22/23 10:00: WBC 7.1, RBC 2.69 L, Hgb 8.4 L, Hct 25.5 L, MCV 94.8 H, MCH 31.2, MCHC 32.9, RDW Std Deviation 48.2 H, RDW Coeff of Clay 14.0, Plt Count 182, MPV 10.8, Immature Gran % (Auto) 0.400, Neut % (Auto) 84.7 H, Lymph % (Auto) 7.5 L, Sharkey % (Auto) 6.9, Eos % (Auto) 0.4, Baso % (Auto) 0.1, Absolute Neuts (auto) 6.0, Absolute Lymphs (auto) 0.53 L, Nucleated RBC % 0, Sodium 138, Potassium 4.0, Chloride 108 H, Carbon Dioxide 25.0, Anion Gap 5, BUN 23 H, Creatinine 1.53 H, Estim Creat Clear Calc 33.60, Est GFR (MDRD) Af Amer 56 L, Est GFR (MDRD) Non-Af 47 L, BUN/Creatinine Ratio 15.0, Glucose 137 H, Calcium 8.7, Total Bilirubin 0.70, AST 15, ALT 13 L, Alkaline Phosphatase 110, Troponin I High Sens 15, Total Protein 6.5, Albumin 2.7 L, Globulin 3.8, Albumin/Globulin Ratio 0.7 L 08/22/23 10:13: Urine Color Yellow, Urine Clarity Sl. Cloudy, Urine pH 6.0, Ur Specific [place] 1.015, Urine Protein 30 H, Urine Glucose (UA) Normal, Urine Ketones Negative, Urine Occult Blood Negative, Urine Nitrite Negative, Urine Bilirubin Negative, Urine Urobilinogen Normal, Ur Leukocyte Esterase 25 H, Urine RBC 0 SEEN, Urine WBC 0 SEEN, Ur Squamous Epith Cells 0 SEEN, Urine Bacteria 0 SEEN, Urine Mucus 0 SEEN 08/22/23 11:31: B-Natriuretic Peptide 23.9 Imaging Radiology Impression Brain CT 08/22/23 09:45 IMPRESSION: Chronic involutional changes of the brain. The previously seen bilateral subdural hematomas have resolved. Electronically Signed: Tobin Ch MD at 11:08 EDT , Cervical Spine CT 08/22/23 09:47 IMPRESSION: Multilevel degenerative changes, as described above. Electronically Signed: Tobin Ch MD at 11:13 EDT , Chest X-Ray 08/22/23 10:40 IMPRESSION: Cardiomegaly and mild degree of CHF. Electronically Signed: Tobin Ch MD at 11:16 EDT , Knee X-Ray 08/22/23 10:40 IMPRESSION: Tiny joint effusion. Soft tissue swelling. Electronically Signed: Tobin Ch MD at 11:14 EDT , Assessment & Plan Assessment/Plan (1) Heart failure: (2) Fall: PLAN: Plan This is a 82-year-old gentleman brought to ER for recurrent fall and assessment looks like heart failure exacerbation. 1. New onset heart failure exacerbation, exact classification, acuity and type unclear: Patient denies any prior history of coronary artery disease or heart failure. Clinical findings and chest x-ray consistent with heart failure exacerbation. Furosemide 40 mg IV daily. Heart failure core measures including intake and output, fluid restriction less than 1500 mL, daily weight monitoring, kidney and electrolytes monitoring. 2D echo is ordered. 2. Acute debility due to recurrent fall, 4 times in last 1 week: PT and OT ordered. Pain control. Patient very fatigued and decreased functional status, even cannot stand by himself 3. Diabetes mellitus type II: The patient's oral hypoglycemics held. Patient is on long acting insulin, Accu-Cheks a.c. and at bedtime and covered with sliding scale insulin 3. Acute on chronic anemia: H&H 8.4/25% dropped from 10.9/32% from May 2023 since last admission. Monitor CBC 4. Hypertension - Blood pressure controlled, home medications continued with dose titration as needed according to BP 5. Dyslipidemia -Patient is on statin therapy, continued at home dose 6. Chronic kidney disease stage IIIb: BUNs/creatinine 23/1.53. Patient baseline creatinine runs around 1.6-1.65. 7. History of chronic subdural hematoma: CT head shows previously seen bilateral subdural hematoma have resolved. CT C-spine shows multilevel degenerative changes 8. Peripheral arterial disease ? Patient is on cilostazol aspirin and atorvastatin did continue 9. Obstructive sleep apnea ? Consistent use of PAP therapy encourage 10. DVT prophylaxis, high risk: Lovenox 30 mg subcu daily adjusted to creatinine clearance. Living will/advanced directive/end of life care: Patient does not have living will or advanced directive. The patient does not have power of workers compensation attorney for health. His is next of kin. After discussion of benefits/risks procedures involved with full code, DNR CC arrest and DNR CC, the patient and his [id number] present in the room opted for DNR CC arrest . Patient doesn't want artificial life support including intubation, tube feed, ventilator and/chest compression, central venous catheter, vasopressor and DC shock if needed Total time spent in [id number] encounter in discussion of advanced directive 17 minutes. Laboratory Results 08/22/23 10:00: WBC 7.1, RBC 2.69 L, Hgb 8.4 L, Hct 25.5 L, MCV 94.8 H, MCH 31.2, MCHC 32.9, RDW Std Deviation 48.2 H, RDW Coeff of Clay 14.0, Plt Count 182, MPV 10.8, Immature Gran % (Auto) 0.400, Neut % (Auto) 84.7 H, Lymph % (Auto) 7.5 L, Sharkey % (Auto) 6.9, Eos % (Auto) 0.4, Baso % (Auto) 0.1, Absolute Neuts (auto) 6.0, Absolute Lymphs (auto) 0.53 L, Nucleated RBC % 0 Sodium 138, Potassium 4.0, Chloride 108 H, Carbon Dioxide 25.0, Anion Gap 5, BUN 23 H, Creatinine 1.53 H, Estim Creat Clear Calc 33.60, Est GFR (MDRD) Af Amer 56 L, Est GFR (MDRD) Non-Af 47 L, BUN/Creatinine Ratio 15.0, Glucose 137 H, Calcium 8.7, Phosphorus 2.9, Magnesium 1.7, Total Bilirubin 0.70, AST 15, ALT 13 L, Alkaline Phosphatase 110, Troponin I High Sens 15, Total Protein 6.5, Albumin 2.7 L, Globulin 3.8, Albumin/Globulin Ratio 0.7 L 08/22/23 10:13: Urine Color Yellow, Urine Clarity Sl. Cloudy, Urine pH 6.0, Ur Specific [place] 1.015, Urine Protein 30 H, Urine Glucose (UA) Normal, Urine Ketones Negative, Urine Occult Blood Negative, Urine Nitrite Negative, Urine Bilirubin Negative, Urine Urobilinogen Normal, Ur Leukocyte Esterase 25 H, Urine RBC 0 SEEN, Urine WBC 0 SEEN, Ur Squamous Epith Cells 0 SEEN, Urine Bacteria 0 SEEN, Urine Mucus 0 SEEN 08/22/23 11:31: B-Natriuretic Peptide 23.9 Clinical Impression(s) from Imaging Studies Brain CT 08/22/23 09:45 IMPRESSION: Chronic involutional changes of the brain. The previously seen bilateral subdural hematomas have resolved. Electronically Signed: Tobin Ch MD at 11:08 EDT , Cervical Spine CT 08/22/23 09:47 IMPRESSION: Multilevel degenerative changes, as described above. Electronically Signed: Tobin Ch MD at 11:13 EDT , Chest X-Ray 08/22/23 10:40 IMPRESSION: Cardiomegaly and mild degree of CHF. Electronically Signed: Tobin Ch MD at 11:16 EDT , Knee X-Ray 08/22/23 10:40 IMPRESSION: Tiny joint effusion. Soft tissue swelling. Electronically Signed: Tobin Ch MD at 11:14 EDT , Charges/Coding Visit Charges Inpatient E&M: 59700 Init Hosp L3 Procedures Hospitalists Procedures: 39883 Advncd Care Plan 30 Min
--- NOTE | 2023-08-22 13:08 | NURSING ---
DR ZHANG FOR DR BELL
--- NOTE | 2023-08-22 13:18 | NURSING ---
MED SURG OBS [facility]
--- NOTE | 2023-08-22 14:12 | ECHOD_ITS ---
Reason For Study: DYSPNEA Procedure This was a 2D Doppler, Color Flow transthoracic echocardiogram. Exam performed portable in patient room. Left Ventricle Normal LV size. Left ventricular systolic function is normal. The left ventricular ejection fraction is 65 %. No regional wall motion abnormalities noted. Right Ventricle Normal RV size. Normal systolic function. Atria The left atrium is mildly enlarged. Normal right atrium. Mitral Valve Normal mitral valve. Tricuspid Valve Normal tricuspid valve. Moderate (2+) tricuspid valve insufficiency. Pulmonary artery systolic pressure is 72 mmHg. Moderate pulmonary hypertension. Aortic Valve Trisinus/trileaflet aortic valve. Mild focal aortic valve calcification. Pulmonic Valve Normal pulmonic valve. Great Vessels Normal aortic root. The pulmonary artery is normal size. Normal inferior vena cava. Pericardium/Pleural No pericardial effusion. MMode/2D Measurements & Calculations LVIDd: 4.2 cm IVSd: 1.4 cm LVOT diam: 1.9 cm LVIDs: 2.7 cm LVPWd: 1.0 cm LVOT area: 2.8 cm2 RVDd: 3.9 cm FS: 37.2 % Ao root diam: 2.6 cm LAV(MOD-bp): 68.9 ml LVAd ap4: 22.4 cm2 LAV(MOD-bp) Indexed: 38.9 ml/m2 LVLd ap4: 7.2 cm LAV(MOD-sp2): 59.1 ml EDV(MOD-sp4): 56.9 ml LAV(MOD-sp4): 71.7 ml EDV(sp4-el): 59.3 ml LVAs ap4: 10.6 cm2 LVLs ap4: 5.7 cm ESV(MOD-sp4): 17.6 ml ESV(sp4-el): 16.5 ml EF(MOD-sp4): 69.0 % EF(sp4-el): 72.3 % LVAd ap2: 22.1 cm2 SV(MOD-sp4): 39.3 ml SV(MOD-sp2): 38.8 ml LVLd ap2: 7.4 cm EDV(MOD-sp2): 56.0 ml EDV(sp2-el): 55.8 ml LVAs ap2: 10.8 cm2 LVLs ap2: 6.1 cm ESV(MOD-sp2): 17.3 ml ESV(sp2-el): 16.2 ml EF(MOD-sp2): 69.2 % SV(sp4-el): 42.9 ml LA dimension(2D): 4.2 cm LA A4 area: 22.9 cm2 RA A4 area: 13.3 cm2 TAPSE: 1.9 cm Time Measurements MV dec time: 0.17 sec Doppler Measurements & Calculations MV E max mane: 114.0 cm/sec Lat Peak E' Mane: 7.1 cm/sec Med Peak E' Mane: 7.8 cm/sec MV A max mane: 125.1 cm/sec E/E' lat: 16.0 E/E' med: 14.7 MV E/A: 0.91 Ao V2 max: 219.7 cm/sec LV V1 max: 163.2 cm/sec MV dec slope: 661.1 cm/sec2 Ao max P.3 mmHg LV V1 max P.7 mmHg Ao V2 mean: 149.1 cm/sec LV V1 mean P.0 mmHg Ao mean P.1 mmHg LV V1 mean: 104.0 cm/sec Ao V2 VTI: 45.0 cm LV V1 VTI: 29.8 cm AV (velocity ratio): 0.66 JUSTIN(I,D): 1.9 cm2 JUSTIN(V,D): 2.1 cm2 SV(LVOT): 84.4 ml PA V2 max: 135.8 cm/sec TR max mane: 413.1 cm/sec PA max PG (full): 2.4 mmHg TR max P.3 mmHg ECHO/Echo Complete Interpretation Summary Pulmonary artery systolic pressure is 72 mmHg. Moderate pulmonary hypertension. Normal LV size. Left ventricular systolic function is normal. The left ventricular ejection fraction is 65 %. Ordering Physician: Jerome Morales Referring Physician: Agnes Suazo Performed By: Cristine Castro RDCS and Student
[2023-08-22 14:33] LABS: Magnesium 1.7 mg/dL (1.6-2.6); Phosphorus 2.9 mg/dL (2.5-4.9)
[2023-08-22] MEDS: Metoprolol Tartrate 25 MG Tablet PO ×2 (15:21→22:18)
[2023-08-22] MEDS: Furosemide 40 MG/4 ML Vial IV (15:22)
[2023-08-22] MEDS: 0.9% Saline Lock 10 ML Syringe IV (15:22)
[2023-08-22] MEDS: Enoxaparin 40 MG/0.4 ML Syringe SC (15:22)
[2023-08-22 16:24] LABS: Bedside Glucose 130 mg/dL (74-106)
[2023-08-22] MEDS: Insulin Glargine-YFGN 100 UNIT/ML Pen 40 UNIT SC (22:16)
[2023-08-22] MEDS: Insulin Lispro 100 UNIT/ML INSULN.PEN SC (22:17)
[2023-08-22 22:18] LABS: Bedside Glucose 199 mg/dL (74-106)
[2023-08-22] MEDS: Menthol/Lanolin/Calamine/Znox 113 GM Tube 1 APPLIC TOPICAL (22:19)
[2023-08-22] MEDS: Nystatin Powder 15gm Bottle 1 APPLIC TOPICAL (22:19)
[2023-08-22] MEDS: Atorvastatin Calcium 40 MG Tablet PO (22:19)
[2023-08-23] VITALS (7 sets, daily range): BP systolic 109–178; BP diastolic 72–94; PULSE 76–88; RESP 16–18; TEMP 36.3–36.8; O2SAT 93–97; BMI 27.5; BMI 27.2
[2023-08-23] MEDS: 0.9% Saline Lock 10 ML Syringe IV ×2 (04:10→12:03)
[2023-08-23 06:58] LABS: Bedside Glucose 78 mg/dL (74-106)
[2023-08-23 07:01] LABS: Anion Gap 5 (5-15); BUN 21 mg/dL (7-18); BUN/Creat Ratio 16.2 RATIO (10-20); Calcium,Total 8.4 mg/dL (8.5-10.1); Chloride 107 mmol/L (98-107); Cholesterol 108 mg/dL (200); EST Glomerular Filtration Rate 56 mL/min (>60); Est Glom Filt Rate - Afr Amer 68 mL/min (>60); Estimated Creatinine Clearance 38.63 ml/min; Glucose 61 mg/dL (74-106); High Density Lipoprotein 51 mg/dL; Potassium 3.5 mmol/L (3.5-5.1); Sodium Level 139 mmol/L (136-145); Thyroid Stim Hormone (TSH) 0.49 uIU/mL (0.358-3.74); Triglycerides 52 mg/dL; Very Low Density Lipoprotein 10 mg/dL (5-40)
--- NOTE | 2023-08-23 07:35 | PCM.PN.HOSP ---
Reason for Visit Reason for Visit: Diagnoses Heart failure, unspecified (08/22/23) Unspecified fall, initial encounter (08/22/23) Subjective Subjective Patient is an 82-year-old gentleman with multiple comorbidities who presented following a fall and assessment of adult failure to thrive made. Patient was also assessed to be in acute congestive heart failure admitted to a monitored bed for further management Objective Data Objective Data Vital Signs: Vital Signs Temp Pulse Resp BP Pulse Ox O2 Del Method 97.8 F 76 18 157/72 H 95 Room Air 08/23/23 03:58 08/23/23 03:58 08/23/23 03:58 08/23/23 03:58 08/23/23 03:58 08/23/23 04:01 Oxygen Delivery Method Room Air Weight: 70.5 kg Body Mass Index (BMI) 27.5 Intake & Output: Intake and Output for Last 24 Hours 08/21/23 08/22/23 08/23/23 23:59 23:59 23:59 Intake Total 240 / 580 340 / 340 Output Total 650 / 1800 1600 / 1600 Balance -410 / -1220 -1260 / -1260 Lab / Micro Data 08/23/23 05:55 08/23/23 05:55 Labs: Laboratory Results - last 24 hr 08/22/23 10:00: WBC 7.1, RBC 2.69 L, Hgb 8.4 L, Hct 25.5 L, MCV 94.8 H, MCH 31.2, MCHC 32.9, RDW Std Deviation 48.2 H, RDW Coeff of [place] 14.0, Plt Count 182, MPV 10.8, Immature Gran % (Auto) 0.400, Neut % (Auto) 84.7 H, Lymph % (Auto) 7.5 L, [place] % (Auto) 6.9, Eos % (Auto) 0.4, Baso % (Auto) 0.1, Absolute Neuts (auto) 6.0, Absolute Lymphs (auto) 0.53 L, Nucleated RBC % 0, Sodium 138, Potassium 4.0, Chloride 108 H, Carbon Dioxide 25.0, Anion Gap 5, BUN 23 H, Creatinine 1.53 H, Estim Creat Clear Calc 33.60, Est GFR (MDRD) Af Amer 56 L, Est GFR (MDRD) Non-Af 47 L, BUN/Creatinine Ratio 15.0, Glucose 137 H, Calcium 8.7, Phosphorus 2.9, Magnesium 1.7, Total Bilirubin 0.70, AST 15, ALT 13 L, Alkaline Phosphatase 110, Troponin I High Sens 15, Total Protein 6.5, Albumin 2.7 L, Globulin 3.8, Albumin/Globulin Ratio 0.7 L 08/22/23 10:13: Urine Color Yellow, Urine Clarity Sl. Cloudy, Urine pH 6.0, Ur Specific [place] 1.015, Urine Protein 30 H, Urine Glucose (UA) Normal, Urine Ketones Negative, Urine Occult Blood Negative, Urine Nitrite Negative, Urine Bilirubin Negative, Urine Urobilinogen Normal, Ur Leukocyte Esterase 25 H, Urine RBC 0 SEEN, Urine WBC 0 SEEN, Ur Squamous Epith Cells 0 SEEN, Urine Bacteria 0 SEEN, Urine Mucus 0 SEEN 08/22/23 11:31: B-Natriuretic Peptide 23.9 08/22/23 16:05: POC Glucose 130 H 08/22/23 21:52: POC Glucose 199 H 08/23/23 05:55: WBC Cancelled, Corrected WBC Cancelled, RBC Cancelled, Hgb Cancelled, Hct Cancelled, MCV Cancelled, MCH Cancelled, MCHC Cancelled, RDW Std Deviation Cancelled, RDW Coeff of Clay Cancelled, Plt Count Cancelled, MPV Cancelled, Immature Gran % (Auto) Cancelled, Neut % (Auto) Cancelled, Lymph % (Auto) Cancelled, [place] % (Auto) Cancelled, Eos % (Auto) Cancelled, Baso % (Auto) Cancelled, Absolute Neuts (auto) Cancelled, Absolute Lymphs (auto) Cancelled, Total Counted Cancelled, Neutrophils % (Manual) Cancelled, Band Neutrophils % Cancelled, Lymphocytes % (Manual) Cancelled, Monocytes % (Manual) Cancelled, Eosinophils % (Manual) Cancelled, Basophils % (Manual) Cancelled, Metamyelocytes % Cancelled, Myelocytes % Cancelled, Promyelocytes % Cancelled, Blast Cells % Cancelled, Plasma Cell % (Manual) Cancelled, Other Cells % Cancelled, Nucleated RBC % Cancelled, Nucleated RBCs/100 WBC Cancelled, Differential Comment Cancelled, Diff Path Review Cancelled, Hypersegmented Neuts Cancelled, Atypical Lymphocytes Cancelled, Reactive Lymphocytes Cancelled, Smudge Cells Cancelled, Toxic Granulation Cancelled, Toxic Vacuolation Cancelled, Dohle Bodies Cancelled, Diana Rods Cancelled, Platelet Estimate Cancelled, Plt Morphology Comment Cancelled, RBC Morphology Cancelled 08/23/23 05:55: RBC Morphology Cancelled, Polychromasia Cancelled, Hypochromasia Cancelled, Basophilic Stippling Cancelled, Anisocytosis Cancelled, Microcytosis Cancelled, Macrocytosis Cancelled, Spherocytes Cancelled, Sickle Cells Cancelled, Target Cells Cancelled, Tear Drop Cells Cancelled, Ovalocytes Cancelled, Stomatocytes Cancelled, [place]-Tornado Bodies Cancelled, Brenda Cells Cancelled, Bite Cells Cancelled, Crenated Cell Cancelled, Acanthocytes (Spur) Cancelled, Rouleaux Cancelled, Schistocytes Cancelled, Sodium 139, Potassium 3.5, Chloride 107, Carbon Dioxide 27.0, Anion Gap 5, BUN 21 H, Creatinine 1.30, Estim Creat Clear Calc 38.63, Est GFR (MDRD) Af Amer 68, Est GFR (MDRD) Non-Af 56 L, BUN/Creatinine Ratio 16.2, Glucose 61 L, Calcium 8.4 L, Triglycerides 52, Cholesterol 108, LDL Cholesterol 47, VLDL Cholesterol 10, HDL Cholesterol 51, TSH 0.49 08/23/23 06:32: POC Glucose 78 Radiography Diagnostic Testing: Radiology Impression Brain CT 08/22/23 09:45 IMPRESSION: Chronic involutional changes of the brain. The previously seen bilateral subdural hematomas have resolved. Electronically Signed: Tobin Ch MD at 11:08 EDT , Cervical Spine CT 08/22/23 09:47 IMPRESSION: Multilevel degenerative changes, as described above. Electronically Signed: Tobin Ch MD at 11:13 EDT , Chest X-Ray 08/22/23 10:40 IMPRESSION: Cardiomegaly and mild degree of CHF. Electronically Signed: Tobin Ch MD at 11:16 EDT , Knee X-Ray 08/22/23 10:40 IMPRESSION: Tiny joint effusion. Soft tissue swelling. Electronically Signed: Tobin Ch MD at 11:14 EDT , Echocardiogram 08/22/23 14:12 Interpretation Summary Pulmonary artery systolic pressure is 72 mmHg. Moderate pulmonary hypertension. Normal LV size. Left ventricular systolic function is normal. The left ventricular ejection fraction is 65 %. Ordering Physician: Jerome Morales Referring Physician: Agnes Suazo Performed By: Cristine Castro RDCS and Student Physical Exam Narrative GENERAL: cooperative HEENT: Atraumatic; normocephalic EYES; Anicteric, Normal Conjunctiva NECK; supple, normal thyroid, RESPIRATORY: Diminished to auscultation CARDIOVASCULAR: Regular S1 S2, GI: soft, normoactive bowel sounds, : No Renal angle tenderness; EXTREMITIES: edema, no clubbing, MUSCULOSKELETAL: no muscle wasting NEURO: Awake; no lateralizing signs. SKIN: No Rash Assessment & Plan Assessment/Plan (1) Heart failure: (2) Fall: PLAN: Plan Patient is an 82-year-old gentleman with multiple comorbidities who presented following a fall and assessment of adult failure to thrive made. Patient was also assessed to be in acute congestive heart failure admitted to a monitored bed for further management 1. Acute congestive heart failure with preserved ejection fraction - Patient admitted to monitored bed, managed with strict input and output, daily weight, fluid restriction, low-sodium diet as well as diuretic therapy with furosemide 2D echo obtained did reveal Pulmonary artery systolic pressure is 72 mmHg. Moderate pulmonary hypertension. Normal LV size.Left ventricular systolic function is normal.The left ventricular ejection fraction is 65 %. -In view of patient high PSAP ordered CTA of the chest to rule out pulmonary embolism 2. Physical deconditioning with falls - Requested for PT OT eval and social work coordinator to assist with discharge planning 3. Diabetes mellitus type II -patient's oral hypoglycemics held. Placed on long acting insulin, Accu-Cheks a.c. and at bedtime and covered with sliding scale insulin 4. Anemia - Secondary to chronic disorder monitoring H&H and transfuse if patient becomes symptomatic or hemoglobin falls below 7 5. Hypertension - Blood pressure controlled, home medications continued with dose adjustment as needed 6. Dyslipidemia -Patient is on statin therapy, continued at home dose 7. Chronic kidney disease stage III ? Kidney function at baseline 8. Peripheral arterial disease ? Patient is on aspirin and atorvastatin did continue 9. Obstructive sleep apnea ? Consistent use of PAP therapy encourage 10. DVT prophylaxis ? SC Lovenox Time spent in the patient's overall evaluation,decision-making process, review of diagnostic data, adjustment of management, discussion with other providers, nursing nursing and ancillary staff involved in patient's care documentation, 52 Minutes Charges/Coding Visit Charges Inpatient E&M: 08919 [facility] Hosp L3
[2023-08-23 08:09] LABS: Absolute Lymphocyte Count 0.72 X10^3/uL (0.83-4.51); Absolute Neutrophil Count 3.6 X10^3/uL (2.0-7.7); Basophil# 0.01 X10^3/uL; Basophil% 0.2 % (0-1); Eosinophil# 0.16 X10^3/uL; Eosinophils% 3.2 % (0-5); Hematocrit 23.4 % (40-54); Hemoglobin 7.8 g/dL (13.0-16.5); Lymphocyte # 0.72 X10^3/ul (0.83-4.51); Lymphocyte % 14.2 % (19-41); Mean Corp Hgb Conc 33.3 g/dL (32-36); Mean Corpuscular Hgb 31.6 pg (27.0-32.0); Mean Corpuscular Volume 94.7 fL (80-94); Mean Platelet Vol. 11.2 fl (6.2-12.0); Monocyte# 0.57 X10^3/uL; Monocyte% 11.2 % (0-10); NRBC Flagged by Analyzer 0 % (0-5); Platelet Count 179 K/mm3 (150-450); RBC Distribution Width CV 13.7 % (11.6-14.6); RBC Distribution Width SD 47.1 fl (35.1-43.9); Red Blood Count 2.47 M/mm3 (4.6-6.2); White Blood Count 5.1 K/mm3 (4.4-11.0)
--- NOTE | 2023-08-23 08:54 | CASEMGMT ---
Discharge Planning A list of?SNF providers including quality and resource use data and consistent with the patient's preferred geographic region, medical needs, and insurance network was created in [employer] Guide.? This list was provided to the SW. Leeanne Herndon Discharge Planning Asst.
--- NOTE | 2023-08-23 10:00 | CASEMGMT ---
SW met with patient. Introduced self and role at [facility]. JEAN CARLOS told patient SW is aware their first choice for penitentiary is [facility]. However, should [facility] not be able to take him SW brought a list of other facilities that take his insurance. SW provided patient with a list of senior care facility providers including quality and resource use data and consistent with patient?s preferred geographic region, medical needs, and insurance network were provided from the CarePort Guide. JEAN CARLOS told patient once therapy sees him a referral will be made to [facility]. Maxine Cárdenas RAIL OPERATOR NABOR
[2023-08-23] MEDS: Enoxaparin 40 MG/0.4 ML Syringe SC (10:46)
[2023-08-23] MEDS: Metoprolol Tartrate 25 MG Tablet PO ×2 (10:47→23:20)
[2023-08-23] MEDS: Aspirin E.C. 81 MG Tablet PO (10:47)
[2023-08-23] MEDS: Furosemide 40 MG/4 ML Vial IV (10:47)
[2023-08-23] MEDS: Nystatin Powder 15gm Bottle 1 APPLIC TOPICAL ×2 (10:49→23:20)
--- NOTE | 2023-08-23 11:12 | CT_ITS ---
STUDY: CTA CHEST REASON FOR EXAM: Male, 82 years old. HIGH PASP R/O PE RADIATION DOSAGE (If Supplied By Facility): CTDIvol = ( 19.57 ) mGy, DLP = ( 474.73 ) mGycm TECHNIQUE: The examination was performed with the intravenous administration of IV 100mL Isovue-370. Post-processing of the angiographic images was performed, with multiplanar reformation and 3D reconstruction. Individualized dose optimization techniques were used for this CT. COMPARISON: Comparison is made with prior chest radiograph dated August 22, 2023. FINDINGS: Diffuse heterogeneous enlargement of both lobes of the thyroid gland worse on the left side with substernal extension. Normal enhancement of the main pulmonary artery and right and left pulmonary arteries. Normal enhancement of the bilateral peripheral pulmonary arteries. There is no demonstrated pulmonary embolism. Normal thoracic aorta and visualized great vessels. There is no demonstrated aortic dissection. There are calcifications of the coronary arteries. Small calcified mediastinal lymph nodes. Normal hilar regions. Normal visualized trachea and bronchi. The lungs are well expanded. Normal pulmonary parenchyma. Calcified bilateral pleural plaques more prominent in the left hemithorax. Normal chest wall structures. There are degenerative changes of thoracic spine. Small layering gallstones are seen. CT/CTA Chest W/WO Contrast IMPRESSION: No evidence of pulmonary embolism. Calcified bilateral pleural plaques worse in the left hemithorax. Heterogeneous enlargement of the thyroid gland worse on the left side with evidence of a substernal extension. Electronically Signed: Tobin Ch MD at 13:04 EDT ,
--- NOTE | 2023-08-23 13:39 | CASEMGMT ---
Addendum entered by Leeanne Herndon 08/24/23 11:06: [facility] accepted. Updates sent for precert to be started. Patient will need a covid before admitting. JEAN CARLOS updated. Leeanne Herndon DC Planning Asst. Addendum entered by Leeanne Herndon 08/24/23 09:06: Call placed to [facility] to check on status of referral. Per Ghazala, she had not had a chance to review it and would look at it after her morning meeting. Reiterated that patient was ready for discharge. JEAN CARLOS updated. Leeanne Herndon DC Planning Asst. Original Note: Discharge Planning Referral sent to [facility] via CarePort. Leeanne Herndon DC Planning Asst.
--- NOTE | 2023-08-23 14:26 | WOUNDNOTE ---
Was asked by nursing to see patient. patient has had some falls are home prior to admission. removed the wraps and HOWARD wraps from the legs. all areas are scabbed over. no drainage noted. pt does not have much edema to the legs. will leave wraps and HOWARD wraps off. there are some scabbed over skin tears to bilateral arms. no dressings needed at this time. will leave all areas JARED. pt very appreciative. did not want dressings on. will monitor. see wound photos.
--- NOTE | 2023-08-23 15:05 | WOUNDNOTE ---
wound photo: left forearm
--- NOTE | 2023-08-23 15:06 | WOUNDNOTE ---
wound photo: right forearm
--- NOTE | 2023-08-23 15:06 | WOUNDNOTE ---
wound photo: left lower leg/knee
--- NOTE | 2023-08-23 15:07 | WOUNDNOTE ---
wound photo: right lower leg
--- NOTE | 2023-08-23 15:08 | WOUNDNOTE ---
wound photo: right 2nd toe
--- NOTE | 2023-08-23 15:34 | CHAPLAIN ---
Type of Pastoral Visit _x__ Initial Visit ___ Follow-up Visit ___ On-call Visit ___ General Patient Visit ___ Spiritual Assessment ___ Family Conference ___ Bereavement ___ Rapid Response ___ Code Blue ___ Other (describe below) Pastoral Care Referral From _x__ Patient ___ Family ___ Nurse ___ Physician ___ Leather Tanner ___ Rug Setter Velvet ___ Other (describe below) Sacrament/Intervention _x__ Active listening ___ Anointing ___ Mandaen ___ Bereavement ___ Communion _x__ Carrie exploration ___ _x__ Life review _x__ Prayer ___ Reconciliation ___ Sacrament of Sick _x__ Supportive presence ___ Wedding ___ Other (describe below) Pastoral Comments patient is very welcoming and began to ask questions about the unmanned aircraft systems roboticist; pt was interested in where this unmanned aircraft systems roboticist lived and when discovered he had many comments and stories about relatives there and in many places; pt speaks of his heritage and life; pt has a connection to a jain but does not attend anymore, however he is reconsidering that 'once I can get back on my feet'; pt acknowledges that he will have a short term stay in an ECF but has goal of going home with his ; pt is talkative and invites this unmanned aircraft systems roboticist to say a prayer for healing my legs;
[2023-08-23] MEDS: Insulin Lispro 100 UNIT/ML INSULN.PEN SC (16:52)
[2023-08-23 18:05] LABS: Bedside Glucose 366 mg/dL (74-106)
[2023-08-23 18:05] LABS: Bedside Glucose 132 mg/dL (74-106)
[2023-08-23] MEDS: Atorvastatin Calcium 40 MG Tablet PO (23:20)
[2023-08-23] MEDS: Menthol/Lanolin/Calamine/Znox 113 GM Tube 1 APPLIC TOPICAL (23:20)
[2023-08-24] VITALS (8 sets, daily range): BP systolic 123–167; BP diastolic 66–71; PULSE 62–77; RESP 16–18; TEMP 36–36.8; O2SAT 94–99; BMI 27.6
[2023-08-24 00:03] LABS: Bedside Glucose 114 mg/dL (74-106)
[2023-08-24] MEDS: Insulin Lispro 100 UNIT/ML INSULN.PEN SC ×4 (06:31→21:58)
[2023-08-24 06:51] LABS: Bedside Glucose 250 mg/dL (74-106)
[2023-08-24] MEDS: Furosemide 40 MG/4 ML Vial IV (09:02)
[2023-08-24] MEDS: Metoprolol Tartrate 25 MG Tablet PO ×2 (09:02→21:59)
[2023-08-24] MEDS: Menthol/Lanolin/Calamine/Znox 113 GM Tube 1 APPLIC TOPICAL ×2 (09:03→21:59)
[2023-08-24] MEDS: Enoxaparin 40 MG/0.4 ML Syringe SC (09:03)
[2023-08-24] MEDS: Aspirin E.C. 81 MG Tablet PO (09:03)
[2023-08-24] MEDS: Senna/Docusate Sodium 1 Tablet 2 TABLET PO (09:03)
--- NOTE | 2023-08-24 11:00 | CASEMGMT ---
[facility] accepted patient and will start pre-cert. JEAN CARLOS called patient's Berenice (goes by Faiza) and let her know [facility] accepted patient. Faiza asked if this will be covered by insurance. JEAN CARLOS let Faiza know information is being submitted to insurance. Once JEAN CARLOS has an answer JEAN CARLOS can let her know. Plan: [facility] pending insurance approval. Maxine Cárdenas HAULING CONTRACTOR NABOR
[2023-08-24 12:04] LABS: Bedside Glucose 356 mg/dL (74-106)
[2023-08-24 17:18] LABS: Bedside Glucose 332 mg/dL (74-106)
--- NOTE | 2023-08-24 17:40 | PN.HOSP_ITS ---
Reason for Visit Reason for Visit: Diagnoses Heart failure, unspecified (08/22/23) Unspecified fall, initial encounter (08/22/23) Subjective Subjective Patient was seen and examined today, he has no complaints of shortness of breath, chest pain, or focal weakness. We are currently awaiting approval for him to go to an extended care facility for short-term rehab services. Objective Data Objective Data Vital Signs: Vital Signs Temp Pulse Resp BP Pulse Ox O2 Del Method 97.5 F L 77 16 123/66 H 99 Room Air 08/24/23 15:04 08/24/23 15:04 08/24/23 15:04 08/24/23 15:04 08/24/23 15:04 08/24/23 15:08 Oxygen Delivery Method Room Air Weight: 70.7 kg Body Mass Index (BMI) 27.6 Intake & Output: Intake and Output for Last 24 Hours 08/22/23 08/23/23 08/24/23 23:59 23:59 23:59 Intake Total 240 / 580 640 / 890 700 / 700 Output Total 650 / 1800 2600 / 2850 1200 / 1200 Balance -410 / -1220 -1960 / -1960 -500 / -500 Lab / Micro Data 08/23/23 05:55 08/23/23 05:55 Labs: Laboratory Results - last 24 hr 08/23/23 12:53: POC Glucose 132 H 08/23/23 16:50: POC Glucose 366 H 08/23/23 23:18: POC Glucose 114 H 08/24/23 06:30: POC Glucose 250 H 08/24/23 11:42: POC Glucose 356 H 08/24/23 16:56: POC Glucose 332 H Physical Exam Const alert and no apparent distress Constitutional Narrative: Patient has evidence of cognitive impairment but answers questions appropriately General Appearance: cooperative, well kempt and well developed Orientation / Consciousness: awake, oriented to person and oriented to place HEENT normocephalic, head/scalp atraumatic and moist oral mucous membranes Eyes PERRL, EOMs intact bilaterally and conjunctivae normal Neck supple, no JVD and thyroid normal General: trachea midline Resp normal respiratory effort, no retractions, no use of accessory muscles and clear to auscultation bilaterally Auscultation: Negative for rales, rhonchi or wheezes Cardio regular rate, regular rhythm, S1 normal heart sound, S2 normal heart sound, no murmurs, no rub and no gallops GI normal to inspection, nondistended, normoactive bowel sounds, soft to palpation, non-tender and non-distended Extremity no clubbing, cyanosis or edema Skin no rashes or lesions noted General Skin Exam: no breakdown Neuro CN's II-XII intact bilaterally, no focal motor deficits and no sensory deficits noted Neuro Narrative: Patient has evidence of cognitive impairment which appears to be mild, he answers questions appropriately Sensorium / Orientation: awake and alert Speech: speech normal Psych affect normal Assessment & Plan Assessment/Plan (1) Heart failure: PLAN: Plan 1. Acute heart failure with preserved ejection fraction-continue present medication, patient is on room air #2 moderate pulmonary hypertension-continue diuresis, complicates care, management, recovery, and prognosis #3 generalized debility-PT and OT are seeing patient, he will need temporary placement in a senior care facility for short-term rehab services. #4 chronic kidney disease stage IIIa-complicates care, management, recovery, and prognosis #5 intellectual disability-complicates care, management, recovery, and prognosis #6 chronic anemia-etiology unclear, patient's CBC will be rechecked tomorrow, I will order iron studies Total clinical time spent by myself addressing the patient's medical issues, reviewing all of his data, and collaborating with patient's care team: 55-minute Charges/Coding Visit Charges Inpatient E&M: 55454 Subs Hosp L2
[2023-08-24] MEDS: Insulin Glargine-YFGN 100 UNIT/ML Pen 40 UNIT SC (21:58)
[2023-08-24] MEDS: Atorvastatin Calcium 40 MG Tablet PO (21:59)
[2023-08-24] MEDS: Nystatin Powder 15gm Bottle 1 APPLIC TOPICAL (21:59)
[2023-08-24 22:26] LABS: Bedside Glucose 240 mg/dL (74-106)
[2023-08-25 03:50] VITALS: BP 147/58; PULSE 67; RESP 18; TEMP 36.3; O2SAT 95
[2023-08-25 04:13] VITALS: BMI 27.6
[2023-08-25 05:14] LABS: Hematocrit 23.2 % (40-54); Hemoglobin 8.1 g/dL (13.0-16.5)
[2023-08-25 05:29] LABS: Ferritin 252 ng/mL (26-388); Iron 21 ug/dL (65-175); Iron Binding Capacity,Total 216 ug/dL (250-450); PERCENT IRON SATURATION 9.7 % (15.0-55.0)
[2023-08-25 07:25] VITALS: O2SAT 94
[2023-08-25 07:28] LABS: Bedside Glucose 84 mg/dL (74-106)
[2023-08-25 09:25] VITALS: BP 159/62; PULSE 73; RESP 18; TEMP 36.6; O2SAT 97
[2023-08-25] MEDS: 0.9% Saline Lock 10 ML Syringe IV (09:25)
[2023-08-25] MEDS: Aspirin E.C. 81 MG Tablet PO (09:25)
[2023-08-25] MEDS: Enoxaparin 40 MG/0.4 ML Syringe SC (09:25)
[2023-08-25] MEDS: Furosemide 40 MG/4 ML Vial IV (09:25)
[2023-08-25] MEDS: Metoprolol Tartrate 25 MG Tablet PO ×2 (09:25→21:27)
[2023-08-25] MEDS: Sodium Ferric Gluconat/Sucrose 250 MG in 0.9% Normal Saline (250mL Bag) 250 ML 135 MG IV (09:25)
[2023-08-25] MEDS: Nystatin Powder 15gm Bottle 1 APPLIC TOPICAL ×2 (09:26→21:24)
[2023-08-25] MEDS: Menthol/Lanolin/Calamine/Znox 113 GM Tube 1 APPLIC TOPICAL ×2 (09:26→21:24)
--- NOTE | 2023-08-25 10:35 | CASEMGMT ---
Discharge Planning Updates sent to [facility] as requested. Precert is still pending. Leeanne Herndon DC Planning Asst.
[2023-08-25] MEDS: Insulin Lispro 100 UNIT/ML INSULN.PEN SC ×3 (11:13→21:27)
[2023-08-25 11:32] LABS: Bedside Glucose 156 mg/dL (74-106)
--- NOTE | 2023-08-25 12:16 | CASEMGMT ---
Kunal Ann said patient's case is going to MD review. Await answer. Maxine Cárdenas SOLUTIONS CONSULTANT NABOR
--- NOTE | 2023-08-25 15:02 | CASEMGMT ---
JEAN CARLOS called patient's Faiza and let her know that insurance may not for patient to go to [facility]. JEAN CARLOS explained the options would be private pay at the fdc, apply for Medicaid, or go home with home health. Faiza said private paying is out of the question and we do not do Medicaid. Faiza would be open to home health. Faiza said that [facility] was supposed to come out, but she looked them up and they don't even go to their area. JEAN CARLOS told Faiza JEAN CARLOS will notify them when JEAN CARLOS gets an answer. JEAN CARLOS also spoke with patient and updated him as well. Maxine Cárdenas MSW NABOR
[2023-08-25 15:25] VITALS: BP 157/63; PULSE 67; RESP 18; TEMP 36.7; O2SAT 97
--- NOTE | 2023-08-25 15:39 | CASEMGMT ---
Discharge Planning A list of?HH providers including quality and resource use data and consistent with the patient's preferred geographic region, medical needs, and insurance network was created in CarePort Guide.? This list was provided to the Leeanne Herndon Discharge Planning Asst.
--- NOTE | 2023-08-25 16:04 | CASEMGMT ---
JEAN CARLOS called Ghazala at [facility] and she has not heard back from insurance. JEAN CARLOS notified patient's that there is still no answer from insurance. JEAN CARLOS will also notify patient. JEAN CARLOS/CURTIS CM will follow up tomorrow. Plan: SNF if approved and if denied home with home health. Maxine Cárdenas JUNIOR TECHNICAL WRITER NABOR
[2023-08-25 16:19] LABS: Bedside Glucose 48 mg/dL (74-106)
[2023-08-25 16:19] LABS: Bedside Glucose 46 mg/dL (74-106)
[2023-08-25 16:38] LABS: Bedside Glucose 354 mg/dL (74-106)
--- NOTE | 2023-08-25 16:46 | PN.HOSP_ITS ---
Reason for Visit Reason for Visit: Diagnoses Heart failure, unspecified (08/22/23) Unspecified fall, initial encounter (08/22/23) Subjective Subjective Patient was seen and examined today, he states he feels bored, we have not yet heard from his insurance carrier concerning his approval to go to an inpatient retirement facility for short-term rehab services. Patient's hemoglobin today was 8.1, his iron level was low, I have elected to give him IV Venofer for iron deficiency anemia. Objective Data Objective Data Vital Signs: Vital Signs Temp Pulse Resp BP Pulse Ox O2 Del Method 98.1 F 67 18 157/63 H 97 Room Air 08/25/23 15:25 08/25/23 15:25 08/25/23 15:25 08/25/23 15:25 08/25/23 15:25 08/25/23 15:25 Oxygen Delivery Method Room Air Weight: 70.7 kg Body Mass Index (BMI) 27.6 Intake & Output: Intake and Output for Last 24 Hours 08/23/23 08/24/23 08/25/23 23:59 23:59 23:59 Intake Total 640 / 890 1300 / 1550 970 / 970 Output Total 2600 / 2850 1400 / 1900 1600 / 1600 Balance -1960 / -1960 -100 / -350 -630 / -630 Lab / Micro Data 08/25/23 04:35 08/23/23 05:55 Labs: Laboratory Results - last 24 hr 08/24/23 16:56: POC Glucose 332 H 08/24/23 21:56: POC Glucose 240 H 08/25/23 04:35: Hgb 8.1 L, Hct 23.2 L, Iron 21 L, TIBC 216 L, Iron Saturation 9.7 L, Ferritin 252 08/25/23 06:44: POC Glucose 48 L 08/25/23 06:47: POC Glucose 46 L 08/25/23 07:09: POC Glucose 84 08/25/23 11:12: POC Glucose 156 H 08/25/23 16:17: POC Glucose 354 H Micro: Microbiology 08/25/23 09:30 Nasal Secretion SARS-CoV-2 Antigen (Rapid) - Final Physical Exam Narrative alert and no apparent distress Constitutional Narrative: Patient has evidence of cognitive impairment but answers questions appropriately General Appearance: cooperative, well kempt and well developed Orientation / Consciousness: awake, oriented to person and oriented to place HEENT normocephalic, head/scalp atraumatic and moist oral mucous membranes Eyes PERRL, EOMs intact bilaterally and conjunctivae normal Neck supple, no JVD and thyroid normal General: trachea midline Resp normal respiratory effort, no retractions, no use of accessory muscles and clear to auscultation bilaterally Auscultation: Negative for rales, rhonchi or wheezes Cardio regular rate, regular rhythm, S1 normal heart sound, S2 normal heart sound, no murmurs, no rub and no gallops GI normal to inspection, nondistended, normoactive bowel sounds, soft to palpation, non-tender and non-distended Extremity no clubbing, cyanosis or edema Skin no rashes or lesions noted General Skin Exam: no breakdown Neuro CN's II-XII intact bilaterally, no focal motor deficits and no sensory deficits noted Neuro Narrative: Patient has evidence of cognitive impairment which appears to be mild, he answers questions appropriately Sensorium / Orientation: awake and alert Speech: speech normal Psych affect normal Assessment & Plan Assessment/Plan (1) Fall: (2) Heart failure: PLAN: Plan 1. Acute heart failure with preserved ejection fraction-continue present medication, patient is on room air, patient's Lasix was changed to oral Lasix today #2 moderate pulmonary hypertension-continue diuresis, complicates care, management, recovery, and prognosis, patient is on Lasix #3 generalized debility-PT and OT are seeing patient, he will need temporary placement in a retirement facility for short-term rehab services. #4 chronic kidney disease stage IIIa-complicates care, management, recovery, and prognosis #5 intellectual disability-complicates care, management, recovery, and prognosis #6 chronic anemia-iron studies indicate iron deficiency anemia, patient will receive Venofer today Total clinical time spent by myself addressing the patient's medical issues, reviewing all of his data, and collaborating with patient's care team: 35- minutes Charges/Coding Visit Charges Inpatient E&M: 13164 Subs Hosp L2
[2023-08-25 20:26] VITALS: BP 166/52; PULSE 74; RESP 18; TEMP 36.8; O2SAT 98
[2023-08-25] MEDS: Insulin Glargine-YFGN 100 UNIT/ML Pen 40 UNIT SC (21:26)
[2023-08-25 21:27] VITALS: BP 166/52; PULSE 74
[2023-08-25] MEDS: Atorvastatin Calcium 40 MG Tablet PO (21:27)
[2023-08-25 21:51] LABS: Bedside Glucose 439 mg/dL (74-106)
[2023-08-26 02:20] VITALS: BP 159/60; PULSE 72; RESP 18; TEMP 36.6; O2SAT 94
[2023-08-26 04:50] VITALS: BMI 27.6
[2023-08-26 07:07] LABS: Bedside Glucose 133 mg/dL (74-106)
--- NOTE | 2023-08-26 07:07 | CASEMGMT ---
Patient was approved for [facility]. Green sheet will be placed on patient's chart for discharge. Plan: d/c to [facility] under skilled level of care. Physicians will transport patient via wheelchair van. PASRR completed in [employer] system. Maxine TOMLIN
[2023-08-26 08:15] VITALS: BP 162/60; PULSE 71; RESP 16; TEMP 36.4; O2SAT 96
[2023-08-26 09:00] VITALS: BP 162/60; PULSE 71
[2023-08-26] MEDS: Aspirin E.C. 81 MG Tablet PO (09:00)
[2023-08-26] MEDS: Enoxaparin 40 MG/0.4 ML Syringe SC (09:00)
[2023-08-26] MEDS: Metoprolol Tartrate 25 MG Tablet PO (09:00)
[2023-08-26] MEDS: Nystatin Powder 15gm Bottle 1 APPLIC TOPICAL (09:01)
[2023-08-26] MEDS: Menthol/Lanolin/Calamine/Znox 113 GM Tube 1 APPLIC TOPICAL (09:01)
[2023-08-26] MEDS: Furosemide 40 MG Tablet PO (09:03)
--- NOTE | 2023-08-26 09:12 | PCM.TXEXTCAR ---
Diet Diet Order/Speech Therapy: 08/22/23 14:12 Diet: Cardiac: Calorie-Controlled Food consistency:: Regular Liquid Consistency:: Regular/Thin How many daily calories?: 1800 calorie Routine Orders/Code Status Routine Lab Work: CBC (in 5 days), BMP (in 5 days) and - (fingerstick blood sugars ACQHS, Humalog SQ per sliding scale: 200-250: 5 units, 251-300: 8 units, 301-350: 12 units) Code Status: DNRCC-A (no intubation) Wound(s) left ear: Wound Type: Laceration Left knee cap: Wound Type: Abrasion Right foot, second toe: Wound Type: Neuropathic/Diabetic Foot Ulcer BLE: Wound Type: Scattered scabs & abrasions Right arm: Wound Type: scattered scabs/abrasions left distal forearm: Wound Type: Abrasion left proximal forearm: Wound Type: Abrasion Therapies Weight Bearing: Full weight bearing (with walker) Physical Therapy: Eval and Treat Occupational Therapy: Eval and Treat Problem/Diagnosis (1) Fall: Status: Acute Code(s): W19.XXXA - Unspecified fall, initial encounter (2) Heart failure: Status: Acute Code(s): I50.9 - Heart failure, unspecified Plan 1. Acute heart failure with preserved ejection fraction-continue present medication, patient is on room air, patient's Lasix was changed to oral Lasix today #2 moderate pulmonary hypertension-continue diuresis, complicates care, management, recovery, and prognosis, patient is on Lasix #3 generalized debility-PT and OT are seeing patient, he will need temporary placement in a group home facility for short-term rehab services. #4 chronic kidney disease stage IIIa-complicates care, management, recovery, and prognosis #5 intellectual disability-complicates care, management, recovery, and prognosis #6 chronic anemia-iron studies indicate iron deficiency anemia, patient will be placed on oral Iron Total clinical time spent by myself addressing the patient's medical issues, reviewing all of his data, and collaborating with patient's care team: 35-minutes Allergies/Procedures Done in Hospital Allergies acetaminophen (From [place]) Allergy (Severe, Verified 08/22/23 09:22) Unknown cephalexin Allergy (Severe, Verified 08/22/23 09:22) Unknown hydrocodone (From [place]) Allergy (Severe, Verified 08/22/23 09:22) Unknown sulfamethoxazole (From [place]) Allergy (Severe, Verified 08/22/23 09:22) Unknown trimethoprim (From Bactrim) Allergy (Severe, Verified 08/22/23 09:22) Unknown Procedures: None Type of Care/Length of Stay Estimated LOS: Convalescent Care Less Than 30 days Type of Care Needed: Skilled Rehab Potential: Good Prognosis: Good Additional Orders/Day of Discharge H&P will serve as current which was dated: 08/22/23 Day of Discharge: 08/26/23 Dietary and Speech Recommendations Dietitian Recommendations/Changes: Continue 1800CCD/Cardiac diet to manage medical conditions Discharge Plan Admission Admit Date/Time: 08/22/23 13:38 Primary Reason for Your Visit: debility, CHF Attending Provider: Heriberto Zafar Primary Care Provider: Agnes Suazo Consulting Providers: Jerome Morales; Joel Salgado Discharge Orders/Prescriptions Prescriptions: New furosemide 40 mg Tablet 40 mg PO DAILY Qty: 0 0RF acetaminophen 325 mg Tablet 650 mg PO Q6H PRN PRN (Reason: Pain 1-10 Or Fever >100.7) Qty: 0 0RF insulin glargine-yfgn 100 unit/mL (3 mL) Insulin Pen 40 unit subcut QHS Qty: 0 0RF nystatin [Nyamyc] 100,000 unit/gram Powder 1 applic topical BID Qty: 0 0RF Protocol: *Topical Application Instructions APPLICATION INSTRUCTIONS: apply to groin menthol-zinc oxide [Calmoseptine] 0.44-20.6 % Ointment 1 applic topical BID Qty: 0 0RF Protocol: *Topical Application Instructions APPLICATION INSTRUCTIONS: apply to buttocks area insulin lispro [Humalog KwikPen Insulin] 100 unit/mL insulin pen 7 unit subcut .TIDAC Qty: 15 0RF Continued aspirin 81 mg tablet,delayed release (DR/EC) 81 mg PO DAILY famotidine 20 mg tablet 20 mg PO DAILY metoprolol tartrate 25 MG tablet 25 mg PO BID multivitamin with folic acid 1 TABLET tablet 1 tab PO DAILY doxazosin 4 mg tablet 4 mg PO DAILY atorvastatin 40 mg tablet 40 mg PO DAILY Discontinued (DME) OneTouch Ultra Blue Test Strip strip See Dose Instructions .ROUTE .MEDSUPPLY Qty: 100 11RF Dose Instruction: As directed Rx Instructions: use to check BG tid (DME) FreeStyle Candel[place] 2 Sensor Kit See Rx Instructions .ROUTE .MEDSUPPLY Qty: 2 0RF Rx Instructions: As directed cilostazol 100 MG tablet 100 mg PO BID insulin glargine [Lantus Solostar U-100 Insulin] 100 unit/mL (3 mL) insulin pen 44 unit subcut QHS Patient Comments: PT UNSURE OF HOW MANY UNITS THEY HAVE BEEN INJECTING RECENTLY. RX DIRECTIONS WERE VERIFIED VIA [facility]. insulin lispro [Humalog KwikPen Insulin] 100 unit/mL insulin pen See Protocol subcut TIDCM Protocol: 6. Sliding Scale Insulin Custom Condition: mg/dl range Dose/Route: Number of Units Condition: <100 Dose/Route: 2 Condition: 151-200 Dose/Route: 6 Condition: 201-250 Dose/Route: 7 Condition: 251-300 Dose/Route: 8 Condition: 301-350 Dose/Route: 9 Condition: 351+ Dose/Route: 10 Protocol Text: Custom Sliding Scale Referrals / Follow Up: Agnes Suazo MD [Primary Care Provider] - Disposition Disposition (needs filled in before D/C Order can be placed): Senior Living Facility
--- NOTE | 2023-08-26 09:26 | CASEMGMT ---
JEAN CARLOS notified patient, RN, patient's , physician, and speech language pathologist travel that patient was approved and will go to [facility] today. Green sheet on chart. JEAN CARLOS completed a 7000 in [employer] system. JEAN CARLOS will also notify [facility] ([facility]) that patient went to [facility]. (Deidra Canchola- [phone]) Plan: d/c to [facility] under skilled level of care on a convalescent stay. Physicians will transport patient via wheelchair van. Maxine TOMLIN
--- NOTE | 2023-08-26 09:31 | DS.PCM_ITS ---
Providers Date of Admission: 08/22/23 Date of Discharge: 08/26/23 Primary Care Physician: Dr. Agnes Suazo MD Reason For Visit: RECURRENT FALL, HF Diagnosis Discharge Diagnosis (1) Fall: Status: Acute Code(s): W19.XXXA - Unspecified fall, initial encounter (2) Heart failure: Status: Acute Code(s): I50.9 - Heart failure, unspecified Plan 1. Acute heart failure with preserved ejection fraction-continue present medication, patient is on room air, patient's Lasix was changed to oral Lasix today #2 moderate pulmonary hypertension-continue diuresis, complicates care, management, recovery, and prognosis, patient is on Lasix #3 generalized debility-PT and OT are seeing patient, he will need temporary placement in a correction facility for short-term rehab services. #4 chronic kidney disease stage IIIa-complicates care, management, recovery, and prognosis #5 intellectual disability-complicates care, management, recovery, and prognosis #6 chronic anemia-iron studies indicate iron deficiency anemia, patient will be placed on oral Iron Total clinical time spent by myself addressing the patient's medical issues, reviewing all of his data, and collaborating with patient's care team: 35- minutes Medications at Discharge Home Medications metoprolol tartrate 25 mg tablet 25 mg PO BID BLOOD PRESSURE 02/26/14 multivitamin with folic acid 400 mcg tablet 1 tab PO DAILY HEALTH MAINTENANCE 02/26/14 aspirin 81 mg tablet,delayed release 81 mg PO DAILY HEART HEALTH 04/13/20 famotidine 20 mg tablet 20 mg PO DAILY GERD 07/29/20 atorvastatin 40 mg tablet 40 mg PO DAILY CHOLESTEROL 05/31/23 doxazosin 4 mg tablet 4 mg PO DAILY BLOOD PRESSURE 08/22/23 acetaminophen 325 mg tablet 650 mg (2 x 325 mg) PO Q6H PRN PRN Pain 1-10 Or Fever >100.7 #0 tabs 08/26/23 furosemide 40 mg tablet 40 mg PO DAILY #0 tabs 08/26/23 insulin glargine-yfgn 100 unit/mL (3 mL) subcutaneous pen 40 unit (0.4 mL) subcut QHS #0 mL 08/26/23 insulin lispro 100 unit/mL subcutaneous pen (Humalog KwikPen (U-100) Insulin) 7 unit (0.07 mL) subcut .TIDAC #15 mL 08/26/23 menthol 0.44 %-zinc oxide 20.6 % topical ointment (Calmoseptine) 1 applic topical BID #0 grams 08/26/23 nystatin 100,000 unit/gram topical powder (Nyamyc) 1 applic topical BID #0 grams 08/26/23 Hospital Course Operations None Procedures None Summary of Care Provided Minutes Spent on Discharge: 32 Hospital Course: This 82-year-old white male was seen in the emergency room at [facility] [place] with complaints of generalized weakness and frequent falls at home, patient had just been discharged from a skilled care facility approximately a week prior. According to the patient's , she was unable to take care of the patient at home. Workup in the emergency room included a chest x-ray which showed evidence of cardiomegaly and mild degree of CHF, CBC was remarkable for hemoglobin of 8.4, chemistry profile was remarkable for a creatinine of 1.53 and a BUN of 23. Patient was admitted to PCU for new onset heart failure, he was placed on IV Lasix, he was seen by PT and OT and his blood sugars were monitored. It was felt that the patient would benefit from short-term placement in a correction facility, approval was obtained from the patient's insurance carrier. On 08/26/2023, patient was seen and examined:alert and no apparent distress Constitutional Narrative: Patient has evidence of cognitive impairment but answers questions appropriately General Appearance: cooperative, well kempt and well developed Orientation / Consciousness: awake, oriented to person and oriented to place HEENT normocephalic, head/scalp atraumatic and moist oral mucous membranes Eyes PERRL, EOMs intact bilaterally and conjunctivae normal Neck supple, no JVD and thyroid normal General: trachea midline Resp normal respiratory effort, no retractions, no use of accessory muscles and clear to auscultation bilaterally Auscultation: Negative for rales, rhonchi or wheezes Cardio regular rate, regular rhythm, S1 normal heart sound, S2 normal heart sound, no murmurs, no rub and no gallops GI normal to inspection, nondistended, normoactive bowel sounds, soft to palpation, non-tender and non-distended Extremity no clubbing, cyanosis or edema Skin no rashes or lesions noted General Skin Exam: no breakdown Neuro CN's II-XII intact bilaterally, no focal motor deficits and no sensory deficits noted Neuro Narrative: Patient has evidence of cognitive impairment which appears to be mild, he answers questions appropriately Sensorium / Orientation: awake and alert Speech: speech normal Psych affect normal On 08/26/2023, patient was discharged in stable condition to a correction facility Weight / BMI Weight Weight: 70.7 kg Body Mass Index (BMI) 27.6 ABG / Lab / Microbiology Data 08/25/23 04:35 08/23/23 05:55 Laboratory: Laboratory Results - last 24 hr 08/25/23 06:44: POC Glucose 48 L 08/25/23 06:47: POC Glucose 46 L 08/25/23 11:12: POC Glucose 156 H 08/25/23 16:17: POC Glucose 354 H 08/25/23 21:26: POC Glucose 439 H 08/26/23 06:23: POC Glucose 133 H Microbiology: Microbiology 08/25/23 09:30 Nasal Secretion SARS-CoV-2 Antigen (Rapid) - Final Meaningful Use Info Meaningful Use Meaningful Use Diagnoses (Choose all that apply): CHF CHF HOWARD/ARB ordered at discharge?: No Reason HOWARD/ARB not ordered?: Not indicated Documented LVEF (%): 65 Ischemic Stroke Statin Dosing Therapy Reference: STATIN DOSE THERAPY REFERENCE: * Patients > 75 years receive moderate or high dose statin therapy. * Patients 75 years or YOUNGER should receive HIGH intensity statin dose unless contraindicated. You will be required to document reason for non-treatment if statin daily dose does not meet guidelines. HIGH DOSE STATIN THERAPY DAILY Atorvastatin > than or = to 40 mg Rosuvastatin > than or = to 20 mg Amlodipine + Atorvastatin > than or = to 2.5/40 mg Ezetimibe + Simvastatin 10/80 mg Simvastatin 80mg Discharge Plan Admission Admit Date/Time: 08/22/23 13:38 Primary Reason for Your Visit: debility, CHF Attending Provider: Heriberto Zafar Primary Care Provider: Agnes Suazo Consulting Providers: Jerome Morales; Joel Salgado Discharge Orders/Prescriptions Prescriptions: New furosemide 40 mg Tablet 40 mg PO DAILY Qty: 0 0RF acetaminophen 325 mg Tablet 650 mg PO Q6H PRN PRN (Reason: Pain 1-10 Or Fever >100.7) Qty: 0 0RF insulin glargine-yfgn 100 unit/mL (3 mL) Insulin Pen 40 unit subcut QHS Qty: 0 0RF nystatin [Nyamyc] 100,000 unit/gram Powder 1 applic topical BID Qty: 0 0RF Protocol: *Topical Application Instructions APPLICATION INSTRUCTIONS: apply to groin menthol-zinc oxide [Calmoseptine] 0.44-20.6 % Ointment 1 applic topical BID Qty: 0 0RF Protocol: *Topical Application Instructions APPLICATION INSTRUCTIONS: apply to buttocks area insulin lispro [Humalog KwikPen Insulin] 100 unit/mL insulin pen 7 unit subcut .TIDAC Qty: 15 0RF Continued aspirin 81 mg tablet,delayed release (DR/EC) 81 mg PO DAILY famotidine 20 mg tablet 20 mg PO DAILY metoprolol tartrate 25 MG tablet 25 mg PO BID multivitamin with folic acid 1 TABLET tablet 1 tab PO DAILY doxazosin 4 mg tablet 4 mg PO DAILY atorvastatin 40 mg tablet 40 mg PO DAILY Discontinued (DME) OneTouch Ultra Blue Test Strip strip See Dose Instructions .ROUTE .MEDSUPPLY Qty: 100 11RF Dose Instruction: As directed Rx Instructions: use to check BG tid (DME) FreeStyle [place]el[place] 2 Sensor Kit See Rx Instructions .ROUTE .MEDSUPPLY Qty: 2 0RF Rx Instructions: As directed cilostazol 100 MG tablet 100 mg PO BID insulin glargine [Lantus Solostar U-100 Insulin] 100 unit/mL (3 mL) insulin pen 44 unit subcut QHS Patient Comments: PT UNSURE OF HOW MANY UNITS THEY HAVE BEEN INJECTING RECENTLY. RX DIRECTIONS WERE VERIFIED VIA [facility]. insulin lispro [Humalog KwikPen Insulin] 100 unit/mL insulin pen See Protocol subcut TIDCM Protocol: 6. Sliding Scale Insulin Custom Condition: mg/dl range Dose/Route: Number of Units Condition: <100 Dose/Route: 2 Condition: 151-200 Dose/Route: 6 Condition: 201-250 Dose/Route: 7 Condition: 251-300 Dose/Route: 8 Condition: 301-350 Dose/Route: 9 Condition: 351+ Dose/Route: 10 Protocol Text: Custom Sliding Scale Referrals / Follow Up: Agnes Suazo MD [Primary Care Provider] - Disposition Disposition (needs filled in before D/C Order can be placed): Jail Facility Charges/Coding Visit Charges Inpatient E&M: 45116 Disch Hosp >30min
--- NOTE | 2023-08-26 09:40 | CASEMGMT ---
JEAN CARLOS sent orders to [facility] via [facility]. Maxine Cárdenas COMMISSIONS ANALYST [employer]
--- NOTE | 2023-08-26 10:59 | NURSING ---
Report called to [facility]
[2023-08-26 11:56] VITALS: O2SAT 95
--- NOTE | 2023-08-28 09:00 | CASEMGMT ---
JEAN CARLOS called Deidra Canchola at [facility] and left her a voice mail letting her know that patient went to [facility] on 08-25. JEAN CARLOS also left JEAN CARLOS's return number if needed. (Deidra Canchola- [phone]) Maxine TOMLIN
== END 2023-08-26 13:07 | disposition skilled nursing facility (03) | DRG 291 ==
LOC: ED 10:26 → PCU 13:52
PROVIDERS: Internal Medicine; Admitting Provider Internal Medicine; Emergency Provider Student in an Organized Health Care Education/Training Program; PCP Internal Medicine; Visit Provider Internal Medicine
DX: I13.0 Hypertensive heart and chronic kidney disease with heart failure and stage 1 through stage 4 chronic kidney disease, or unspecified chronic kidney disease (principal); I50.31 Acute diastolic (congestive) heart failure; I27.20 Pulmonary hypertension, unspecified; E11.22 Type 2 diabetes mellitus with diabetic chronic kidney disease; E11.42 Type 2 diabetes mellitus with diabetic polyneuropathy; E11.51 Type 2 diabetes mellitus with diabetic peripheral angiopathy without gangrene; D50.9 Iron deficiency anemia, unspecified; N18.32 Chronic kidney disease, stage 3b; E78.5 Hyperlipidemia, unspecified; G47.33 Obstructive sleep apnea (adult) (pediatric); R53.81 Other malaise; F79 Unspecified intellectual disabilities; Z66 Do not resuscitate; Z79.82 Long term (current) use of aspirin; Z79.899 Other long term (current) drug therapy
CPT/HCPCS: 36415; 70450; 71045; 71275; 72125; 73560; 80048; 80053; 80061; 81001; 82728; 82962; 83540; 83550; 83735; 83880; 84100; 84443; 84484; 85014; 85018; 85025; 87426; 93005; 93306; 94668; 97110; 97116; 97162; 97166; 97530; 97535; 99285; J7050; Q9967; A4216; J1940; J2916

== ENCOUNTER 2023-10-09 16:33 | Emergency (ER) | payer MEDICARE, SELFPAY ==
[2023-10-09 16:35] VITALS: BP 160/70; PULSE 86; RESP 22; TEMP 36.1; O2SAT 99
[2023-10-09 18:34] VITALS: BP 146/63; PULSE 84; RESP 17; O2SAT 98
--- NOTE | 2023-10-09 19:37 | EX.ED.DYSGE1 ---
HPI History of Present Illness Chief Complaint: Edema Informant: patient and spouse/S.O. Narrative Narrative: Sent in from PCP office after follow-up evaluation noting bilateral leg swelling. Patient did not note the swelling this was noted by staff members during the visit. He has had history of CKD followed by Dr. Perdomo. History of leg swelling. Spouse states he was diagnosed wrong with heart failure at another hospital. He denies orthopnea. Denies fevers. Chronic cough to subside for 4 months when he was hospitalized 4 months ago for intracranial hemorrhage. He was done at [facility], reported had intervention through his groin. He is currently back home ambulates with a walker. He denies any issues walking with a walker. Diabetic with neuropathy. He follow-up with the foot doctor a week ago states he is found to have foreign body in his second toe currently on antibiotics for that. Prior similar symptoms: Yes PFSH [facility] Medical History Fall Diabetes Non-smoker Dizziness BPH (benign prostatic hyperplasia) Acute sinusitis Carotid artery disease Tachycardia JUAN ALBERTO (obstructive sleep apnea) Routine adult health maintenance Type 2 diabetes mellitus GERD (gastroesophageal reflux disease) Hyperlipemia Vision problem Vascular disease Heart murmur Kidney disease HTN (hypertension) Hearing problem GI problem Diabetes type 2, controlled Carpal tunnel syndrome Back problem Anemia Home Medications ?Medication ?Instructions ?Recorded ?Last Taken ?Type metoprolol tartrate 25 mg tablet 25 mg PO BID BLOOD PRESSURE 02/26/14 08/21/23 History multivitamin with folic acid 400 1 tab PO DAILY HEALTH MAINTENANCE 02/26/14 08/21/23 History mcg tablet aspirin 81 mg tablet,delayed 81 mg PO DAILY HEART HEALTH 04/13/20 08/21/23 History release atorvastatin 40 mg tablet 40 mg PO DAILY CHOLESTEROL 05/31/23 08/21/23 History doxazosin 4 mg tablet 4 mg PO DAILY BLOOD PRESSURE 08/22/23 08/21/23 History acetaminophen 325 mg tablet 650 mg (2 x 325 mg) PO Q6H PRN PRN 08/26/23 Unknown Rx Pain 1-10 Or Fever >100.7 #0 tabs insulin glargine-yfgn 100 unit/mL 40 unit (0.4 mL) subcut QHS #0 mL 08/26/23 Unknown Rx (3 mL) subcutaneous pen insulin lispro 100 unit/mL 7 unit (0.07 mL) subcut .TIDAC #15 08/26/23 Unknown Rx subcutaneous pen (Humalog KwikPen mL (U-100) Insulin) menthol 0.44 %-zinc oxide 20.6 % 1 applic topical BID #0 grams 08/26/23 Unknown Rx topical ointment (Calmoseptine) nystatin 100,000 unit/gram topical 1 applic topical BID #0 grams 08/26/23 Unknown Rx powder (Nyamyc) cilostazol 100 mg tablet 100 mg PO BID 10/09/23 Unknown History doxycycline hyclate 100 mg capsule 100 mg PO BID 10/09/23 Unknown History famotidine 20 mg tablet 20 mg PO DAILY PRN GERD 10/09/23 Unknown History furosemide 20 mg tablet (Lasix) 20 mg PO DAILY #5 tabs 10/09/23 Unknown Rx Allergy/AdvReac Type Severity Reaction Status Date / Time acetaminophen (From [place]) Allergy Severe Unknown Verified 10/09/23 16:35 cephalexin Allergy Severe Unknown Verified 10/09/23 15:03 hydrocodone (From [place]) Allergy Severe Unknown Verified 10/09/23 15:03 sulfamethoxazole (From Allergy Severe Unknown Verified 10/09/23 15:03 Bactrim) trimethoprim (From Bactrim) Allergy Severe Unknown Verified 10/09/23 15:03 Family History Sister Breast cancer Diabetes CVA (cerebral vascular accident) Mother Diabetes Heart disease Father Heart disease CVA (cerebral vascular accident) Surgical History History of colonoscopy History of bowel resection Cataracts, bilateral Male circumcision S/P tonsillectomy and adenoidectomy Social History Smoking Status: Never smoker second hand exposure: No alcohol intake: never substance use type: does not use what type of physical activity do you participate in: bicycling ROS ROS ED Constitutional Constitutional ED: Denies chills, fever(s) or sweats Eyes Eyes: Denies change in vision ENT ENT ED: Denies dysphagia or sore throat Cardiovascular Cardiovascular: Reports leg edema; Denies chest pain, palpitations or racing heartbeat Respiratory/Chest Respiratory/Chest: Denies cough, dyspnea or dyspnea on exertion Gastrointestinal Gastrointestinal: Denies abdominal pain, diarrhea, nausea or vomiting Genitourinary Genitourinary ED: Denies dysuria, hematuria or urinary frequency Musculoskeletal Musculoskeletal: Denies back pain, extremity pain or neck pain Integumentary Denies rash or wounds Neurologic Neurologic: Denies headache(s), paresthesias or weakness EXAM Physical Exam Const Vital Signs: 10/09/23 16:35 10/09/23 18:25 10/09/23 18:34 Temperature 97 F L Temperature Source Temporal Pulse Rate 86 84 Respiratory Rate 22 H 17 Respiratory Effort Short of Breath Respiratory Pattern Tachypnea Blood Pressure 160/70 H 146/63 H Blood Pressure Mean 100 90 Pulse Ox 99 98 Oxygen Delivery Method Room Air Room Air 10/09/23 20:00 10/09/23 20:51 Temperature 97 F L Temperature Source Pulse Rate 84 86 Respiratory Rate 22 H 20 H Respiratory Effort Respiratory Pattern Blood Pressure 167/75 H 167/75 H Blood Pressure Mean 105 105 Pulse Ox 98 98 Oxygen Delivery Method Room Air Positive well nourished and well developed General Appearance ED: well developed and NAD HEENT Reports moist mucous membranes normocephalic and atraumatic Eyes EOMs intact bilaterally and conjunctivae normal General Eye ED: Yes normal appearance of both eyes Neck no lymphadenopathy and supple General: Negative for tenderness Chest Wall Chest: Negative for tenderness Resp normal respiratory effort and normal air movement Effort and Inspection: symmetric chest movement; Negative for respiratory distress Cardio regular rate, regular rhythm and no murmurs Peripheral Pulses: pulses 2+ throughout GI normal to inspection, nondistended, normoactive bowel sounds and non-tender Palpation: Negative for guarding or rebound tenderness present Back/Spine no CVA tenderness and no thoracic nor lumbar tenderness Extremity Extremity Narrative: 1-2+ bilateral lower extremity edema, there is no calf pain. Venous stasis changes noted both lower extremity. Pulses are intact distally. General Extremety ED: Yes tenderness; Negative for edema General Extremity: Negative for edema Neuro oriented x3 and no sensory deficits noted Sensorium / Orientation: awake and alert Skin no rashes or lesions noted and no wounds MDM MDM MDM Narrative Medical decision making narrative: Interventions / MDM: Differential diagnosis:lymphedema, CKD, anemia Diagnosis considered but do not suspect: N/A My EKG interpretation: N/A Imaging independently reviewed and interpreted by myself: N/A External documents reviewed: Outpatient labs Test considered but not ordered:N/A ED course: Patient leg swelling noted by office. Denies orthopnea. Vital stable pulse ox 98 on room air. History of CKD. He has been taken off diuretics from his history due to his CKD history. Will check basic labs to evaluate for kidney injury. Prior to as being drawn and ran, review of records he had labs from a few hours ago. They report these were labs ordered by his media liaison officer to be done before being seen. Creatinine 1.49 with GFR of 48. This was more of his lower baseline than his previous labs. I discussed this with the patient and spouse. He had anemia hemoglobin 7.7 stable from his previous labs. 2010: I spoke with Cristy Zayas covering for Dr. Suazo, with patient spouse stated they care for admission for couple days. Patient had no difficulty walking no dyspnea no hypoxia. discussed outpatient management which she agrees. Spouse patient would like to start Lasix tomorrow. 20 mg dosing meds to bed for 5 days. He will keep his follow-up with his media liaison officer in 2 days. All questions were answered. Re-evaluation: stable Disposition discussed with patient/family/significant other: patient and spouse Case discussed with consulting clinician: Primary care team This note was generated with [employer] dictation software. It may contain incorrect words, spelling, and punctuation that were not noted in checking the note before signing. Discharge Plan Triage Chief Complaint: Edema ED Provider: Andre Haley Dx/Rx/DC Orders Clinical Impression: Edema of both lower legs, CKD (chronic kidney disease) stage 3, GFR 30-59 ml/min, Anemia Instructions: Anemia, CKD Dc, ED Lymphedema Prescriptions: New furosemide [Lasix] 20 mg tablet 20 mg PO DAILY Qty: 5 0RF No Action aspirin 81 mg tablet,delayed release (DR/EC) 81 mg PO DAILY famotidine 20 mg tablet 20 mg PO DAILY PRN (Reason: GERD) cilostazol 100 mg tablet 100 mg PO BID doxycycline hyclate 100 mg capsule 100 mg PO BID Patient Comments: 14 days foot metoprolol tartrate 25 MG tablet 25 mg PO BID multivitamin with folic acid 1 TABLET tablet 1 tab PO DAILY doxazosin 4 mg tablet 4 mg PO DAILY acetaminophen 325 mg Tablet 650 mg PO Q6H PRN PRN (Reason: Pain 1-10 Or Fever >100.7) Qty: 0 0RF insulin glargine-yfgn 100 unit/mL (3 mL) Insulin Pen 40 unit subcut QHS Qty: 0 0RF nystatin [Nyamyc] 100,000 unit/gram Powder 1 applic topical BID Qty: 0 0RF Protocol: *Topical Application Instructions APPLICATION INSTRUCTIONS: apply to groin menthol-zinc oxide [Calmoseptine] 0.44-20.6 % Ointment 1 applic topical BID Qty: 0 0RF Protocol: *Topical Application Instructions APPLICATION INSTRUCTIONS: apply to buttocks area insulin lispro [Humalog KwikPen Insulin] 100 unit/mL insulin pen 7 unit subcut .TIDAC Qty: 15 0RF atorvastatin 40 mg tablet 40 mg PO DAILY Primary Care Provider: Agnes Suazo Referrals: Agnes Suazo MD [Primary Care Provider] - 1-2 Weeks Mia Perdomo MD [Med Staff - Consulting] - 2 Days Activity Restrictions/Additional Instructions: Your lab work done earlier today stable kidney function. Discussed with your primary care team with Cristy Zayas, take Lasix daily for the next 5 days. Keep your follow-up with nephrology in 2 days. Print Language: Omani Disposition Disposition: Home, Self Care Discharge Date/Time: 10/09/23 20:52
[2023-10-09 20:00] VITALS: BP 167/75; PULSE 84; RESP 22; O2SAT 98
[2023-10-09 20:51] VITALS: BP 167/75; PULSE 86; RESP 20; TEMP 36.1; O2SAT 98
== END 2023-10-09 20:52 | disposition home or self-care (01) ==
PROVIDERS: Emergency Provider Emergency Medicine; PCP Internal Medicine; Visit Provider Emergency Medicine
DX: R60.0 Localized edema (principal); E11.22 Type 2 diabetes mellitus with diabetic chronic kidney disease; E11.40 Type 2 diabetes mellitus with diabetic neuropathy, unspecified; Z79.4 Long term (current) use of insulin; N18.30 Chronic kidney disease, stage 3 unspecified; I12.9 Hypertensive chronic kidney disease with stage 1 through stage 4 chronic kidney disease, or unspecified chronic kidney disease; E78.5 Hyperlipidemia, unspecified; D63.1 Anemia in chronic kidney disease; Z79.82 Long term (current) use of aspirin; Z79.899 Other long term (current) drug therapy
CPT/HCPCS: 99284; A4216

== ENCOUNTER → 2023-10-09 | Outpatient (CLI) | payer MEDICARE, SELFPAY ==
[2023-10-09 16:35] LABS: Hematocrit 24.5 % (40-54); Hemoglobin 7.7 g/dL (13.0-16.5); Mean Corp Hgb Conc 31.4 g/dL (32-36); Mean Corpuscular Hgb 30.8 pg (27.0-32.0); Mean Platelet Vol. 11.3 fl (6.2-12.0); Platelet Count 156 K/mm3 (150-450); RBC Distribution Width CV 15.3 % (11.6-14.6); RBC Distribution Width SD 55.3 fl (35.1-43.9); White Blood Count 4.6 K/mm3 (4.4-11.0)
[2023-10-09 16:50] LABS: Albumin, Serum 2.8 g/dL (3.2-5.0); BUN 38 mg/dL (7-18); BUN/Creat Ratio 25.5 RATIO (10-20); Calcium,Total 8.8 mg/dL (8.5-10.1); Chloride 114 mmol/L (98-107); Creatinine, Serum 1.49 mg/dL (0.70-1.30); EST Glomerular Filtration Rate 48 mL/min (>60); Est Glom Filt Rate - Afr Amer 58 mL/min (>60); Glucose 75 mg/dL (74-106); Magnesium 2.1 mg/dL (1.6-2.6); Phosphorus 3.4 mg/dL (2.5-4.9); Sodium Level 140 mmol/L (136-145)
[2023-10-09 16:52] LABS: Vitamin D,25 Hydroxy 34.2 ng/mL
[2023-10-09 17:07] LABS: PTHIN 51.5 pg/mL (18.4-80.1)
== END | disposition home or self-care (01) ==
LOC: BIMLAB 15:54
PROVIDERS: PCP Internal Medicine; Referring Provider Internal Medicine Nephrology; Visit Provider Internal Medicine Nephrology
DX: N18.32 Chronic kidney disease, stage 3b (principal); D63.1 Anemia in chronic kidney disease; E55.9 Vitamin D deficiency, unspecified
CPT/HCPCS: 36415; 80069; 82306; 83735; 83970; 85027

== ENCOUNTER 2023-10-12 21:57 | Inpatient (IN) | payer MEDICARE, SELFPAY ==
[2023-10-12 21:57] VITALS: BP 157/79; PULSE 102; RESP 30; TEMP 36.8; O2SAT 96; BMI 31.3
[2023-10-12 22:11] VITALS: BP 157/79; PULSE 98; RESP 30; TEMP 36.8; O2SAT 93
--- NOTE | 2023-10-12 22:19 | EX.ED.DYSGE1 ---
HPI History of Present Illness Chief Complaint: Shortness of Breath Informant: patient and EMS Narrative Narrative: Patient is 82-year-old male with past medical history of congestive heart failure chronic kidney disease type 2 diabetes. He was recently admitted to the hospital secondary to debility and frequent falls and also seen for CHF exacerbation and reportedly is currently on oral diuretic. The patient presented today from EMS with shortness of breath. However the patient's blood sugar was low at 46 and he was confused and he does not remember calling EMS. He reports having a cough and feeling chills at this time but otherwise states he feels at his baseline. Further history cannot be obtained as the patient is unsure of the events which led to EMS being called [facility] Medical History Fall Diabetes Non-smoker Dizziness BPH (benign prostatic hyperplasia) Acute sinusitis Carotid artery disease Tachycardia JUAN ALBERTO (obstructive sleep apnea) Routine adult health maintenance Type 2 diabetes mellitus GERD (gastroesophageal reflux disease) Hyperlipemia Vision problem Vascular disease Heart murmur Kidney disease HTN (hypertension) Hearing problem GI problem Diabetes type 2, controlled Carpal tunnel syndrome Back problem Anemia Home Medications ?Medication ?Instructions ?Recorded ?Last Taken ?Type metoprolol tartrate 25 mg tablet 25 mg PO BID BLOOD PRESSURE 02/26/14 08/21/23 History multivitamin with folic acid 400 1 tab PO DAILY HEALTH MAINTENANCE 02/26/14 08/21/23 History mcg tablet aspirin 81 mg tablet,delayed 81 mg PO DAILY HEART HEALTH 04/13/20 08/21/23 History release atorvastatin 40 mg tablet 40 mg PO DAILY CHOLESTEROL 05/31/23 08/21/23 History doxazosin 4 mg tablet 2 mg PO DAILY BLOOD PRESSURE 08/22/23 08/21/23 History acetaminophen 325 mg tablet 650 mg (2 x 325 mg) PO Q6H PRN PRN 08/26/23 Unknown Rx Pain 1-10 Or Fever >100.7 #0 tabs cilostazol 100 mg tablet 100 mg PO BID 10/09/23 Unknown History doxycycline hyclate 100 mg capsule 100 mg PO BID 10/09/23 Unknown History famotidine 20 mg tablet 20 mg PO DAILY PRN GERD 10/09/23 Unknown History furosemide 20 mg tablet (Lasix) 20 mg PO DAILY #5 tabs 10/09/23 Unknown Rx insulin glargine-yfgn 100 unit/mL 30 unit subcut QHS 10/13/23 Unknown History (3 mL) subcutaneous pen insulin lispro 100 unit/mL 10 unit subcut .TIDAC 10/13/23 Unknown History subcutaneous pen (Humalog KwikPen (U-100) Insulin) Allergy/AdvReac Type Severity Reaction Status Date / Time acetaminophen (From [place]) Allergy Severe Unknown Verified 10/12/23 21:57 cephalexin Allergy Severe Unknown Verified 10/12/23 21:57 hydrocodone (From [place]) Allergy Severe Unknown Verified 10/12/23 21:57 sulfamethoxazole (From Allergy Severe Unknown Verified 10/12/23 21:57 Bactrim) trimethoprim (From Bactrim) Allergy Severe Unknown Verified 10/12/23 21:57 Family History Sister Breast cancer Diabetes CVA (cerebral vascular accident) Mother Diabetes Heart disease Father Heart disease CVA (cerebral vascular accident) Surgical History History of colonoscopy History of bowel resection Cataracts, bilateral Male circumcision S/P tonsillectomy and adenoidectomy Social History Smoking Status: Never smoker second hand exposure: No alcohol intake: never substance use type: does not use what type of physical activity do you participate in: bicycling ROS ROS ED Constitutional Constitutional ED: Reports chills and subjective; Denies fever(s) Eyes Eyes: Denies blurry vision or change in vision ENT ENT ED: Reports rhinorrhea; Denies sore throat Cardiovascular Cardiovascular: Denies chest pain Respiratory/Chest Respiratory/Chest: Reports cough and dyspnea Gastrointestinal Gastrointestinal: Denies abdominal pain, diarrhea, nausea or vomiting Genitourinary Genitourinary ED: Denies dysuria Musculoskeletal Musculoskeletal: Denies myalgias Integumentary Denies rash Neurologic Neurologic: Reports weakness; Denies headache(s) Hematologic/Lymphatic Hematologic/Lymphatic: Reports easy bleeding and easy bruising Allergic/Immunologic Allergic/Immunologic ED: Denies mouth swelling or tongue swelling EXAM Physical Exam Const Vital Signs: 10/12/23 21:57 10/12/23 22:11 10/12/23 23:11 Temperature 98.2 F 98.2 F 99 F Temperature Source Oral Axillary Oral Pulse Rate 102 H 98 96 Respiratory Rate 30 H 30 H 25 H Respiratory Effort Respiratory Depth Respiratory Pattern Blood Pressure 157/79 H 157/79 H 145/67 H Blood Pressure Mean 105 105 93 Pulse Ox 96 93 91 Oxygen Delivery Method Room Air Room Air Room Air 10/13/23 00:00 10/13/23 00:00 10/13/23 00:20 Temperature 99.3 F H 99.3 F H 101.0 F H Temperature Source Oral Oral Pulse Rate 100 95 99 Respiratory Rate 23 H 22 H 24 H Respiratory Effort Respiratory Depth Respiratory Pattern Blood Pressure 151/60 H 151/60 H 151/60 H Blood Pressure Mean 90 90 90 Pulse Ox 91 91 92 Oxygen Delivery Method Room Air Room Air 10/13/23 00:20 Temperature Temperature Source Pulse Rate Respiratory Rate Respiratory Effort Short of Breath Labored Respiratory Depth Shallow Respiratory Pattern Tachypnea Blood Pressure Blood Pressure Mean Pulse Ox Oxygen Delivery Method Room Air Positive well nourished and well developed General Appearance ED: well developed HEENT HEENT Narrative: No tongue or lip swelling no oral lesions no airway edema or compromise No secondary findings in the posterior pharynx to suggest infection There is cobblestoning noted consistent with sinus drainage Eyes PERRL and EOMs intact bilaterally General Eye ED: Yes pale conjunctiva; Negative for scleral icterus Neck supple Neck Narrative: Trace JVD is noted on right Chest Wall palpation of chest normal Resp Resp Narrative: Patient is tachypneic and breath sounds are diminished throughout with diffuse expiratory wheeze and crackles noted in bilateral bases Cardio regular rate and regular rhythm GI normal to inspection, nondistended, normoactive bowel sounds, non-tender, non-distended and no masses GI Narrative: No voluntary guarding or rigidity or pulsatile mass No fluid wave noted Auscultation: normoactive bowel sounds Palpation: soft Extremity Extremity Narrative: +2-3 pitting edema to the bilateral lower extremities that is equal and symmetric. Swelling extends from the dorsum of the feet to just below the knee Compartments are soft and compressible going against compartment syndrome Patient has chronic stasis changes to the bilateral lower legs that does not show any secondary findings consistent with infection Neuro oriented x3 and CN's II-XII intact bilaterally Sensorium / Orientation: alert Psych mental status grossly normal Skin Skin Narrative: Chronic stasis changes bilateral lower legs as documented above MDM MDM MDM Narrative Medical decision making narrative: Patient arrived to the ER with a depressed mental status and blood sugar remained low at 46. Secondary to this he was given D10 which improved his blood sugar and subsequently his mental status. With his cough and shortness of breath there is concern for pneumonia versus congestive heart failure exacerbation versus acute blood loss anemia versus COVID versus influenza versus RSV. Secondary to this a chest x-ray with basic labs and a viral swab were obtained. Labs show chronic anemia with a hemoglobin of 8.6 but this is above the value from the previous day and therefore there is no need for a blood transfusion. His creatinine is elevated at 1.73 but chart review reveals this is near his baseline and therefore does not classify as acute kidney injury. Electrolytes show no clinically significant changes requiring supplementation. His history physical exam and chest x-ray are consistent with CHF and his proBNP is elevated at 300 and therefore he will be given a extra dose of IV Lasix at 40 mg IV. Viral swab was positive for influenza which also correlates with his chills and cough and congestion and shortness of breath. At this time his pulse ox will fluctuate from 87 to 93% and his respirations will change from 25-45. As this is only day 1 there is high likelihood that the viral inflammation will worsen causing worsening shortness of breath and hypoxia. Therefore I do not feel it safe for patient to return home. I discussed admitting the patient secondary to his increased work of breathing with him and his . They are agreeable to the plan of care and the patient is even requesting to stay in the hospital secondary to his symptoms. Therefore medicine/the hospitalist was contacted and he agrees to accept the patient. The patient was also given Tamiflu but the dose was reduced to 30 mg based on his chronic kidney disease and depressed creatinine clearance. The patient's glucose has remained stable since the D10 and therefore there is no need to start a D5 drip History & Record Review Discussion w/independent historian: EMS personnel and Patient Lab Data Attestation: I reviewed the patient's lab results. Labs: Laboratory Results - last 24 hr 10/12/23 10/12/23 10/12/23 22:08 23:00 23:03 WBC 5.2 RBC 2.69 L Hgb 8.6 L Hct 26.7 L MCV 99.3 H MCH 32.0 MCHC 32.2 RDW Std Deviation 54.5 H RDW Coeff of Clay 15.3 H Plt Count 164 MPV 10.8 Immature Gran % (Auto) 0.400 Neut % (Auto) 87.6 H Lymph % (Auto) 2.7 L Person % (Auto) 8.3 Eos % (Auto) 0.8 Baso % (Auto) 0.2 Absolute Neuts (auto) 4.5 Absolute Lymphs (auto) 0.14 L Nucleated RBC % 0 Sodium 140 Potassium 3.6 Chloride 109 H Carbon Dioxide 25.0 Anion Gap 6 BUN 35 H Creatinine 1.73 H Estim Creat Clear Calc 30.83 Est GFR (MDRD) Af Amer 49 L Est GFR (MDRD) Non-Af 40 L BUN/Creatinine Ratio 20.2 H Glucose 101 Calcium 8.8 Magnesium 1.5 L B-Natriuretic Peptide 302.7 H POC Glucose 93 100 10/13/23 00:05 WBC RBC Hgb Hct MCV MCH MCHC RDW Std Deviation RDW Coeff of Clay Plt Count MPV Immature Gran % (Auto) Neut % (Auto) Lymph % (Auto) Person % (Auto) Eos % (Auto) Baso % (Auto) Absolute Neuts (auto) Absolute Lymphs (auto) Nucleated RBC % Sodium Potassium Chloride Carbon Dioxide Anion Gap BUN Creatinine Estim Creat Clear Calc Est GFR (MDRD) Af Amer Est GFR (MDRD) Non-Af BUN/Creatinine Ratio Glucose Calcium Magnesium B-Natriuretic Peptide POC Glucose 93 Radiography Diagnostic Testing: Clinical Impression(s) from Imaging Studies Chest X-Ray 10/12/23 22:30 IMPRESSION: Incomplete expansion of the lungs with probable congestion/edema. Electronically Signed: Jean Stover MD at 22:58 EDT , Chest x-ray as interpreted by the emergency medicine physician reveals diminished lung volume with bilateral pulmonary congestion without acute infiltrate Management Discussion w/another healthcare provider: Hospitalist Discharge Plan Triage Chief Complaint: Shortness of Breath ED Provider: Lenny Grayson Dx/Rx/DC Orders Clinical Impression: Influenza A, HTN (hypertension), Type 2 diabetes mellitus, Chronic anemia, Chronic kidney disease, Congestive heart failure Primary Care Provider: Agnes Suazo Disposition Disposition: Acute Care Hospital [facility]
[2023-10-12 22:30] LABS: Bedside Glucose 93 mg/dL (74-106)
--- NOTE | 2023-10-12 22:30 | RAD_ITS ---
STUDY: X-RAY CHEST REASON FOR EXAM: Male, 82 years old. cough short of breath. TECHNIQUE: Single AP portable view of the chest. COMPARISON: 08/22/2023. FINDINGS: Moderate lung volumes. Diffuse congestion and mild pulmonary edema. No focal infiltrates. No gross effusions. There is mild cardiac enlargement. Normal mediastinum and chiquita. Normal visualized pulmonary arteries. Normal visualized aortic arch and descending thoracic aorta. Normal visualized thoracic spine. Normal visualized ribs, clavicles, and shoulders. There is no demonstrated abnormality of the visualized soft tissue structures of the upper abdomen. RAD/Chest 1 View (Portable) IMPRESSION: Incomplete expansion of the lungs with probable congestion/edema. Electronically Signed: Jean Stover MD at 22:58 EDT ,
[2023-10-12 23:06] LABS: Absolute Lymphocyte Count 0.14 X10^3/uL (0.83-4.51); Absolute Neutrophil Count 4.5 X10^3/uL (2.0-7.7); Basophil# 0.01 X10^3/uL; Basophil% 0.2 % (0-1); Eosinophil# 0.04 X10^3/uL; Eosinophils% 0.8 % (0-5); Hematocrit 26.7 % (40-54); Hemoglobin 8.6 g/dL (13.0-16.5); Lymphocyte # 0.14 X10^3/ul (0.83-4.51); Lymphocyte % 2.7 % (19-41); Mean Corp Hgb Conc 32.2 g/dL (32-36); Mean Corpuscular Volume 99.3 fL (80-94); Mean Platelet Vol. 10.8 fl (6.2-12.0); Monocyte# 0.43 X10^3/uL; Monocyte% 8.3 % (0-10); NRBC Flagged by Analyzer 0 % (0-5); Neutrophil # 4.51 X10^3/uL (2.7-7.7); Neutrophil % 87.6 % (47-70); POSITIVE DIFFERENTIAL YES; Platelet Count 164 K/mm3 (150-450); RBC Distribution Width CV 15.3 % (11.6-14.6); RBC Distribution Width SD 54.5 fl (35.1-43.9); Red Blood Count 2.69 M/mm3 (4.6-6.2); White Blood Count 5.2 K/mm3 (4.4-11.0)
[2023-10-12 23:11] VITALS: BP 145/67; PULSE 96; RESP 25; TEMP 37.2; O2SAT 91
[2023-10-12 23:21] LABS: Anion Gap 6 (5-15); BUN 35 mg/dL (7-18); BUN/Creat Ratio 20.2 RATIO (10-20); Calcium,Total 8.8 mg/dL (8.5-10.1); Chloride 109 mmol/L (98-107); Creatinine, Serum 1.73 mg/dL (0.70-1.30); EST Glomerular Filtration Rate 40 mL/min (>60); Est Glom Filt Rate - Afr Amer 49 mL/min (>60); Estimated Creatinine Clearance 30.83 ml/min; Glucose 101 mg/dL (74-106); Magnesium 1.5 mg/dL (1.6-2.6); Potassium 3.6 mmol/L (3.5-5.1); Sodium Level 140 mmol/L (136-145)
[2023-10-12 23:22] LABS: Bedside Glucose 100 mg/dL (74-106)
[2023-10-12 23:31] LABS: BNP,B-Type NATRIURETIC PEPTIDE 302.7 pg/mL (0-100)
[2023-10-13] VITALS (12 sets, daily range): BP systolic 120–172; BP diastolic 48–69; PULSE 70–100; RESP 18–40; TEMP 36.9–38.8; O2SAT 91–98; BMI 30.2
--- NOTE | 2023-10-13 00:09 | PCM.HP.STD ---
[facility] - General General Date of Admission: 10/13/23 Date of Service: 10/13/23 Chief Complaint: Fever, SOB, Cough, Chills and Hypoglycemia. 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 Mr. Teran is not a fully reliable historian at this time so information was gathered from chart, medical staff, computer and his at the bedside. She reports his symptoms began approximately 1-2 days prior to admission with the gradual-onset of progressively worsening STRAUSS that progressed to SOB at rest with runny nose and generalized weakness. Then he spiked a temperature and developed a congested cough with labored respirations so she activated EMS who noted Severe Hypoglycemia of 46 mg/dL and she then had him brought in for further evaluation and treatment. His is temperamental and inflexible about wearing a mask while she was in the ER and she was warned she could not visit him if she refused to wear a mask. He was confirmed to have a fever of 101.4 degrees Fahrenheit in the ER and his viral assay returned positive for Influenza A complicated by clinical evidence of Respiratory Insufficiency with congested cough and RR ~30 bpm compounded by Hypoglycemia of 46 mg/dL recorded by EMS likely due to a combination of decreased oral intake and need for decreased long-acting insulin dosing as his sugar only [place] to 93 mg/dL after the initial round of treatment with laboratory evidence of Hypomagnesemia of 1.5 mg/dL present on admission and RASHMI; in the setting of CKD; stage IIIb with elevated serum creatinine of 1.73 mg/dL present on admission (up from his baseline of 1.49 mg/dL 3 days ago) plus clinical evidence of Generalized Weakness and he was then admitted to the general medical floor with telemetric monitoring under droplet precautions for a stay that is expected to extend beyond 2 midnights. [facility] Medical History Fall Diabetes Non-smoker Dizziness BPH (benign prostatic hyperplasia) Acute sinusitis Carotid artery disease Tachycardia JUAN ALBERTO (obstructive sleep apnea) Routine adult health maintenance Type 2 diabetes mellitus GERD (gastroesophageal reflux disease) Hyperlipemia Vision problem Vascular disease Heart murmur Kidney disease HTN (hypertension) Hearing problem GI problem Diabetes type 2, controlled Carpal tunnel syndrome Back problem Anemia Home Medications ?Medication ?Instructions ?Recorded ?Last Taken ?Type metoprolol tartrate 25 mg tablet 25 mg PO BID BLOOD PRESSURE 02/26/14 08/21/23 History multivitamin with folic acid 400 1 tab PO DAILY HEALTH MAINTENANCE 02/26/14 08/21/23 History mcg tablet aspirin 81 mg tablet,delayed 81 mg PO DAILY HEART HEALTH 04/13/20 08/21/23 History release atorvastatin 40 mg tablet 40 mg PO DAILY CHOLESTEROL 05/31/23 08/21/23 History doxazosin 4 mg tablet 2 mg PO DAILY BLOOD PRESSURE 08/22/23 08/21/23 History acetaminophen 325 mg tablet 650 mg (2 x 325 mg) PO Q6H PRN PRN 08/26/23 Unknown Rx Pain 1-10 Or Fever >100.7 #0 tabs cilostazol 100 mg tablet 100 mg PO BID 10/09/23 Unknown History doxycycline hyclate 100 mg capsule 100 mg PO BID 10/09/23 Unknown History famotidine 20 mg tablet 20 mg PO DAILY PRN GERD 10/09/23 Unknown History furosemide 20 mg tablet (Lasix) 20 mg PO DAILY #5 tabs 10/09/23 Unknown Rx insulin glargine-yfgn 100 unit/mL 30 unit subcut QHS 10/13/23 Unknown History (3 mL) subcutaneous pen insulin lispro 100 unit/mL 10 unit subcut .TIDAC 10/13/23 Unknown History subcutaneous pen (Humalog KwikPen (U-100) Insulin) Allergy/AdvReac Type Severity Reaction Status Date / Time acetaminophen (From [place]) Allergy Severe Unknown Verified 10/12/23 21:57 cephalexin Allergy Severe Unknown Verified 10/12/23 21:57 hydrocodone (From [place]) Allergy Severe Unknown Verified 10/12/23 21:57 sulfamethoxazole (From Allergy Severe Unknown Verified 10/12/23 21:57 Bactrim) trimethoprim (From Bactrim) Allergy Severe Unknown Verified 10/12/23 21:57 Family History Sister Breast cancer Diabetes CVA (cerebral vascular accident) Mother Diabetes Heart disease Father Heart disease CVA (cerebral vascular accident) Surgical History History of colonoscopy History of bowel resection Cataracts, bilateral Male circumcision S/P tonsillectomy and adenoidectomy Social History Smoking Status: Never smoker second hand exposure: No alcohol intake: never substance use type: does not use what type of physical activity do you participate in: bicycling ROS ROS Narrative This patient is acutely ill with frequent cough and labored respirations in the setting of a known intellectual delay after his traumatic SDH so a full ROS could not be done at this time. Vital Signs Vital Signs Vital Signs: 10/12/23 21:57 10/12/23 22:11 10/12/23 23:11 Temperature 98.2 F 98.2 F 99 F Temperature Source Oral Axillary Oral Pulse Rate 102 H 98 96 Respiratory Rate 30 H 30 H 25 H Blood Pressure 157/79 H 157/79 H 145/67 H Blood Pressure Mean 105 105 93 Pulse Ox 96 93 91 Oxygen Delivery Method Room Air Room Air Room Air 10/13/23 00:00 Temperature 99.3 F H Temperature Source Oral Pulse Rate 100 Respiratory Rate 23 H Blood Pressure 151/60 H Blood Pressure Mean 90 Pulse Ox 91 Oxygen Delivery Method Room Air Weight Weight: 176 lb 11.2 oz Body Mass Index (BMI) 31.3 Physical Exam Const alert Constitutional Narrative: Patient is having labored respirations with frequent, congested cough with chronically ill appearance. General Appearance: cooperative Orientation / Consciousness: confused HEENT normocephalic, head/scalp atraumatic, hearing grossly normal bilaterally and moist oral mucous membranes Results Medical Records Data Attestation: I reviewed the patient's medical records Lab / Micro Data Attestation: I reviewed the patient's lab results. 10/12/23 23:00 10/12/23 23:00 Labs: Laboratory Results - last 24 hr 10/12/23 22:08: POC Glucose 93 10/12/23 23:00: WBC 5.2, RBC 2.69 L, Hgb 8.6 L, Hct 26.7 L, MCV 99.3 H, MCH 32.0, MCHC 32.2, RDW Std Deviation 54.5 H, RDW Coeff of Clay 15.3 H, Plt Count 164, MPV 10.8, Immature Gran % (Auto) 0.400, Neut % (Auto) 87.6 H, Lymph % (Auto) 2.7 L, [place] % (Auto) 8.3, Eos % (Auto) 0.8, Baso % (Auto) 0.2, Absolute Neuts (auto) 4.5, Absolute Lymphs (auto) 0.14 L, Nucleated RBC % 0, Sodium 140, Potassium 3.6, Chloride 109 H, Carbon Dioxide 25.0, Anion Gap 6, BUN 35 H, Creatinine 1.73 H, Estim Creat Clear Calc 30.83, Est GFR (MDRD) Af Amer 49 L, Est GFR (MDRD) Non-Af 40 L, BUN/Creatinine Ratio 20.2 H, Glucose 101, Calcium 8.8, Magnesium 1.5 L, B-Natriuretic Peptide 302.7 H 10/12/23 23:03: POC Glucose 100 Micro: Microbiology 10/12/23 22:58 Mucosa - Nose SARS-CoV-2, Influenza & RSV (PCR) - Final Influenzae A Imaging Radiology Impression Chest X-Ray 10/12/23 22:30 IMPRESSION: Incomplete expansion of the lungs with probable congestion/edema. Electronically Signed: Jean Stover MD at 22:58 EDT , Assessment & Plan Assessment/Plan (1) Influenza A: (2) Respiratory insufficiency: (3) Hypoglycemia due to type 2 diabetes mellitus: (4) RASHMI (acute kidney injury): (5) Generalized weakness: (6) Right foot infection: (7) Debility: (8) CKD (chronic kidney disease) stage 3, GFR 30-59 ml/min: QUALIFIERS: Chronic kidney disease stage 3 subtype: stage 3b (GFR 30-44) Qualified Code(s): N18.32 - Chronic kidney disease, stage 3b (9) Anemia: QUALIFIERS: Anemia type: unspecified type Qualified Code(s): D64.9 - Anemia, unspecified (10) Acute metabolic encephalopathy: (11) History of subdural hematoma (post traumatic): PLAN: Plan 1. Assay positive for Influenza A - Admit to general medical floor on droplet precautions. Continue renally-dosed Tamiflu begun in the ER. Check ABG to establish baseline. Give vitamin D3, vitamin C and Zinc to help boost immunity and speed recovery. Give Tylenol prn pain or fever. 2. Respiratory insufficiency due to #1 - Wean supplemental oxygen as tolerated. 3. DM-2; uncontrolled with Symptomatic Hypoglycemia of 46 mg/dL complicating #1 & #2 - Cut scheduled insulin doses by ~25% to prevent recurrent hypoglycemia. We will also give D5 NS @ 60 cc/hr to prevent recurrence of low blood sugar with recheck in ER only rising to 93 mg/dL after initial treatment. 4. Hypomagnesemia of 1.5 mg/dL present on admission compounding #1 - #3 - Give supplemental magnesium and recheck level in AM to ensure improvement. 5. Laboratory evidence of RASHMI with elevated serum creatinine of 1.73 mg/dl present on admission (up from his baseline of 1.49 mg/dL 3 days ago) in the setting of CKD; stage IIIb adding to the complexity of #1 - #4 - Gently hydrate and recheck renal indices in AM to ensure improvement. Avoid potentially nephrotoxic agents. 6. Recently diagnosed foot infection after he stepped on a diabetic needle which pierced his Right 2nd toe on day #2/14 oral Doxycycline prescribed by his firer kiln - Resume doxycycline IV given the severity of his illness and start probiotic. 7. Generalized Weakness with Myalgias arising from #1 - #6 - PT/OT and Case Management to see this patient on-rounds in the AM for further recommendations. 8. History of traumatic SDH (06/07/2023); treated surgically at [facility] with subsequent intellectual disability complicated by clinical evidence of Acute Metabolic Encephalopathy attributable to #1 - #7 - Check Head CT this admission. Continue supportive care and monitor for improvement. Minimize potentially BRUSHING OPERATOR-active medications to allow sensorium to clear. Check TSH, B12, Folate, TORIN and UDS to evaluate for potentially reversible causes of confusion. 9. Obesity; with BMI of 31.3 this admission plus JUAN ALBERTO - Weight loss will be recommended. Continue nocturnal CPAP. This complicates his case and may hamper recovery. 10. History of CHF; with mildly elevated BNP of 302.7 pg/mL present on admission - Continue oral Lasix after IV Lasix was given in ER in light of #5. 11. History of carotid artery disease of the ICA ~60-79% (2010) - Noted with patient having recent imaging after his traumatic SDH outlined in #8. 12. Essential hypertension - Continue home regimen as previous. 13. Hyperlipidemia - Resume statin. 14. Chronic anemia - Stable with hemoglobin of 8.6 g/dL present on admission. 15. History of colon cancer; s/p bowel resection - Noted. 16. BPH - Continue Doxazosin as previous. 17. GERD - Resume Pepcid. 18. OA - Give Tylenol prn. 19. DVT prophylaxis - SCD's only in light of #10. Total time: Approximately 75 minutes. Charges/Coding Visit Charges Inpatient E&M: 46031 Init Hosp L3
[2023-10-13] MEDS: Furosemide 40 MG/4 ML Vial IV (00:24)
[2023-10-13 00:26] LABS: Bedside Glucose 93 mg/dL (74-106)
[2023-10-13] MEDS: Acetaminophen 500 MG Tablet 1000 MG PO (00:34)
[2023-10-13] MEDS: Oseltamivir Phosphate 30 MG Capsule PO ×3 (00:50→22:34)
[2023-10-13 01:08] LABS: Phosphorus 3.3 mg/dL (2.5-4.9)
--- NOTE | 2023-10-13 01:25 | ED.RN ---
This nurse explained to pts that the floor is requiring all pts, family members and staff are required to wear a mask. I am not wearing a mask, I do not get that stuff and you are not going to make me. This nurse attempted to explain regulations to and that the pt has the flu. Pt stating Then screw you and give me a damn mask. If I fall I am suing your ass and this hospital. Charge nurse made aware.
--- NOTE | 2023-10-13 01:47 | CT_ITS ---
EXAM: CT HEAD WITHOUT INTRAVENOUS CONTRAST CLINICAL INDICATION: AMS TECHNIQUE: Multiple axial images were obtained of the head without intravenous contrast. This CT exam was performed using one or more of the following dose reduction techniques: automated exposure control, adjustment of the mA and/or kV according to patient size, and/or use of iterative reconstruction technique. RADIATION DOSE: CTDIvol = 44.99 mGy, DLP = 863.60 mGy-cm COMPARISON: 08/22/2023. FINDINGS: BRAIN AND EXTRA-AXIAL SPACES: Mild generalized atrophy. Mild low density bilaterally in the deep white matter. No intra- or extra-axial hemorrhage. No evidence of acute infarct. No intracranial mass or mass effect. There is preservation of the pearson/white matter interface. Posterior fossa structures are unremarkable. No hydrocephalus. Basal cisterns are patent. BONES/JOINTS: Unremarkable. No discrete lytic or blastic abnormalities. SINUSES: Unremarkable as visualized. Clear. MASTOID AIR CELLS: Unremarkable. Clear. ORBITS: Visualized globes, extraocular muscles, optic nerves and retrobulbar fat appear unremarkable. CT/Brain/Head without Contrast IMPRESSION: Mild generalized atrophy. Mild low density bilaterally in the deep white matter. This likely represents chronic small vessel ischemic changes in the deep white matter. Electronically Signed: Isac Lepe MD at 4:05 EDT ,
[2023-10-13 02:12] LABS: Allen Test Positive; Base Excess -1 mmol/L (-2 to +2); Bicarbonate 22.9 mmol/L (22-26); Blood Gas Specimen Type ART; Mode Not entered; O2 Delivery Device Room Air; PO2 57 mmHG (75-100); SITE L Radial; SO2 91 % (95-99); Total Carbon Dioxide 24 mmol/L; pCO2 33.4 mmHg (35-45); pH 7.44 (7.35-7.45)
[2023-10-13] MEDS: Ondansetron 4 MG/2 ML Vial IV ×3 (02:16→22:35)
[2023-10-13] MEDS: Doxycycline 100 MG in Dextrose 5%-Water (250mL Bag) 250 ML 250 MG IV ×3 (02:54→22:33)
[2023-10-13 03:15] LABS: Amphetamine Urine VISTA NEGATIVE (<1000 ng/mL); Barbiturate Urine VISTA NEGATIVE (< 200 ng/mL); Benzodiazepine Urine VISTA NEGATIVE (< 200 ng/mL); Cocaine Urine VISTA NEGATIVE (< 300 ng/mL); Ecstacy Urine VISTA NEGATIVE (< 500 ng/mL); Methadone Urine VISTA NEGATIVE (< 300 ng/mL); PCP Urine VISTA NEGATIVE (< 25 ng/mL); THC Urine VISTA NEGATIVE (< 50 ng/mL); Vista UDS pH Range 5
[2023-10-13] MEDS: Magnesium Sulfate 2 GM in Dextrose 5%-Water (100mL Bag) 100 ML IV (04:09)
[2023-10-13 04:58] LABS: Absolute Lymphocyte Count 0.22 X10^3/uL (0.83-4.51); Absolute Neutrophil Count 3.3 X10^3/uL (2.0-7.7); Basophil# 0.01 X10^3/uL; Basophil% 0.2 % (0-1); Eosinophil# 0.01 X10^3/uL; Eosinophils% 0.2 % (0-5); Hematocrit 22.9 % (40-54); Hemoglobin 7.4 g/dL (13.0-16.5); Lymphocyte # 0.22 X10^3/ul (0.83-4.51); Lymphocyte % 5.4 % (19-41); Mean Corp Hgb Conc 32.3 g/dL (32-36); Mean Corpuscular Hgb 31.1 pg (27.0-32.0); Mean Corpuscular Volume 96.2 fL (80-94); Mean Platelet Vol. 11.3 fl (6.2-12.0); Monocyte# 0.47 X10^3/uL; Monocyte% 11.6 % (0-10); NRBC Flagged by Analyzer 0 % (0-5); Neutrophil % 81.9 % (47-70); POSITIVE DIFFERENTIAL YES; Platelet Count 148 K/mm3 (150-450); RBC Distribution Width CV 15.3 % (11.6-14.6); RBC Distribution Width SD 53.5 fl (35.1-43.9); Red Blood Count 2.38 M/mm3 (4.6-6.2)
[2023-10-13 05:36] LABS: Vitamin B12 661 pg/mL (211-911)
[2023-10-13 05:46] LABS: ALB/GLOB Ratio 0.8 RATIO (0.9-2.4); AST(SGOT) 15 U/L (15-37); Alanine Aminotransfer ALT/SGPT 16 U/L (16-61); Albumin, Serum 2.7 g/dL (3.2-5.0); Alkaline Phosphatase 101 U/L (45-117); Anion Gap 7 (5-15); BUN 33 mg/dL (7-18); BUN/Creat Ratio 19.6 RATIO (10-20); Calcium,Total 8.1 mg/dL (8.5-10.1); Chloride 109 mmol/L (98-107); Creatinine, Serum 1.68 mg/dL (0.70-1.30); EST Glomerular Filtration Rate 42 mL/min (>60); Est Glom Filt Rate - Afr Amer 51 mL/min (>60); Estimated Creatinine Clearance 31.21 ml/min; Globulin 3.2 g/dL (2.2-4.2); Glucose 125 mg/dL (74-106); Potassium 3.6 mmol/L (3.5-5.1); Protein, Total 5.9 g/dL (6.4-8.2); Sodium Level 138 mmol/L (136-145); Thyroid Stim Hormone (TSH) 0.928 uIU/mL (0.358-3.740)
[2023-10-13 06:34] LABS: Bedside Glucose 138 mg/dL (74-106)
[2023-10-13] MEDS: Cholecalciferol (Vit D3) 125 MCG CAPSULE (5,000 UNITS) PO (08:44)
[2023-10-13] MEDS: Zinc Sulfate 50 mg zinc (220 mg) ORAL capsule PO (08:44)
[2023-10-13] MEDS: Cilostazol 50 MG Tablet 100 MG PO ×2 (08:44→22:33)
[2023-10-13] MEDS: Metoprolol Tartrate 25 MG Tablet PO ×2 (08:44→22:49)
[2023-10-13] MEDS: Aspirin E.C. 81 MG Tablet PO (08:45)
[2023-10-13] MEDS: Lactobacillis Acidophilus 1 CAP PO ×4 (08:45→22:34)
[2023-10-13] MEDS: Multivitamins,Therapeutic Tablet 1 TABLET PO (08:45)
[2023-10-13] MEDS: Doxazosin 4 MG Tablet PO (08:45)
[2023-10-13] MEDS: Ascorbic Acid 500 MG Tablet 1000 MG PO ×2 (08:45→16:57)
[2023-10-13] MEDS: Menthol/Lanolin/Calamine/Znox 113 GM Tube 1 APPLIC TOPICAL ×2 (08:45→22:35)
[2023-10-13] MEDS: Furosemide 20 MG Tablet PO (08:45)
[2023-10-13] MEDS: Acetaminophen 325 MG Tablet 650 MG PO ×2 (08:45→23:15)
[2023-10-13] MEDS: Nystatin Powder 15gm Bottle 1 APPLIC TOPICAL ×2 (08:46→22:35)
--- NOTE | 2023-10-13 09:40 | CASEMGMT ---
RN CM Face to Face with patient for initial transition planning/care coordination assessment. RN CM introduced self and role at [facility]. Patient lying in bed, alert and slightly confused. Patient requested this RN CM call to complete assessment. RN CM called , Berenice, to complete assessment. willing to participate in assessment but then became resistant to answer all questions and cursing at this RN CM stating, I just want him to get the fuck out of the hospital. Care providers, pharmacy, and demographics verified. Strata: 3 PCP: [facility]: declined to answer Preferred Pharmacy: states that they get mail order and then they can only use [facility] for local and that it a pain. then questioned why this RN CM was asking question. RN CM explained to that this information is used so if patient is discharged with medication that they can be filled locally to start medication promptly as prescribed. Insurance: [facility] Prescription Benefit: yes Living Will/HPOA: declined to answer. LNOK: Living Arrangements: Per , they live in single story home with ramp to enter. Per , patient is independent at home if he does it. Transportation: states that transportation is an issue, SW updated. DME/HHC: states they have walker and wheelchair, declined to answer further DME questions. RN CM attemtped to discuss possible need for home oxygen, states; we don't have anymore room for more shit in the house. Patient was discharged to [facility] last admission and an updated was sent to [facility]. wishes for pateint to discharge home and declines SNF or HHC at discharge. states, you medical people have made him worse and I just want him the fuck out of the hospital. RN CM updated that if she wished, the patient could leave AMA. RN CM udpated that patient is very sick and requiring oxygen at this time. did not want to participate in conversation any longer and states she has no further needs or concerns at this time. SW updated regarding conversation with . CM to follow for discharge planning needs that may arise. Disposition Plan: TBD, will monitor course of treatment and progress with therapy. Debbie GLASERN, RN, CM
[2023-10-13 10:02] LABS: Hemoglobin A1c 5.6 % (3.8-5.6)
[2023-10-13 11:23] LABS: Bedside Glucose 147 mg/dL (74-106)
[2023-10-13 11:52] LABS: BNP,B-Type NATRIURETIC PEPTIDE 398.1 pg/mL (0-100)
--- NOTE | 2023-10-13 12:04 | CASEMGMT ---
Addendum entered by Sondra Link 10/13/23 13:53: TC to Jenniffer at [facility] who states she has information regarding the home situation of pt. She states pt is not taking care of pt and APS involved. Per Jenniffer, APS has made 2 well check visits this week. Pt APS porter sample case is Cinthia. Pt works and leaves pt alone. Per Jenniffer, pt has said in the past that she wished pt would have last hospitalization and she has ways to take care of it. Lastnight pt called in to and the nurse could hear pt gurgling in the background. Pt was directed to call 911 and she declined. nurse then called 911. Pt would not let pt receive care and the senior qualitative researcher was called to the home. Pt was threatened to be arrested. Jenniffer states pt is not safe to return home to . They are active with SN, PT, OT and aide. Jenniffer believes that pt is pt POA. Updated SW. Original Note: JEAN CARLOS gave Jenniffer from [facility]'s phone number as she received a vm. TC to Jenniffer, left message requesting returned call.
[2023-10-13] MEDS: Ipratropium/Albuterol Sulfate 3 ML AMPUL.NEB INHALATION ×2 (15:00→19:27)
--- NOTE | 2023-10-13 15:58 | CASEMGMT ---
Addendum entered by Sondra Link 10/13/23 16:29: Pt denied need for list of other options for HHC. Addendum entered by Sondra Link 10/13/23 16:12: Referral sent to [facility] via [facility] at this time. Original Note: CURTIS CM into pt room, pt sitting up in chair with oxygen on in no distress with blanket over his head. Pt reports he is cold. Pt able to answer all orientation questions appropriately. Asked pt how he did with therapy today, he states he has been in bed for a little bit and it was a little rough. Discussed SNF vs HHC with pt. Pt states no, no, no to SNF. Pt states he wants to go home with HHC resuming. Asked pt if he has a POA for healthcare, pt states he does and it is his . Pt states his assists pt with his meds and gets his breakfast for him. Should pt need oxygen upon dc, pt agreeable to [employer] after a local verbal in network list of DME companies given. TC to Jenniffer at [facility] to make aware. SW aware. Green sheet on chart should pt dc over the weekend.
--- NOTE | 2023-10-13 16:18 | CASEMGMT ---
Social Work SW received referral from RNCM. See RNCM notes. Phone call to Cinthia at [facility]. JEAN CARLOS informed Cinthia that RNCM spoke with pt who is alert and oriented and refusing SNF placement. Pt requesting to return home at time of discharge with his . Cinthia confirmed that pt is active with APS. Deidra is pt's case sealer and she is out of the office. Cinthia confirms that the deputy city clerk's have been involved in this case and that [facility] is following carefully. JEAN CARLOS to notify Deidra at [facility] ([phone]) on the day of discharge. Green sheet placed on pt chart to facilitate this call. SALVATORE Casas
--- NOTE | 2023-10-13 16:38 | CASEMGMT ---
Social Work Per RNCM, pt's requesting transportation information. Written information on [facility] left in pt room. SALVATORE Casas
[2023-10-13] MEDS: Insulin Lispro 100 UNIT/ML INSULN.PEN SC ×2 (17:00→22:46)
[2023-10-13 17:46] LABS: Bedside Glucose 243 mg/dL (74-106)
[2023-10-13] MEDS: Atorvastatin Calcium 40 MG Tablet PO (22:34)
[2023-10-13] MEDS: Famotidine 20 MG Tablet PO (22:34)
[2023-10-13] MEDS: 0.9% Saline Lock 10 ML Syringe IV (22:35)
[2023-10-13] MEDS: Insulin Glargine-YFGN 100 UNIT/ML Pen 30 UNIT SC (22:46)
[2023-10-13 22:59] LABS: Bedside Glucose 224 mg/dL (74-106)
--- NOTE | 2023-10-13 23:48 | CT_ITS ---
INDICATION: sob, chf EXAMINATION: CT CHEST WITHOUT CONTRAST - CT Chest W/O Contrast Injection TECHNIQUE: Helically acquired images were obtained of the chest. The protocol utilizes one or more of the following dose reduction techniques: automated exposure control, adjustment of mA and/or kV according to patient size,and/or use of iterative reconstruction technique. IV Contrast dosage and agent: None. RADIATION DOSAGE (If Supplied By Facility): CTDIvol = ( 16.73 ) mGy, DLP = ( 597.86 ) mGycm COMPARISON: CR ChestJul 2023 10:33am FINDINGS: LUNGS, PLEURA AND LARGE AIRWAYS: No masses, consolidation, or edema. No pleural effusion or thickening. No pneumothorax. THYROID: No thyroid lesions. HEART AND PERICARDIUM: Heart size is normal. No pericardial effusion. CORONARY ARTERIES: Coronary artery calcification VESSELS: Thoracic aorta is not dilated. MEDIASTINUM AND VALENTE: No mediastinal or hilar adenopathy. Esophagus is unremarkable. No hiatal hernia. UPPER ABDOMEN: No acute pathology. BONES: No suspicious lytic or blastic abnormality. CT/Chest without Contrast IMPRESSION: Negative CT chest without contrast. Electronically Signed: Danyelle Ang MD at 2:22 EDT ,
[2023-10-14] VITALS (12 sets, daily range): BP systolic 121–159; BP diastolic 51–67; PULSE 76–90; RESP 18–26; TEMP 36.6–37.1; O2SAT 94–98
[2023-10-14] MEDS: guaiFENesin 600 MG Tablet PO ×3 (00:21→22:07)
[2023-10-14 00:45] LABS: BNP,B-Type NATRIURETIC PEPTIDE 450.2 pg/mL (0-100)
[2023-10-14] MEDS: Piperacil/Tazobactam 3.375 GM in 0.9% Normal Saline (50mL MB+) 50 ML IV ×3 (01:04→22:17)
[2023-10-14] MEDS: 0.9% Saline Lock 10 ML Syringe IV ×3 (05:02→10:30)
[2023-10-14] MEDS: Furosemide 40 MG/4 ML Vial IV (05:02)
[2023-10-14] MEDS: Ondansetron 4 MG/2 ML Vial IV ×2 (05:02→10:30)
[2023-10-14] MEDS: Acetaminophen 325 MG Tablet 650 MG PO (05:03)
[2023-10-14 06:21] LABS: Bedside Glucose 137 mg/dL (74-106)
[2023-10-14] MEDS: Ipratropium/Albuterol Sulfate 3 ML AMPUL.NEB INHALATION ×3 (06:57→20:33)
[2023-10-14 07:03] LABS: Absolute Lymphocyte Count 0.38 X10^3/uL (0.83-4.51); Absolute Neutrophil Count 3.2 X10^3/uL (2.0-7.7); Eosinophil# 0.01 X10^3/uL; Eosinophils% 0.2 % (0-5); Hematocrit 22.1 % (40-54); Hemoglobin 7.6 g/dL (13.0-16.5); Lymphocyte # 0.38 X10^3/ul (0.83-4.51); Lymphocyte % 9.5 % (19-41); Mean Corp Hgb Conc 34.4 g/dL (32-36); Mean Corpuscular Hgb 34.4 pg (27.0-32.0); Mean Platelet Vol. 11.3 fl (6.2-12.0); Monocyte# 0.42 X10^3/uL; Monocyte% 10.4 % (0-10); NRBC Flagged by Analyzer 0 % (0-5); Neutrophil # 3.21 X10^3/uL (2.7-7.7); Neutrophil % 79.9 % (47-70); POSITIVE DIFFERENTIAL YES; Platelet Count 139 K/mm3 (150-450); RBC Distribution Width CV 15.5 % (11.6-14.6); RBC Distribution Width SD 54.1 fl (35.1-43.9); Red Blood Count 2.21 M/mm3 (4.6-6.2)
[2023-10-14 08:16] LABS: Anion Gap 7 (5-15); BUN 42 mg/dL (7-18); BUN/Creat Ratio 20.3 RATIO (10-20); Calcium,Total 8.3 mg/dL (8.5-10.1); Chloride 106 mmol/L (98-107); Cholesterol 89 mg/dL (200); Creatinine, Serum 2.07 mg/dL (0.70-1.30); EST Glomerular Filtration Rate 33 mL/min (>60); Est Glom Filt Rate - Afr Amer 40 mL/min (>60); Estimated Creatinine Clearance 25.33 ml/min; Glucose 145 mg/dL (74-106); High Density Lipoprotein 58 mg/dL; Sodium Level 138 mmol/L (136-145); Triglycerides 29 mg/dL; Very Low Density Lipoprotein 6 mg/dL (5-40)
[2023-10-14] MEDS: Cilostazol 50 MG Tablet 100 MG PO ×2 (08:59→22:07)
[2023-10-14] MEDS: Oseltamivir Phosphate 30 MG Capsule PO ×2 (08:59→22:07)
[2023-10-14] MEDS: Cholecalciferol (Vit D3) 125 MCG CAPSULE (5,000 UNITS) PO (08:59)
[2023-10-14] MEDS: Doxazosin 4 MG Tablet PO (08:59)
[2023-10-14] MEDS: Ascorbic Acid 500 MG Tablet 1000 MG PO ×2 (08:59→17:35)
[2023-10-14] MEDS: Lactobacillis Acidophilus 1 CAP PO ×4 (08:59→22:07)
[2023-10-14] MEDS: Multivitamins,Therapeutic Tablet 1 TABLET PO (08:59)
[2023-10-14] MEDS: Zinc Sulfate 50 mg zinc (220 mg) ORAL capsule PO (08:59)
[2023-10-14] MEDS: Furosemide 20 MG Tablet PO (08:59)
[2023-10-14] MEDS: Aspirin E.C. 81 MG Tablet PO (08:59)
[2023-10-14] MEDS: Metoprolol Tartrate 25 MG Tablet PO ×2 (08:59→22:07)
[2023-10-14] MEDS: Nystatin Powder 15gm Bottle 1 APPLIC TOPICAL ×2 (09:00→22:17)
[2023-10-14] MEDS: Menthol/Lanolin/Calamine/Znox 113 GM Tube 1 APPLIC TOPICAL ×2 (09:00→22:07)
[2023-10-14] MEDS: Insulin Lispro 100 UNIT/ML INSULN.PEN SC ×3 (11:45→22:09)
[2023-10-14 11:49] LABS: Bedside Glucose 267 mg/dL (74-106)
[2023-10-14] MEDS: Heparin Injection (Vial) 5,000 UNIT/ML VIAL 5000 UNIT SC ×2 (14:46→22:06)
--- NOTE | 2023-10-14 15:32 | PN.HOSP_ITS ---
Subjective Subjective Doing well, no issues overnight Objective Data Objective Data Vital Signs: Vital Signs Temp Pulse Resp BP Pulse Ox O2 Del Method O2 Flow Rate 98.8 F 81 24 H 128/59 H 98 Nasal Cannula 3 10/14/23 14:45 10/14/23 14:45 10/14/23 14:45 10/14/23 14:45 10/14/23 14:45 10/14/23 14:45 10/14/23 14:45 Oxygen Flow Rate (L/min) 3 Oxygen Delivery Method Nasal Cannula Weight: 170 lb 9.6 oz Body Mass Index (BMI) 30.2 Intake & Output: Intake and Output for Last 24 Hours 10/13/23 10/14/23 10/15/23 03:59 03:59 03:59 Intake Total 1584 / 1584 100 / 100 Output Total 2775 / 2775 1400 / 1400 Balance -1191 / -1191 -1300 / -1300 Lab / Micro Data 10/14/23 06:16 10/14/23 06:16 Labs: Laboratory Results - last 24 hr 10/13/23 16:58: POC Glucose 243 H 10/13/23 22:40: POC Glucose 224 H 10/14/23 00:00: B-Natriuretic Peptide 450.2 H 10/14/23 06:01: POC Glucose 137 H 10/14/23 06:16: WBC 4.0 L, RBC 2.21 L, Hgb 7.6 L, Hct 22.1 L, MCV 100.0 H, MCH 34.4 H, MCHC 34.4 D, RDW Std Deviation 54.1 H, RDW Coeff of Clay 15.5 H, Plt Count 139 L, MPV 11.3, Immature Gran % (Auto) 0.000, Neut % (Auto) 79.9 H, Lymph % (Auto) 9.5 L, [place] % (Auto) 10.4 H, Eos % (Auto) 0.2, Baso % (Auto) 0.0, Absolute Neuts (auto) 3.2, Absolute Lymphs (auto) 0.38 L, Nucleated RBC % 0, Sodium 138, Potassium 4.0, Chloride 106, Carbon Dioxide 25.0, Anion Gap 7, BUN 42 H, Creatinine 2.07 H, Estim Creat Clear Calc 25.33, Est GFR (MDRD) Af Amer 40 L, Est GFR (MDRD) Non-Af 33 L, BUN/Creatinine Ratio 20.3 H, Glucose 145 H, C alcium 8.3 L, Triglycerides 29, Cholesterol 89, LDL Cholesterol 25, VLDL Cholesterol 6, HDL Cholesterol 58 10/14/23 11:31: POC Glucose 267 H Micro: Microbiology 10/12/23 22:58 Mucosa - Nose SARS-CoV-2, Influenza & RSV (PCR) - Final Influenzae A Radiography Diagnostic Testing: Radiology Impression Chest CT 10/13/23 23:48 IMPRESSION: Negative CT chest without contrast. Electronically Signed: Danyelle Ang MD at 2:22 EDT Reading Location ID and State: [facility] / [place] Tel , Service support , Physical Exam Narrative General: Alert, Oriented x3, Cooperative, No apparent distress HEENT: Atraumatic, PERRLA, EOMI, Normocephalic Oral: Moist Mucosa Neck: Supple, No JVD Lungs: Diminished, Normal air movement, rhonchi, No wheeze, No rales Cardiovascular: Regular rate, Regular Rhythm, Normal S1, Normal S2, No murmurs Abdomen: Soft, Non Tender, Non-Distended, No Hepato-splenomegaly Extremities: Edema, Capillary Refill Less than 3 Seconds Skin: No rashes, No breakdown Musculoskeletal: No Tenderness to Palpation of Joints or Extremities Neurological: No focal neurological deficits, Motor Exam 5/5 strength throughout, Sensory exam intact to light touch and pain Psych/Mental Status: Flat Assessment & Plan Assessment/Plan (1) Influenza A: (2) Respiratory insufficiency: (3) RASHMI (acute kidney injury): (4) Right foot infection: (5) Debility: (6) Acute metabolic encephalopathy: PLAN: Plan 1. 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 To continue Tamiflu ? Continue oxygen does not appear that he wears this at home ? Will wean as able continue with inhalers ? He was given a limit of fluids and then also started on Lasix creatinine climbed to 2.07, so we will discontinue Lasix and monitor ? PT/OT 2. Essential HTN/HLD/chronic diastolic CHF ? Blood pressures are stable ? Will hold Lasix but can continue with metoprolol ? Continue with Lipitor ? Will monitor make adjustments as necessary ? She had an echo in 08/22/2023 with a PASP of 72 mmHg with a normal EF 3. DM2/anemia of chronic disease secondary to CKD 3B ? Was placed on D5 normal saline at 60, this was discontinued ? Continue with p.o. intake ? Sliding scale insulin ? Accu-Cheks ACHS ? Will monitor make adjustments as necessary ? Anemia is at baseline we will monitor 4. BPH ? Stable ? Continue with doxazosin 5. GERD ? Stable ? Continue with Pepcid He stepped on a diabetic needle as an outpatient and was started on doxycycline he was transition to Zosyn here in the hospital DVT: SCDs Charges/Coding Visit Charges Inpatient E&M: 46197 Subs Hosp L2
[2023-10-14 17:00] LABS: Bedside Glucose 358 mg/dL (74-106)
[2023-10-14] MEDS: Polyethylene Glycol 3350 17 GM PACKET PO (22:06)
[2023-10-14] MEDS: Atorvastatin Calcium 40 MG Tablet PO (22:07)
[2023-10-14] MEDS: Insulin Glargine-YFGN 100 UNIT/ML Pen 15 UNIT SC (22:08)
[2023-10-14 22:37] LABS: Bedside Glucose 339 mg/dL (74-106)
[2023-10-15] VITALS (14 sets, daily range): BP systolic 121–165; BP diastolic 53–96; PULSE 79–101; RESP 18–24; TEMP 36.4–37.1; O2SAT 89–100
[2023-10-15] MEDS: Heparin Injection (Vial) 5,000 UNIT/ML VIAL 5000 UNIT SC ×3 (06:32→21:17)
[2023-10-15 06:53] LABS: Bedside Glucose 191 mg/dL (74-106)
[2023-10-15 07:04] LABS: Anion Gap 7 (5-15); BUN 50 mg/dL (7-18); BUN/Creat Ratio 22.5 RATIO (10-20); Calcium,Total 8.1 mg/dL (8.5-10.1); Chloride 105 mmol/L (98-107); Creatinine, Serum 2.22 mg/dL (0.70-1.30); EST Glomerular Filtration Rate 30 mL/min (>60); Est Glom Filt Rate - Afr Amer 37 mL/min (>60); Estimated Creatinine Clearance 23.62 ml/min; Glucose 227 mg/dL (74-106); Potassium 3.9 mmol/L (3.5-5.1); Sodium Level 136 mmol/L (136-145)
[2023-10-15 07:29] LABS: Absolute Lymphocyte Count 0.48 X10^3/uL (0.83-4.51); Absolute Neutrophil Count 1.8 X10^3/uL (2.0-7.7); Basophil# 0.01 X10^3/uL; Basophil% 0.4 % (0-1); Eosinophil# 0.04 X10^3/uL; Eosinophils% 1.5 % (0-5); Hematocrit 24.2 % (40-54); Hemoglobin 7.7 g/dL (13.0-16.5); Lymphocyte # 0.48 X10^3/ul (0.83-4.51); Lymphocyte % 18.1 % (19-41); Mean Corp Hgb Conc 31.8 g/dL (32-36); Mean Corpuscular Hgb 30.1 pg (27.0-32.0); Mean Corpuscular Volume 94.5 fL (80-94); Mean Platelet Vol. 11.4 fl (6.2-12.0); Monocyte# 0.27 X10^3/uL; Monocyte% 10.2 % (0-10); NRBC Flagged by Analyzer 0 % (0-5); Neutrophil # 1.84 X10^3/uL (2.7-7.7); Neutrophil % 69.4 % (47-70); POSITIVE DIFFERENTIAL YES; Platelet Count 149 K/mm3 (150-450); RBC Distribution Width CV 14.8 % (11.6-14.6); RBC Distribution Width SD 51.8 fl (35.1-43.9); Red Blood Count 2.56 M/mm3 (4.6-6.2); White Blood Count 2.7 K/mm3 (4.4-11.0)
[2023-10-15 07:31] LABS: Differential Indicated SCAN CRITERIA MET
[2023-10-15] MEDS: Insulin Lispro 100 UNIT/ML INSULN.PEN SC ×4 (09:38→22:20)
[2023-10-15] MEDS: Multivitamins,Therapeutic Tablet 1 TABLET PO (09:39)
[2023-10-15] MEDS: Aspirin E.C. 81 MG Tablet PO (09:39)
[2023-10-15] MEDS: Ascorbic Acid 500 MG Tablet 1000 MG PO ×2 (09:39→17:20)
[2023-10-15] MEDS: Menthol/Lanolin/Calamine/Znox 113 GM Tube 1 APPLIC TOPICAL (09:40)
[2023-10-15] MEDS: Metoprolol Tartrate 25 MG Tablet PO ×2 (09:41→21:17)
[2023-10-15] MEDS: Doxazosin 4 MG Tablet PO (09:41)
[2023-10-15] MEDS: guaiFENesin 600 MG Tablet PO ×2 (09:42→21:18)
[2023-10-15] MEDS: Nystatin Powder 15gm Bottle 1 APPLIC TOPICAL ×2 (09:42→21:18)
[2023-10-15] MEDS: Polyethylene Glycol 3350 17 GM PACKET PO ×2 (09:42→21:18)
[2023-10-15 10:07] LABS: Bedside Glucose 338 mg/dL (74-106)
[2023-10-15] MEDS: Cilostazol 50 MG Tablet 100 MG PO ×2 (10:07→21:17)
[2023-10-15] MEDS: 0.9% Saline Lock 10 ML Syringe IV (10:07)
[2023-10-15] MEDS: Zinc Sulfate 50 mg zinc (220 mg) ORAL capsule PO (10:07)
[2023-10-15] MEDS: Cholecalciferol (Vit D3) 125 MCG CAPSULE (5,000 UNITS) PO (10:07)
[2023-10-15] MEDS: Lactobacillis Acidophilus 1 CAP PO ×4 (10:07→21:17)
[2023-10-15] MEDS: Piperacil/Tazobactam 3.375 GM in 0.9% Normal Saline (50mL MB+) 50 ML IV ×2 (10:08→21:22)
[2023-10-15] MEDS: Ipratropium/Albuterol Sulfate 3 ML AMPUL.NEB INHALATION ×3 (11:13→19:53)
[2023-10-15 12:08] LABS: Bedside Glucose 302 mg/dL (74-106)
--- NOTE | 2023-10-15 13:50 | PCM.PN.HOSP ---
Subjective Subjective No issues overnight, doing well Objective Data Objective Data Vital Signs: Vital Signs Temp Pulse Resp BP Pulse Ox O2 Del Method O2 Flow Rate 98.3 F 81 18 138/53 H 94 Room Air 3 10/15/23 09:24 10/15/23 11:13 10/15/23 11:13 10/15/23 09:41 10/15/23 11:32 10/15/23 09:25 10/15/23 02:30 Oxygen Flow Rate (L/min) 3 Oxygen Delivery Method Room Air Weight: 170 lb 9.6 oz Body Mass Index (BMI) 30.2 Intake & Output: Intake and Output for Last 24 Hours 10/14/23 10/15/23 10/16/23 03:59 03:59 03:59 Intake Total 1584 / 1584 430 / 430 250 / 250 Output Total 2775 / 2775 3050 / 3050 700 / 700 Balance -1191 / -1191 -2620 / -2620 -450 / -450 Lab / Micro Data 10/15/23 06:36 10/15/23 05:16 Labs: Laboratory Results - last 24 hr 10/14/23 16:37: POC Glucose 358 H 10/14/23 22:03: POC Glucose 339 H 10/15/23 05:16: WBC Cancelled, Corrected WBC Cancelled, RBC Cancelled, Hgb Cancelled, Hct Cancelled, MCV Cancelled, MCH Cancelled, MCHC Cancelled, RDW Std Deviation Cancelled, RDW Coeff of Clay Cancelled, Plt Count Cancelled, MPV Cancelled, Immature Gran % (Auto) Cancelled, Neut % (Auto) Cancelled, Lymph % (Auto) Cancelled, Alfalfa % (Auto) Cancelled, Eos % (Auto) Cancelled, Baso % (Auto) Cancelled, Absolute Neuts (auto) Cancelled, Absolute Lymphs (auto) Cancelled, Total Counted Cancelled, Neutrophils % (Manual) Cancelled, Band Neutrophils % Cancelled, Lymphocytes % (Manual) Cancelled, Monocytes % (Manual) Cancelled, Eosinophils % (Manual) Cancelled, Basophils % (Manual) Cancelled, Metamyelocytes % Cancelled, Myelocytes % Cancelled, Promyelocytes % Cancelled, Blast Cells % Cancelled, Plasma Cell % (Manual) Cancelled, Other Cells % Cancelled, Nucleated RBC % Cancelled, Nucleated RBCs/100 WBC Cancelled, Differential Comment Cancelled, Diff Path Review Cancelled, Hypersegmented Neuts Cancelled, Atypical Lymphocytes Cancelled, Reactive Lymphocytes Cancelled, Smudge Cells Cancelled, Toxic Granulation Cancelled, Toxic Vacuolation Cancelled, Dohle Bodies Cancelled, Diana Rods Cancelled, Platelet Estimate Cancelled, Plt Morphology Comment Cancelled, RBC Morphology Cancelled 10/15/23 05:16: RBC Morphology Cancelled, Polychromasia Cancelled, Hypochromasia Cancelled, Basophilic Stippling Cancelled, Anisocytosis Cancelled, Microcytosis Cancelled, Macrocytosis Cancelled, Spherocytes Cancelled, Sickle Cells Cancelled, Target Cells Cancelled, Tear Drop Cells Cancelled, Ovalocytes Cancelled, Stomatocytes Cancelled, [place] Bodies Cancelled, Brenda Cells Cancelled, Bite Cells Cancelled, Crenated Cell Cancelled, Acanthocytes (Spur) Cancelled, Rouleaux Cancelled, Schistocytes Cancelled, Sodium 136, Potassium 3.9, Chloride 105, Carbon Dioxide 24.0, Anion Gap 7, BUN 50 H, Creatinine 2.22 H, Estim Creat Clear Calc 23.62, Est GFR (MDRD) Af Amer 37 L, Est GFR (MDRD) Non-Af 30 L, BUN/Creatinine Ratio 22.5 H, Glucose 227 H, Calcium 8.1 L 10/15/23 06:34: POC Glucose 191 H 10/15/23 06:36: WBC 2.7 L, RBC 2.56 L, Hgb 7.7 L, Hct 24.2 L, MCV 94.5 H D, MCH 30.1, MCHC 31.8 L D, RDW Std Deviation 51.8 H, RDW Coeff of Clay 14.8 H, Plt Count 149 L, MPV 11.4, Immature Gran % (Auto) 0.400, Neut % (Auto) 69.4, Lymph % (Auto) 18.1 L, Alfalfa % (Auto) 10.2 H, Eos % (Auto) 1.5, Baso % (Auto) 0.4, Absolute Neuts (auto) 1.8 L, Absolute Lymphs (auto) 0.48 L, Nucleated RBC % 0, Diff Path Review June10/15/23 09:36: POC Glucose 338 H 10/15/23 11:45: POC Glucose 302 H Micro: Microbiology 10/12/23 22:58 Mucosa - Nose SARS-CoV-2, Influenza & RSV (PCR) - Final Influenzae A Physical Exam Narrative General: Alert, Oriented x3, Cooperative, No apparent distress HEENT: Atraumatic, PERRLA, EOMI, Normocephalic Oral: Moist Mucosa Neck: Supple, No JVD Lungs: Diminished, Normal air movement, rhonchi, No wheeze, No rales Cardiovascular: Regular rate, Regular Rhythm, Normal S1, Normal S2, No murmurs Abdomen: Soft, Non Tender, Non-Distended, No Hepato-splenomegaly Extremities: Edema, Capillary Refill Less than 3 Seconds Skin: No rashes, No breakdown Musculoskeletal: No Tenderness to Palpation of Joints or Extremities Neurological: No focal neurological deficits, Motor Exam 5/5 strength throughout, Sensory exam intact to light touch and pain Psych/Mental Status: Flat Assessment & Plan Assessment/Plan (1) Influenza A: (2) Respiratory insufficiency: (3) RASHMI (acute kidney injury): (4) Right foot infection: (5) Debility: (6) Acute metabolic encephalopathy: PLAN: Plan 1. 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 Continue oxygen does not appear that he wears this at home ? Will wean as able continue with inhalers ? He was given a limit of fluids and then also started on Lasix creatinine climbed to 2.07, his Lasix was discontinued and his fluids were also discontinued and his creatinine is 2.22 today ? Will recheck in the morning encourage continued ambulation and may need to give more Lasix tomorrow, though today he was not requiring any oxygen with ambulation his oxygen was 89% ? PT/OT 2. Essential HTN/HLD/chronic diastolic CHF ? Blood pressures are stable ? Will hold Lasix but can continue with metoprolol ? Continue with Lipitor ? Will monitor make adjustments as necessary ? She had an echo in 08/22/2023 with a PASP of 72 mmHg with a normal EF 3. DM2/anemia of chronic disease secondary to CKD 3B ? Continue with p.o. intake ? Sliding scale insulin ? Accu-Cheks ACHS ? Will monitor make adjustments as necessary ? Anemia is at baseline we will monitor 4. BPH ? Stable ? Continue with doxazosin 5. GERD ? Stable ? Continue with Pepcid He stepped on a diabetic needle as an outpatient and was started on doxycycline he was transition to Zosyn here in the hospital DVT: SCDs Charges/Coding Visit Charges Inpatient E&M: 45383 Subs Hosp L2
[2023-10-15 16:11] LABS: Bedside Glucose 389 mg/dL (74-106)
[2023-10-15] MEDS: Famotidine 20 MG Tablet PO (16:43)
[2023-10-15] MEDS: Atorvastatin Calcium 40 MG Tablet PO (21:17)
[2023-10-15] MEDS: Insulin Glargine-YFGN 100 UNIT/ML Pen 15 UNIT SC (22:20)
[2023-10-15 22:43] LABS: Bedside Glucose 348 mg/dL (74-106)
[2023-10-16] VITALS (9 sets, daily range): BP systolic 139–176; BP diastolic 56–70; PULSE 75–90; RESP 16–24; TEMP 36.4–37.1; O2SAT 93–99
[2023-10-16] MEDS: Heparin Injection (Vial) 5,000 UNIT/ML VIAL 5000 UNIT SC ×3 (05:03→21:33)
[2023-10-16] MEDS: Ipratropium/Albuterol Sulfate 3 ML AMPUL.NEB INHALATION ×3 (05:50→19:56)
[2023-10-16 07:01] LABS: Anion Gap 5 (5-15); BUN 46 mg/dL (7-18); BUN/Creat Ratio 18.8 RATIO (10-20); Calcium,Total 8.3 mg/dL (8.5-10.1); Chloride 108 mmol/L (98-107); Creatinine, Serum 2.45 mg/dL (0.70-1.30); EST Glomerular Filtration Rate 27 mL/min (>60); Est Glom Filt Rate - Afr Amer 33 mL/min (>60); Glucose 154 mg/dL (74-106); Potassium 4.8 mmol/L (3.5-5.1); Sodium Level 139 mmol/L (136-145)
[2023-10-16 07:06] LABS: Absolute Lymphocyte Count 0.57 X10^3/uL (0.83-4.51); Absolute Neutrophil Count 1.5 X10^3/uL (2.0-7.7); Eosinophil# 0.07 X10^3/uL; Eosinophils% 2.8 % (0-5); Hemoglobin 7.7 g/dL (13.0-16.5); Lymphocyte # 0.57 X10^3/ul (0.83-4.51); Lymphocyte % 23.2 % (19-41); Mean Corp Hgb Conc 32.1 g/dL (32-36); Mean Corpuscular Hgb 30.9 pg (27.0-32.0); Mean Corpuscular Volume 96.4 fL (80-94); Mean Platelet Vol. 11.3 fl (6.2-12.0); Monocyte# 0.27 X10^3/uL; NRBC Flagged by Analyzer 0 % (0-5); Neutrophil # 1.54 X10^3/uL (2.7-7.7); Neutrophil % 62.6 % (47-70); POSITIVE DIFFERENTIAL YES; Platelet Count 145 K/mm3 (150-450); RBC Distribution Width CV 14.8 % (11.6-14.6); RBC Distribution Width SD 52.1 fl (35.1-43.9); Red Blood Count 2.49 M/mm3 (4.6-6.2); White Blood Count 2.5 K/mm3 (4.4-11.0)
[2023-10-16 07:08] LABS: Differential Indicated SCAN CRITERIA MET
[2023-10-16 08:06] LABS: Differential Comment SCANNED
[2023-10-16 08:07] LABS: Acanthocytes 1+; Anisocytosis 1+; Ovalocyte 2+; Platelet Estimate ADEQUATE (ADEQ); Platelet Morphology LARGE
[2023-10-16 08:08] LABS: Bite Cell 1+; Schistocytes 1+; Target Cells RARE
[2023-10-16] MEDS: Menthol/Lanolin/Calamine/Znox 113 GM Tube 1 APPLIC TOPICAL ×2 (08:30→21:41)
[2023-10-16] MEDS: Polyethylene Glycol 3350 17 GM PACKET PO ×2 (08:30→21:38)
[2023-10-16] MEDS: guaiFENesin 600 MG Tablet PO ×2 (08:30→21:22)
[2023-10-16] MEDS: Cilostazol 50 MG Tablet 100 MG PO ×2 (08:30→21:21)
[2023-10-16] MEDS: Nystatin Powder 15gm Bottle 1 APPLIC TOPICAL ×2 (08:30→21:43)
[2023-10-16] MEDS: Doxazosin 4 MG Tablet PO (08:31)
[2023-10-16] MEDS: Aspirin E.C. 81 MG Tablet PO (08:31)
[2023-10-16] MEDS: Multivitamins,Therapeutic Tablet 1 TABLET PO (08:31)
[2023-10-16] MEDS: Metoprolol Tartrate 25 MG Tablet PO ×2 (08:31→21:22)
[2023-10-16 09:23] LABS: Bedside Glucose 144 mg/dL (74-106)
[2023-10-16] MEDS: Lactated Ringers 1,000 ML 75 ML IV (11:40)
[2023-10-16] MEDS: Insulin Lispro 100 UNIT/ML INSULN.PEN SC ×3 (11:52→21:30)
--- NOTE | 2023-10-16 12:59 | PCM.PN.HOSP ---
Reason for Visit Reason for Visit: Fever/shortness of breath/cough Subjective Subjective Mr. Teran is an 82-year-old white male who presented to the emergency department [facility] on 10/13/2019 for due to fever, shortness of breath, cough and chills. His blood sugar was also found to be low at 46 mg/dL. His symptoms began about 1 to 2 days prior to admission and were of gradual onset. Symptoms started as gradually progressing shortness of breath and dyspnea on exertion that progressed to shortness of breath at rest as well as rhinorrhea and generalized weakness. He then evidently spiked a temperature and developed a congested cough with some labored respirations so his called EMS to bring him into the emergency department for evaluation. In the emergency department he was found to have a fever 101.4 and his viral assay resulted positive for influenza A. Vital signs otherwise on admission showed heart rate of 102, respiratory rate 30, blood pressure 157/79 and oxygen saturation was 96% on room air. CBC at the time of admission showed normal white count with a chronic stable anemia and normal platelet count however he did have a left shift with an 87.6% neutrophilia. Throughout his hospital course his neutrophilia resolved but he also developed some leukopenia. His chemistry panel on presentation demonstrated normal electrolytes with a BUN of 33 and a serum creatinine of 1.68. Unfortunately his serum creatinine trended up with time to a peak of 2.45 today. He was on Tamiflu and diuretics and these were discontinued with a trend up of his serum creatinine. (Baseline serum creatinine seems to run between 1.3 and 1.6) CT of the chest was unremarkable. CT of the brain showed chronic small vessel ischemic changes in the deep white matter. Patient is frustrated he cannot go home yet today. He states he is feeling well and would like to leave. If his renal function has not deteriorated I would be able to send him home but his kidney function continues to trend up so I feel like at this point until his kidney function starts to show improvement we need to keep him in the hospital. We will continue to hold his diuretics and any nephrotoxic medications and fluid challenge him with 1 L and reevaluate his renal function tomorrow. I did tell him that if he does indeed improve that he would probably be able to go home tomorrow. He has no specific complaints at this time. Objective Data Objective Data Vital Signs: Vital Signs Temp Pulse Resp BP Pulse Ox O2 Del Method O2 Flow Rate 97.8 F 82 18 149/70 H 95 Room Air 3 10/16/23 09:20 10/16/23 11:15 10/16/23 11:15 10/16/23 09:20 10/16/23 11:15 10/16/23 11:15 10/15/23 02:30 Oxygen Flow Rate (L/min) 3 Oxygen Delivery Method Room Air Weight: 77.383 kg Body Mass Index (BMI) 30.2 Intake & Output: Intake and Output for Last 24 Hours 10/14/23 10/15/23 10/16/23 23:59 23:59 23:59 Intake Total 100 / 380 630 / 630 250 / 250 Output Total 2450 / 3450 2000 / 2300 550 / 550 Balance -2350 / -3070 -1370 / -1670 -300 / -300 Lab / Micro Data 10/16/23 05:20 10/16/23 05:20 Labs: Laboratory Results - last 24 hr 10/15/23 15:49: POC Glucose 389 H 10/15/23 22:17: POC Glucose 348 H 10/16/23 05:20: WBC 2.5 L, RBC 2.49 L, Hgb 7.7 L, Hct 24.0 L, MCV 96.4 H, MCH 30.9, MCHC 32.1, RDW Std Deviation 52.1 H, RDW Coeff of Clay 14.8 H, Plt Count 145 L, MPV 11.3, Immature Gran % (Auto) 0.400, Neut % (Auto) 62.6, Lymph % (Auto) 23.2, Hart % (Auto) 11.0 H, Eos % (Auto) 2.8, Baso % (Auto) 0.0, Absolute Neuts (auto) 1.5 L, Absolute Lymphs (auto) 0.57 L, Nucleated RBC % 0, Differential Comment SCANNED, Diff Path Review May foll, Platelet Estimate ADEQUATE, Plt Morphology Comment LARGE, Anisocytosis 1+, Target Cells RARE, Ovalocytes 2+, Bite Cells 1+, Acanthocytes (Spur) 1+, Schistocytes 1+, Sodium 139, Potassium 4.8, Chloride 108 H, Carbon Dioxide 26.0, Anion Gap 5, BUN 46 H, Creatinine 2.45 H, Estim Creat Clear Calc 21.40, Est GFR (MDRD) Af Amer 33 L, Est GFR (MDRD) Non-Af 27 L, BUN/Creatinine Ratio 18.8, Glucose 154 H, Calcium 8.3 L 10/16/23 08:22: POC Glucose 144 H Micro: Microbiology 10/12/23 22:58 Mucosa - Nose SARS-CoV-2, Influenza & RSV (PCR) - Final Influenzae A Physical Exam Const alert, oriented x3, no apparent distress and well nourished; Negative for average body habitus or healthy appearing Constitutional Narrative: Obese, elderly, extremely hard of hearing, white male, sitting up in a chair at the bedside, getting ready to eat lunch, appears comfortable, nontoxic, nursing at bedside HEENT head/scalp atraumatic and moist oral mucous membranes HEENT Narrative: Dentition is poor, Mallampati is 2-3, no thrush Head and Scalp: normocephalic Eyes PERRL and EOMs intact bilaterally; Negative for conjunctivae normal Eyes Narrative: Mild conjunctival pallor noted, no scleral icterus Resp normal respiratory effort, no retractions and no use of accessory muscles Resp Narrative: Lungs are coarse most notably at the bases but no specific adventitious sounds noted, no signs of respiratory distress and patient is on room air Cardio regular rate, regular rhythm, S1 normal heart sound, S2 normal heart sound, no murmurs, no rub, no gallops and no clicks GI normal to inspection, nondistended, normoactive bowel sounds, soft to palpation and non-tender Extremity no clubbing, cyanosis or edema Extremity Narrative: Chronic lower extremity edema that is trace noted, pitting, skin lower extremities indicative of chronic venous stasis, no significant wounds noted Neuro oriented x3, moves all extremities and no focal motor deficits Speech: speech normal Psych Psych Narrative: Patient seen impulsive but interacts appropriately with me at this time Assessment & Plan Assessment/Plan (1) Right foot infection: (2) RASHMI (acute kidney injury): (3) Influenza A: (4) Hypoglycemia due to type 2 diabetes mellitus: PLAN: Plan Acute hypoxia secondary to influenza A -Hypoxia has resolved and patient is stable on room air with an oxygen saturation of 97% -Tamiflu discontinued due to renal function worsening -Will check amatory pulse ox prior to discharge -Continue DuoNebs scheduled and as needed -Continue Mucinex -Start I-S and Acapella RASHMI on CKD stage IIIb -Baseline serum creatinine appears to run between 1.3 and 1.6 -Current serum creatinine is 2.45 -Lasix discontinued 10/15/2023 -Tamiflu discontinued yesterday due to worsening renal function -Will challenge with 1 L IV fluids -repeat lab in a.m. and if does not show improvement may need further workup -Nephrotoxic medications have been adjusted or discontinued Leukopenia/thrombocytopenia -Both are mild -Likely related to viral illness -Would recommend follow-up CBC in 1 to 2 weeks after discharge Chronic anemia -Hemoglobin is currently stable -No signs of acute bleeding -Continue to monitor with repeat CBC in a.m. DM-2 with hyperglycemia -Hypoglycemia has resolved -Continue current regimen which is half his basal insulin dose at 15 units of Lantus -AM fasting blood sugar was only 154 -Will likely need to alter at discharge -Hold home prandial insulin for now and continue sliding scale -At baseline patient takes 10 units 3 times daily--> may need to alter discharge depending on blood sugar Essential hypertension/HPL/chronic diastolic heart failure -Lasix on hold due to worsening renal function -Continue metoprolol -Continue or atorvastatin -Continue aspirin -Most recent echocardiogram from 08/22/2023 shows elevated right ventricular systolic pressures at 72 mmHg with a normal EF -Will restart Lasix once renal function recovers 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 twice daily as an outpatient by his speech therapy teacher -Will restart doxycycline and discontinue Zosyn and have him complete the course at discharge DVT prophylaxis -Continue subcu heparin 5000 units 3 times daily Charges/Coding Visit Charges Inpatient E&M: 99550 Subs Hosp L2
[2023-10-16 17:21] LABS: Bedside Glucose 342 mg/dL (74-106)
[2023-10-16 17:21] LABS: Bedside Glucose 236 mg/dL (74-106)
[2023-10-16] MEDS: Atorvastatin Calcium 40 MG Tablet PO (21:23)
[2023-10-16] MEDS: Doxycycline 100 MG CAPSULE PO (21:25)
[2023-10-16] MEDS: Insulin Glargine-YFGN 100 UNIT/ML Pen 15 UNIT SC (21:29)
[2023-10-17] VITALS (16 sets, daily range): BP systolic 149–189; BP diastolic 56–82; PULSE 79–94; RESP 16–32; TEMP 36.3–36.7; O2SAT 94–98
[2023-10-17 00:27] LABS: Bedside Glucose 351 mg/dL (74-106)
[2023-10-17] MEDS: Heparin Injection (Vial) 5,000 UNIT/ML VIAL 5000 UNIT SC ×3 (06:52→22:44)
[2023-10-17] MEDS: Metoprolol Tartrate 25 MG Tablet PO ×2 (06:56→22:48)
[2023-10-17] MEDS: Insulin Lispro 100 UNIT/ML INSULN.PEN SC ×4 (06:58→22:51)
[2023-10-17] MEDS: Ipratropium/Albuterol Sulfate 3 ML AMPUL.NEB INHALATION ×4 (07:08→19:35)
[2023-10-17 07:19] LABS: Bedside Glucose 172 mg/dL (74-106)
[2023-10-17 07:43] LABS: ALB/GLOB Ratio 0.7 RATIO (0.9-2.4); AST(SGOT) 39 U/L (15-37); Alanine Aminotransfer ALT/SGPT 39 U/L (16-61); Albumin, Serum 2.3 g/dL (3.2-5.0); Alkaline Phosphatase 117 U/L (45-117); Anion Gap 6 (5-15); BUN 39 mg/dL (7-18); BUN/Creat Ratio 18.6 RATIO (10-20); Calcium,Total 8.1 mg/dL (8.5-10.1); Chloride 109 mmol/L (98-107); EST Glomerular Filtration Rate 32 mL/min (>60); Est Glom Filt Rate - Afr Amer 39 mL/min (>60); Estimated Creatinine Clearance 24.97 ml/min; Globulin 3.5 g/dL (2.2-4.2); Glucose 173 mg/dL (74-106); Phosphorus 2.8 mg/dL (2.5-4.9); Potassium 4.3 mmol/L (3.5-5.1); Protein, Total 5.8 g/dL (6.4-8.2); Sodium Level 141 mmol/L (136-145)
[2023-10-17] MEDS: Aspirin E.C. 81 MG Tablet PO (08:13)
[2023-10-17] MEDS: Menthol/Lanolin/Calamine/Znox 113 GM Tube 1 APPLIC TOPICAL ×2 (08:14→22:48)
[2023-10-17] MEDS: Doxazosin 4 MG Tablet PO (08:14)
[2023-10-17] MEDS: Multivitamins,Therapeutic Tablet 1 TABLET PO (08:14)
[2023-10-17] MEDS: Nystatin Powder 15gm Bottle 1 APPLIC TOPICAL ×2 (08:15→22:52)
[2023-10-17] MEDS: Polyethylene Glycol 3350 17 GM PACKET PO (08:15)
[2023-10-17] MEDS: Cilostazol 50 MG Tablet 100 MG PO ×2 (08:16→22:47)
[2023-10-17] MEDS: guaiFENesin 600 MG Tablet PO ×2 (08:16→22:48)
[2023-10-17] MEDS: Doxycycline 100 MG CAPSULE PO ×2 (08:19→22:48)
[2023-10-17 08:29] LABS: Hematocrit 23.7 % (40-54); Hemoglobin 7.5 g/dL (13.0-16.5); Mean Corp Hgb Conc 31.6 g/dL (32-36); Mean Corpuscular Hgb 30.6 pg (27.0-32.0); Mean Corpuscular Volume 96.7 fL (80-94); Mean Platelet Vol. 11.3 fl (6.2-12.0); Platelet Count 132 K/mm3 (150-450); RBC Distribution Width SD 53.8 fl (35.1-43.9); Red Blood Count 2.45 M/mm3 (4.6-6.2)
--- NOTE | 2023-10-17 09:57 | CASEMGMT ---
Addendum entered by Sondra Link 10/17/23 14:33: Received vm from LAWANDA Simmons from [facility]. TC to Iris, left david requesting returned call. Addendum entered by Sondra Link 10/17/23 12:17: Received tc from Jenniffer at [facility] who states they are unable to accept pt back for services. She states [facility] [place] CM called with concerns of pt returning home as well. Updated SW regarding situation. Addendum entered by Sondra Link 10/17/23 10:12: RN CM into pt room, pt sitting up in chair. Pt confirms he wants to be dc'd home to his with his HH resuming. Pt states he needs transportation home. Dovetailer called [facility], they do not have time to transport pt today. Addendum entered by Sondra Link 10/17/23 09:59: Pt does not qualify for home oxygen. Original Note: Update to [facility] via [facility] that plan is for pt to dc home today.
[2023-10-17] MEDS: hydrALAZINE 50 MG Tablet PO ×3 (10:31→22:47)
[2023-10-17 12:21] LABS: Bedside Glucose 298 mg/dL (74-106)
--- NOTE | 2023-10-17 12:35 | CASEMGMT ---
Discharge Planning A list of SNF providers including quality and resource use data and consistent with the patient's preferred geographic region, medical needs, and insurance network was created in CarePort Guide.? This list was provided to the RN LAWANDA. Leeanne Herndon, Discharge Planning Asst.
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
[2023-10-17 16:44] LABS: Bedside Glucose 364 mg/dL (74-106)
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
--- NOTE | 2023-10-17 17:02 | CASEMGMT ---
Social Work- called [facility] and left for Deidra and Cinthia, previously noted contacts. SALVATORE Martinez
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
[2023-10-17] MEDS: 0.9% Saline Lock 10 ML Syringe IV (22:42)
[2023-10-17] MEDS: Atorvastatin Calcium 40 MG Tablet PO (22:47)
[2023-10-17] MEDS: Insulin Glargine-YFGN 100 UNIT/ML Pen 25 UNIT SC (22:50)
[2023-10-17 23:13] LABS: Bedside Glucose 327 mg/dL (74-106)
[2023-10-18] VITALS (9 sets, daily range): BP systolic 145–159; BP diastolic 65–84; PULSE 72–88; RESP 19–24; TEMP 36.4–36.8; O2SAT 93–96
[2023-10-18] MEDS: hydrALAZINE 50 MG Tablet PO ×2 (05:51→13:50)
[2023-10-18] MEDS: Heparin Injection (Vial) 5,000 UNIT/ML VIAL 5000 UNIT SC ×2 (05:51→13:50)
[2023-10-18] MEDS: Insulin Lispro 100 UNIT/ML INSULN.PEN SC ×2 (06:43→11:08)
[2023-10-18 06:56] LABS: Anion Gap 3 (5-15); BUN 33 mg/dL (7-18); BUN/Creat Ratio 18.4 RATIO (10-20); Calcium,Total 8.4 mg/dL (8.5-10.1); Chloride 110 mmol/L (98-107); Creatinine, Serum 1.79 mg/dL (0.70-1.30); EST Glomerular Filtration Rate 39 mL/min (>60); Est Glom Filt Rate - Afr Amer 47 mL/min (>60); Glucose 192 mg/dL (74-106); Potassium 4.4 mmol/L (3.5-5.1); Sodium Level 140 mmol/L (136-145)
[2023-10-18] MEDS: Ipratropium/Albuterol Sulfate 3 ML AMPUL.NEB INHALATION ×2 (06:59→11:15)
[2023-10-18 07:01] LABS: Bedside Glucose 194 mg/dL (74-106)
[2023-10-18] MEDS: Menthol/Lanolin/Calamine/Znox 113 GM Tube 1 APPLIC TOPICAL (08:55)
[2023-10-18] MEDS: Nystatin Powder 15gm Bottle 1 APPLIC TOPICAL (08:56)
[2023-10-18] MEDS: Insulin Lispro 100 UNIT/ML INSULN.PEN 10 UNIT SC ×2 (08:57→11:08)
[2023-10-18] MEDS: Cilostazol 50 MG Tablet 100 MG PO (09:00)
[2023-10-18] MEDS: guaiFENesin 600 MG Tablet PO (09:00)
[2023-10-18] MEDS: Aspirin E.C. 81 MG Tablet PO (09:00)
[2023-10-18] MEDS: Doxycycline 100 MG CAPSULE PO (09:00)
[2023-10-18] MEDS: Multivitamins,Therapeutic Tablet 1 TABLET PO (09:01)
[2023-10-18] MEDS: Doxazosin 4 MG Tablet PO (09:01)
[2023-10-18] MEDS: Metoprolol Tartrate 25 MG Tablet PO (09:01)
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
[2023-10-18 09:45] LABS: Pathologist Review Reviewed
[2023-10-18 09:46] LABS: Pathologist Review Reviewed
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
--- NOTE | 2023-10-18 10:31 | CASEMGMT ---
Addendum entered by Radhika Toney 10/18/23 11:07: Social Work- SW spoke with Gurmeet who is agreeable to picking up pt and will be here around 2 or later. JEAN CARLOS advised physician of need for d/c by 2. SW updated pt. SW inquired about assisting pt with MOW, medical alert, or connections to any other community agencies. Pt declined. SALVATORE Martinez Original Note: Social Work- SW met with pt to discuss HHC. When SW entered the room, pt was sitting in chair with blanket draped over his head. Pt reports he was sleeping. A list of HHC providers including quality and resource use data and consistent with the patient?s preferred geographic region, medical needs, and insurance network were provided from the [employer] Guide. Pt reported that he had no preference and a random selection was made for [facility], which SW advised RNCM for referral for. Pt reports that Dr Suazo is PCP and that he just saw her last week. When JEAN CARLOS asked if he planned to continue care under Dr Suazo, pt affirmed desire to continue to see PCP and asked why wouldn't I?. SW asked pt if Gurmeet would be an option for transport home. Pt reported that he is in agreement to SW calling Gurmeet for transport. SW left a voicemail for Gurmeet. Plan: Home w/HHC SALVATORE Martinez
--- NOTE | 2023-10-18 11:13 | DS.PCM_ITS ---
Providers Date of Admission: 10/13/23 Date of Discharge: 10/18/23 Primary Care Physician: Dr. Agnes Suazo MD Reason For Visit: ACUTE INFLUENZA A, RESP INSUFFICIENCY, HYPOGLYCEMI Diagnosis Discharge Diagnosis (1) Right foot infection: Status: Acute Code(s): L08.9 - Local infection of the skin and subcutaneous tissue, unspecified (2) RASHMI (acute kidney injury): Status: Acute Code(s): N17.9 - Acute kidney failure, unspecified (3) Influenza A: Status: Acute Code(s): J10.1 - Influenza due to other identified influenza virus with other respiratory manifestations (4) Hypoglycemia due to type 2 diabetes mellitus: Status: Acute Code(s): E11.649 - Type 2 diabetes mellitus with hypoglycemia without coma Plan Acute hypoxia secondary to influenza A -Hypoxia has resolved and patient is stable on room air with an oxygen saturation of 97% -Stable on RA -Continue DuoNebs scheduled and as needed -Continue Mucinex -Start I-S and Acapella RASHMI on CKD stage IIIb -Baseline serum creatinine appears to run between 1.3 and 1.6 -Current serum creatinine is 2.10 -improving -will continue to hold lasix -BMP in am -Nephrotoxic medications have been adjusted or discontinued Leukopenia/thrombocytopenia -Both are mild and stable -Likely related to viral illness -Would recommend follow-up CBC in 1 to 2 weeks after discharge Chronic anemia -Hemoglobin is currently stable -No signs of acute bleeding -Continue to monitor with repeat CBC in a.m. DM-2 with hyperglycemia -Hypoglycemia has resolved -home lantus is 30--> increase dose to 25 u tonight and reassess in am -AM fasting blood sugar up to 173 -Will likely need to alter at discharge -Hold home prandial insulin for now and continue sliding scale -At baseline patient takes 10 units 3 times daily--> may need to alter discharge depending on blood sugar Essential hypertension/HPL/chronic diastolic heart failure -continue to hold lasix for now -Continue metoprolol -BP still elevated so add hydralazine 50 TID -Continue or atorvastatin -Continue aspirin -Most recent echocardiogram from 08/22/2023 shows elevated right ventricular systolic pressures at 72 mmHg with a normal EF -Will restart Lasix once renal function completely recovers 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 twice daily as an outpatient by his health and safety inspector -continue doxy DVT prophylaxis -Continue subcu heparin 5000 units 3 times daily Medications at Discharge Home Medications metoprolol tartrate 25 mg tablet 25 mg PO BID BLOOD PRESSURE 02/26/14 multivitamin with folic acid 400 mcg tablet 1 tab PO DAILY HEALTH MAINTENANCE 02/26/14 aspirin 81 mg tablet,delayed release 81 mg PO DAILY HEART HEALTH 04/13/20 atorvastatin 40 mg tablet 40 mg PO DAILY CHOLESTEROL 05/31/23 doxazosin 4 mg tablet 2 mg PO DAILY BLOOD PRESSURE 08/22/23 acetaminophen 325 mg tablet 650 mg (2 x 325 mg) PO Q6H PRN PRN Pain 1-10 Or Fever >100.7 #0 tabs 08/26/23 cilostazol 100 mg tablet 100 mg PO BID 10/09/23 doxycycline hyclate 100 mg capsule 100 mg PO BID 10/09/23 famotidine 20 mg tablet 20 mg PO DAILY PRN GERD 10/09/23 furosemide 20 mg tablet (Lasix) 20 mg PO DAILY #5 tabs 10/09/23 insulin glargine-yfgn 100 unit/mL (3 mL) subcutaneous pen 30 unit subcut QHS 10/13/23 insulin lispro 100 unit/mL subcutaneous pen (Humalog KwikPen (U-100) Insulin) 10 unit subcut .TIDAC 10/13/23 hydralazine 25 mg tablet 75 mg (3 x 25 mg) PO TID #270 tabs 10/18/23 Hospital Course Procedures EKG and - (CT brain/CT chest/chest x-ray) Summary of Care Provided Minutes Spent on Discharge: 38 Hospital Course: Mr. Teran is an 82-year-old white male who presented to the emergency department [facility] on 10/13/2019 for due to fever, shortness of breath, cough and chills. His blood sugar was also found to be low at 46 mg/dL. His symptoms began about 1 to 2 days prior to admission and were of gradual onset. Symptoms started as gradually progressing shortness of breath and dyspnea on exertion that progressed to shortness of breath at rest as well as rhinorrhea and generalized weakness. He then evidently spiked a temperature and developed a congested cough with some labored respirations so his called EMS to bring him into the emergency department for evaluation. In the emergency department he was found to have a fever 101.4 and his viral assay resulted positive for influenza A. Vital signs otherwise on admission showed heart rate of 102, respiratory rate 30, blood pressure 157/79 and oxygen saturation was 96% on room air. CBC at the time of admission showed normal white count with a chronic stable anemia and normal platelet count however he did have a left shift with an 87.6% neutrophilia. Throughout his hospital course his neutrophilia resolved but he also developed some leukopenia. His chemistry panel on presentation demonstrated normal electrolytes with a BUN of 33 and a serum creatinine of 1.68. Unfortunately his serum creatinine trended up with time to a peak of 2.45 today. He was on Tamiflu and diuretics and these were discontinued with a trend up of his serum creatinine. (Baseline serum creatinine seems to run between 1.3 and 1.6) CT of the chest was unremarkable. CT of the brain showed chronic small vessel ischemic changes in the deep white matter. Initially his Lasix was held however his creatinine trended up slightly despite this so we did give 1 L IV fluids which resulted in improvement in his renal function. At the time of discharge his serum creatinine was back down to 1.79. I will have him hold his Lasix for another couple days and have instructed him to restart his Lasix on Monday. His blood pressure was markedly elevated throughout his stay despite being on his home metoprolol. We did add hydralazine 75 mg 3 times daily at the time of discharge. With this adjustment his blood pressures while hospitalized were much improved. Prescription was sent to local pharmacy prior to discharge. Physical and Occupational Therapy evaluated the patient while he was hospitalized and recommended ongoing rehab at the time of discharge. Both the patient and his declined him going anywhere for more rehab but were accepting of home health at the time of discharge and he will continue with home health at that time. No new medication changes were made other than above. He is to continue his doxycycline as previously prescribed. He was able to be discharged home with home health care in stable condition on 10/18/2023. I have asked that he follow-up with his primary care physician in 1 week. Discharge diagnoses: Acute hypoxia secondary to influenza A Influenza A RAHSMI-resolved CKD stage IIIb Leukopenia Thrombocytopenia Chronic anemia Hypoglycemia-resolved DM-2 Essential hypertension Hyperlipidemia Chronic diastolic heart failure BPH with obstruction GERD Diabetic foot wound Physical Exam Narrative Patient states he is feeling well and anxious to go home. Const alert, oriented x3, no apparent distress and well nourished; Negative for average body habitus or healthy appearing Constitutional Narrative: Obese, elderly, extremely hard of hearing, white male, sitting up in a chair at the bedside, watching TV, appears comfortable, nontoxic General Appearance: cooperative, comfortable, well kempt and well developed Orientation / Consciousness: awake, oriented to person, oriented to place and oriented to time Exam Limitations: no limitations Nutritional Appearance: obese HEENT normocephalic, head/scalp atraumatic, hearing grossly normal bilaterally and moist oral mucous membranes HEENT Narrative: Dentition is poor, Mallampati is 2, no thrush Eyes PERRL and EOMs intact bilaterally; Negative for conjunctivae normal Eyes Narrative: Mild conjunctival pallor noted, no scleral icterus Neck no lymphadenopathy and supple Neck Narrative: Trachea midline, no thyroid enlargement noted Resp normal respiratory effort, no retractions, no use of accessory muscles and clear to auscultation bilaterally Auscultation: Negative for rales, rhonchi or wheezes Cardio regular rate, regular rhythm, S1 normal heart sound, S2 normal heart sound, no murmurs, no rub, no gallops and no clicks GI normal to inspection, nondistended, normoactive bowel sounds, soft to palpation and non-tender Extremity no clubbing, cyanosis or edema Extremity Narrative: Chronic lower extremity edema that is trace noted, pitting, skin lower extremities indicative of chronic venous stasis, no significant wounds noted Skin no rashes or lesions noted, skin turgor normal and no jaundice Neuro oriented x3, moves all extremities and no focal motor deficits Speech: speech normal Psych Psych Narrative: very pleasant, interacts appropriately Weight / BMI Weight Weight: 77.4 kg Body Mass Index (BMI) 30.2 ABG / Lab / Microbiology Data 10/17/23 06:27 10/18/23 04:50 Laboratory: Laboratory Results - last 24 hr 10/15/23 06:36: Diff Path Review Reviewed 10/16/23 05:20: Diff Path Review Reviewed 10/17/23 11:47: POC Glucose 298 H 10/17/23 16:25: POC Glucose 364 H 10/17/23 22:41: POC Glucose 327 H 10/18/23 04:50: Sodium 140, Potassium 4.4, Chloride 110 H, Carbon Dioxide 27.0, Anion Gap 3 L, BUN 33 H, Creatinine 1.79 H, Estim Creat Clear Calc 29.30, Est GFR (MDRD) Af Amer 47 L, Est GFR (MDRD) Non-Af 39 L, BUN/Creatinine Ratio 18.4, Glucose 192 H, Calcium 8.4 L 10/18/23 06:42: POC Glucose 194 H Microbiology: Microbiology 10/12/23 22:58 Mucosa - Nose SARS-CoV-2, Influenza & RSV (PCR) - Final Influenzae A D/C Instructions Discharge Diet: Low fat / Low cholesterol and 1800 Calorie Control Diet Meaningful Use Info Meaningful Use Meaningful Use Diagnoses (Choose all that apply): None applicable Ischemic Stroke Statin Dosing Therapy Reference: STATIN DOSE THERAPY REFERENCE: * Patients > 75 years receive moderate or high dose statin therapy. * Patients 75 years or YOUNGER should receive HIGH intensity statin dose unless contraindicated. You will be required to document reason for non-treatment if statin daily dose does not meet guidelines. HIGH DOSE STATIN THERAPY DAILY Atorvastatin > than or = to 40 mg Rosuvastatin > than or = to 20 mg Amlodipine + Atorvastatin > than or = to 2.5/40 mg Ezetimibe + Simvastatin 10/80 mg Simvastatin 80mg Discharge Plan Admission Admit Date/Time: 10/13/23 00:28 Primary Reason for Your Visit: Fever/shortness of breath/cough Attending Provider: Pretty Gallo Primary Care Provider: Agnes Suazo Consulting Providers: Joel Gaston; Steven Polk Discharge Orders/Prescriptions Prescriptions: New hydralazine 25 mg tablet 75 mg PO TID Qty: 270 0RF Continued aspirin 81 mg tablet,delayed release (DR/EC) 81 mg PO DAILY famotidine 20 mg tablet 20 mg PO DAILY PRN (Reason: GERD) cilostazol 100 mg tablet 100 mg PO BID doxycycline hyclate 100 mg capsule 100 mg PO BID Patient Comments: 14 days foot metoprolol tartrate 25 MG tablet 25 mg PO BID multivitamin with folic acid 1 TABLET tablet 1 tab PO DAILY doxazosin 4 mg tablet 2 mg PO DAILY acetaminophen 325 mg Tablet 650 mg PO Q6H PRN PRN (Reason: Pain 1-10 Or Fever >100.7) Qty: 0 0RF atorvastatin 40 mg tablet 40 mg PO DAILY insulin lispro [Humalog KwikPen Insulin] 100 unit/mL insulin pen 10 unit subcut .TIDAC insulin glargine-yfgn 100 unit/mL (3 mL) Insulin Pen 30 unit subcut QHS Held furosemide [Lasix] 20 mg tablet 20 mg PO DAILY Qty: 5 0RF Hold Instructions: Resume on 10/21/23. Referrals / Follow Up: Agnes Suazo MD [Primary Care Provider] - Within 1 Week (Please call to set up an appointment to be seen) Disposition Disposition (needs filled in before D/C Order can be placed): Home Health Service Charges/Coding Visit Charges Inpatient E&M: 00745 Disch Hosp >30min
[2023-10-18 11:28] LABS: Bedside Glucose 251 mg/dL (74-106)
--- NOTE | 2023-10-18 13:25 | CASEMGMT ---
Social Work- SW received a call from TUSHAR Ozuna case aide. SW returned call and left a voicemail. SALVATORE Martinez
--- NOTE | 2023-10-18 13:54 | CASEMGMT ---
Social Work- SW spoke with pt , Berenice. SW shared the new [facility] agency and that Dr Suazo will continue to follow pt, as no traveling nurses are available for the area. Pt declines MOW and medical alert. Pt states that she has not eaten yet today; no food sounds good. Pt reports that she has issues with defecation prior to making it to the bathroom. Pt states that it happens multiple times per day. Pt states that she will not seek a dr to follow for this issue. Pt states she enjoys fast food, but often doesn't think food at home sounds good. Pt refused pentecostal meals suggestions. Pt discussed working on Fridays; SW encouraged pt to make time for self and discussed caregiver burnout and suggested day programs. Pt declined. Pt reports that she feels comfortable leaving him alone. Pt declined any other resources in the community including additional assistance in the home. Plan: home w/ [facility] SALVATORE Pal
--- NOTE | 2023-10-18 14:48 | CASEMGMT ---
Social Work- SW spoke with LAWANDA Ozuna. Sulma reports that she has a long standing relationship with the [facility]. Sulma reports that pt does not allow her to speak to pt, but is generally agreeable to communication with her. Sulma reports that she has increasingly significant concerns and has worked with [facility] as well. Sulma reports she believes [facility] has an open case; JEAN CARLOS shared that there is not an open case as reported to SW by [facility]. Sulma reports that pt refuses all services recommended or suggested. Sulma will continue to follow and share concerns with [facility]. SALVATORE Pal
--- NOTE | 2023-10-18 15:41 | CASEMGMT ---
Social Work- SW called and left a voicemail for Gurmeet to confirm mixing picker tender, as it was past the time Gurmeet had indicated. SALVATORE Martinez
--- NOTE | 2023-10-18 15:44 | PHA.DC_ITS ---
Pharmacy [facility] has performed discharge medication reconciliation and counseling for this patient. 1. HYDRALAZINE 75MG PO TID 2. HOLD FUROSEMIDE UNTIL 10/20 The patient's discharge medication list was reviewed for discrepancies and discrepancies were resolved. The patient was counseled on the following discharge medications and changes in medications for homegoing were reviewed. The Reason for Use, instructions for use, and potential side effects were reviewed for all new medications. The patient's questions regarding all of their medications were answered. The patient demonstrated some understanding but would benefit from further education and reinforcement. Medications at Discharge Home Medications metoprolol tartrate 25 mg tablet 25 mg PO BID BLOOD PRESSURE 02/26/14 multivitamin with folic acid 400 mcg tablet 1 tab PO DAILY HEALTH MAINTENANCE aspirin 81 mg tablet,delayed release 81 mg PO DAILY HEART HEALTH 04/13/20 atorvastatin 40 mg tablet 40 mg PO DAILY CHOLESTEROL 05/31/23 doxazosin 4 mg tablet 2 mg PO DAILY BLOOD PRESSURE 08/22/23 acetaminophen 325 mg tablet 650 mg (2 x 325 mg) PO Q6H PRN PRN Pain 1-10 Or Fever >100.7 #0 tabs 08/26/23 cilostazol 100 mg tablet 100 mg PO BID 10/09/23 doxycycline hyclate 100 mg capsule 100 mg PO BID 10/09/23 famotidine 20 mg tablet 20 mg PO DAILY PRN GERD 10/09/23 furosemide 20 mg tablet (Lasix) 20 mg PO DAILY #5 tabs 10/09/23 insulin glargine-yfgn 100 unit/mL (3 mL) subcutaneous pen 30 unit subcut QHS 10/13/23 insulin lispro 100 unit/mL subcutaneous pen (Humalog KwikPen (U-100) Insulin) 10 unit subcut .TIDAC 10/13/23 hydralazine 25 mg tablet 75 mg (3 x 25 mg) PO TID #270 tabs 10/18/23
--- NOTE | 2023-10-19 16:27 | CASEMGMT ---
Social Work- SW called Dr Suazo's office to share d/c and pass on [facility] contact points. SALVATORE Martinez
== END 2023-10-18 16:16 | disposition home health service (06) | DRG 193 ==
LOC: ED 10-13 00:13 → MS3 10-13 00:46
PROVIDERS: Family Medicine; Admitting Provider Internal Medicine; Emergency Provider Emergency Medicine; PCP Internal Medicine; Visit Provider Internal Medicine
DX: J10.1 Influenza due to other identified influenza virus with other respiratory manifestations (principal); G93.41 Metabolic encephalopathy; N17.9 Acute kidney failure, unspecified; I13.0 Hypertensive heart and chronic kidney disease with heart failure and stage 1 through stage 4 chronic kidney disease, or unspecified chronic kidney disease; N13.8 Other obstructive and reflux uropathy; I50.32 Chronic diastolic (congestive) heart failure; D63.1 Anemia in chronic kidney disease; E11.22 Type 2 diabetes mellitus with diabetic chronic kidney disease; N18.32 Chronic kidney disease, stage 3b; D69.59 Other secondary thrombocytopenia; E66.9 Obesity, unspecified; K21.9 Gastro-esophageal reflux disease without esophagitis; E78.5 Hyperlipidemia, unspecified; Z79.4 Long term (current) use of insulin; E83.42 Hypomagnesemia; G47.33 Obstructive sleep apnea (adult) (pediatric); I25.10 Atherosclerotic heart disease of native coronary artery without angina pectoris; E11.65 Type 2 diabetes mellitus with hyperglycemia; N40.1 Benign prostatic hyperplasia with lower urinary tract symptoms; R09.02 Hypoxemia; Z63.0 Problems in relationship with spouse or partner; Z68.31 Body mass index [BMI] 31.0-31.9, adult; Z79.01 Long term (current) use of anticoagulants; Z79.82 Long term (current) use of aspirin; Z79.899 Other long term (current) drug therapy; Z87.820 Personal history of traumatic brain injury
CPT/HCPCS: 36415; 36600; 70450; 71045; 71250; 80048; 80053; 80061; 80307; 82077; 82607; 82746; 82803; 82962; 83036; 83735; 83880; 84100; 84443; 85025; 85027; 87631; 94640; 94668; 97110; 97116; 97162; 97166; 97530; 97535; 99283; J7120; A4216; J1940; J2405

== ENCOUNTER → 2023-11-30 | Outpatient (CLI) | payer MEDICARE, SELFPAY ==
[2023-11-30 18:29] LABS: ALB/GLOB Ratio 0.8 RATIO (0.9-2.4); AST(SGOT) 7 U/L (15-37); Alanine Aminotransfer ALT/SGPT 18 U/L (16-61); Albumin, Serum 3.1 g/dL (3.2-5.0); Alkaline Phosphatase 119 U/L (45-117); Anion Gap 5 (5-15); BUN 36 mg/dL (7-18); BUN/Creat Ratio 26.9 RATIO (10-20); Calcium,Total 9.3 mg/dL (8.5-10.1); Chloride 110 mmol/L (98-107); Creatinine, Serum 1.34 mg/dL (0.70-1.30); EST Glomerular Filtration Rate 54 mL/min (>60); Est Glom Filt Rate - Afr Amer 66 mL/min (>60); Glucose 142 mg/dL (74-106); Potassium 3.8 mmol/L (3.5-5.1); Protein, Total 7.1 g/dL (6.4-8.2); Sodium Level 141 mmol/L (136-145)
[2023-11-30 18:51] LABS: Absolute Lymphocyte Count 0.82 X10^3/uL (0.83-4.51); Basophil# 0.01 X10^3/uL; Basophil% 0.2 % (0-1); Eosinophil# 0.09 X10^3/uL; Hematocrit 27.6 % (40-54); Lymphocyte # 0.82 X10^3/ul (0.83-4.51); Lymphocyte % 18.6 % (19-41); Mean Corp Hgb Conc 32.6 g/dL (32-36); Mean Corpuscular Hgb 30.4 pg (27.0-32.0); Mean Corpuscular Volume 93.2 fL (80-94); Mean Platelet Vol. 11.6 fl (6.2-12.0); Monocyte# 0.43 X10^3/uL; Monocyte% 9.8 % (0-10); NRBC Flagged by Analyzer 0 % (0-5); Neutrophil # 3.04 X10^3/uL (2.7-7.7); Neutrophil % 68.9 % (47-70); Platelet Count 179 K/mm3 (150-450); RBC Distribution Width CV 13.8 % (11.6-14.6); RBC Distribution Width SD 46.6 fl (35.1-43.9); Red Blood Count 2.96 M/mm3 (4.6-6.2); White Blood Count 4.4 K/mm3 (4.4-11.0)
[2023-11-30 19:22] LABS: Hemoglobin A1c 8.4 % (3.8-5.6)
== END | disposition home or self-care (01) ==
LOC: MFPLAB 16:37
PROVIDERS: PCP Family Medicine; Visit Provider Family Medicine
DX: I10 Essential (primary) hypertension (principal); E11.9 Type 2 diabetes mellitus without complications
CPT/HCPCS: 36415; 80053; 83036; 84443; 85025

== ENCOUNTER → 2024-01-04 | Outpatient (CLI) | payer MEDICARE, SELFPAY ==
[2024-01-04 16:33] LABS: Absolute Lymphocyte Count 0.76 X10^3/uL (0.83-4.51); Absolute Neutrophil Count 4.6 X10^3/uL (2.0-7.7); Basophil# 0.03 X10^3/uL; Basophil% 0.5 % (0-1); Eosinophil# 0.15 X10^3/uL; Eosinophils% 2.5 % (0-5); Hematocrit 31.5 % (40-54); Hemoglobin 10.2 g/dL (13.0-16.5); Lymphocyte # 0.76 X10^3/ul (0.83-4.51); Lymphocyte % 12.6 % (19-41); Mean Corp Hgb Conc 32.4 g/dL (32-36); Mean Corpuscular Hgb 29.9 pg (27.0-32.0); Mean Corpuscular Volume 92.4 fL (80-94); Mean Platelet Vol. 11.4 fl (6.2-12.0); Monocyte# 0.49 X10^3/uL; Monocyte% 8.1 % (0-10); NRBC Flagged by Analyzer 0 % (0-5); Neutrophil # 4.57 X10^3/uL (2.7-7.7); Platelet Count 229 K/mm3 (150-450); RBC Distribution Width CV 13.7 % (11.6-14.6); RBC Distribution Width SD 46.1 fl (35.1-43.9); Red Blood Count 3.41 M/mm3 (4.6-6.2)
== END | disposition home or self-care (01) ==
LOC: MFPLAB 12:27
PROVIDERS: PCP Family Medicine; Visit Provider Family Medicine
DX: D64.9 Anemia, unspecified (principal)
CPT/HCPCS: 36415; 85025

== ENCOUNTER → 2024-10-30 | Outpatient (CLI) | payer MEDICARE, SELFPAY ==
--- NOTE | 2024-10-30 14:30 | RAD_ITS ---
PROCEDURE: ELBOW MIN 3 VIEWS 10/30/2024 REASON FOR EXAM: PAIN, FALL TECHNIQUE: Procedure Code: RADEL Modality: DX Procedure: ELBOW MIN 3 VIEWS Laterality: Left COMPARISON: None FINDINGS: Bones: Nondisplaced fracture left lateral supracondylar aspect of the distal humerus. Joints: Anterior joint effusion. No dislocation. Soft tissues: Soft tissue swelling about the elbow. Other: No foreign body RAD/Elbow min 3 Views IMPRESSION: Supracondylar aspect of the distal humerus shows a nondisplaced fracture. Join t effusion, soft tissue swelling. Reading Location: [id number]
== END | disposition home or self-care (01) ==
LOC: MTRAD 14:30
PROVIDERS: PCP Family Medicine; Referring Provider Nurse Practitioner Family; Visit Provider Nurse Practitioner Family
DX: M25.522 Pain in left elbow (principal)
CPT/HCPCS: 73080